=== PATIENT | male | born 1945 | race Caucasian/White ===

== ENCOUNTER 2016-10-14 18:15 | Observation (INO) | payer MEDICARE, OTHER ==
[2016-10-15 00:19] LABS: Urine Bilirubin Negative (Negative); Urine Glucose 3+(>=500 mg/dL) (Negative); Urine Nitrite Negative (Negative)
[2016-10-15 00:20] LABS: Hematocrit 36 % (42-52); Hemoglobin 11.8 g/dl (14.0-18.0); Mean Corpuscular HGB Conc 33 g/dl (31-36); Mean Corpuscular Hemoglobin 29 pg (27-31); Mean Corpuscular Volume 90 fL (80-94); Mean Platelet Volume 9 um3 (7.4-10.4); Red Blood Count 4.05 10^6/ul (4.0-5.4); Red Cell Distribution Width 14 % (10.5-15); White Blood Count 11.4 10^3/ul (3.5-10.8)
[2016-10-15 00:22] LABS: Albumin 3.9 g/dL (3.2-5.2); BUN/Creatinine Ratio 21.8 (8-20); Calcium 9.4 mg/dL (8.6-10.3); EGFR African American 44.5 (>60); EGFR Non-African American 34.6 (>60); Potassium 3.9 mmol/L (3.5-5.0); Total Bilirubin 0.3 mg/dL (0.2-1.0); Total Protein 7.9 g/dL (6.4-8.9)
[2016-10-15 00:24] LABS: Troponin I 0.02 ng/mL (<0.04)
[2016-10-15 00:32] LABS: Add Diff/Slide Review? Slide Review Added; Comments Flag Yes
[2016-10-15] MEDS ORDERED: Docusate CAP* 100 MG PO PRN (01:36)
[2016-10-15] MEDS ORDERED: Al Hydrox/Mg Hydrox/Simet LIQ* 30 ML UDC PO PRN (01:36)
[2016-10-15] MEDS ORDERED: Senna TAB PO PRN (01:36)
[2016-10-15] MEDS ORDERED: Ondansetron INJ* 2 MG/ML VIAL IV PRN (01:36)
[2016-10-15] MEDS ORDERED: Acetaminophen TAB* 325 MG PO PRN (01:36)
[2016-10-15] MEDS ORDERED: Dextrose 50% Syringe 50 ML* 25 GM/50 ML SYRINGE IV PUSH PRN (01:38)
--- NOTE | 2016-10-15 03:10 | HP ---
HISTORY AND PHYSICAL: DATE OF ADMISSION: 10/15/16 TIME OF EVALUATION: 0100 hours. PRIMARY CARE PHYSICIAN: Byron Carrillo MD CHIEF COMPLAINT: Weakness. HISTORY OF PRESENT ILLNESS: This is a 71-year-old male with a past medical history of small cell lung carcinoma diagnosed in 2011, status post chemo and radiation, diabetes and hypertension who presented to the emergency room with weakness and inability to stand or sit up. The patient states 3 days ago, he began with flu- like symptoms. He has been in bed most of the day and then today, he noticed he was unable to sit up or stand. He called EMS and was brought to the emergency room for further evaluation. The patient denies any fever. He still has a residual cough. No nausea, vomiting or diarrhea. No chest pain or shortness of breath. No rash. No night sweats and no changes in his weight. He denies any changes in his stool or urinary incontinence. He states he is weak all over. He denies any fall. He denies any urinary symptoms. In the emergency room, the patient had labs done. There was a concern for a spinal cord injury or compression. Dr. Reeves was notified and recommended doing CT with contrast, but nothing emergent to be done with his metastatic disease. However, due to patient's CKD, doing CAT scan with contrast was contraindicated for the risk of contrast-induced nephropathy. The patient in the emergency room had labs. He had a chest x-ray and he was referred to the hospitalist service for further evaluation. PAST MEDICAL HISTORY: 1. Small cell lung carcinoma, status post chemo and radiation, followed by Dr. Estevez. 2. Diabetes. 3. Hypertension. 4. Hyperlipidemia. 5. CKD. 6. Macular degeneration. MEDICATIONS: The patient is unsure of what medication he takes. ALLERGIES: CODEINE. SOCIAL HISTORY: He lives at home with his , Donya, who is his healthcare proxy. He quit smoking 15 years ago. He is unable to tell how much he smoked at that time. No alcohol use. 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 CODE STATUS: Full code. REVIEW OF SYSTEMS: As mentioned in the HPI. FAMILY HISTORY: Reviewed and noncontributory. PHYSICAL EXAMINATION GENERAL: In no acute distress. VITAL SIGNS: Temp 98.2, pulse 87, respiratory rate 18, oxygen saturation is 98 % on room air, blood pressure 148/62. HEENT: Oropharynx: Mucous membranes are moist. Pupils are equal, round, and reactive to light and anicteric. Head normocephalic. NECK: Supple. No lymphadenopathy. No nuchal rigidity. RESPIRATORY: Diminished breath sounds. No wheeze, rhonchi or rales. CARDIAC: Regular rate and rhythm with a systolic murmur. ABDOMEN: Soft, nontender and nondistended. EXTREMITIES: No clubbing, cyanosis or edema. +1 DP. NEUROLOGIC: Cranial nerves II through XII intact. Alert and oriented x3. Negative pronator drift. Patient with equal and symmetric lower and upper muscle strength. He has difficulty sitting up and inability to stand up. ASSESSMENT AND PLAN: This is a 71-year-old male with a past medical history of small cell lung carcinoma, status post chemoradiation who recently had a flu who presents to the emergency room with weakness and inability to stand up. Weakness. Assessment: It is unclear as to the etiology behind his weakness. I wonder if this is deconditioning in the setting of recent flu-like symptoms as there is no significant focal deficits on his exam other than diffuse weakness. His laboratory data is not remarkable either. He does not show any evidence of myositis, which can happen post-influenza. Plan: We will admit him to [address] [place] [address]. There was discussion about getting an MRI with contrast to look for spinal cord compression concerning of mets. I would defer to Oncology consultation to see see if this is indicated. Again, I do not note any deficit other than diffuse weakness and consider Neurology consult as there is concern for other neurologic process considering Gu[place]ain[place], though this does not appear to be that either. We will also order PT consult. CHRONIC MEDICAL PROBLEMS: 1. The patient with diabetes. We will place him on lispro sliding scale and need to obtain his med rec to order his medications accordingly. 2. FEN: We will place him on a diabetic diet. 3. DVT prophylaxis. He scores high risk, placed him on heparin subcu t.i.d. 4. Code status: Full code. TIME SPENT: Greater than 50 minutes was spent doing the history and physical, more than half the time spent in direct patient contact. CC: Byron Carrillo MD * [id number]/[facility] #: [id number] [facility]
[2016-10-15] MEDS ORDERED: Heparin VIAL(*) 5000 UNITS/ML VIAL (FIVE THOUSAND) SUBCUT SCH (06:00)
--- NOTE | 2016-10-15 07:22 | RAD ---
INDICATION: Weakness COMPARISON: Chest x-ray September 23, 2013 TECHNIQUE: Single AP portable view of the chest was obtained. FINDINGS: Image quality is compromised due to the relative inferiority of a portable chest x-ray. There is a right subclavian vein Mediport with the tip in the superior vena cava. The heart and mediastinum exhibit normal size and contour. Along the medial aspect of the left upper lobe there is linear density in the appearance of peribronchial cuffing that is similar in appearance to the previous chest x-ray. Elsewhere the lungs are grossly clear. There is no evidence of a large pleural effusion. Visualized bones are normal for the patient's age. IMPRESSION: No radiographic evidence for acute cardiopulmonary abnormality on this portable chest x-ray.
[2016-10-15 07:28] VITALS: BP 122/69
[2016-10-15] MEDS ORDERED: Insulin LISPRO* 1 UNITS UNIT SUBCUT SCH (07:30)
[2016-10-15] MEDS: Insulin LISPRO* 1 UNITS UNIT SUBCUT SCH ×2 (09:07→09:08)
--- NOTE | 2016-10-15 21:15 | PN ---
Hospitalist Progress Note . HOSPITALIST DISCHARGE NOTE: See dc instructions and summary by me. Patient stable for dc dc instructions reviewed with the patient at the bedside. DC patient home today.
--- NOTE | 2016-10-16 20:04 | DS ---
DISCHARGE SUMMARY: DATE OF ADMISSION: 10/15/16 DATE OF DISCHARGE: 10/15/16 STATUS IN HOSPITAL: Observation. PRIMARY CARE PROVIDER: Byron Carrillo MD, [facility]. PRINCIPAL DISCHARGE DIAGNOSIS: Weakness secondary to prolonged sitting without usual exercise regimen - resolved with hydration and several PT sessions. SECONDARY DIAGNOSES: 1. History of small cell lung carcinoma status post chemo and radiation - followed by Dr. Estevez. 2. Diabetes. 3. Hypertension. 4. Hyperlipidemia. 5. Chronic kidney disease. 6. Macular degeneration. DISCHARGE MEDICATION REGIMEN: Unchanged from admission. HISTORY OF PRESENT ILLNESS: Please see the H and P by Dr. Yesi Heath only hours before this discharge. In brief, Mr. Shah is a 71-year-old man with a history of small cell lung cancer in 2011, status post chemo and radiation as well as a history of diabetes and hypertension, who presented to the emergency room with weakness and inability to stand or sit up. The patient had a recent flu-like illness. The patient was in bed most of the day and then could not get up or stand. There was no nausea, vomiting, or diarrhea. There was poor oral intake. Labs were generally unremarkable. There was initial concern for a neurologic event with the possibility of cancer recurrence and metastases. The patient showed no focality in his neuro exam and the admitting physician was less concerned than the initial ED evaluation. The patient was brought to [address] [place] [address] and was hydrated. He spontaneously improved and was ambulating on the unit by the time I met him early in the morning on 10/15/15. The patient was ready to go home and he was accompanied by his and daughter. The patient has no medication changes intended and can go back to his usual activity. I recommend that he avoid prolonged periods of immobility as he deteriorates and needs PT to recover. He is particularly dependent on the [facility] and I stated that if that closes for some reason, he should find an alternative place to do his daily exercises which greatly benefit him. CONDITION ON DISCHARGE: Stable. CC: Byron Carrillo MD* [id number]/[facility] #: [id number] MTDD
--- NOTE | 2016-10-17 07:50 | ED ---
Courtney Villaseñor Rebecca, scribed for Hira Ellison MD on 10/14/16 at 2216 . Neurological HPI - HPI Summary HPI Summary: Pt is a 71 y/o M BIBA who presents to ED s/p fall c/o lower extremity weakness. LE weakness began gradually "a few days ago," particularly worse todayand has been constant since onset. Pt cannot stand up or bear weight. Sx aggravated and alleviated by nothing. Denies any trauma from fall. Additionally c/o sore throat, nasal congestion, cough, increased urinary frequency. Denies stool incontinence, fever, [place], UE weakness. Pt denies any pain including neck, back UE and abd pain. Pt fell tonight at 1700 and was unable to get up. No PMHx enlarged prostate. PMHx small cell lung CA (last treatment 4 years ago). IF THERE IS ONE, PLEASE SEE DICTATION BY DR. ELLISON FOR FURTHER INFORMATION. - History of Current Complaint Chief Complaint: EDWeakness Stated Complaint: GENERAL WEAKNESS Time Seen by Provider: 10/14/16 21:59 Hx Obtained From: Patient Onset/Duration: Gradual Onset, Started days ago - "a few days ago", Still Present, Worse Since - today Timing: Constant Pain Intensity: 0 Pain Scale Used: 0-10 Numeric Character: Weak - Bilateral LE weakness Aggravating: Nothing Alleviating: Nothing Associated Signs and Symptoms: Positive: Weakness - LE weakness, Sinus Pressure - congestion. Negative: Headache, Pain, Fever, Neck Pain/Stiffness - Allergy/Home Medications Allergies/Adverse Reactions: Allergies Allergy/AdvReac Type Severity Reaction Status Date / Time Codeine Allergy Rash Verified 06/20/16 08:23 PMH/Surg Hx/FS Hx/Imm Hx Endocrine/Hematology History: Reports: Hx Blood Transfusions, Hx Diabetes, Hx Anemia Denies: Hx Anticoagulant Therapy, Hx Systemic Lupus Erythematosus, Hx Thyroid Disease Cardiovascular History: Reports: Hx Hypercholesterolemia, Hx Hypertension, Hx Rheumatic Fever Denies: Hx Aneurysm, Hx Angina, Hx Congenital Heart Disease, Hx Congestive Heart Failure, Hx Deep Vein Thrombosis, Hx Pacemaker/ICD, Other Cardiovascular Problems/Disorders Respiratory History: Reports: Hx Lung Cancer, Hx Pulmonary Embolism, Hx Sleep Apnea, Other Respiratory Problems/Disorders - blood clot in long on coumadin Denies: Hx Asthma, Hx Chronic Obstructive Pulmonary Disease (COPD) GI History: Denies: Other GI Disorders History: Reports: Hx Renal Disease - diabetic related impaired kidney function, Other Problems/Disorders - currently elevated bun/creat Denies: Hx Dialysis Musculoskeletal History: Denies: Hx Rheumatoid Arthritis Sensory History: Reports: Hx Contacts or Glasses, Hx Macular Degeneration - left eye, Hx Hearing Aid, Hx Hearing Problem Opthamlomology History: Reports: Hx Contacts or Glasses, Hx Macular Degeneration - left eye Neurological History: Reports: Hx Seizures, Other Neuro Impairments/Disorders - Past hx seizure activity, no treatment at this time Denies: Hx Dementia Psychiatric History: Reports: Hx Anxiety, Hx Depression Denies: Hx Panic Disorder, Hx Substance Abuse - Cancer History Cancer Type, Location and Year: LUNG- DX 4 YEARS AGO Hx Chemotherapy: Yes Hx Radiation Therapy: Yes - Surgical History Surgery Procedure, Year, and Place: appendectomy age 11, hernia repair , uvula removed r/t [place] apnea [place] - Immunization History Date of Tetanus Vaccine: UNKNOWN Infectious Disease History: No Infectious Disease History: Reports: Hx Shingles Denies: Hx Hepatitis, Hx Human Immunodeficiency Virus (HIV), Traveled Outside the [place] in Last 30 Days - Family History Known Family History: Positive: Cardiac Disease, Other - CA - Social History Occupation: Retired Alcohol Use: Daily Substance Use Type: Reports: None Smoking Status (MU): Former Smoker Type: Cigarettes Have You Smoked in the Last Year: No Review of Systems - ROS Summary Review of Systems Summary: IF THERE IS ONE, PLEASE SEE DICTATION BY DR. ELLISON FOR FURTHER INFORMATION. Negative: Fever Positive: Sore Throat, Other - Nasal congestion Positive: Cough Negative: Abdominal Pain Negative: incontinence Negative: Arthralgia - Denies neck, back or UE pain Positive: Weakness - LE weakness; Denies UE weakness. Negative: Headache All Other Systems Reviewed And Are Negative: Yes Physical Exam - Summary Physical Exam Summary: GENERAL: Awake, alert, oriented, no acute distress, very pleasant, normal phonation HEENT: Head is normocephalic, atraumatic, pupils equal round reactive to light, no photophobia, extraocular muscles intact, no facial droop, anicteric sclera, pink conjunctiva, mucous membranes moist, no erythema, no discharge, no lesions , neck is soft, neck is supple, no carotid bruit , trachea is midline, no JVD CARDIAC: Regular rate and rhythm, S1, S2, no rub, no murmur, no gallop, 2+ radial and pedal pulses bilaterally RESPIRATORY: Clear to auscultation bilaterally with no rales, rhonchi, or wheezes, non-tender ABDOMEN: Bowel sounds positive, no bruit, soft non-tender, no CVA tenderness EXTREMITIES: No edema, warm, dry, moving all extremities in a grossly normal manner NEUROLOGICAL: Cranial nerves II through XII intact, five out of five flexor and extensor strength in upper extremities symmetrically, 2+ DTRs in upper and lower extremities symmetrically, no pronator drift, normal finger nose finger, normal rapid alternating movements, negative Babinski, normal sensation in all extremities, 4/5 hip extensor strength bilaterally in the lower extremities RECTAL: slightly decreased rectal tone IF THERE IS ONE, PLEASE SEE DICTATION BY DR. ELLISON FOR FURTHER INFORMATION. Triage Information Reviewed: Yes Vital Signs On Initial Exam: Initial Vitals Temp Pulse Resp BP Pulse Ox 98.2 F 87 18 148/62 98 10/14/16 19:11 10/14/16 19:11 10/14/16 19:11 10/14/16 19:11 10/14/16 19:11 Vital Signs Reviewed: Yes Diagnostics - Vital Signs Vital Signs Temp Pulse Resp BP Pulse Ox 10/14/16 19:11 98.2 F 87 18 148/62 98 - Laboratory Lab Results: Lab Results 10/14/16 10/14/16 10/14/16 Range/Units 23:55 23:55 23:55 WBC 11.4 H (3.5-10.8) 10^3/ul RBC 4.05 (4.0-5.4) 10^6/ul Hgb 11.8 L (14.0-18.0) g/dl Hct 36 L (42-52) % MCV 90 (80-94) fL MCH 29 (27-31) pg MCHC 33 (31-36) g/dl RDW 14 (10.5-15) % Plt Count 141 L (150-450) 10^3/ul MPV 9 (7.4-10.4) um3 Neut % (Auto) 73.0 (38-83) % Lymph % (Auto) 8.9 L (25-47) % [place] % (Auto) 16.0 H (1-9) % Eos % (Auto) 1.7 (0-6) % Baso % (Auto) 0.4 (0-2) % Absolute Neuts (auto) 8.3 H (1.5-7.7) 10^3/ul Absolute Lymphs (auto) 1.0 (1.0-4.8) 10^3/ul Absolute Monos (auto) 1.8 H (0-0.8) 10^3/ul Absolute Eos (auto) 0.2 (0-0.6) 10^3/ul Absolute Basos (auto) 0 (0-0.2) 10^3/ul Absolute Nucleated RBC 0.02 10^3/ul Nucleated RBC % 0.2 INR (Anticoag Therapy) 0.94 (0.89-1.11) APTT 40.2 H (26.0-36.3) seconds Sodium 128 L (133-145) mmol/L Potassium 3.9 (3.5-5.0) mmol/L Chloride 105 (101-111) mmol/L Carbon Dioxide 22 (22-32) mmol/L Anion Gap 1 L (2-11) mmol/L BUN 42 H (6-24) mg/dL Creatinine 1.93 H (0.67-1.17) mg/dL Est GFR ( Amer) 44.5 (>60) Est GFR (Non-Af Amer) 34.6 (>60) BUN/Creatinine Ratio 21.8 H (8-20) Glucose 283 H (70-100) mg/dL Lactic Acid (0.5-2.0) mmol/L Calcium 9.4 (8.6-10.3) mg/dL Total Bilirubin 0.30 (0.2-1.0) mg/dL AST 17 (13-39) U/L ALT 24 (7-52) U/L Alkaline Phosphatase 94 (34-104) U/L Total Creatine Kinase 49 (10-223) U/L CK-MB (CK-2) 2.1 (0.6-6.3) ng/mL Myoglobin 105.3 (17.4-105.7) ng/mL Troponin I 0.02 (<0.04) ng/mL B-Natriuretic Peptide ( - 100) pg/mL Total Protein 7.9 (6.4-8.9) g/dL Albumin 3.9 (3.2-5.2) g/dL Globulin 4.0 (2-4) g/dL Albumin/Globulin Ratio 1.0 (1-3) Urine Color Urine Appearance Urine pH (5-9) Ur Specific [place] (1.010-1.030) Urine Protein (Negative) Urine Ketones (Negative) Urine Blood (Negative) Urine Nitrate (Negative) Urine Bilirubin (Negative) Urine Urobilinogen (Negative) Ur Leukocyte Esterase (Negative) Urine Glucose (Negative) Urine Ascorbic Acid (Negative) 10/14/16 10/14/16 10/14/16 Range/Units 23:55 23:55 23:55 WBC (3.5-10.8) 10^3/ul RBC (4.0-5.4) 10^6/ul Hgb (14.0-18.0) g/dl Hct (42-52) % MCV (80-94) fL MCH (27-31) pg MCHC (31-36) g/dl RDW (10.5-15) % Plt Count (150-450) 10^3/ul MPV (7.4-10.4) um3 Neut % (Auto) (38-83) % Lymph % (Auto) (25-47) % [place] % (Auto) (1-9) % Eos % (Auto) (0-6) % Baso % (Auto) (0-2) % Absolute Neuts (auto) (1.5-7.7) 10^3/ul Absolute Lymphs (auto) (1.0-4.8) 10^3/ul Absolute Monos (auto) (0-0.8) 10^3/ul Absolute Eos (auto) (0-0.6) 10^3/ul Absolute Basos (auto) (0-0.2) 10^3/ul Absolute Nucleated RBC 10^3/ul Nucleated RBC % INR (Anticoag Therapy) (0.89-1.11) APTT (26.0-36.3) seconds Sodium (133-145) mmol/L Potassium (3.5-5.0) mmol/L Chloride (101-111) mmol/L Carbon Dioxide (22-32) mmol/L Anion Gap (2-11) mmol/L BUN (6-24) mg/dL Creatinine (0.67-1.17) mg/dL Est GFR ( Amer) (>60) Est GFR (Non-Af Amer) (>60) BUN/Creatinine Ratio (8-20) Glucose (70-100) mg/dL Lactic Acid 1.3 (0.5-2.0) mmol/L Calcium (8.6-10.3) mg/dL Total Bilirubin (0.2-1.0) mg/dL AST (13-39) U/L ALT (7-52) U/L Alkaline Phosphatase (34-104) U/L Total Creatine Kinase (10-223) U/L CK-MB (CK-2) (0.6-6.3) ng/mL Myoglobin (17.4-105.7) ng/mL Troponin I (<0.04) ng/mL B-Natriuretic Peptide 160 H ( - 100) pg/mL Total Protein (6.4-8.9) g/dL Albumin (3.2-5.2) g/dL Globulin (2-4) g/dL Albumin/Globulin Ratio (1-3) Urine Color Straw Urine Appearance Clear Urine pH 5.0 (5-9) Ur Specific [place] 1.016 (1.010-1.030) Urine Protein Negative (Negative) Urine Ketones Negative (Negative) Urine Blood Negative (Negative) Urine Nitrate Negative (Negative) Urine Bilirubin Negative (Negative) Urine Urobilinogen Negative (Negative) Ur Leukocyte Esterase Negative (Negative) Urine Glucose 3+(>=500 mg/dl) H (Negative) Urine Ascorbic Acid * H (Negative) Result Diagrams: 10/14/16 23:55 10/14/16 23:55 Lab Statement: Any lab studies that have been ordered have been reviewed, and results considered in the medical decision making process. - Radiology CXR Xray Interpretation: No Acute Changes Radiology Interpretation Completed By: ED Physician Course/Dx - Diagnoses Provider Diagnoses: bilateral lower extremity weakness - Physician Notifications Discussed Care of Patient With: Dr. Reeves, oncologist, who advised that pt receive a CT brain and CT thoraco/lumbar with contrast and admit pt no matter what the results are. Dr. Heath, hospitalist, at [phone] who agrees to admit pt. Time Discussed With Above Provider: 23:35 Discharge - Discharge Plan Condition: Good Disposition: ADMITTED TO [facility] The documentation as recorded by the Courtney bella Rebecca accurately reflects the service I personally performed and the decisions made by , Hira Ellison MD.
== END 2016-10-15 11:30 | disposition home or self-care (01) ==
LOC: ED 18:15 → INTOOBSV 10-15 01:36 → MED 10-15 01:36
PROVIDERS: ADMIT Pediatrics; ATTEND Internal Medicine
DX: R53.1 Weakness (principal); E11.9 Type 2 diabetes mellitus without complications; I10 Essential (primary) hypertension; E78.5 Hyperlipidemia, unspecified; I12.9 Hypertensive chronic kidney disease with stage 1 through stage 4 chronic kidney disease, or unspecified chronic kidney disease; N18.9 Chronic kidney disease, unspecified; H35.30 Unspecified macular degeneration; Z85.118 Personal history of other malignant neoplasm of bronchus and lung; Z88.5 Allergy status to narcotic agent; Z87.891 Personal history of nicotine dependence
CPT/HCPCS: 36415; 71010; 80053; 81003; 82272; 82550; 82553; 83605; 83874; 83880; 84484; 85025; 85610; 85730; 96372; 99284; G0378; G8978-GP-CI; G8979-GP-CI; G8980-GP-CI; J1644

== ENCOUNTER 2017-04-29 15:22 | Emergency (ER) | payer MEDICARE, OTHER ==
[2017-04-29] MEDS ORDERED: NS 0.9% 1000 ML* 2,000 ML IV ONE (15:41)
[2017-04-29] MEDS ORDERED: Atropine SYRINGE* 0.1 MG/ML 10 ML SYRINGE (1 MG) IV PUSH ONE (15:41)
--- NOTE | 2017-04-29 15:46 | ED ---
Christopher Villaseñor Thomas, scribed for Mehreen Powers MD on 04/29/17 at 1533 . HPI Chest Pain - HPI Summary HPI Summary: The pt is a 71 y/o M accompanied by presenting to [facility] c/o epigastric chest pain and back pain. Pt with a h/o of lung CA s/p chemo and radiation 2 years ago. Today pt had a liver biopsy of a mass performed earlier today at 10: 00 [place] [facility] Pt's states procedure "they had a hard time because it was deep." Pt was discharged at 13:00. He was given fentanyl during the procedure and the procedure seemed to take longer than expected. Upin arrival home, pt complained of chest pain and had 3 episodes of vomiting. contact Dr. Estevez and was instructed to return immediately to the ED. was driving there when pt started to report more pain and so stopped here. Pt denies poole, vision changes. Denies sob. c/o chest pain and back pain No cardiac hx . 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 Onset/Duration: Started Hours Ago - < 1 hour Timing: Constant Initial Severity: Moderate Current Severity: Severe Pain Intensity: 9 Chest Pain Location: Discrete at: - epigastric Chest Pain Radiates: No Character: Other: - back pain, abdominal pain Alleviating Factor(s): Nothing Associated Signs and Symptoms: Positive: Weakness, Dizziness, Nausea, Abdominal Pain, Vomiting - Additional Pertinent History Primary Care Physician: [id number] - Allergy/Home Medications Allergies/Adverse Reactions: Allergies Allergy/AdvReac Type Severity Reaction Status Date / Time Codeine Allergy Rash Verified 04/27/17 16:36 PMH/Surg Hx/FS Hx/Imm Hx Previously Healthy: No Endocrine/Hematology History: Reports: Hx Anticoagulant Therapy - ASA, Hx Blood Transfusions, Hx Diabetes, Hx Anemia Denies: Hx Systemic Lupus Erythematosus, Hx Thyroid Disease Cardiovascular History: Reports: Hx Hypercholesterolemia, Hx Hypertension, Hx Rheumatic Fever Denies: Hx Aneurysm, Hx Angina, Hx Congenital Heart Disease, Hx Congestive Heart Failure, Hx Deep Vein Thrombosis, Hx Pacemaker/ICD, Other Cardiovascular Problems/Disorders Respiratory History: Reports: Hx Lung Cancer, Hx Pulmonary Embolism, Hx Sleep Apnea, Other Respiratory Problems/Disorders - blood clot in long on coumadin Denies: Hx Asthma, Hx Chronic Obstructive Pulmonary Disease (COPD) GI History: Denies: Other GI Disorders History: Reports: Hx Renal Disease - diabetic related impaired kidney function, Other Problems/Disorders - currently elevated bun/creat Denies: Hx Dialysis Musculoskeletal History: Denies: Hx Rheumatoid Arthritis Sensory History: Reports: Hx Contacts or Glasses, Hx Macular Degeneration - left eye, Hx Hearing Aid, Hx Hearing Problem Opthamlomology History: Reports: Hx Contacts or Glasses, Hx Macular Degeneration - left eye Neurological History: Reports: Hx Seizures, Other Neuro Impairments/Disorders - Past hx seizure activity, no treatment at this time Denies: Hx Dementia Psychiatric History: Reports: Hx Anxiety, Hx Depression Denies: Hx Panic Disorder, Hx Substance Abuse - Cancer History Cancer Type, Location and Year: LUNG- DX 4 YEARS AGO Hx Chemotherapy: Yes Hx Radiation Therapy: Yes - Surgical History Surgery Procedure, Year, and Place: appendectomy age 11, hernia repair , uvula [place] r[place] - Immunization History Date of Tetanus Vaccine: UNKNOWN Infectious Disease History: Reports: Hx Shingles Denies: Hx Hepatitis, Hx Human Immunodeficiency Virus (HIV), Traveled Outside the US in Last 30 Days - Family History Known Family History: Positive: Cardiac Disease, Other - CA - Social History Occupation: Retired Lives: With Family Alcohol Use: Daily Alcohol Amount: 1 beer with Substance Use Type: Reports: None Smoking Status (MU): Former Smoker Type: Cigarettes Have You Smoked in the Last Year: No Review of Systems Positive: Other - weak, lightheaded Eyes: Negative ENT: Negative Positive: Chest Pain Respiratory: Negative Positive: Abdominal Pain, Vomiting, Nausea Genitourinary: Negative Musculoskeletal: Negative Skin: Negative Positive: Weakness Psychological: Normal All Other Systems Reviewed And Are Negative: Yes Physical Exam Triage Information Reviewed: Yes Vital Signs Reviewed: Yes Appearance: Positive: Ill-Appearing - Pt very ill appearing, pale, diaphoretic in discomfort Skin: Positive: Other - pale, diaphoretic Eyes: Positive: Conjunctiva Clear ENT: Positive: Hearing grossly normal Neck: Positive: Nontender Respiratory/Lung Sounds: Positive: Clear to Auscultation, Breath Sounds Present , Decreased Breath Sounds Cardiovascular: Positive: Bradycardia, Other - pale - CBT 2 sec Abdomen Description: Positive: Soft. Negative: Nontender - diffusely tender, epigstric, RUQ Bowel Sounds: Positive: Hypoactive Musculoskeletal: Positive: Other - normal tone - difficulty transferring second to weakness Neurological: Positive: Alert, Oriented to Person Place, Time, Other - pround weak Psychiatric: Positive: Normal AVPU Assessment: Alert - [place] Coma Scale Best Eye Response: 4 - Spontaneous Best Motor Response: 6 - Obeys Commands Best Verbal Response: 5 - Oriented Re-Evaluation - Re-Evaluation Second Eval Re-Evaluation Time: 15:20 Change: Improved - Pt chest pain resolved following atropine and improvement of HR BP improved 150 systolic Pt continued to reported "my kidneys are killing me." Chest Pain Course/Dx - Course Assessment/Plan: Pt presents through amb triage. Pt s/p liver biopsy this morning for liver mass. Pt is on ASA 81mg. Pt with rapid progression n/v, chest pain and back pain. Pt noted to be proufoundly weak, bradycardic and pale. Concern for retroperitoneal bleed, hypoglycemia, CAD. Will place 2 iV, atropine , IVF, POC glucose. EKG. rapid transfer [place] [facility] code cart at bedside, patches applied. oxygen - Diagnoses Provider Diagnoses: Bradycardia, Hypotension, Chest pain - Provider Notifications Discussed Care Of Patient With: Dr. Ricardo Time Discussed With Above Provider: 15:30 Discharge - Discharge Plan Condition: Guarded Disposition: TRANS HIGHER LVL OF CARE FAC Referrals: Byron Carrillo MD [Primary Care Provider] - The documentation as recorded by the Christopher bella Thomas accurately reflects the service I personally performed and the decisions made by me, Mehreen Powers MD.
[2017-04-29 16:06] VITALS: BP 115/64
== END 2017-04-29 15:40 | disposition short-term general hospital (02) ==
LOC: UCEAST 15:22
DX: R00.1 Bradycardia, unspecified (principal); I95.9 Hypotension, unspecified; R07.9 Chest pain, unspecified; Z85.118 Personal history of other malignant neoplasm of bronchus and lung; Z98.890 Other specified postprocedural states; Z92.21 Personal history of antineoplastic chemotherapy; Z92.3 Personal history of irradiation; Z79.01 Long term (current) use of anticoagulants; I26.99 Other pulmonary embolism without acute cor pulmonale; I27.82 Chronic pulmonary embolism; Z95.0 Presence of cardiac pacemaker; Z87.891 Personal history of nicotine dependence
CPT/HCPCS: 93005; 96374; 99215; 99291; G0463; J0461

== ENCOUNTER 2017-04-29 16:09 | Inpatient (IN) | payer MEDICARE, OTHER ==
[2017-04-29] MEDS ORDERED: NS 0.9% 1000 ML* 1,000 ML IV ONE (16:11)
[2017-04-29 16:30] LABS: Hematocrit 33 % (42-52); Hemoglobin 10.7 g/dl (14.0-18.0); Mean Corpuscular HGB Conc 33 g/dl (31-36); Mean Corpuscular Hemoglobin 30 pg (27-31); Mean Corpuscular Volume 92 fL (80-94); Mean Platelet Volume 8 um3 (7.4-10.4); Red Blood Count 3.55 10^6/ul (4.0-5.4); Red Cell Distribution Width 14 % (10.5-15); White Blood Count 11.2 10^3/ul (3.5-10.8)
[2017-04-29 16:47] LABS: Albumin 3.5 g/dL (3.2-5.2); BUN/Creatinine Ratio 21.2 (8-20); C Reactive Protein 9.78 mg/L (< 5.00); Calcium 8.7 mg/dL (8.6-10.3); EGFR African American 44.5 (>60); EGFR Non-African American 34.6 (>60); Globulin 3.7 g/dL (2-4); Potassium 4.2 mmol/L (3.5-5.0); Total Bilirubin 0.3 mg/dL (0.2-1.0); Total Protein 7.2 g/dL (6.4-8.9)
[2017-04-29 16:48] LABS: Troponin I 0.01 ng/mL (<0.04)
--- NOTE | 2017-04-29 16:57 | RAD ---
CLINICAL HISTORY: Abdominal pain status post liver biopsy COMPARISON: Liver biopsy dated April 29, 2017, CT dated April 27, 2017 TECHNIQUE: Multiple contiguous axial CT scans were obtained of the abdomen and pelvis, without intravenous contrast enhancement. Coronal and sagittal multiplanar reformations are submitted for review. FINDINGS: The study is limited by the lack of intravenous contrast. This limits evaluation of the solid organs and vasculature. LUNG BASES: The lung bases are clear. LIVER: Again noted is a rounded mass within the right lobe of liver posteriorly. There is mild high attenuation material surrounding this lesion measuring up to 3 centers in size. There is no perihepatic fluid collection. BILE DUCTS: There is no intrahepatic or extrahepatic biliary dilatation. GALLBLADDER: The gallbladder is normal, without pericholecystic inflammatory change. PANCREAS: The pancreas is normal, without mass or ductal dilatation. SPLEEN: Normal in size and appearance. UPPER GI TRACT: Evaluation of the gastrointestinal tract is limited by incomplete gastric distention. The upper GI tract is unremarkable. SMALL BOWEL AND MESENTERY: The small bowel is normal in contour, course, and caliber. There is no obstruction or dilatation. COLON: There are multiple diverticula of the transverse colon. There is no pericolonic inflammatory change. ADRENALS: Normal bilaterally. KIDNEYS: The kidneys are normal in shape, size, contour, and axis. There is no hydronephrosis or nephrolithiasis. BLADDER: The bladder is smooth in contour. PELVIC ORGANS: The prostate gland is normal. The seminal vesicles are symmetric. AORTA: There is calcific atherosclerotic disease of the abdominal aorta and its branches, without aneurysmal dilatation IVC: Unremarkable LYMPH NODES: There is no lymphadenopathy by size criteria. ABDOMINAL WALL: There are fat-containing inguinal hernias bilaterally BONES AND SOFT TISSUES: Degenerative changes are noted of the spine OTHER: There is no retroperitoneal high attenuation material suggestive suggest retroperitoneal hemorrhage. There is no free intraperitoneal fluid or free intraperitoneal gas. The absence of intravenous contrast precludes evaluation for active extravasation. IMPRESSION: AGAIN NOTED IS A MASS OF THE RIGHT LOBE OF LIVER. THERE IS A SMALL AMOUNT OF HIGH ATTENUATION MATERIAL SURROUNDING THE LESION CONSISTENT WITH SOME DEGREE OF INTRAPARENCHYMAL HEMORRHAGE OF THE LIVER. THERE IS NO EXTRACAPSULAR EXTENSION. THERE IS NO PERIHEPATIC FLUID COLLECTION OR RETROPERITONEAL FLUID COLLECTION. PRELIMINARY FINDINGS WERE DISCUSSED WITH DR. PRADHAN IN THE EMERGENCY DEPARTMENT AT 4:53 PM ON APRIL 29, 2017.
[2017-04-29] MEDS ORDERED: fentaNYL* 50 MCG/ML 2 ML VIAL (100 MCG VIAL) IV SLOW PU ONE (17:14)
[2017-04-29] MEDS ORDERED: Ondansetron INJ* 2 MG/ML VIAL IV ONE (17:32)
[2017-04-29] MEDS ORDERED: Ondansetron INJ* 2 MG/ML VIAL IV PRN (18:13)
[2017-04-29] MEDS: HYDROmorphone* 1 MG/ML 1 ML SYR IV SLOW PU PRN (18:31)
--- NOTE | 2017-04-29 18:54 | ED ---
Nicole Villaseñor Alfonso, scribed for Harjinder Ricardo MD on 04/29/17 at 1621 . Abdominal Pain/Male - HPI Summary HPI Summary: This patient is a 71 year old M BIBA to [facility] with a chief complaint of diffuse abdominal pain since a liver biopsy at 1100 today. The pain radiates into his flanks. Pt rates the pain 9/10 in severity. Symptoms aggravated and alleviated by nothing. Pt reports diaphoresis, paleness, nausea, CP (resolved), and SOB. Pt last ate at 1200 today. PMHx of DM, HLD, and lung cancer with metastasis to the liver. Thus, he had a liver biopsy performed by Dr. Suárez (interventional radiology) this morning. The pt was discharge home and developed the above symptoms. He went to the [facility] and the patient was noted to have a slow heart rate. They reported his heartrate was in the 30s and he was hypotensive. Dr. Powers gave the pt IV fluids and atropine and now the heart rate is in the upper 60s. Therefore, the patient was sent to [facility] for further work up and management. - History of Current Complaint Chief Complaint: EDAbdPain Stated Complaint: CHEST PAIN Time Seen by Provider: 04/29/17 16:10 Hx Obtained From: Patient, Medical Records Onset/Duration: Sudden Onset, Lasting Hours - 1100 today, Still Present Timing: Constant Severity Initially: Severe Severity Currently: Severe Pain Intensity: 9 Pain Scale Used: 0-10 Numeric Location: Diffuse Radiates: Yes Radiates to: Flank - Flanks Aggravating Factor(s): Nothing Alleviating Factor(s): Nothing Associated Signs And Symptoms: Positive: Other - Positive diaphoresis, paleness , nausea, CP (resolved), and SOB. - Allergies/Home Medications Allergies/Adverse Reactions: Allergies Allergy/AdvReac Type Severity Reaction Status Date / Time Codeine Allergy Rash Verified 04/27/17 16:36 PMH/Surg Hx/FS Hx/Imm Hx Endocrine/Hematology History: Reports: Hx Anticoagulant Therapy - ASA, Hx Blood Transfusions, Hx Diabetes, Hx Anemia Denies: Hx Systemic Lupus Erythematosus, Hx Thyroid Disease Cardiovascular History: Reports: Hx Hypercholesterolemia, Hx Hypertension, Hx Rheumatic Fever Denies: Hx Aneurysm, Hx Angina, Hx Congenital Heart Disease, Hx Congestive Heart Failure, Hx Deep Vein Thrombosis, Hx Pacemaker/ICD, Other Cardiovascular Problems/Disorders Respiratory History: Reports: Hx Lung Cancer, Hx Pulmonary Embolism, Hx Sleep Apnea, Other Respiratory Problems/Disorders - blood clot in long on coumadin Denies: Hx Asthma, Hx Chronic Obstructive Pulmonary Disease (COPD) GI History: Denies: Other GI Disorders History: Reports: Hx Renal Disease - diabetic related impaired kidney function, Other Problems/Disorders - currently elevated bun/creat Denies: Hx Dialysis Musculoskeletal History: Denies: Hx Rheumatoid Arthritis Sensory History: Reports: Hx Contacts or Glasses, Hx Macular Degeneration - left eye, Hx Hearing Aid, Hx Hearing Problem Opthamlomology History: Reports: Hx Contacts or Glasses, Hx Macular Degeneration - left eye Neurological History: Reports: Hx Seizures, Other Neuro Impairments/Disorders - Past hx seizure activity, no treatment at this time Denies: Hx Dementia Psychiatric History: Reports: Hx Anxiety, Hx Depression Denies: Hx Panic Disorder, Hx Substance Abuse - Cancer History Cancer Type, Location and Year: LUNG- DX 4 YEARS AGO Hx Chemotherapy: Yes Hx Radiation Therapy: Yes - Surgical History Surgery Procedure, Year, and Place: appendectomy age 11, hernia repair , [place] - Immunization History Date of Tetanus Vaccine: UNKNOWN Infectious Disease History: No Infectious Disease History: Reports: Hx Shingles Denies: Hx Hepatitis, Hx Human Immunodeficiency Virus (HIV), Traveled Outside the US in Last 30 Days - Family History Known Family History: Positive: Cardiac Disease, Other - [place] - Social History Alcohol Use: Daily Alcohol Amount: 1 beer with Substance Use Type: Reports: None Smoking Status (MU): Former Smoker Type: Cigarettes Have You Smoked in the Last Year: No Review of Systems Positive: Skin Diaphoresis Positive: Chest Pain - resolved Positive: Shortness Of Breath Positive: Abdominal Pain - diffuse and radiates to flanks, Nausea Positive: Other - Positive paleness All Other Systems Reviewed And Are Negative: Yes Physical Exam - Summary Physical Exam Summary: VITAL SIGNS: Reviewed. GENERAL: Patient is a pale and ill appearing male who is lying comfortable in the stretcher. Patient is not in any acute respiratory distress. HEAD AND FACE: Normocephalic and atraumatic. EYES: PERRLA, EOMI x 2, No injected conjunctiva. EARS: Hearing grossly intact. Ear canals and tympanic membranes are WNL. MOUTH: Oropharynx within normal limits. NECK: Supple, trachea is midline, no adenopathy, no JVD. CHEST: Symmetric, no tenderness at palpation LUNGS: Clear to auscultation bilaterally. No wheezing or crackles. CVS: RRR, S1 and S2 present, no murmurs or gallops appreciated. ABDOMEN: Incisional site in the RUQ without any abnormalities. Right CVA tenderness and RUQ tenderness. No signs of distention. Positive bowel sounds. No rebound no guarding, and no masses palpated. No abdominal bruit or pulsations. EXTREMITIES: FROM in all major joints, no edema, no cyanosis or clubbing. NEURO: Alert and oriented x 3. No acute neurological deficits. Speech is normal. SKIN: Dry and warm Triage Information Reviewed: Yes Vital Signs On Initial Exam: Initial Vitals Temp Pulse Resp BP Pulse Ox 97.0 F 68 16 154/81 96 04/29/17 16:10 04/29/17 16:10 04/29/17 16:10 04/29/17 16:10 04/29/17 16:10 Vital Signs Reviewed: Yes Diagnostics - Vital Signs Vital Signs Temp Pulse Resp BP Pulse Ox 04/29/17 16:10 97.0 F 68 16 154/81 96 - Laboratory Lab Results: Lab Results 04/29/17 04/29/17 04/29/17 Range/Units 16:20 16:20 16:20 WBC 11.2 H (3.5-10.8) 10^3/ul RBC 3.55 L (4.0-5.4) 10^6/ul Hgb 10.7 L (14.0-18.0) g/dl Hct 33 L (42-52) % MCV 92 (80-94) fL MCH 30 (27-31) pg MCHC 33 (31-36) g/dl RDW 14 (10.5-15) % Plt Count 141 L (150-450) 10^3/ul MPV 8 (7.4-10.4) um3 Neut % (Auto) 81.9 (38-83) % Lymph % (Auto) 8.6 L (25-47) % [place] % (Auto) 7.6 (1-9) % Eos % (Auto) 1.4 (0-6) % Baso % (Auto) 0.5 (0-2) % Absolute Neuts (auto) 9.2 H (1.5-7.7) 10^3/ul Absolute Lymphs (auto) 1.0 (1.0-4.8) 10^3/ul Absolute Monos (auto) 0.9 H (0-0.8) 10^3/ul Absolute Eos (auto) 0.2 (0-0.6) 10^3/ul Absolute Basos (auto) 0.1 (0-0.2) 10^3/ul Absolute Nucleated RBC 0 10^3/ul Nucleated RBC % 0 INR (Anticoag Therapy) 0.90 (0.89-1.11) APTT 67.1 H (26.0-36.3) seconds Sodium 135 (133-145) mmol/L Potassium 4.2 (3.5-5.0) mmol/L Chloride 104 (101-111) mmol/L Carbon Dioxide 24 (22-32) mmol/L Anion Gap 7 (2-11) mmol/L BUN 41 H (6-24) mg/dL Creatinine 1.93 H (0.67-1.17) mg/dL Est GFR ( Amer) 44.5 (>60) Est GFR (Non-Af Amer) 34.6 (>60) BUN/Creatinine Ratio 21.2 H (8-20) Glucose 273 H (70-100) mg/dL Lactic Acid (0.5-2.0) mmol/L Calcium 8.7 (8.6-10.3) mg/dL Total Bilirubin 0.30 (0.2-1.0) mg/dL AST 85 H (13-39) U/L ALT 94 H (7-52) U/L Alkaline Phosphatase 72 (34-104) U/L Troponin I 0.01 (<0.04) ng/mL C-Reactive Protein 9.78 H (< 5.00) mg/L Total Protein 7.2 (6.4-8.9) g/dL Albumin 3.5 (3.2-5.2) g/dL Globulin 3.7 (2-4) g/dL Albumin/Globulin Ratio 0.9 L (1-3) Amylase 41 (29-103) U/L Lipase 69 (11.0-82.0) U/L Blood Type Antibody Screen 04/29/17 04/29/17 Range/Units 16:20 16:20 WBC (3.5-10.8) 10^3/ul RBC (4.0-5.4) 10^6/ul Hgb (14.0-18.0) g/dl Hct (42-52) % MCV (80-94) fL MCH (27-31) pg MCHC (31-36) g/dl RDW (10.5-15) % Plt Count (150-450) 10^3/ul MPV (7.4-10.4) um3 Neut % (Auto) (38-83) % Lymph % (Auto) (25-47) % [place] % (Auto) (1-9) % Eos % (Auto) (0-6) % Baso % (Auto) (0-2) % Absolute Neuts (auto) (1.5-7.7) 10^3/ul Absolute Lymphs (auto) (1.0-4.8) 10^3/ul Absolute Monos (auto) (0-0.8) 10^3/ul Absolute Eos (auto) (0-0.6) 10^3/ul Absolute Basos (auto) (0-0.2) 10^3/ul Absolute Nucleated RBC 10^3/ul Nucleated RBC % INR (Anticoag Therapy) (0.89-1.11) APTT (26.0-36.3) seconds Sodium (133-145) mmol/L Potassium (3.5-5.0) mmol/L Chloride (101-111) mmol/L Carbon Dioxide (22-32) mmol/L Anion Gap (2-11) mmol/L BUN (6-24) mg/dL Creatinine (0.67-1.17) mg/dL Est GFR ( Amer) (>60) Est GFR (Non-Af Amer) (>60) BUN/Creatinine Ratio (8-20) Glucose (70-100) mg/dL Lactic Acid 1.2 (0.5-2.0) mmol/L Calcium (8.6-10.3) mg/dL Total Bilirubin (0.2-1.0) mg/dL AST (13-39) U/L ALT (7-52) U/L Alkaline Phosphatase (34-104) U/L Troponin I (<0.04) ng/mL C-Reactive Protein (< 5.00) mg/L Total Protein (6.4-8.9) g/dL Albumin (3.2-5.2) g/dL Globulin (2-4) g/dL Albumin/Globulin Ratio (1-3) Amylase (29-103) U/L Lipase (11.0-82.0) U/L Blood Type A Positive Antibody Screen Negative Result Diagrams: 04/29/17 16:20 04/29/17 16:20 Lab Statement: Any lab studies that have been ordered have been reviewed, and results considered in the medical decision making process. - Radiology CT A/P Radiology Interpretation Completed By: Radiologist - AGAIN NOTED IS A MASS OF THE RIGHT LOBE OF LIVER. THERE IS A SMALL AMOUNT OF HIGH ATTENUATION MATERIAL SURROUNDING THE LESION CONSISTENT WITH SOME DEGREE OF INTRAPARENCHYMAL HEMORRHAGE OF THE LIVER. THERE IS NO EXTRACAPSULAR EXTENSION. THERE IS NO PERIHEPATIC FLUID COLLECTION OR RETROPERITONEAL FLUID COLLECTION. - EKG 93989 Cardiac Rate: NL - BPM 68 ST Segment: Normal, Non-Specific EKG Interpretation: ST depression in V4, V5, and V6. Abdominal Pain Fem Course/Dx - Course Course Of Treatment: This patient is a 71 year old M BIBA to [facility] with a chief complaint of diffuse abdominal pain since a liver biopsy at 1100 today. The pain radiates into his flanks. Pt rates the pain 9/10 in severity. Symptoms aggravated and alleviated by nothing. Pt reports diaphoresis, paleness, nausea, CP (resolved), and SOB. Pt last ate at 1200 today. PMHx of DM, HLD, and lung cancer with metastasis to the liver. Thus, he had a liver biopsy performed by Dr. Suárez (interventional radiology) this morning. The pt was discharge home and developed the above symptoms. He went to the [facility] and the patient was noted to have a slow heart rate. They reported his heartrate was in the 30s and he was hypotensive. Dr. Powers gave the pt IV fluids and atropine and now the heart rate is in the upper 60s. Therefore, the patient was sent to [facility] for further work up and management. Assessment/Plan: Test results shows acute on chronic anemia, H&H of 10.7/33, WBC of 11.2, and acute on chronic renal failure. CT A/P reveals MASS OF THE RIGHT LOBE OF LIVER. THERE IS A SMALL AMOUNT OF HIGH ATTENUATION MATERIAL SURROUNDING THE LESION CONSISTENT WITH SOME DEGREE OF INTRAPARENCHYMAL HEMORRHAGE OF THE LIVER. THERE IS NO EXTRACAPSULAR EXTENSION. THERE IS NO PERIHEPATIC FLUID COLLECTION OR RETROPERITONEAL FLUID COLLECTION. In the ED course patient is stable. I was informed by Dr. Powers patient was bradycardic at [facility] for which he was given atropine x1 . He was hypotensive form which he was given IV fluids. In the ED patient was given more IV fluids, Zofran for nausea, and fentanyl for pain. Patient is feeling better. I discussed the case with Dr. Estevez (Oncologist) who accepted the patient for admission. Patient continues to be hemodynamically stable and A&Ox3. - Diagnoses Provider Diagnoses: Abdominal pain, Chest pain, Bradycardia - Provider Notifications Discussed Care Of Patient With: Aston Estevez Time Discussed With Above Provider: 17:27 Instructed by Provider To: Other - Consulted Dr. Estevez (Oncologist) who accepts patient for admission. Discharge - Discharge Plan Condition: Stable Disposition: ADMITTED TO [facility] The documentation as recorded by the Nicole bella Alfonso accurately reflects the service I personally performed and the decisions made by me, Harjinder Ricardo MD.
[2017-04-29] MEDS: NS 0.9% 1000 ML* 1,000 ML IV SCH (20:21)
[2017-04-29 23:54] LABS: Urine Bilirubin Negative (Negative); Urine Glucose 3+(>=500 mg/dL) (Negative); Urine Nitrite Negative (Negative)
--- NOTE | 2017-04-30 03:51 | HP ---
HISTORY AND PHYSICAL: DATE OF ADMISSION: 04/29/17 REASON FOR ADMISSION: Abdominal pain and nausea along with severe bradycardia in a postbiopsy setting. HISTORY OF PRESENT ILLNESS: Mr. Shah is a 71-year-old male, whose relative history dates back to November of 2011. At that time, he had hoarseness for about 6 week period. 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 CT scan of the chest and neck revealed a 4.5 cm mediastinal mass with adenopathy and multiple other mediastinal and hilar lymph nodes and a solitary 8 mm left lung nodule. A [place] procedure revealed small cell lung carcinoma. He was treated with a course of cisplatinum and etoposide chemotherapy with good response after 2 cycles, radiation therapy was added in the cycle 3 and he completing 6 cycles of chemotherapy. He subsequently had prophylactic cranial radiation therapy, which was completed in June 2012. Unfortunately, he developed local recurrence on chest CT. This was confirmed by PET scan and starting in September 2012, he was treated with topotecan for 6 cycles through December of 2012. He did well without any evidence of recurrent disease for 4 years. In December 2016, a new lesion was seen in the liver, it was solitary. This was biopsied. The sample was very cellular, but no malignant cells were seen. Decision was made to continue to follow this liver lesion. Repeat CT scan was obtained on 04/27/17. This revealed that the solitary liver lesion had increased in size and now measured 5.7 x 4.9 cm. This is a heterogenous mass and then increased in size from 4.2 x 4.3 cm previously. No other lesions were noted to be abnormal in the liver, no other abnormalities were noted at the lung bases or in the abdomen. Decision was made to proceed to a repeat liver biopsy, which was performed this morning. The patient was seen in the office on 04/27/17. At that time, he reported feeling well, had no significant new complaints. He had recently had skin cancer removed from his hands and was scheduled for Mohs surgery. Energy level was good, was staying active, walking 30 minutes per day, 5 days per week, appetite was good, and weight stable. No recent infections. Following the liver biopsy, which took a longer than the one previously done earlier this year and for which he had received fentanyl and Versed. He developed abdominal pain mostly in the epigastric region, reports this was about 5/10. He subsequently ate a small lunch and he was discharged to home. He reports at home, he had 3 episodes of vomiting and developed severe pain, which he rated at 10/10 in the abdomen and also radiating through to both the renal areas and the back. Our office was notified, he was advised to call the ambulance to come to the emergency room. Instead his had drove him from [place] and they stopped at the [facility] where the symptoms became even worse. He walked into the [facility], but was presyncopal. He had no shortness of breath, but did have upper abdominal pain. He was very dizzy and lightheaded. He also noticed pain into bilateral flanks and kidney regions. At [facility], he was noted to have severe bradycardia in an EKG, pulse was 28 to 30. He received a dose of atropine as well as IV fluids. Blood pressure had been low and responded appropriately. He then was transferred by ambulance to the [facility] Emergency Room. CT scan was performed in the emergency room and revealed the known liver lesion. There was a small amount of high attenuation material surrounding the lesion consistent with some degree of intraparenchymal hemorrhage of the liver. No extracapsular extension. No perihepatic fluid collections or retroperitoneal fluid collections. This was felt to be typical for a post liver biopsy in terms of the amount of location of the blood. Laboratory studies were obtained in the emergency room and revealed hemoglobin of 10.7, which was slightly less than 11.6 obtained 1 month ago. He also received significant amounts of fluids before this. PAST MEDICAL HISTORY: Otherwise, significant for diabetes mellitus and also positive for depression and hypertension, macular degeneration, hyperlipidemia. MEDICATIONS: 1. Aspirin 81 mg daily. 2. Celexa 10 mg daily. 3. Colace 100 mg p.r.n. 4. Farxiga 5 mg daily. 5. Glipizide 10 mg b.i.d. 6. Januvia 50 mg daily. 7. Metoprolol 25 mg b.i.d. 8. Pravastatin 40 mg at bedtime. FAMILY HISTORY: A sister with leukemia, otherwise not relevant. SOCIAL HISTORY: Mr. Shah is , lives with his . No significant history of alcohol. Smoked 30 pack years. Quit 20 years ago. REVIEW OF SYSTEMS: Appetite has been good until today. Weight stable. No significant shortness of breath, chest pain or palpitations until today. No significant changes in bowel or bladder habits. Neurologic Exam: Neuropathy resolved. No other neurologic complaints. Emotionally improved on Celexa. Review of systems otherwise negative. PHYSICAL EXAMINATION GENERAL: A 71-year-old male in no acute distress. VITAL SIGNS: Currently 162/76, and has been elevated since in the emergency room although low in the [facility] earlier. Pulse rate in approximately 60, although he is noted to be on beta blockers. He is afebrile. O2 saturation 100%. HEENT: PERRL. EOMI. No erythema or exudates. No palpable cervical, supraclavicular or axillary adenopathy. LUNGS: Clear. HEART: Mild bradycardia without murmurs, rubs or gallops. ABDOMEN: Soft with moderate tenderness, especially in the bilateral upper quadrants and also in the epigastrium and over the right flank. No distention. No guarding or rebound. EXTREMITIES: No clubbing, cyanosis or edema. NEUROLOGIC: The patient is alert and oriented x3. Motor is 5/5 throughout. IMPRESSION: A 71-year-old male with concern regarding recurrence of small cell lung carcinoma with an early liver lesion, which had been biopsied one time negative, was biopsied again this morning. He has developed severe abdominal pain along with nausea and vomiting, and then subsequent episode of what sounds like vasovagal episode while at [facility]. His pulse rate has returned to his normal in the 60s from his beta blockers. He will be watched carefully overnight on the monitor. He will receive pain medications and antiemetics as needed. Anticoagulation will be held as he just had a liver biopsy today and there is a question of some bleed. Repeat laboratory studies will include a CBC in the morning to make sure he is not dropping his hematocrit. He will continue to receive IV fluids. Liver biopsy results should be back in next day or two. If possible we will need to start on chemotherapy for recurrent small cell lung cancer depending on the results. [id number] #: [id number] [facility]
[2017-04-30] MEDS: HYDROmorphone* 1 MG/ML 1 ML SYR IV SLOW PU PRN (04:39)
[2017-04-30 06:33] LABS: BUN/Creatinine Ratio 21.3 (8-20); Calcium 8.1 mg/dL (8.6-10.3); EGFR African American 53.7 (>60); EGFR Non-African American 41.7 (>60)
[2017-04-30] MEDS: Citalopram TAB* 10 MG PO SCH (10:04)
[2017-04-30] MEDS: NS 0.9% 1000 ML* 1,000 ML IV SCH (10:28)
--- NOTE | 2017-04-30 11:14 | CONSULT ---
Subjective Date of Service: 04/30/17 Interval History: DOS 04/30/2017 Admission Date: 04/29/17 Oncologist and service: Aston Estevez MD PMD: Dr. Carrillo CC: Abdomen pain, vomiting, lightheadedness Reason for consult: Severe sinus bradycardia HISTORY OF PRESENT ILLNESS: Mr. Shah is a 71-year-old man with a history of small cell lung cancer s/p chemotherapy and radiation (to chest and prophylactic cranial) in 2011 and 2012. Had a liver biopsy benign 12/2016. Repeat CT scan showed increase in size. Liver biopsy was performed yesterday Patient had severe abdomen pain mostly epigastric, improved some and then went home. Developed 10/10 abdomen pain radiating to "kidneys" and back. He developed multiple episodes of emesis and was dizzy and lightheaded. He was found with severe sinus bradycardia about 30 bpm in convenient care. He was given atropine and IV fluids and improved and is now asymptomatic. Per Dr. Estevez's note "There was a small amount of high attenuation material surrounding the lesion consistent with some degree of intraparenchymal hemorrhage of the liver. No extracapsular extension. No perihepatic fluid collections or retroperitoneal fluid collections. This was felt to be typical for a post liver biopsy in terms of the amount of location of the blood." He has since been sinus rhythm and sinus bradycardia on telemetry monitoring with some worsening sinus bradycardia but not severe while sleeping. He denies any history of prior syncope, will have some positional lightheadedness at times. He denies any exertional chest discomfort or change in breathing. PAST MEDICAL HISTORY: Otherwise, significant for diabetes mellitus and also positive for depression and hypertension, macular degeneration, hyperlipidemia. MEDICATIONS: 1. Aspirin 81 mg daily. 2. Celexa 10 mg daily. 3. Colace 100 mg p.r.n. 4. Farxiga 5 mg daily. 5. Glipizide 10 mg b.i.d. 6. Januvia 50 mg daily. 7. Metoprolol 25 mg b.i.d. 8. Pravastatin 40 mg at bedtime. FAMILY HISTORY: A sister with leukemia, otherwise not relevant. SOCIAL HISTORY: Mr. Shah is , lives with his . No significant history of alcohol. Smoked 30 pack years. Quit 20 years ago. Medications Active Medications: Citalopram Hydrobromide (Celexa Tab*) 10 mg PO [facility] Last Admin: 04/30/17 10:04 Dose: 10 mg Heparin Sodium (Porcine) (Heparin Flush Port (Ivad)) 5 ml FLUSH DAILY [facility] PRN Reason: Protocol Hydromorphone HCl (Dilaudid Iv*) 1 mg IV SLOW PU Q4H PRN PRN Reason: PAIN Last Admin: 04/30/17 04:39 Dose: 1 mg Sodium Chloride (Ns 0.9% 1000 Ml*) 1,000 mls @ 75 mls/hr IV PER RATE [facility] Last Admin: 04/30/17 10:28 Dose: 75 mls/hr Ondansetron HCl (Zofran Inj*) 4 mg IV Q6H PRN PRN Reason: NAUSEA Home Medications: Citalopram TAB* [Celexa TAB*] 10 mg PO QAM 09/28/12 [History Confirmed 04/29/17] glipiZIDE TAB* [Glucotrol TAB*] 10 mg PO BID 09/28/12 [History Confirmed ] Metoprolol Tartrate TAB* [Lopressor TAB*] 25 mg PO BID 11/02/12 [History Confirmed 04/29/17] Multivitamins/Minerals TAB* [Thera M Plus TAB*] 1 tab PO QAM 11/02/12 [History Confirmed 04/29/17] Aspirin [Aspirin Childrens] 81 mg PO QAM 09/23/13 [History Confirmed 04/29/17] Sitagliptin Phosphate [Januvia] 50 mg PO QPM 05/09/14 [History Confirmed ] Pravastatin (NF) [Pravachol (NF)] 40 mg PO QPM 08/07/15 [History Confirmed 04/29] Multiple Vitamins W/ Minerals [Eye Vitamins & Minerals] 1 tab PO BID #0 [History Confirmed 04/29/17] Canagliflozin (NF) [Invokana (NF)] 100 mg PO QAM 04/27/17 [History Confirmed ] Preservision Areds 2 + Mu 1 cap PO BID 04/29/17 [History Confirmed 04/29/17] Review of Systems - Measurements Intake and Output: Intake and Output Last 24 Hours 04/28/17 04/29/17 04/30/17 05/01/17 06:59 06:59 06:59 06:59 Intake Total 0 570 Output Total 700 800 Balance -700 -230 Weight 191 lb 1.6 oz Intake: Oral 0 570 Output: Urine 700 800 Other: # Bowel Movements 0 # Voids 0 - Review of Systems Constitutional Symptoms: Negative: Weight Gain, Weight Loss, Weakness, Fatigue, Fever Dermatology: Negative: Skin Lesions, Cancer, Skin Lumps HEENT: Negative: Change in Hearing, Vertigo, Tinnitus Eyes: Negative: Change in Vision, Double Vision, Eye Pain, Glaucoma Thyroid: Negative: Cold Intolerance, Heat Intolerance, Sweatiness, Tremor, Frequent Defecation, Constipation, Palpitations, Primary Hypothyroidism, Weight Loss, Weight Gain, Change in Skin/Hair Pulmonary: Negative: Hemoptysis, Wheezing, Respiratory Distress, Shortness of Breath, COPD, Asthma, Exercise Intolerance, Home Oxygen Cardiology: Negative: Chest Pain, Shortness of Breath, Swelling of Ankles, Peripheral Vascular Dis, Edema, Syncope, Claudication, Paroxysmal Nocturnal Dyspnea, Orthopnea Gastroenterology: Positive: Abdominal Pain, Nausea, Vomiting Negative: Anorexia, Indigestion, Difficulty Swallowing, Heartburn, Constipation, Diarrhea Genital - Urinary: Negative: Dysuria, Hematuria Musculoskeletal: Negative: Joint Pain, Joint Stiffness, Arthritis, Osteoporosis, Low Back Pain , Sciatica Endocrinology: Positive: Obesity, Diabetes Negative: Thyroid Problems, Calluses, Hirsutism, Polydipsia, Polyuria, Gynecomastia, Pituitary Disease Hematologic/Lymphatic: Positive: Use of Antiplatelet Drugs Negative: Hx Leukemia, Hx Lymphoma, Use of Anticoagulant Neurology: Positive: Diplopia Negative: Headaches, Migraines, Change in Coordination, Change in Memory, Change in Speech, Change in Sphincter Function, Change in Walking, Hx of Stroke\\ TIA, Hx Seizures Psychiatry: Negative: Guilt Feelings, Tearfulness, Unusual Fatigue, Unusual Anxiety Allergic/Immunologic: Negative: Hx HIV, Swollen Glands Lymph Nodes Review of Systems Statement: All other review of systems negative, unless stated above. Objective Vital Signs: Temp Pulse Resp BP Pulse Ox 97.6 F 51 17 131/64 98 04/30/17 07:12 04/30/17 07:12 04/30/17 07:50 04/30/17 07:12 04/30/17 07:12 Appearance: nad, pleasant Ears/Nose/Mouth/Throat: Clear Oropharnyx, Mucous Membranes Moist Neck: NL Appearance and Movements; NL JVP Respiratory: Symmetrical Chest Expansion and Respiratory Effort, - - crackles right base Cardiovascular: NL Sounds; No Murmurs; No JVD, RRR, No Edema Abdominal: NL Sounds; No Tenderness; No Distention Extremities: No Edema Skin: No Rash or Ulcers Neurological: Alert and Oriented x 3 Laboratory Results: 04/30/17 06:05 INR (Anticoag Therapy) 0.90 (0.89-1.11) 04/29/17 16:20 APTT 67.1 seconds (26.0-36.3) H 04/29/17 16:20 Total Bilirubin 0.30 mg/dL (0.2-1.0) 04/29/17 16:20 AST 85 U/L (13-39) H 04/29/17 16:20 ALT 94 U/L (7-52) H 04/29/17 16:20 Alkaline Phosphatase 72 U/L (34-104) 04/29/17 16:20 Total Protein 7.2 g/dL (6.4-8.9) 04/29/17 16:20 Albumin 3.5 g/dL (3.2-5.2) 04/29/17 16:20 Globulin 3.7 g/dL (2-4) 04/29/17 16:20 Albumin/Globulin Ratio 0.9 (1-3) L 04/29/17 16:20 EKG Data: EKG 04/29/2017 #1: Severe sinus bradycardia, IVCD #2: NSR, IVCD, first degree AV block Assessment/Plan Mr. 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 - Episode appears mostly likely vagal related to pain, also contributing is beta -rosie use and probably some degenerative conduction system disease. Given the fact he has had no syncope, the rhythms reviewed appeared all sinus (did not see any escape rhythms or evidence of heart block), and there has been no significant bradycardia on overnight monitoring, I do not think a pacemaker is indicated at this time. I would discontinue all beta-blockers/metoprolol and any AV brandie agents Check TTE (ordered) Can consider checking TSH if not done recently. He does have some baseline conduction disease on EKG and is at risk for a pacemaker in the future We will check a one month event monitor and cardiology follow up to evaluate for recurrent symptomatic bradycardia and I will see him back afterwards. He was advised not to drive until this is completed but this is not an issue because his drives. Discussed above at length with patient and at bedside Thank you for allowing me to participate in the cardiovascular care of this patient. Please do not hesitate to contact me with questions or concerns.
--- NOTE | 2017-04-30 11:23 | PN ---
Progress Note - Progress Note Date of Service: 04/30/17 SOAP: Subjective: []Feeling better this am. Wants to eat . 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 Denies dizziness,sob ,chest pain ; has a fair amount of gas in adb. though passing easily.Denies fever or chills. Objective: [ Laboratory Results - last 24 hr 04/29/17 04/29/17 04/29/17 16:20 16:20 16:20 WBC 11.2 H RBC 3.55 L Hgb 10.7 L Hct 33 L MCV 92 MCH 30 MCHC 33 RDW 14 Plt Count 141 L MPV 8 Neut % (Auto) 81.9 Lymph % (Auto) 8.6 L [facility] % (Auto) 7.6 Eos % (Auto) 1.4 Baso % (Auto) 0.5 Absolute Neuts (auto) 9.2 H Absolute Lymphs (auto) 1.0 Absolute Monos (auto) 0.9 H Absolute Eos (auto) 0.2 Absolute Basos (auto) 0.1 Absolute Nucleated RBC 0 Nucleated RBC % 0 INR (Anticoag Therapy) 0.90 APTT 67.1 H Sodium 135 Potassium 4.2 Chloride 104 Carbon Dioxide 24 Anion Gap 7 BUN 41 H Creatinine 1.93 H Est GFR ( Amer) 44.5 Est GFR (Non-Af Amer) 34.6 BUN/Creatinine Ratio 21.2 H Glucose 273 H POC Glucose (mg/dL) Lactic Acid Calcium 8.7 Total Bilirubin 0.30 AST 85 H ALT 94 H Alkaline Phosphatase 72 Troponin I 0.01 C-Reactive Protein 9.78 H Total Protein 7.2 Albumin 3.5 Globulin 3.7 Albumin/Globulin Ratio 0.9 L Amylase 41 Lipase 69 Urine Color Urine Appearance Urine pH Ur Specific Snyder Urine Protein Urine Ketones Urine Blood Urine Nitrate Urine Bilirubin Urine Urobilinogen Ur Leukocyte Esterase Urine Glucose Urine Ascorbic Acid Blood Type Antibody Screen 04/29/17 04/29/17 04/29/17 16:20 16:20 21:42 WBC RBC Hgb Hct MCV MCH MCHC RDW Plt Count MPV Neut % (Auto) Lymph % (Auto) [facility] % (Auto) Eos % (Auto) Baso % (Auto) Absolute Neuts (auto) Absolute Lymphs (auto) Absolute Monos (auto) Absolute Eos (auto) Absolute Basos (auto) Absolute Nucleated RBC Nucleated RBC % INR (Anticoag Therapy) APTT Sodium Potassium Chloride Carbon Dioxide Anion Gap BUN Creatinine Est GFR ( Amer) Est GFR (Non-Af Amer) BUN/Creatinine Ratio Glucose POC Glucose (mg/dL) 273 H Lactic Acid 1.2 Calcium Total Bilirubin AST ALT Alkaline Phosphatase Troponin I C-Reactive Protein Total Protein Albumin Globulin Albumin/Globulin Ratio Amylase Lipase Urine Color Urine Appearance Urine pH Ur Specific Snyder Urine Protein Urine Ketones Urine Blood Urine Nitrate Urine Bilirubin Urine Urobilinogen Ur Leukocyte Esterase Urine Glucose Urine Ascorbic Acid Blood Type A Positive Antibody Screen Negative 04/29/17 04/30/17 04/30/17 23:40 06:05 07:38 WBC RBC Hgb Hct MCV MCH MCHC RDW Plt Count MPV Neut % (Auto) Lymph % (Auto) [facility] % (Auto) Eos % (Auto) Baso % (Auto) Absolute Neuts (auto) Absolute Lymphs (auto) Absolute Monos (auto) Absolute Eos (auto) Absolute Basos (auto) Absolute Nucleated RBC Nucleated RBC % INR (Anticoag Therapy) APTT Sodium 133 Potassium 4.0 Chloride 104 Carbon Dioxide 23 Anion Gap 6 BUN 35 H Creatinine 1.64 H Est GFR ( Amer) 53.7 Est GFR (Non-Af Amer) 41.7 BUN/Creatinine Ratio 21.3 H Glucose 148 H POC Glucose (mg/dL) 142 H Lactic Acid Calcium 8.1 L Total Bilirubin AST ALT Alkaline Phosphatase Troponin I C-Reactive Protein Total Protein Albumin Globulin Albumin/Globulin Ratio Amylase Lipase Urine Color Yellow Urine Appearance Clear Urine pH 5.0 Ur Specific Snyder 1.015 Urine Protein Negative Urine Ketones Trace H Urine Blood Negative Urine Nitrate Negative Urine Bilirubin Negative Urine Urobilinogen Negative Ur Leukocyte Esterase Negative Urine Glucose 3+(>=500 mg/dl) H Urine Ascorbic Acid * H Blood Type Antibody Screen Vital Signs Temp Pulse Resp BP Pulse Ox 97.6 F 51 17 131/64 98 04/30/17 07:12 04/30/17 07:12 04/30/17 07:50 04/30/17 07:12 04/30/17 07:12 Lungs -crackles RT base ,left clear [id number] Abdomen - +bs through , gaseous to percussion, NT, distended Ext- tr edema Assessment: [ 71 yo s/p liver biopsy a/w abdominal pain ,bradycardia new . Hx of SCLC s/p biopsy liver with RT crackles H/O hypertension h/o DM type 2 ] Plan: [Will obtain Cardiology consult with Dr. Stevens ECHO pending Continue fluids as CR 1.67 improving [place] home meds Home tomorrow Discontinue metoprolol until follow up with Dr. Stevens in 1 months time after 24 monitor test.]
[2017-04-30 12:13] LABS: Hematocrit 33 % (42-52); Hemoglobin 10.8 g/dl (14.0-18.0); Mean Corpuscular HGB Conc 33 g/dl (31-36); Mean Corpuscular Hemoglobin 30 pg (27-31); Mean Corpuscular Volume 92 fL (80-94); Mean Platelet Volume 8 um3 (7.4-10.4); Red Blood Count 3.61 10^6/ul (4.0-5.4); Red Cell Distribution Width 14 % (10.5-15); White Blood Count 11.3 10^3/ul (3.5-10.8)
[2017-04-30 12:14] LABS: Add Diff/Slide Review? Slide Review Added; Comments Flag Yes
--- NOTE | 2017-04-30 13:23 | ECHO ---
Patient: TARAN TROY Rec#: [id number] : 1945 Date: 04/30/2017 Age: 71y Height: 170.18 cm / 67.0 in Weight: 86.64 kg / 191.0 lbs Sex: M BSA: 1.98 Room#: 431 Admit Date#: 04/29/2017 Type: Inpatient Referring: Skyler Stevens DO Reading: Skyler Stevens DO Media Planner: Jessie Smith RDCS CC: Byron Carrillo MD Transthoracic Echocardiogram Indication: Chest pain BP: 131/64 HR: 46 Rhythm: Bradycardia Findings History: Small cell lung carcinoma 2011, HTN, HLD, DM, mascular degeneration, former smoker, recent mass in right lobe of liver. Technical Comments: The study quality is fair. The study is technically limited due to patient body habitus. Completed at 1215. Left Ventricle: The left ventricular chamber size is normal. Mild concentric left ventricular hypertrophy is observed. There is normal left ventricular systolic function. The estimated ejection fraction is 55-60%. There is basal inferior hypokinesis Abnormal left ventricular diastolic filling is observed, consistent with impaired relaxation. Left Atrium: The left atrium is moderately dilated. Right Ventricle: The right ventricular chamber size and systolic function are within normal limits. Right Atrium: The right atrium is moderately dilated. Aortic Valve: The aortic valve is trileaflet. There is a trace of aortic regurgitation. There is no evidence of aortic stenosis. Mitral Valve: The mitral valve leaflets are mildly thickened. There is mild mitral regurgitation. There is no evidence of mitral stenosis. Tricuspid Valve: The tricuspid valve leaflets are normal. There is mild tricuspid regurgitation. No pulmonary hypertension is noted. There is no tricuspid stenosis. Pulmonic Valve: The pulmonic valve appears normal. There is a trace pulmonic regurgitation. There is no pulmonic stenosis. Pericardium: There is no significant pericardial effusion. A pericardial fat pad is visualized. Aorta: There is no dilatation of the ascending aorta. There is no dilatation of the aortic arch. There is no dilation of the aortic root. Pulmonary Artery: The main pulmonary artery is not well visualized. Venous: The venous system is not well visualized. Conclusions The left ventricular chamber size is normal. Mild concentric left ventricular hypertrophy is observed. There is normal left ventricular systolic function. The estimated ejection fraction is 55-60%. There is basal inferior hypokinesis The left atrium is moderately dilated. The right ventricular chamber size and systolic function are within normal limits. There is no more than mild valvular regurgitation noted. No prior studies available for comparison at time of interpretation Measurements Name Value Normal Range RVIDd (AP) 2D 3.2 cm (0.9 - 2.6) RVDdMajor (2D) 4.3 cm (2.2 - 4.4) RAd ISD 4CH 5.7 cm (3.4 - 4.9) RA (A4C)W 4.1 cm (2.9 - 4.6) IVSd (2D) 1.2 cm (0.6 - 1) LVPWd (2D) 1.1 cm (0.6 - 1) LVIDd (2D) 4.7 cm (3.6 - 5.4) LVIDs (2D) 3.5 cm - LV FS (2D) 26 % (25 - 45) Aortic Annulus 2 cm (1.4 - 2.6) Ao root diameter (2D) 3 cm (2.1 - 3.5) Ascending Ao 3.4 cm (2.1 - 3.4) Aortic arch 3.1 cm (1.8 - 3.4) LA dimension (AP) 2D 4.4 cm (2.3 - 3.8) LAd ISD 4CH 6.1 cm (2.9 - 5.3) LA ISD 4CH W 5.2 cm (2.5 - 4.5) Name Value Normal Range LA ESV SP 4CH (A/L) 87 ml - LA ESV SP 2CH (A/L) 103 ml - LA ESV BP (A/L) 97 ml - LA ESV BP (A/L) index 49.13 ml/m2 - LA ESV SP 4CH (MOD) 77 ml - LA ESV SP 2CH (MOD) 94 ml - Name Value Normal Range MV E-wave Vmax 0.76 m/sec - MV deceleration time 186.8 msec - MV A-wave Vmax 0.91 m/sec - MV E:A ratio 0.8 ratio - LV septal e' Vmax 0.04 m/sec - LV lateral e' Vmax 0.07 m/sec - LV E:e' septal ratio 19 ratio - LV E:e' lateral ratio 10.86 ratio - Name Value Normal Range AV Vmax 1.35 m/sec - AV VTI 28 cm - AV peak gradient 7.24 mmHg - AV mean gradient 4.05 mmHg - LVOT Vmax 0.97 m/sec - LVOT VTI 24.01 cm - LVOT peak gradient 3.74 mmHg - LVOT mean gradient 1.92 mmHg - CEDRIC Vmax 0.52 m/sec - Name Value Normal Range MR flow (PISA) 39 ml/sec - MR PISA radius 0.31 cm - MR alias Vmax 61.84 cm/sec - Name Value Normal Range TR Vmax 2.5 m/sec - TR peak gradient 25 mmHg - RAP 8 mmHg - RVSP 33 mmHg - Name Value Normal Range PV Vmax 1.09 m/sec - PV peak gradient 4.82 mmHg - NM end-diastolic Vmax 0.81 m/sec -
--- NOTE | 2017-04-30 14:49 | RAD ---
INDICATION: Evaluate for right basal infiltrate. COMPARISON: October 14, 2016 TECHNIQUE: AP seated and lateral dual-energy views were obtained. FINDINGS: Bones/Soft Tissues: There are no acute bony findings. Cardiomediastinal: The cardiomediastinal silhouette is normal. Lungs: There are emphysematous changes with areas of parenchymal scarring. There is no focal consolidation. There is mild hyperinflation. Pleura: Small left-sided pleural effusion. Other: None IMPRESSION: CHRONIC LUNG FINDINGS WITH MILD HYPERINFLATION. SMALL LEFT-SIDED EFFUSION.
[2017-04-30] MEDS ORDERED: Dextrose 50% Syringe 50 ML* 25 GM/50 ML SYRINGE IV PUSH PRN (18:52)
[2017-04-30] MEDS: Insulin LISPRO* 1 UNITS UNIT SUBCUT SCH (22:41)
[2017-05-01] MEDS: HYDROmorphone* 1 MG/ML 1 ML SYR IV SLOW PU PRN (02:43)
[2017-05-01 06:08] LABS: Hematocrit 31 % (42-52); Hemoglobin 10.5 g/dl (14.0-18.0); Mean Corpuscular HGB Conc 34 g/dl (31-36); Mean Corpuscular Hemoglobin 31 pg (27-31); Mean Corpuscular Volume 92 fL (80-94); Mean Platelet Volume 8 um3 (7.4-10.4); Red Blood Count 3.41 10^6/ul (4.0-5.4); Red Cell Distribution Width 14 % (10.5-15); White Blood Count 10.9 10^3/ul (3.5-10.8)
[2017-05-01 06:18] LABS: Comments Flag Yes
[2017-05-01] MEDS: NS 0.9% 1000 ML* 1,000 ML IV SCH (07:52)
[2017-05-01] MEDS: Insulin LISPRO* 1 UNITS UNIT SUBCUT SCH ×4 (08:16→21:34)
[2017-05-01] MEDS: EYE VITAMINS PO SCH (08:17)
[2017-05-01] MEDS: Citalopram TAB* 10 MG PO SCH (08:17)
[2017-05-01] MEDS ORDERED: Iodixanol* (CONTRAST) 320 MG/ML 100 ML SDV IV ONE (09:29)
--- NOTE | 2017-05-01 12:12 | RAD ---
INDICATION: Head injury, confusion, history of lung carcinoma. COMPARISON: Comparison is made with a prior MRI of the brain from April 25, 2013. TECHNIQUE: Contiguous axial sections of the brain were obtained from the skull base to the vertex without and with contrast following intravenous injection of 75 ml of Visipaque 320 nonionic contrast. FINDINGS: The ventricles, cisterns and sulci are enlarged consistent with diffuse atrophy. There are confluent areas of decreased attenuation in the periventricular white matter which have progressed from the prior MRI study. No other focal abnormalities, mass effect or abnormal area of enhancement is seen. There is no evidence for hemorrhage. No significant focal osseous abnormality is present. The visualized portion of the paranasal sinuses and mastoid air cells appear clear. IMPRESSION: 1. NO EVIDENCE FOR ACUTE INTRACRANIAL ABNORMALITY OR METASTATIC DISEASE. 2. CONFLUENT AREAS OF DECREASED ATTENUATION IN THE PERIVENTRICULAR WHITE MATTER PROGRESSED FROM THE PRIOR MRI STUDY POSSIBLY RELATED TO POSTTHERAPY OR CHRONIC SMALL VESSEL ISCHEMIC CHANGES.
[2017-05-01 12:49] LABS: Albumin 3.3 g/dL (3.2-5.2); BUN/Creatinine Ratio 18.9 (8-20); Calcium 8.3 mg/dL (8.6-10.3); EGFR African American 55.6 (>60); EGFR Non-African American 43.3 (>60); Globulin 3.7 g/dL (2-4); Potassium 3.7 mmol/L (3.5-5.0); Total Bilirubin 0.6 mg/dL (0.2-1.0)
--- NOTE | 2017-05-01 13:42 | PN ---
Subjective Date of Service: 05/01/17 Interval History: f/u 05/01/2017 was confused, fell overnight hit head no bradycardia or arrhythmias noted. Medications Active Medications: Acetaminophen (Tylenol Tab*) 650 mg PO Q6H PRN PRN Reason: PAIN Citalopram Hydrobromide (Celexa Tab*) 10 mg PO QAM [facility] Last Admin: 05/01/17 08:17 Dose: 10 mg Dextrose (D50w Syringe 50 Ml*) 12.5 gm IV PUSH .FOR FS < 60 - SS PRN PRN Reason: FS < 60 Heparin Sodium (Porcine) (Heparin Flush Port (Ivad)) 5 ml FLUSH DAILY [facility] PRN Reason: Protocol Last Admin: 05/01/17 08:17 Dose: Not Given Hydromorphone HCl (Dilaudid Iv*) 1 mg IV SLOW PU Q4H PRN PRN Reason: PAIN Last Admin: 05/01/17 02:43 Dose: 1 mg Sodium Chloride (Ns 0.9% 1000 Ml*) 1,000 mls @ 50 mls/hr IV PER RATE [facility] Last Admin: 05/01/17 07:52 Dose: 50 mls/hr Insulin Human Lispro (Humalog*) 0 units SUBCUT ACHS [facility] PRN Reason: Protocol Last Admin: 05/01/17 12:36 Dose: 3 units Non Formulary Med* ( (Eye Vitamins)) 1 admin PO DAILY [facility] Last Admin: 05/01/17 08:17 Dose: Not Given Ondansetron HCl (Zofran Inj*) 4 mg IV Q6H PRN PRN Reason: NAUSEA Objective Vital Signs: Temp Pulse Resp BP Pulse Ox 97.9 F 75 12 166/81 100 05/01/17 11:46 05/01/17 11:46 05/01/17 12:00 05/01/17 11:46 05/01/17 11:46 Appearance: nad, pleasant Ears/Nose/Mouth/Throat: Clear Oropharnyx, Mucous Membranes Moist Neck: NL Appearance and Movements; NL JVP Respiratory: Symmetrical Chest Expansion and Respiratory Effort, - - crackles right base Cardiovascular: NL Sounds; No Murmurs; No JVD, RRR, No Edema Abdominal: NL Sounds; No Tenderness; No Distention Extremities: No Edema Skin: No Rash or Ulcers Neurological: Alert and Oriented x 3 Laboratory Results: 05/01/17 11:40 INR (Anticoag Therapy) 0.90 (0.89-1.11) 04/29/17 16:20 APTT 67.1 seconds (26.0-36.3) H 04/29/17 16:20 Total Bilirubin 0.60 mg/dL (0.2-1.0) 05/01/17 11:40 AST 135 U/L (13-39) H 05/01/17 11:40 ALT 285 U/L (7-52) H 05/01/17 11:40 Alkaline Phosphatase 112 U/L (34-104) H 05/01/17 11:40 Total Protein 7.0 g/dL (6.4-8.9) 05/01/17 11:40 Albumin 3.3 g/dL (3.2-5.2) 05/01/17 11:40 Globulin 3.7 g/dL (2-4) 05/01/17 11:40 Albumin/Globulin Ratio 0.9 (1-3) L 05/01/17 11:40 EKG Data: EKG 04/29/2017 #1: Severe sinus bradycardia, IVCD #2: NSR, IVCD, first degree AV block Assessment/Plan Mr. 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 Likely vagal episode, now resolved, see consult note for details. Avoid AV brandie agent. Can be discharged from a cardiac standpoint.
[2017-05-01] MEDS: Acetaminophen TAB* 325 MG PO PRN (14:06)
[2017-05-02] MEDS: Acetaminophen TAB* 325 MG PO PRN (03:37)
[2017-05-02 05:32] LABS: Hematocrit 31 % (42-52); Hemoglobin 10.2 g/dl (14.0-18.0); Mean Corpuscular HGB Conc 34 g/dl (31-36); Mean Corpuscular Hemoglobin 31 pg (27-31); Mean Corpuscular Volume 91 fL (80-94); Mean Platelet Volume 8 um3 (7.4-10.4); Red Blood Count 3.35 10^6/ul (4.0-5.4); Red Cell Distribution Width 14 % (10.5-15); White Blood Count 10.8 10^3/ul (3.5-10.8)
[2017-05-02] MEDS: NS 0.9% 1000 ML* 1,000 ML IV SCH (05:45)
[2017-05-02 05:48] LABS: Anion Gap 7 mmol/L (2-11); BUN/Creatinine Ratio 15.8 (8-20); Blood Urea Nitrogen 25 mg/dL (6-24); CO2 Carbon Dioxide 23 mmol/L (22-32); Calcium 8.1 mg/dL (8.6-10.3); Chloride 104 mmol/L (101-111); EGFR Non-African American 43.6 (>60); Glucose 219 mg/dL (70-100); Potassium 3.6 mmol/L (3.5-5.0); Sodium 134 mmol/L (133-145)
--- NOTE | 2017-05-02 08:32 | PN ---
Progress Note - Progress Note Date of Service: 05/02/17 SOAP: Subjective: []Better today. He is AAOx3 and very coherent. Walking well, no difficulty with balance, eating well. Able to recall hospital stay. Oriented to day, time, place and situation. Acetaminophen (Tylenol Tab*) 650 mg PO Q6H PRN PRN Reason: PAIN Last Admin: 05/02/17 03:37 Dose: 650 mg Citalopram Hydrobromide (Celexa Tab*) 10 mg PO QAM [facility] Last Admin: 05/01/17 08:17 Dose: 10 mg Dextrose (D50w Syringe 50 Ml*) 12.5 gm IV PUSH .FOR FS < 60 - SS PRN PRN Reason: FS < 60 Heparin Sodium (Porcine) (Heparin Flush Port (Ivad)) 5 ml FLUSH DAILY [facility] PRN Reason: Protocol Last Admin: 05/01/17 08:17 Dose: Not Given Hydromorphone HCl (Dilaudid Iv*) 1 mg IV SLOW PU Q4H PRN PRN Reason: PAIN Last Admin: 05/01/17 02:43 Dose: 1 mg Sodium Chloride (Ns 0.9% 1000 Ml*) 1,000 mls @ 50 mls/hr IV PER RATE [facility] Last Admin: 05/02/17 05:45 Dose: 50 mls/hr Insulin Human Lispro (Humalog*) 0 units SUBCUT ACHS [facility] PRN Reason: Protocol Last Admin: 05/01/17 21:34 Dose: 5 units Non Formulary Med* ( (Eye Vitamins)) 1 admin PO DAILY [facility] Last Admin: 05/01/17 08:17 Dose: Not Given Ondansetron HCl (Zofran Inj*) 4 mg IV Q6H PRN PRN Reason: NAUSEA Objective: [] Vital Signs Temp Pulse Resp BP Pulse Ox 98.7 F 84 9 146/75 95 05/02/17 03:22 05/02/17 03:22 05/02/17 04:20 05/02/17 03:22 05/02/17 03:22 Lungs -crackles RT base ,left clear COR-RRR s1s2 Abdomen - +bs through , gaseous to percussion, NT, distended Ext- tr edema Neuro- AAOx 3 Assessment: [ 71 yo s/p liver biopsy a/w abdominal pain ,bradycardia on beta rosie. Improved but course then complicated by delerium, now resolved. Ddx: mediation effect after sedation, transient hepatitis after biopsy. Plan: 1. Bradycardia improved and will follow up cardiology as outpatient. 2. Discharge home today 3. Follow up Dr. Estevez next week re biopsy results.
[2017-05-02] MEDS: Insulin LISPRO* 1 UNITS UNIT SUBCUT SCH ×2 (08:34→12:22)
[2017-05-02] MEDS: Citalopram TAB* 10 MG PO SCH (08:35)
[2017-05-02 11:05] LABS: ALT 221 U/L (7-52); AST 74 U/L (13-39); Albumin 3.2 g/dL (3.2-5.2); Alkaline Phosphatase 112 U/L (34-104); Globulin 3.5 g/dL (2-4); Total Protein 6.7 g/dL (6.4-8.9)
[2017-05-02] MEDS: EYE VITAMINS PO SCH (11:14)
[2017-05-02 13:56] VITALS: BP 136/75
--- NOTE | 2017-05-03 03:08 | DS ---
DISCHARGE SUMMARY: DATE OF ADMISSION: 04/29/17 DATE OF DISCHARGE: 05/02/17 DISCHARGE DIAGNOSES: 1. Small cell lung cancer. 2. Bradycardia, post biopsy. 3. Diabetes. 4. Delirium. HOSPITAL COURSE: Please see Dr. Estevez's history and physical for details of admission on 04/29/17. Longstanding history of small cell lung cancer. Came in for liver biopsy, but then after the procedure had severe bradycardia, heart rate down into the 30s. He was admitted for observation for the bradycardia. Seen by Dr. Stevens and it was thought to be secondary to his beta rosie with a reaction from pain and nausea. Did not require pacing. He was monitored on telemetry and symptoms resolved. He is now stable off the beta rosie. He was going to be discharged on , but then became delirious overnight on the . He got up from his bed and fell. No major injuries, but the next day he continued to be confused. He had a CT scan of the head with and without contrast that did not show bleeding or lesions. He did have some chronic microvascular changes. Blood work was unremarkable barring a mild elevation in the liver function tests after the biopsy. He was observed through today and his mental status has returned to baseline. He was quite lucid this morning, recounting events of this hospitalization, oriented towards date, time, place and situation. Suspect delirium was secondary to sedation from his biopsy, possibly exacerbated by the bradycardia. Plan will be to discharge home with followup with Dr. Estevez next week for his biopsy results. He will continue all his home medications, go back on home diabetes medications and he will be off the insulin he was being given in the hospital. MEDICATIONS ON DISCHARGE: 1. Citalopram 10 mg p.o. daily 2. Aspirin 81 mg p.o. daily. 3. Canagliflozin 100 mg daily. 4. Multivitamins. 5. Pravastatin 40 mg daily. 6. Januvia 50 mg at night. 7. Glipizide 5-10 mg twice a day. PENDING STUDIES ON DISCHARGE: Biopsy and this morning. Call our office with any difficulties over the weekend. [id number]/[facility] #: [id number] MTDD
== END 2017-05-02 12:40 | disposition home or self-care (01) | DRG 309 ==
LOC: ED 16:09 → MEDTELE 18:06 → OBSVTOIN 05-01 11:11
PROVIDERS: ADMIT Internal Medicine Hematology & Oncology; ATTEND Internal Medicine Hematology & Oncology
DX: R00.1 Bradycardia, unspecified (principal); C34.90 Malignant neoplasm of unspecified part of unspecified bronchus or lung; E11.9 Type 2 diabetes mellitus without complications; I10 Essential (primary) hypertension; R41.0 Disorientation, unspecified; I44.0 Atrioventricular block, first degree; H35.30 Unspecified macular degeneration; E78.5 Hyperlipidemia, unspecified; Z79.82 Long term (current) use of aspirin; Z92.21 Personal history of antineoplastic chemotherapy; Z92.3 Personal history of irradiation; Z87.891 Personal history of nicotine dependence
CPT/HCPCS: 36415; 47000; 70470; 71020; 74176; 76942; 80048; 80053; 80076; 81003; 82140; 82150; 83605; 83690; 84484; 85025; 85049; 85610; 85730; 86140; 86850; 86900; 86901; 88172; 88173; 88177; 88305; 88313; 88342; 93005; 93306; 96374; 99215; 99232; 99239; 99291; A9270-GY; G0463; G8978-GP-CI; G8979-GP-CI; G8980-GP-CI; J0461; J1170; J1642; J2405; J3010; Q9967

== ENCOUNTER 2018-12-25 11:42 | Emergency (ER) | payer MEDICARE, OTHER ==
[2018-12-25 11:53] VITALS: BP 175/83
--- NOTE | 2018-12-25 12:09 | UC ---
Ear Complaint HPI - HPI Summary HPI Summary: 73 you old with lung cancer now in remission, presents with complaint of pain from foreign body in his left ear. It's the end of his hearing aid. Vital signs stable; elevated blood pressure noted and discussed. Nurse's note: c/o getting his hearing aid stuck in his left ear maybe for a few days his states. - History of Current Complaint Chief Complaint: UCEar Stated Complaint: FB IN EAR Time Seen by Provider: 12/25/18 12:06 Pain Intensity: 0 - Allergies/Home Medications Allergies/Adverse Reactions: Allergies Allergy/AdvReac Type Severity Reaction Status Date / Time codeine Allergy Rash Verified 12/25/18 11:54 PMH/Surg Hx/FS Hx/Imm Hx - Additional Past Medical History Additional PMH: lung cancer, now in remission. Previously Healthy: No Cardiovascular History: Hypertension Other History Of: Anticoagulant Therapy - ASA - Surgical History Surgical History: Yes Surgery Procedure, Year, and Place: appendectomy age 11, hernia repair , [place]ula [place] - Family History Known Family History: Positive: Cardiac Disease, Other - [place] - Social History Occupation: Retired Lives: With Family Alcohol Use: Occasionally Alcohol Amount: 1 beer a night Substance Use Type: None Smoking Status (MU): Former Smoker Type: Cigarettes Have You Smoked in the Last Year: No When Did the Patient Quit Smoking/Using Tobacco: 20 YEARS AGO - Immunization History Most Recent Influenza Vaccination: 2017 Most Recent Tetanus Shot: Unkown Most Recent Pneumonia Vaccination: 2013 Review of Systems All Other Systems Reviewed And Are Negative: Yes Constitutional: Positive: Negative ENT: Positive: Ear Ache - left ear discomfort from foreign body Respiratory: Positive: Negative Cardiovascular: Positive: Negative Gastrointestinal: Positive: Negative Genitourinary: Positive: Negative Is Patient Immunocompromised?: No Physical Exam - Summary Physical Exam Summary: Appearance: The patient is well-appearing, is in no pain or distress, and is well-nourished. Eyes: Conjunctiva are clear. Pupils are equal and reactive to light and accommodation. Extra ocular muscle movement is intact. ENT: The hearing is grossly normal, the pharynx is normal, and the TMs are normal. There is no muffled or hoarse voice. No stridor. There is a 1 cm plastic object deep in the left ear. It was removed with an alligator forceps. No injury to canal noted. No blood. Neck: The neck is supple and there is no lymphadenopathy. Respiratory: The chest is nontender to palpation and without crepitus. The lungs are clear, there are normal breath sounds, and there is no respiratory distress. No wheezes, rales or rhonchi. Cardiovascular: Heart sounds reveal a regular rate and rhythm. There are no clicks, rubs or murmurs. There are no carotid bruits or thrills. Circulation is grossly intact. Abdomen: The abdomen is soft and nontender. There is no organomegaly. Bowel sounds are present and within normal limits. No point tenderness at McBurneys point. Musculoskeletal: Strength is intact. The patient moves all extremities. Neurological: The patient is alert. Motor and sensory are examination grossly intact. Speech is normal. Psychological: The patient displays age appropriate behavior Skin: Negative for rashes. Vital Signs: Initial Vital Signs Temp 98.8 F 12/25/18 11:50 Pulse 73 12/25/18 11:50 Resp 18 12/25/18 11:50 BP 175/83 12/25/18 11:50 Pulse Ox 98 12/25/18 11:50 Ear Complaint Course/Dx - Course Course Of Treatment: 73 you old with lung cancer now in remission, presents with complaint of pain from foreign body in his left ear. It's the end of his hearing aid. Vital signs stable; elevated blood pressure noted and discussed. With alligator forceps, foreign body removed from left ear. Canal intact. Will give two days of antibiotic drops to EAC on the left. - Differential Dx/Diagnosis Differential Diagnosis/HQI/PQRI: Foreign Body, Otitis Externa Provider Diagnosis: Foreign bodies Discharge - Sign-Out/Discharge Documenting (check all that apply): Patient Departure All imaging exams completed and their final reports reviewed: No Studies - Discharge Plan Condition: Stable Disposition: HOME Prescriptions: Ofloxacin 0.3% (Ear Drop)* [Floxin 0.3% OTIC.MING (Ear Drop)] 1 drop .SEE ORDER TID #1 btl MDD 10 DROPS A DAY Referrals: Byron Carrillo MD [Primary Care Provider] - Additional Instructions: PLEASE SEEK CARE AT THE EMERGENCY DEPARTMENT IF SYMPTOMS WORSEN OR IF NEW SYMPTOMS DEVELOP. FOLLOW UP WITH YOUR PRIMARY CARE PHYSICIAN IF CONDITION CONTINUES BEYOND 3 DAYS WITHOUT IMPROVEMENT. We are open from 7 a.m. to 10 p.m. Call us with any questions or concerns. YOUR DIAGNOSIS IS: foreign body in left ear, removed; use antibiotic drops 3 times a day for 2 days YOUR PRESCRIPTION RECOMMENDATION IS: antibiotic ear drops,. 3 drops, 3 times a day for 2 days. OTHER INSTRUCTIONS: Hypertension Discharge Instructions: Your blood pressure reading today was 175/83, indicating HYPERTENSION. Follow- up with your primary care provider within 4 weeks for blood pressure check and appropriate recommendations and treatment, as needed. - Billing Disposition and Condition Condition: STABLE Disposition: Home
== END 2018-12-25 12:46 | disposition home or self-care (01) ==
LOC: UCEAST 11:42
DX: T16.2XXA Foreign body in left ear, initial encounter (principal); I10 Essential (primary) hypertension; Z85.118 Personal history of other malignant neoplasm of bronchus and lung; Z88.5 Allergy status to narcotic agent; Z87.891 Personal history of nicotine dependence
CPT/HCPCS: 69200; 99212; G0463

== ENCOUNTER 2019-01-16 14:43 | Emergency (ER) | payer MEDICARE, OTHER ==
[2019-01-16] MEDS ORDERED: Meclizine TAB* 12.5 MG PO ONE (14:57)
--- NOTE | 2019-01-16 14:58 | ED ---
Dizziness - HPI Summary HPI Summary: This patient is a 73 year old M brought in by EMS with a chief complaint of weak dizziness since 05:30. He fell in the bathroom and hit his head. Patient reports weakness. Patient denies nausea, vomiting, blurry vision, CP, SOB, LOC, or neck pain. The patient is not taking any new medications. He does not take any blood thinners. His states that he also fell last night. No PMHX Vertigo. - History Of Current Complaint Chief Complaint: EDDizziness Stated Complaint: DIZZY WEAKNESS PER EMS Time Seen by Provider: 01/16/19 14:51 Hx Obtained From: Patient Onset/Duration: Still Present Character: Weak - Allergies/Home Medications Allergies/Adverse Reactions: Allergies Allergy/AdvReac Type Severity Reaction Status Date / Time No Known Allergies Allergy Verified 01/16/19 14:50 PMH/Surg Hx/FS Hx/Imm Hx Endocrine/Hematology History: Reports: Hx Anticoagulant Therapy - ASA, Hx Blood Transfusions, Hx Diabetes, Hx Anemia Denies: Hx Systemic Lupus Erythematosus, Hx Thyroid Disease Cardiovascular History: Reports: Hx Hypercholesterolemia, Hx Hypertension, Hx Rheumatic Fever Denies: Hx Aneurysm, Hx Angina, Hx Congenital Heart Disease, Hx Congestive Heart Failure, Hx Deep Vein Thrombosis, Hx Pacemaker/ICD, Hx Peripheral Vascular Disease, Other Cardiovascular Problems/Disorders Respiratory History: Reports: Hx Lung Cancer - small cell, Hx Pulmonary Embolism , Hx Sleep Apnea, Other Respiratory Problems/Disorders - blood clot in lung on coumadin Denies: Hx Asthma, Hx Chronic Obstructive Pulmonary Disease (COPD) GI History: Denies: Other GI Disorders History: Reports: Hx Renal Disease - abnormal gfr, Other Problems/ Disorders - currently elevated bun/creat, diabetic related impaired kidney function Denies: Hx Dialysis Musculoskeletal History: Reports: Other Musculoskeletal History - neuropathy in bilateral hands and feet Denies: Hx Arthritis, Hx Rheumatoid Arthritis, Hx Osteoporosis Sensory History: Reports: Hx Contacts or Glasses, Hx Macular Degeneration - left eye, Hx Hearing Aid, Hx Hearing Problem Denies: Hx Glaucoma Opthamlomology History: Reports: Hx Contacts or Glasses, Hx Macular Degeneration - left eye Denies: Hx Glaucoma Neurological History: Reports: Other Neuro Impairments/Disorders - Past hx seizure activity, no treatment at this time Denies: Hx Dementia, Hx Headaches, Hx Seizures, Hx Transient Ischemic Attacks (TIA) Psychiatric History: Reports: Hx Anxiety, Hx Depression Denies: Hx Panic Disorder, Hx Substance Abuse - Cancer History Cancer Type, Location and Year: LUNG- DX 4 YEARS AGO , squamous cell Hx Chemotherapy: Yes Hx Radiation Therapy: Yes - Surgical History Surgery Procedure, Year, and Place: appendectomy age 11, hernia repair , [place] - Immunization History Date of Tetanus Vaccine: UNKNOWN Infectious Disease History: No Infectious Disease History: Reports: Hx Shingles Denies: Hx Hepatitis, Hx Human Immunodeficiency Virus (HIV), Traveled Outside the [place] in Last 30 Days - Family History Known Family History: Positive: Cardiac Disease, Other - [place] - Social History Lives: With Family Alcohol Use: Rare Alcohol Amount: 1 beer a night Substance Use Type: Reports: None Smoking Status (MU): Former Smoker Type: Cigarettes Have You Smoked in the Last Year: No Review of Systems Negative: Blurred Vision Negative: Chest Pain Negative: Shortness Of Breath Negative: Vomiting, Nausea Neurological: Other - dizziness Positive: Weakness. Negative: Syncope All Other Systems Reviewed And Are Negative: Yes Physical Exam - Summary Physical Exam Summary: VITAL SIGNS: Reviewed. GENERAL: Patient is a well-developed and nourished male who is lying comfortable in the stretcher. Patient is not in any acute respiratory distress. HEAD AND FACE: No signs of trauma. No ecchymosis, hematomas or skull depressions. No sinus tenderness. EYES: PERRLA, EOMI x 2, No injected conjunctiva, no nystagmus. EARS: Hearing grossly intact. Ear canals and tympanic membranes are within normal limits. MOUTH: Oropharynx within normal limits. NECK: Supple, trachea is midline, no adenopathy, no JVD, no carotid bruit, no c- spine tenderness, neck with full ROM. CHEST: Symmetric, no tenderness at palpation LUNGS: Clear to auscultation bilaterally. No wheezing or crackles. CVS: Regular rate and rhythm, S1 and S2 present, no murmurs or gallops appreciated. ABDOMEN: Soft, non-tender. No signs of distention. No rebound no guarding, and no masses palpated. Bowel sounds are normal. EXTREMITIES: FROM in all major joints, no edema, no cyanosis or clubbing. NEURO: Alert and oriented x 3. No acute neurological deficits. Speech is normal and follows commands. SKIN: Dry and warm. Small abrasion on the right eyebrow. GCS: 15 Triage Information Reviewed: Yes Vital Signs On Initial Exam: Initial Vitals Temp Pulse Resp BP Pulse Ox 99.3 F 83 24 169/83 95 01/16/19 14:48 01/16/19 14:48 01/16/19 14:48 01/16/19 14:48 01/16/19 14:48 Vital Signs Reviewed: Yes Diagnostics - Vital Signs Vital Signs Temp Pulse Resp BP Pulse Ox 01/16/19 14:48 99.3 F 83 24 169/83 95 - Laboratory Result Diagrams: 01/16/19 15:36 01/16/19 15:36 Lab Statement: Any lab studies that have been ordered have been reviewed, and results considered in the medical decision making process. - Radiology CXR Radiology Interpretation Completed By: Radiologist Summary of Radiographic Findings: No radiographic evidence of acute cardiopulmonary disease. ED physician has reviewed this report. - CT Brain CT Interpretation Completed By: Radiologist Summary of CT Findings: CT appearance is most consistent with chronic microvascular disease not. changed significantly from the most recent May 01, 2017 CT examination. There are no. acute intracranial abnormalities. ED physician has reviewed this report. - EKG 15:39 Cardiac Rate: NL - 81 bpm EKG Rhythm: Sinus Rhythm EKG Comparison: No Significant Change - 04/29/17 Summary of EKG Findings: No ST elevations. Depression in V4-6 Dizzy Course/Dx - Course Assessment/Plan: Patient is a 73-year-old male who presents to the emergency room with a chief complaint of having dizziness and he has fallen twice, once last night and once this morning. Test results shows a slight Chronic anemia, sodium 133, BUN is 32 creatinine 1.95. Glucose is 240, magnesium 1.8, CRP is 46.6 and BMP 219. The patient is slightly dehydrated therefore the patient was given 1 L of fluids. Head CT impression: At. His is most consistent with chronic microvascular disease no changes significant from a recent study on May 01, 2017. There is no acute intracranial abnormalities. Chest x-ray impression: No radiographic evidence of acute cardiopulmonary disease. Blood work without any significant abnormality except for a slight anemia, sodium was 133, BUN is 32 and creatinine 1.95. The patients creatinine is at baseline. Is 240, magnesium 1.8, CRP is 46.6, urinalysis is negative for UTI. In the ED course the patient was given IV fluids and meclizine and the patients symptoms have significantly improved. The patients reports that most of his falling is because the patient has very weak legs and when he went to the bathroom he was by himself instead awaiting for help. At this point the patient is feeling better. The blood work is not significantly abnormal therefore I discussed all the findings and test results with the patients and they agreed to take the patient home and if there is any other complaint facial return to the medicine for further workup and management. At this point the patient is hemodynamically stable alert oriented 3. - Diagnoses Provider Diagnoses: Dizziness, Accidental fall Discharge - Sign-Out/Discharge Documenting (check all that apply): Patient Departure - discharge Patient Received Moderate/Deep Sedation with Procedure: No - Discharge Plan Condition: Stable Disposition: HOME Patient Education Materials: Dizziness (ED), Fall Prevention (ED) Referrals: Byron Carrillo MD [Primary Care Provider] - 3 Days Additional Instructions: Follow up with Dr. Carrillo in 2-3 days. RETURN TO THE ED FOR ANY WORSENING OR NEW SYMPTOMS. - Billing Disposition and Condition Condition: STABLE Disposition: Home - Attestation Statements Document Initiated by Scribe: Yes Documenting Scribe: Uli Sanders Provider For Whom Chapis is Documenting (Include Credential): Harjinder Ricardo MD Scribe Attestation: IUli scribed for Harjinder Ricardo MD on 01/19/19 at 2110. Scribe Documentation Reviewed: Yes Provider Attestation: The documentation as recorded by the Uli bella accurately reflects the service I personally performed and the decisions made by me, Harjinder Ricardo MD Status of Scribe Document: Viewed
[2019-01-16 15:46] LABS: ABS Basophils 0.1 10^3/ul (0-0.2); ABS Eosinophils 0.2 10^3/ul (0-0.6); ABS Lymphocytes 0.6 10^3/ul (1.0-4.8); ABS Monocytes 1.2 10^3/ul (0-0.8); ABS Neutrophils 5.6 10^3/ul (1.5-7.7); ABS Nucleated RBC 0 10^3/ul; Eosinophil % 2.4 %; Hematocrit 33 % (36-46); Hemoglobin 10.9 g/dL (14.0-18.0); Mean Corpuscular HGB Conc 34 g/dL (31-36); Mean Corpuscular Hemoglobin 29 pg (27-31); Mean Corpuscular Volume 87 fL (80-94); Mean Platelet Volume 8.5 fL (7.4-10.4); Nucleated Red Blood Cells % 0; Platelet Count 165 10^3/uL (150-450); Red Blood Count 3.72 10^6 /uL (4.18-5.48); Red Cell Distribution Width 14 % (10.5-15); White Blood Count 7.7 10^3/uL (3.5-10.8)
[2019-01-16] MEDS ORDERED: NS 0.9% 1000 ML** 1,000 ML IV ONE (15:54)
[2019-01-16 16:02] LABS: Albumin 3.4 g/dL (3.2-5.2); Albumin/Globulin Ratio 0.9 (1-3); BUN/Creatinine Ratio 16.4 (8-20); C Reactive Protein 46.61 mg/L (<8.01); Calcium 8.4 mg/dL (8.6-10.3); EGFR African American 41.1 (>60); Globulin 3.6 g/dL (2-4); Magnesium 1.8 mg/dL (1.9-2.7); Potassium 3.9 mmol/L (3.5-5.0); Total Bilirubin 0.3 mg/dL (0.2-1.0)
[2019-01-16 16:03] LABS: Troponin I 0.03 ng/mL (<0.04)
[2019-01-16 16:46] LABS: TSH (Thyroid Stimulating Horm) 1.84 mcIU/mL (0.34-5.60)
[2019-01-16 16:54] LABS: Urine Appearance Clear; Urine Bacteria Absent (Absent); Urine Bilirubin Negative (Negative); Urine Blood 1+ (Negative); Urine Color Yellow; Urine Glucose 3+(>=500 mg/dL) (Negative); Urine Ketones Negative (Negative); Urine Nitrite Negative (Negative); Urine Protein 2+(100 mg/dL) (Negative); Urine Red Blood Cell 1+(3-5/hpf) (Absent); Urine Specific Gravity 1.012 (1.010-1.030); Urine Squamous Epithelial Cell Present (Absent); Urine Urobilinogen Negative (Negative); Urine White Blood Cell Trace(0-5/hpf) (Absent)
[2019-01-16] MEDS ORDERED: Magnesium Oxide TAB* 400 MG PO ONE (17:02)
[2019-01-16 17:56] VITALS: BP 180/92
== END 2019-01-16 18:43 | disposition home or self-care (01) ==
LOC: ED 14:43
DX: R42 Dizziness and giddiness (principal); R53.1 Weakness; Z79.01 Long term (current) use of anticoagulants; Z87.891 Personal history of nicotine dependence; Z85.118 Personal history of other malignant neoplasm of bronchus and lung; Z91.81 History of falling; I10 Essential (primary) hypertension; E11.9 Type 2 diabetes mellitus without complications
CPT/HCPCS: 36415; 70450; 71046; 80053; 81003; 81015; 82550; 83605; 83735; 83880; 84443; 84484; 85025; 86140; 87086; 93005; 99283; A9270-GY

== ENCOUNTER 2019-08-24 03:51 | Inpatient (IN) | payer MEDICARE, OTHER ==
--- NOTE | 2019-08-24 04:06 | ED ---
Shortness of Breath - HPI Summary HPI Summary: Patient is a 74 y/o M presenting to the ED for a chief complaint of shortness of breath that began during his sleep the night of 08/23/19. Per EMS, patient was given 3 NTG and oxygen with some relief. On EMS arrival, pulse ox was 95%. On arrival to [facility], pulse ox was 85% on room air. Patient admits chest pressure , but denies fever or cough. Patient has a PMHx of rheumatic fever, HTN, DM, and lung cancer with port placement. Patient has a PSHx of appendectomy and tonsillectomy. Patient admits similar symptoms in the past and prior visits to [facility] for similar symptoms. Medications reviewed. - History of Current Complaint Chief Complaint: EDShortnessOfBreath Hx Obtained From: Patient, EMS Onset/Duration: Sudden Onset, Still Present Current Severity: Moderate Dyspnea At: Rest Aggravating Factors: Nothing Alleviating Factors: Oxygen Associated Signs & Symptoms: Negative - Allergy/Home Medications Allergies/Adverse Reactions: Allergies Allergy/AdvReac Type Severity Reaction Status Date / Time codeine AdvReac Mild GI Upset Verified 08/24/19 04:04 Home Medications: Home Medications Aspirin [Aspirin EC] 81 mg PO DAILY 08/24/19 [History Confirmed 08/24/19] Docusate Sodium [Colace] 100 mg PO BEDTIME PRN 08/24/19 [History Confirmed 08/24] Ginkgo Biloba 120 mg PO DAILY 08/24/19 [History Confirmed 08/24/19] Mv-Min/Iron/Folic/Calcium/Vitk [One-A-Day Women's Tablet] 1 tab PO DAILY [History Confirmed 08/24/19] Pioglitazone TAB* [Actos TAB*] 30 mg PO DAILY 08/24/19 [History Confirmed ] Pravastatin Sodium 40 mg PO QPM 08/24/19 [History Confirmed 08/24/19] Vit C/E/Zn/Coppr/Lutein/Zeaxan [Preservision Areds 2 Softgel] 1 cap PO BID 08/24 [History Confirmed 08/24/19] PMH/Surg Hx/FS Hx/Imm Hx Previously Healthy: Yes Endocrine/Hematology History: Reports: Hx Anticoagulant Therapy - ASA, Hx Blood Transfusions, Hx Diabetes, Hx Anemia Denies: Hx Systemic Lupus Erythematosus, Hx Thyroid Disease Cardiovascular History: Reports: Hx Hypercholesterolemia, Hx Hypertension, Hx Rheumatic Fever Denies: Hx Aneurysm, Hx Angina, Hx Congenital Heart Disease, Hx Congestive Heart Failure, Hx Deep Vein Thrombosis, Hx Pacemaker/ICD, Hx Peripheral Vascular Disease, Other Cardiovascular Problems/Disorders Respiratory History: Reports: Hx Lung Cancer - small cell, Hx Pulmonary Embolism , Hx Sleep Apnea, Other Respiratory Problems/Disorders - blood clot in lung on coumadin Denies: Hx Asthma, Hx Chronic Obstructive Pulmonary Disease (COPD) GI History: Denies: Other GI Disorders History: Reports: Hx Renal Disease - abnormal gfr, Other Problems/ Disorders - currently elevated bun/creat, diabetic related impaired kidney function Denies: Hx Dialysis Musculoskeletal History: Reports: Other Musculoskeletal History - neuropathy in bilateral hands and feet Denies: Hx Arthritis, Hx Rheumatoid Arthritis, Hx Osteoporosis Sensory History: Reports: Hx Contacts or Glasses, Hx Macular Degeneration - left eye, Hx Hearing Aid, Hx Hearing Problem Denies: Hx Glaucoma, Hx Legally Blind, Hx Deafness Opthamlomology History: Reports: Hx Contacts or Glasses, Hx Macular Degeneration - left eye Denies: Hx Glaucoma, Hx Legally Blind EENT History: Denies: Hx Deafness Neurological History: Reports: Other Neuro Impairments/Disorders - Past hx seizure activity, no treatment at this time Denies: Hx Dementia, Hx Headaches, Hx Seizures, Hx Transient Ischemic Attacks (TIA) Psychiatric History: Reports: Hx Anxiety, Hx Depression Denies: Hx Panic Disorder, Hx Substance Abuse - Cancer History Cancer Type, Location and Year: LUNG- DX 4 YEARS AGO , squamous cell Hx Chemotherapy: Yes Hx Radiation Therapy: Yes - Surgical History Surgical History: Yes Surgery Procedure, Year, and Place: appendectomy age 11, hernia repair , uvula removed r/t sleep apnea in ,port - Immunization History Date of Tetanus Vaccine: UNKNOWN Infectious Disease History: No Infectious Disease History: Reports: Hx Shingles Denies: Hx Hepatitis, Hx Human Immunodeficiency Virus (HIV), Traveled Outside the [place] in Last 30 Days - Family History Known Family History: Positive: Cardiac Disease, Other - CA - Social History Occupation: Retired Lives: With Family Alcohol Use: Rare Alcohol Amount: 1 beer a night Hx Substance Use: No Substance Use Type: Reports: None Hx Tobacco Use: Yes Smoking Status (MU): Former Smoker Type: Cigarettes Have You Smoked in the Last Year: No Review of Systems - ROS Summary Review of Systems Summary: Citalopram TAB* [Celexa TAB*] 10 mg PO QAM 09/28/12 [History Confirmed 08/24/19] glipiZIDE TAB* [Glucotrol TAB*] 10 mg PO BID 09/28/12 [History Confirmed ] Sitagliptin Phosphate [Januvia] 50 mg PO QPM 05/09/14 [History Confirmed ] Flaxseed Oil [Flax Seed Oil 1000 mg] 1 cap PO DAILY 09/17/17 [History Confirmed 08/24/19] Aspirin [Aspirin EC] 81 mg PO DAILY 08/24/19 [History Confirmed 08/24/19] Docusate Sodium [Colace] 100 mg PO BEDTIME PRN 08/24/19 [History Confirmed 08/24] Ginkgo Biloba 120 mg PO DAILY 08/24/19 [History Confirmed 08/24/19] Mv-Min/Iron/Folic/Calcium/Vitk [One-A-Day Women's Tablet] 1 tab PO DAILY [History Confirmed 08/24/19] Pioglitazone TAB* [Actos TAB*] 30 mg PO DAILY 08/24/19 [History Confirmed ] Pravastatin Sodium 40 mg PO QPM 08/24/19 [History Confirmed 08/24/19] Vit C/E/Zn/Coppr/Lutein/Zeaxan [Preservision Areds 2 Softgel] 1 cap PO BID 08/24 [History Confirmed 08/24/19] Negative: Fever Positive: Other - Positive chest pressure Positive: Shortness Of Breath. Negative: Cough All Other Systems Reviewed And Are Negative: Yes Physical Exam - Summary Physical Exam Summary: General: Well-developed, Obese elderly MALE. No acute distress. Fairly poor historian. HEENT: Normocephalic, Atraumatic. Eyes: Conjuctiva normal, PERRL. Ears: TMs within normal limits. Nares: (-) discharge, (-) erythema. Oropharynx: Clear, mucous membranes moist, (-) exudates. Neck: Soft, FROM, (-) lymphadenopathy, (-) thyromegaly, (-) JVD. Cardiovascular: Normal sinus rhythm, (-) murmur. Lungs: (-) wheezes, (-) rales, (-) rhonchi. Mild respiratory discomfort. Mild crackles in the right lower lung. Abdomen: Soft, non-tender, non-distended, (-) organomegaly, normal bowel sounds. Back: (-) CVA tenderness Extremities: No edema. Skin: Warm, dry, (-) rash. Neuro: Alert and oriented x3, no focal deficits. Psychiatric: Mood normal, affect normal. Triage Information Reviewed: Yes Vital Signs On Initial Exam: Initial Vitals Temp Pulse Resp BP Pulse Ox 98.3 F 99 30 179/107 96 08/24/19 03:55 08/24/19 03:55 08/24/19 03:55 08/24/19 03:55 08/24/19 03:55 Vital Signs Reviewed: Yes Procedures - Sedation Patient Received Moderate/Deep Sedation with Procedure: No Diagnostics - Vital Signs Vital Signs Temp Pulse Resp BP Pulse Ox 08/24/19 04:01 100 30 97 08/24/19 03:59 96 28 178/106 96 08/24/19 03:58 100 33 95 08/24/19 03:55 98.3 F 99 30 179/107 96 - Laboratory Result Diagrams: 08/24/19 04:41 08/24/19 04:41 Lab Statement: Any lab studies that have been ordered have been reviewed, and results considered in the medical decision making process. - Radiology Chest X-ray Radiology Interpretation Completed By: ED Physician Summary of Radiographic Findings: Chest X-ray IMPRESSION: increased interstitial markings consistent with CHF. Reviewed and interpreted by Dr. Martel; pending official radiology report. - EKG 03:58 Cardiac Rate: NL - 99 BPM EKG Rhythm: Sinus Rhythm ST Segment: Normal Ectopy: None Summary of EKG Findings: EKG at 03:58 reveals normal sinus rhythm with rate of 99 BPM, no acute changes, no ischemic changes, no STEMI. This EKG was reviewed and interpreted by Dr. Martel. Course/Dx - Course Course Of Treatment: 74-year-old male with shortness of breath and chest pressure. Found to have elevated BNP. Mildly elevated troponin. Patient had 3 nitroglycerin initially with only moderate improvement of his symptoms. At this time he is symptom free. Patient referred to hospitalist for admission. - Diagnoses Provider Diagnoses: Elevated troponin, CHF (congestive heart failure), Hypoxia - Physician Notifications Discussed Care of Patient With: Cathy Chaudhari - At 05:32, Dr. Cathy Chaudhari agrees to admit the patient [place] [facility] [place] a diagnosis of CHF, hypoxia, and elevated troponin. Time Discussed With Above Provider: 05:32 Instructed by Provider To: Admit As Inpatient Discharge ED - Sign-Out/Discharge Documenting (check all that apply): Patient Departure - Admit - Discharge Plan Condition: Stable Disposition: ADMITTED TO [facility] Referrals: Byron Carrillo MD [Primary Care Provider] - - Billing Disposition and Condition Condition: STABLE Disposition: Admitted to [facility] - Attestation Statements Document Initiated by Scribe: Yes Documenting Scribe: Lexi Leary Provider For Whom Chapis is Documenting (Include Credential): Daly Martel MD Scribe Attestation: Lexi Villaseñor, scribed for Daly Martel MD on 08/24/19 at 0615. Scribe Documentation Reviewed: Yes Provider Attestation: The documentation as recorded by the Lexi bella accurately reflects the service I personally performed and the decisions made by , Daly Martel MD Status of Scribe Document: Viewed
[2019-08-24] MEDS ORDERED: Aspirin 81 mg CHEW TAB* 81 MG TAB.CHEW PO ONE (04:15)
--- OUTSIDE RECORDS SUMMARY | 2019-08-24 04:28 | XMS REPORT | Summary of Care ---
:1945 Author Organization [facility] Address [address] [place] [address] Care Team Providers Name Role Phone Byron Carrillo Primary Care Provider Reason for Visit Reason Comments Follow Up pt presents for follow up Encounter Details Date Type Department Care Team Description 07/07/[address] [facility] Byron Carrillo MD Diabetic polyneuropathy associated with type 2 diabetes mellitus (HCC) ( Primary Dx); Practice [address] [facility] Mixed hyperlipidemia; [address] [place] [address] Stage 3 chronic kidney disease (HCC); [place] [address] Memory deficit [phone] Allergies Active Allergy Reactions Severity Noted Date Comments Codeine GI Reaction 11/09/2009 documented as of this encounter (statuses as of 07/07/2019) Medications Medication Sig Dispensed Refills Start End Date Status Date Blood Glucose by Does not apply route. 1. Brand:same as last time 1 Kit 0 Active Monitoring Suppl (BLOOD 1 GLUCOSE METER) Does not 3. Insulin requiring apply Kit 4. Test Blood Glucose 3 time(s) A DAY aspirin (ASPIRIN) 81 MG Take 81 mg by 0 Active Oral Chew Tab mouth DAILY. Pen [place] 5/16" 30G X 1 Device by 100 Each 3 Active 8 MM Does not apply Does not apply 4 Misc route DAILY. citalopram (CELEXA) 10 Take 1 Tab by 30 Tab 0 Active MG Oral Tab mouth DAILY. 4 BD ULTRA-FINE PEN USE DAILY 100 Each 3 Active NEEDLES 29G X 12.7MM DIRECTED 4 Does not apply Misc Multiple Take by mouth 0 Active Vitamins-Minerals TWICE DAILY. (PRESERVISION AREDS) Oral Cap nitroglycerin Place 1 Tab 25 Tab 0 Active (NITROSTAT) 0.4 MG under tongue 7 Sublingual SL Tab EVERY FIVE MINUTES NEEDED for chest pain. Can take one every 5 minutes for three times if no relief go to ER Flaxseed, Linseed, Take by 0 Active (FLAX SEED OIL PO) mouth. glipiZIDE (GLUCOTROL) TAKE 1 TABLET 60 Tab 5 Active 10 MG Oral Tab BY MOUTH TWICE 9 DAILY pravastatin (PRAVACHOL) TAKE 1 TABLET 90 Tab 1 Active 40 MG Oral BY MOUTH ONCE 9 TabIndications: DAILY AT Hypercholesteremia BEDTIME sitagliptin (JANUVIA) Take 1 Tab by 30 Tab 1 Active 100 MG Oral Tab mouth DAILY. 9 pioglitazone (ACTOS) 30 TAKE 1 TABLET 30 Tab 5 Active MG Oral Tab BY MOUTH DAILY 9 Glucose Blood 1 Strip by In 300 Strip 1 Active (ACCU-CHEK RACHAEL) In Vitro route 9 Vitro Strip THREE TIMES DAILY. DX E11.65 last OV 03/31/19 pioglitazone (ACTOS) 30 TAKE 1 TABLET 30 Tab 0 07/07/20 Discontinued MG Oral Tab BY MOUTH DAILY 9 19 documented as of this encounter (statuses as of 07/07/2019) Active Problems Problem Noted Date Solar purpura 07/05/2018 Diabetic polyneuropathy associated with type 2 diabetes mellitus 07/05/2018 Stage 3 chronic kidney disease 07/05/2018 Diabetes mellitus with microalbuminuria, without long-term current use of insulin Lung cancer 08/03/2012 SCC (squamous cell carcinoma), face 02/27/2012 Overview: SCC left religion Macular degeneration 01/11/2010 Essential hypertension 11/23/2009 Mixed hyperlipidemia 11/23/2009 BMI 31.0-31.9,adult Overview: This patient's BMI This patient's BMI has been calculated and is above average, and BMI management plan is completed. General patient education discussion including: weight loss link to reduction of r isk factors for cardiac and other diseases, importance of long-term maintenance treatment in weight loss, and accomplish with exercise as tolerated and diet control. Currently hard to exercise with his cancer documented as of this encounter (statuses as of 07/07/2019) Resolved Problems Problem Noted Date Resolved Date Lymphoma 02/17/2012 08/03/2012 Sleep-disordered breathing 01/11/2010 01/21/2010 Overview: Replaced inactive diagnosis Type 2 diabetes mellitus without complication 11/23/2009 07/30/2017 documented as of this encounter (statuses as of 07/07/2019) Immunizations Name Administration Dates Next Due Influenza (IM) Preservative Free 08/03/2012, 09/09/2011, 07/18/2010 Influenza Vaccine 65 Yrs + 07/07/2019 Influenza Vaccine High Dose 07/05/2018, 07/30/2017, 07/27/2015, 07/24/2014 PNEUMOCOCCAL POLYSACCHARIDE VACCINE 09/09/2011 Pneumococcal Conjugate(13 Valent) 09/30/2016 documented as of this encounter Social History Tobacco Use Types Packs/Day Years Used Date Former Smoker Quit: 10/12/1994 Smokeless Tobacco: Never Used Alcohol Use Drinks/Week oz/Week Comments No EX Sex Assigned at Date Recorded Not on file Job Start Date Occupation Industry Not on file Not on file Not on file Travel History Travel Start Travel End No recent travel history available. documented as of this encounter Last Filed Vital Signs Vital Sign Reading Time Taken Comments Blood Pressure 138/84 07/07/2019 8:05 AM EDT Pulse 75 07/07/2019 8:05 AM EDT Temperature 36.8 07/07/2019 8:05 AM EDT C (98.3 F) Respiratory Rate - - Oxygen Saturation 99% 07/07/2019 8:05 AM EDT Inhaled Oxygen Concentration - - Weight 93.4 kg (206 lb) 07/07/2019 8:05 AM EDT Height 170.2 cm (5' 7") 07/07/2019 8:05 AM EDT Body Mass Index 32.26 07/07/2019 8:05 AM EDT documented in this encounter Progress Notes Byron Carrillo MD - 07/07/2019 8:00 AM EDT PATIENT: Horace Shah : 1945 DATE OF SERVICE: 07/07/2019 CHIEF COMPLAINT: Chief Complaint Patient presents with Follow Up pt presents for follow up Subjective HISTORY OF PRESENT ILLNESS: Horace Shah is a 74-y.o. male. in for follow up of diabetes mellitus. He Is checking their sugars 1 times a day. They average <150* fasting He/ denies hypoglycemic symptoms. /Reports foot complaints of swelling Denies headache, vision problems, chest pain, shortness of breath, focal neurological synptoms He reports everything stable from his cancer feels his poor memory from radiation of the brain and chemo She asks about Ginkgo still goes to balance and exercise class Past Medical History: Diagnosis Date Actinic keratosis of multiple sites of head and neck BMI 31.0-31.9,adult CKD (chronic kidney disease) blamed on chemo Diabetes retinopathy 2013 and 2017 Diverticulosis 2011 5-10 years hemorrhoids GERD (gastroesophageal reflux disease) 2010 EGD negative Hypertension Macular degeneration ARY (obstructive sleep apnea) s/p surgery but not recall .fu sleep study Other and unspecified hyperlipidemia Pneumonia LLLobe Pulmonary embolism (HCC) 2012 Seizure disorder (HCC) 15 years ago likely due to etoh Sleep disordered breathing 2010 mild 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 BD ULTRA-FINE PEN NEEDLES 29G X 12.7MM Does not apply Misc USE DAILY DIRECTED Blood Glucose Monitoring Suppl (BLOOD GLUCOSE METER) Does not apply Kit by Does not apply route. 1. Brand:same as last time 3. Insulin requiring 4. Test Blood Glucose 3 time(s) A DAY citalopram (CELEXA) 10 MG Oral Tab Take 1 Tab by mouth DAILY. Flaxseed, Linseed, (FLAX SEED OIL PO) Take by mouth. glipiZIDE (GLUCOTROL) 10 MG Oral Tab TAKE 1 TABLET BY MOUTH TWICE DAILY Glucose Blood (ACCU-CHEK RACHAEL) In Vitro Strip 1 Strip by In Vitro route THREE TIMES DAILY. DX E11.65 last OV 03/31/19 Multiple Vitamins-Minerals (PRESERVISION AREDS) Oral Cap Take by mouth TWICE DAILY. nitroglycerin (NITROSTAT) 0.4 MG Sublingual SL Tab Place 1 Tab under tongue EVERY FIVE MINUTES NEEDED for chest pain. Can take one every 5 minutes for three times if no relief go to ER Pen [place] 5/16" 30G X 8 MM Does not apply Misc 1 Device by Does not apply route DAILY. pioglitazone (ACTOS) 30 MG Oral Tab TAKE 1 TABLET BY MOUTH DAILY pravastatin (PRAVACHOL) 40 MG Oral Tab TAKE 1 TABLET BY MOUTH ONCE DAILY AT BEDTIME sitagliptin (JANUVIA) 100 MG Oral Tab Take 1 Tab by mouth DAILY. No current facility-administered medications for this visit. Allergies Allergen Reactions Codeine GI Reaction Social History Socioeconomic History Marital status: Spouse name: Not on file Number of children: Not on file Years of education: Not on file Highest education level: Not on file Occupational History Not on file Social Needs Financial resource strain: Not on file Food insecurity: Worry: Not on file Inability: Not on file Transportation needs: Medical: Not on file Non-medical: Not on file Tobacco Use Smoking status: Former Smoker Last attempt to quit: 10/12/1994 Years since quittin.7 Smokeless tobacco: Never Used Substance and Sexual Activity Alcohol use: No Comment: EX Drug use: Not on file Sexual activity: Not on file Lifestyle Physical activity: Days per week: Not on file Minutes per session: Not on file Stress: Not on file Relationships Social connections: Talks on phone: Not on file Gets together: Not on file Attends episcopalian service: Not on file Active member of club or organization: Not on file Attends meetings of clubs or organizations: Not on file Relationship status: Not on file Intimate partner violence: Fear of current or ex partner: Not on file Emotionally abused: Not on file Physically abused: Not on file Forced sexual activity: Not on file Other Topics Concern Not on file Social History Narrative Not on file REVIEW OF SYSTEMS: ROS Objective PHYSICAL EXAM: VITALS: BP 138/84 (BP Location: Left arm, Patient Position: Sitting) | Pulse 75 | Temp 98.3 F(36.8 C) | Ht 5' 7" (1.702 m) | Wt 206 lb (93.4 kg) | SpO2 99% | BMI 32.26 kg/m Body mass index is 32.26 kg/m. Physical Exam Constitutional: General: He is not in acute distress. Comments: Weight up 5 lb Cardiovascular: Rate and Rhythm: Normal rate and regular rhythm. Pulmonary: Effort: Pulmonary effort is normal. Breath sounds: Rales (right base) present. Musculoskeletal: Right lower leg: Right lower leg edema: right ankle. ASSESSMENT / IMPRESSION: ICD-9-CM ICD-10-CM 1. Diabetic polyneuropathy associated with type 2 diabetes mellitus (HCC) improved a1c but + weight gain Will keep the regimen Recheck a1c in October 250.60 E11.42 LIPID PROFILE 357.2 GLYCOHEMOGLOBIN A1C MICROALBUMIN, RANDOM URINE W/ CREATININE 2. Mixed hyperlipidemia Checking lipids today as not done at [facility] [place] 272.2 E78.2 3. Stage 3 chronic kidney disease (HCC) 585.3 N18.3 4. Memory deficit this the first the has admitted a potentioal issue. Likely due to chemo radiation also diabetes etc , she does say that if she forces him he will remember He is lazy with doing things, lot of sitting 780.93 R41.3 Plan Author: Byron Carrillo MD 07/07/2019 08:12 documented in this encounter Plan of Treatment Name Type Priority Associated Diagnoses Date/Time LIPID PROFILE Lab Routine Diabetic polyneuropathy 07/07/2019 8:37 AM associated with type 2 EDT diabetes mellitus (HCC) MICROALBUMIN, RANDOM Lab Routine Diabetic polyneuropathy 07/07/2019 8:40 AM URINE W/ CREATININE associated with type 2 EDT diabetes mellitus (HCC) Name Type Priority Associated Diagnoses Order Schedule GLYCOHEMOGLOBIN A1C Lab Routine Diabetic polyneuropathy Ordered: 07/07/2019 associated with type 2 diabetes mellitus (HCC) MICROALBUMIN, RANDOM URINE Lab Routine Diabetic polyneuropathy Expected: W/ CREATININE associated with type 2 07/07/2019 diabetes mellitus (HCC) (Approximate), Expires: 01/03/2020 Health Maintenance Due Date Last Done Comments MEDICARE ANNUAL WELLNESS 1945 VISIT ZOSTER IMMUNIZATION SERIES 1996 (1 of 2) FALL RISK ASSESSMENT 2011 HEMOGLOBIN A1C 04/19/2019 01/18/2019, 03/25/2018, 06/16/2017, Additional history exists INFLUENZA VACCINE (#1) 2019 07/05/2018, 07/30/2017, 07/27/2015, Additional history exists FOOT EXAM 07/05/2019 07/05/2018, 07/05/2018, 07/30/2017, Additional history exists DEPRESSION SCREENING 11/12/2019 11/12/2018 URINE MICROALBUMIN 01/19/2020 01/18/2019, 01/14/2018, 03/12/2017, Additional history exists LIPID DISORDER SCREENING 03/14/2020 03/14/2019, 10/25/2018, 06/16/2017, Additional history exists Diabetic Eye Exam 03/30/2021 03/30/2019, 09/13/2018, 04/05/2018, Additional history exists COLONOSCOPY SCREENING 09/02/2021 09/02/2011 PNEUMOCOCCAL 65+YRS Completed 09/30/2016, 09/09/2011 AAA SCREENING/SURVEILLANCE Completed 04/29/2017 HPV IMMUNIZATION SERIES Aged Out No longer eligible based on patient's age to complete this topic MENINGOCOCCAL VACCINE IMM Aged Out No longer eligible based on patient's age to complete this topic documented as of this encounter Goals Goal Patient Goal Associated Recent Patient-Stated? Author Type Problems Progress Blood Pressure Blood Pressure 138/84 No Gerardo, < 140/90 (07/07/2019 MD Byron 8:05 AM EDT) Note: This is an individualized treatment (blood pressure) goal for Horace Shah: Displayed above (on the left) is your goal for blood pressure control. Your most recent blood pressure is also shown above, on the right. You should try to achieve blood pressures that are lower than your goal listed above (on the left). Diabetes < 7.0 Diabetes Type 2 diabetes 9.1 (01/18/2019 3:11 No Byron Carrillo, mellitus without PM EDT) complication Note: Diabetes Care Plan According to current 2014 ADA guidelines the patient A1C goal is less than 7. The patient's last A1C was Lab Results Lab Results Value Date/Time GLYCO 7.8 08/03/2013 0943 The patient is:above goal . As your provider, it is important that I advise you regarding: your current medications and help you with any challenges you may face taking your medications as directed (ex. instructions, cost, side effects, and interactions). lifestyle changes:exercise, diet and glucose monitoring your clinical goals and how you can achieve success:weight reduction, exercise plan, diet management and glucose monitoring medication management: adjusted medications as appropriate patient education/self-management tools provided: Current self-management tools adequate To successfully manage my Diabetes I will: have lab work every six months if my previous A1c was 7 or less. If my results were greater than 7, I will have lab work every three months. My goal is to control my diabetes by keeping A1c below 7.0 take medications every day as prescribed by my healthcare provider and if unable to take them I will discuss with my provider. exercise/walk 30 minutes 5 day(s) per week. If I experience chest pain, chest tightness, or shortness of breath, I will seek medical attention immediately. check feet daily. If sores or irritation are noticed, will seek medical attention. follow a low carbohydrate and low fat diet. My goal is an LDL (bad cholesterol) number less than 100 when I have my routine lab work. check blood sugar as instructed and will call my healthcare provider if the results are consistently below 70 or above 300. I will monitor for symptoms of low blood sugar (feeling faint, dizzy, lig htheaded, jittery, sweaty, or hungry), if symptoms are noticed, I will eat or drink something (glucose tabs, orange juice, candy) to help raise sugar. record my blood sugar results. MakeLeaps is safe and secure way for you to do this in your medical record online. try to obtain an ideal body weight. My recent weight was Weight: 198 lb 8 oz (90.039 kg). My weight loss goal for my next office visit is 190. to prevent kidney problems common to people with diabetes I will complete a yearly Microalbumin to check for protein in urine. I will talk with my healthcare provider about medications to prevent diabetic renal disease. to prevent diabetic retinopathy I will see an eye doctor yearly. A yearly dilated eye exam helps prevent blindness. if currently smoking, will discuss how to quit smoking with my healthcare provider and work towards quitting. Education Resources: [place] Diabetic Association Site http://diabetes.org Academy of Nutrition & Dietetics Site http://eatright.org National Smoking Cessation Site http://smokefree.gov Glycohemoglobin A1c < 7.0 Diabetes 9.1 (01/18/2019 3:11 PM Byron Mcneal MD EDT) Note: This is an individualized treatment (diabetes control, HgbA1C) goal for Horace Isaac Shah: Displayed above is your progress towards your HgbA1C goal. Your goal is shown above (on the left); your most recent HgbA1C is shown on the right. Note that lower numbers are better. Reduce portion size Diet No Byron Carrillo MD Weight loss vs. 18 mo max Lifestyle 0 (07/07/2019 8:05 AM No Byron Carrillo MD (lbs) >= 10 EDT) Note: This is an individualized lifestyle goal for Horace Shah: Your body mass index (BMI) is more than 30. You should lose weight. A reasonable starting goal is to lose 10 pounds. Displayed above is how many pounds you have lost thus far towards your 10 pound weight loss goal. Keep immunizations current Lifestyle No Byron Carrillo MD Note: This is an individualized lifestyle goal for Horace Shah: Please be sure to keep up-to-date on recommended immunizations. For example, this would include a yearly influenza vaccine. Immunization status can be seen by looking at the Health Maintenance sections of your [facility], Plan of Care, and any After Visit Summaries. Take all prescribed medications as directed Self-management No Byron Carrillo MD Note: This is an individualized self-management goal for Horace Shah: Please take all prescribed medications as directed. 1. Do not skip doses. If you cannot afford your medications, talk with your doctor. 2. Use a pill reminder system such as a pill box if needed. Your pharmacist can help you with this. 3. Contact your Pharmacy 5 days before your medication runs out. If you cannot take your medications for any reasons, talk with your doctor. 4. Please bring all of your medication bottles and inhalers (or a list of all your medications/inhalers) with you to every visit. Potential barriers to meeting all of your care plan goals will continue to be addressed on an ongoing basis. documented as of this encounter Procedures Procedure Name Priority Date/Time Associated Diagnosis Comments DIABETES FOOT EXAM Routine 07/07/2019 GLYCO A1C (EXTERNAL) Routine 05/30/2019 documented in this encounter Results DIABETES FOOT EXAM (07/07/2019) FOOT EXAM 3 seconds [facility] POCT Performing Organization Address City/State/Zipcode Phone Number [facility] [address] [place] [address] GLYCO A1C (EXTERNAL) (05/30/2019) Glyco A1c (External) 7.4 [facility] PO[facility] Performing Organization Address City/State/[place] Phone Number [facility] [address] [place] [address] documented in this encounter Visit Diagnoses Diagnosis Diabetic polyneuropathy associated with type 2 diabetes mellitus (HCC) - Primary Mixed hyperlipidemia Stage 3 chronic kidney disease (HCC) Memory deficit Memory loss documented in this encounter Insurance Payer Benefit Plan / Subscriber ID Effective Phone Address Type Group Dates MEDICARE MEDICARE PART A xxxxxxxxxxx 2011-Prese Medicare & B nt COMMERCIAL COMMERCIAL xxxxxxxxx Effective for Commercial GENERIC GENERIC PLAN all dates Guarantor Name Account Type Relation to Date of Phone Billing Patient Address Horace Shah Personal/Family 1945 [address] (Home) [place] [phone] [place], [place] (Work) [address] documented as of this encounter
[2019-08-24 04:50] LABS: ABS Basophils 0.1 10^3/ul (0-0.2); ABS Eosinophils 0.3 10^3/ul (0-0.6); ABS Lymphocytes 0.7 10^3/ul (1.0-4.8); ABS Neutrophils 9.1 10^3/ul (1.5-7.7); Eosinophil % 2.7 %; Hematocrit 33 % (42-52); Hemoglobin 10.7 g/dL (14.0-18.0); Lymphocyte % 6.2 %; Mean Corpuscular HGB Conc 32 g/dL (31-36); Mean Corpuscular Hemoglobin 29 pg (27-31); Mean Corpuscular Volume 89 fL (80-94); Mean Platelet Volume 8.4 fL (7.4-10.4); Nucleated Red Blood Cells % 0.1; Platelet Count 209 10^3/uL (150-450); Red Cell Distribution Width 14 % (10-15); White Blood Count 11.2 10^3/uL (3.5-10.8)
[2019-08-24 04:54] LABS: INR 1.02 (0.82-1.09)
[2019-08-24 05:07] LABS: ALT 19 U/L (7-52); AST 19 U/L (13-39); Albumin 3.5 g/dL (3.2-5.2); Albumin/Globulin Ratio 0.9 (1-3); Alkaline Phosphatase 76 U/L (34-104); Anion Gap 6 mmol/L (2-11); BUN/Creatinine Ratio 17.2 (8-20); Blood Urea Nitrogen 43 mg/dL (6-24); CO2 Carbon Dioxide 24 mmol/L (22-32); Calcium 8.6 mg/dL (8.6-10.3); Chloride 106 mmol/L (101-111); EGFR African American 30.8 (>60); EGFR Non-African American 25.4 (>60); Globulin 3.7 g/dL (2-4); Glucose 198 mg/dL (70-100); Magnesium 1.8 mg/dL (1.9-2.7); Potassium 4.4 mmol/L (3.5-5.0); Sodium 136 mmol/L (135-145); Total Protein 7.2 g/dL (6.4-8.9)
[2019-08-24 05:14] LABS: Troponin I 0.13 ng/mL (<0.04)
[2019-08-24] MEDS ORDERED: Furosemide IV* 10 MG/ML 10 ML VIAL (100 MG) IV ONE (05:40)
[2019-08-24] MEDS ORDERED: Docusate CAP* 100 MG PO PRN (07:17)
[2019-08-24 07:21] LABS: Troponin I 0.16 ng/mL (<0.04)
[2019-08-24 07:41] LABS: HDL Cholesterol 31.4 mg/dL
--- NOTE | 2019-08-24 07:48 | HP ---
History of Present Illness - History of Present Illness Reason for Visit: shortness of breath History of Present Illness: 74 year old male with past medical history of lung cancer in remission, DM2 who was brought in for shortness of breath. He has never had anything like it before. He said he sometimes get short of breath on exertion, but that is it. Last night, he woke up suddenly feeling short of breath, sat on the edge of the bed for about 1 hour before he decided to call the ambulance. he was hypoxemic on arrival and placed on 4L NC. He said laying flat at the time worsened his dyspnea. Sitting up helped a little, but his relief came from wearing the oxygen. He got a CXR in the ED which showed possible congestion but no obvious consolidation. BNP slightly elevated from previous. He received 1 dose of lasix in the ED. When i evaluated the pt, he already felt back to his baseline and off oxygen. - Past Medical History Cardiac: CAD, HTN, Hyperlipidemia - Past Family History Family History: Hyperlipidemia, Hypertension - Past Social History Smoke: Quit Alcohol: None Drugs: None Lives: With Family Domestic Violence: Negative - Health Maintenance Health Maintenance: Cholesterol Review of Systems - Measurements Intake and Output: Intake and Output Last 24 Hours 08/22/19 08/23/19 08/24/19 08/25/19 06:59 06:59 06:59 06:59 Weight 205 lb - Review of Systems Dermatology: Positive: Normal HEENT: Positive: Normal Eyes: Positive: Normal Thyroid: Positive: Normal Pulmonary: Positive: Shortness of Breath Cardiology: Positive: Edema Gastroenterology: Positive: Normal Endocrinology: Positive: Normal Neurology: Positive: Normal Psychiatry: Positive: Normal Objective Active Medications: Aspirin (Aspirin Ec Tab*) 81 mg PO DAILY MARCIAL Atorvastatin Calcium (Lipitor*) 10 mg PO QPM MARCIAL Citalopram Hydrobromide (Celexa Tab*) 10 mg PO QAM MARCIAL Docusate Sodium (Colace Cap*) 100 mg PO BEDTIME PRN PRN Reason: CONSTIPATION Vital Signs - 8 hr 08/24/19 08/24/19 08/24/19 03:55 03:58 03:59 Temperature 98.3 F Pulse Rate 99 100 96 Respiratory 30 33 28 Rate Blood Pressure 179/107 178/106 (mmHg) O2 Sat by Pulse 96 95 96 Oximetry 08/24/19 08/24/19 08/24/19 04:01 04:05 04:45 Temperature Pulse Rate 100 83 Respiratory 30 18 Rate Blood Pressure 184/95 (mmHg) O2 Sat by Pulse 97 98 96 Oximetry 08/24/19 08/24/19 08/24/19 04:50 04:58 05:00 Temperature Pulse Rate 79 79 Respiratory 23 27 Rate Blood Pressure 168/99 (mmHg) O2 Sat by Pulse 98 98 98 Oximetry 08/24/19 08/24/19 08/24/19 05:28 05:58 06:00 Temperature Pulse Rate 76 89 84 Respiratory 23 25 27 Rate Blood Pressure 161/85 183/91 (mmHg) O2 Sat by Pulse 99 94 95 Oximetry 08/24/19 06:29 Temperature Pulse Rate Respiratory 26 Rate Blood Pressure 198/104 (mmHg) O2 Sat by Pulse Oximetry Oxygen Devices in Use Now: Nasal Cannula Eyes: No Scleral Icterus, PERRLA Ears/Nose/Mouth/Throat: Mucous Membranes Moist Neck: NL Appearance and Movements; NL JVP Respiratory: Symmetrical Chest Expansion and Respiratory Effort, Clear to Auscultation Cardiovascular: NL Sounds; No Murmurs; No JVD, - - 2+ edema Abdominal: NL Sounds; No Tenderness; No Distention Skin: No Rash or Ulcers Neurological: Alert and Oriented x 3 Result Diagrams: 08/24/19 04:41 08/24/19 04:41 Assess/Plan/Problems-Billing Assessment: - Patient Problems (1) Dyspnea Current Visit: Yes Status: Acute Code(s): R06.00 - DYSPNEA, UNSPECIFIED SNOMED Code(s): 507251128 Comment: with transient hypoxemia uncertain what is causing this. Probably pleural edema, BNP elevated from baseline, tiny bump in troponin, CXR with ?congestion. he may have received a dose of lasix in the ED but he was already better before he received the lasix ( per patient). off oxygen. Will do a cardiac workup for him. Trend troponins, echo, lipid panel. (2) Diabetes 1.5, managed as type 2 Current Visit: No Status: Acute Code(s): E10.9 - TYPE 1 DIABETES MELLITUS WITHOUT COMPLICATIONS SNOMED Code(s): 548208837 Comment: diabetic diet FS ACHS (3) Hypertension Current Visit: No Status: Acute Code(s): I10 - ESSENTIAL (PRIMARY) HYPERTENSION SNOMED Code(s): 45854445 Comment: not on home medications (4) DVT prophylaxis Current Visit: Yes Status: Acute Code(s): Z29.9 - ENCOUNTER FOR PROPHYLACTIC MEASURES, UNSPECIFIED SNOMED Code(s): 199393996 Comment: heparin sc (5) Full code status Current Visit: Yes Status: Acute Code(s): Z78.9 - OTHER SPECIFIED HEALTH STATUS SNOMED Code(s): 868900852
[2019-08-24] MEDS ORDERED: amLODIPine TAB* 5 MG PO ONE (08:22)
--- NOTE | 2019-08-24 08:26 | PN ---
Subjective Date of Service: 08/24/19 Interval History: HD2 on 08/24 74M PMH SCLC (dx 2011, radiation and chemo in remission), mass in liver ( thought to be benign) on surv, NIDDM, HTN, HLD, CKD3, ARY who presented with progressive new onset volume overload, HTN, VIVIEN on CKD, STD V4-V6. Overnight, no acute events, VS notable for sig HTN Labs:Cr 2.5, Trop 0.18 Imaging: CXR: Vol overload as well as infiltrate? and old pleural changes and L pleural effusion, last echo 2017 EF 50-55% CT Lung: L pleural effusion and small R pleural effusion, small nodes EKG STD in V4-V6 This morning reports all GIBBONS and SOB now gone, denies chest pain or pressure, does endorse blt LE edema which is chronic and unchanging, no weight gain, really no changes in health at all except acute onset dyspena. Reports no cardiac hx except rheumatic fever as a child. Tolerating diet and voiding, no longer needing O2 Family History: Unchanged from Admission Objective Active Medications: Aspirin (Aspirin Ec Tab*) 81 mg PO DAILY [facility] Atorvastatin Calcium (Lipitor*) 10 mg PO QPM [facility] Citalopram Hydrobromide (Celexa Tab*) 10 mg PO QAM [facility] Docusate Sodium (Colace Cap*) 100 mg PO BEDTIME PRN PRN Reason: CONSTIPATION Heparin Sodium (Porcine) (Heparin Vial(*)) 5,000 units SUBCUT Q12HR [facility] Vital Signs - 8 hr 08/24/19 08/24/19 08/24/19 03:55 03:58 03:59 Temperature 98.3 F Pulse Rate 99 100 96 Respiratory 30 33 28 Rate Blood Pressure 179/107 178/106 (mmHg) O2 Sat by Pulse 96 95 96 Oximetry 08/24/19 08/24/19 08/24/19 04:01 04:05 04:45 Temperature Pulse Rate 100 83 Respiratory 30 18 Rate Blood Pressure 184/95 (mmHg) O2 Sat by Pulse 97 98 96 Oximetry 08/24/19 08/24/19 08/24/19 04:50 04:58 05:00 Temperature Pulse Rate 79 79 Respiratory 23 27 Rate Blood Pressure 168/99 (mmHg) O2 Sat by Pulse 98 98 98 Oximetry 08/24/19 08/24/19 08/24/19 05:28 05:58 06:00 Temperature Pulse Rate 76 89 84 Respiratory 23 25 27 Rate Blood Pressure 161/85 183/91 (mmHg) O2 Sat by Pulse 99 94 95 Oximetry 08/24/19 06:29 Temperature Pulse Rate Respiratory 26 Rate Blood Pressure 198/104 (mmHg) O2 Sat by Pulse Oximetry Oxygen Devices in Use Now: Nasal Cannula Appearance: Pleasant man in NAD Eyes: No Scleral Icterus Ears/Nose/Mouth/Throat: NL Teeth, Lips, Gums Neck: NL Appearance and Movements; NL JVP Respiratory: - - Dimished in blt bases, L>R Cardiovascular: RRR, - - systolic murmur 3/6 LUSB, no JVD Abdominal: NL Sounds; No Tenderness; No Distention, - - Distended, protuberant Lymphatic: No Cervical Adenopathy Extremities: No Edema Skin: No Rash or Ulcers Neurological: Alert and Oriented x 3 Lines/Tubes/Other Access: Clean, Dry and Intact Central Line - PORT Result Diagrams: 08/24/19 04:41 08/24/19 04:41 Assess/Plan/Problems-Billing Assessment: 74M PMH small cell lung cancer (dx 2011, 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 Differential includes new onset heart failure with acute ischemic event and ST changes with elevated troponin, recurrence of lung cancer given new pleural effusion, less likely PNA or infection. - Patient Problems (1) Dyspnea Current Visit: Yes Status: Acute Code(s): R06.00 - DYSPNEA, UNSPECIFIED SNOMED Code(s): 005068816 Comment: -Given onc hx will need Chest CT, r/o new decreased systolic function with echocardiogram, also possibility of primary cardiac insult with STD in V4-6 with elevated troponin -Lasix 80mg IV x1, will continue to monitor -Will attempt to perform thoracentesis on L (2) Lung cancer Current Visit: No Status: Acute Code(s): C34.90 - MALIGNANT NEOPLASM OF UNSP PART OF UNSP BRONCHUS OR LUNG SNOMED Code(s): 620890019 Comment: -Presumed remission, though will need outpt onc notes to get complex hx clarified (3) Anemia Current Visit: Yes Status: Acute Code(s): D64.9 - ANEMIA, UNSPECIFIED SNOMED Code(s): 877861952 Comment: -Normocytic, normochromic, appears at baseline (4) Leukocytosis Current Visit: Yes Status: Acute Code(s): D72.829 - ELEVATED WHITE BLOOD CELL COUNT, UNSPECIFIED SNOMED Code(s): 566993946 Comment: -Mildly elevated, afebriule and no other signs of infection, will hold on abx at this time (5) Elevated troponin Current Visit: Yes Status: Acute Code(s): R79.89 - OTHER SPECIFIED ABNORMAL FINDINGS OF BLOOD CHEMISTRY SNOMED Code(s): 322899169 Comment: -as per dyspnea, possible primary cardiac insult, will trend, obtain echo, and follow on tele -S/p ASA 325 x 1 (6) CKD (chronic kidney disease) stage 3, GFR 30-59 ml/min Current Visit: Yes Status: Acute Code(s): N18.3 - CHRONIC KIDNEY DISEASE, STAGE 3 (MODERATE) SNOMED Code(s): 076614298 Comment: - Close to baseline, renally dose medications, will need to hold on contrast (7) Non-insulin dependent type 2 diabetes mellitus Current Visit: Yes Status: Acute Code(s): E11.9 - TYPE 2 DIABETES MELLITUS WITHOUT COMPLICATIONS SNOMED Code(s): 15712412 Comment: -SSI, add on A1C (8) Hypertension Current Visit: No Status: Acute Code(s): I10 - ESSENTIAL (PRIMARY) HYPERTENSION SNOMED Code(s): 38132215 Comment: - Poor control, Amlodipine 10mg x 1 (9) Liver mass Current Visit: Yes Status: Acute Code(s): R16.0 - HEPATOMEGALY, NOT ELSEWHERE CLASSIFIED SNOMED Code(s): 015109299 Comment: -Will need clarification of path, mult bx in the past (10) Hyperlipemia Current Visit: Yes Status: Acute Code(s): E78.5 - HYPERLIPIDEMIA, UNSPECIFIED SNOMED Code(s): 24752833 Comment: -Continue home statin (11) DVT prophylaxis Current Visit: Yes Status: Acute Code(s): Z29.9 - ENCOUNTER FOR PROPHYLACTIC MEASURES, UNSPECIFIED SNOMED Code(s): 947433939 Comment: - LMWH renally dosed (12) DNR (do not resuscitate) Current Visit: Yes Status: Acute Status and Disposition: -Inpatient -Consultants: Onc, Pulm, Cards -PT/OT: on Hold -Lines/tubes: Port in place -Diet: Carb consistent
[2019-08-24] MEDS ORDERED: Dextrose 50% VIAL 50 ml IV PUSH PRN (08:53)
[2019-08-24] MEDS ORDERED: Heparin VIAL(*) 5000 UNITS/ML VIAL (FIVE THOUSAND) SUBCUT SCH (09:00)
[2019-08-24] MEDS: Aspirin EC TAB* 81 MG TAB.EC PO SCH (10:14)
[2019-08-24] MEDS: Citalopram TAB* 10 MG PO SCH (10:14)
[2019-08-24 11:32] LABS: Troponin I 0.17 ng/mL (<0.04)
[2019-08-24] MEDS ORDERED: Perflutren Lipid Microsphere* 3 ML VIAL ONE (11:44)
[2019-08-24] MEDS: Insulin LISPRO* 1 UNITS UNIT SUBCUT SCH ×3 (11:49→21:09)
--- NOTE | 2019-08-24 12:23 | PN ---
Progress Note - Progress Note Date of Service: 08/24/19 SOAP: Subjective: []Followed by oncology since Spring 2011 when he was diagnosed with limited stage SCLC, treated with Cis/Etoposide/XRT completed 06/2012. Subsequent local recurrence 09/2012 treated with Topotecan and EDWIGE since completed in 12/2011. He developed a liver mass with multiple biopsies (x3) negative for malignancy. Last seen in our clinic 06/2019 with scans remaining EDWIGE. Mr. Shah presented to the ER last night with sudden onset SOB. He and his note that he has not been experiencing fatigue since being seen last and no progressive breathing issues. He has long standing HTN but has not experienced any chest pain, pressure, or palpitations. To note this has not been well controlled (approx. 140-50/70s in clinic over the last several months). He has been working out at the gym without changes in this ability. He has chronic back pain, but no new pains. Mr. Shah denies HAs and has long standing vision changes with nothing acute, "I'm due for my eye exam today actually." Home Medications Medication Instructions Recorded Confirmed Type Citalopram TAB* [Celexa TAB*] 10 mg PO QAM 09/28/12 08/24/19 History glipiZIDE TAB* [Glucotrol TAB*] 10 mg PO BID 09/28/12 08/24/19 History Sitagliptin Phosphate [Januvia] 50 mg PO QPM 05/09/14 08/24/19 History Flaxseed Oil [Flax Seed Oil 1000 1 cap PO DAILY 09/17/17 08/24/19 History mg] Aspirin [Aspirin EC] 81 mg PO DAILY 08/24/19 08/24/19 History Docusate Sodium [Colace] 100 mg PO BEDTIME PRN 08/24/19 08/24/19 History Ginkgo Biloba 120 mg PO DAILY 08/24/19 08/24/19 History Mv-Min/Iron/Folic/Calcium/Vitk 1 tab PO DAILY 08/24/19 08/24/19 History [One-A-Day Women's Tablet] Pioglitazone TAB* [Actos TAB*] 30 mg PO DAILY 08/24/19 08/24/19 History Pravastatin Sodium 40 mg PO QPM 08/24/19 08/24/19 History Vit C/E/Zn/Coppr/Lutein/Zeaxan 1 cap PO BID 08/24/19 08/24/19 History [Preservision Areds 2 Softgel] Current Medications: Aspirin (Aspirin Ec Tab*) 81 mg PO DAILY [facility] Last Admin: 08/24/19 10:14 Dose: 81 mg Atorvastatin Calcium (Lipitor*) 10 mg PO QPM [facility] Citalopram Hydrobromide (Celexa Tab*) 10 mg PO QAM [facility] Last Admin: 08/24/19 10:14 Dose: 10 mg Dextrose (Dextrose 50% Vial 50 Ml*) 25 ml IV PUSH .FOR FS < 60 - SS PRN PRN Reason: FS < 60 Docusate Sodium (Colace Cap*) 100 mg PO BEDTIME PRN PRN Reason: CONSTIPATION Heparin Sodium (Porcine) (Heparin Vial(*)) 5,000 units SUBCUT Q12HR [facility] Last Admin: 08/24/19 10:14 Dose: 5,000 units Insulin Human Lispro (Humalog*) 0 units SUBCUT ACHS [facility]; Protocol Last Admin: 08/24/19 11:49 Dose: 3 units Objective: [] Vital Signs Temp Pulse Resp BP Pulse Ox 97.1 F 76 18 162/83 98 08/24/19 10:04 08/24/19 10:04 08/24/19 10:04 08/24/19 10:04 08/24/19 10:04 A&Ox3, neuro grossly non-focal [place] MMM HRR, S1S2, SR on tele LS with dim. left base, no crackles or wheeze noted +BS, abd. soft, round, and non-tender +PP=bilat., no edema Laboratory Results - last 24 hr 08/24/19 08/24/19 08/24/19 04:41 04:41 04:41 WBC 11.2 H RBC 3.70 L Hgb 10.7 L Hct 33 L MCV 89 MCH 29 MCHC 32 RDW 14 Plt Count 209 MPV 8.4 Neut % (Auto) 82.0 Lymph % (Auto) 6.2 [place] % (Auto) 8.6 Eos % (Auto) 2.7 Baso % (Auto) 0.5 Absolute Neuts (auto) 9.1 H Absolute Lymphs (auto) 0.7 L Absolute Monos (auto) 1.0 H Absolute Eos (auto) 0.3 Absolute Basos (auto) 0.1 Absolute Nucleated RBC 0.0 Nucleated RBC % 0.1 INR (Anticoag Therapy) Sodium 136 Potassium 4.4 Chloride 106 Carbon Dioxide 24 Anion Gap 6 BUN 43 H Creatinine 2.50 H Est GFR ( Amer) 30.8 Est GFR (Non-Af Amer) 25.4 BUN/Creatinine Ratio 17.2 Glucose 198 H POC Glucose (mg/dL) Hemoglobin A1c Lactic Acid 0.7 Calcium 8.6 Magnesium 1.8 L Total Bilirubin 0.30 AST 19 ALT 19 Alkaline Phosphatase 76 Troponin I 0.13 H* B-Natriuretic Peptide Total Protein 7.2 Albumin 3.5 Globulin 3.7 Albumin/Globulin Ratio 0.9 L Triglycerides Cholesterol LDL Cholesterol HDL Cholesterol 08/24/19 08/24/19 08/24/19 04:41 04:41 04:41 WBC RBC Hgb Hct MCV MCH MCHC RDW Plt Count MPV Neut % (Auto) Lymph % (Auto) [place] % (Auto) Eos % (Auto) Baso % (Auto) Absolute Neuts (auto) Absolute Lymphs (auto) Absolute Monos (auto) Absolute Eos (auto) Absolute Basos (auto) Absolute Nucleated RBC Nucleated RBC % INR (Anticoag Therapy) 1.02 Sodium Potassium Chloride Carbon Dioxide Anion Gap BUN Creatinine Est GFR ( Amer) Est GFR (Non-Af Amer) BUN/Creatinine Ratio Glucose POC Glucose (mg/dL) Hemoglobin A1c 7.6 H Lactic Acid Calcium Magnesium Total Bilirubin AST ALT Alkaline Phosphatase Troponin I B-Natriuretic Peptide 489 H Total Protein Albumin Globulin Albumin/Globulin Ratio Triglycerides Cholesterol LDL Cholesterol HDL Cholesterol 08/24/19 08/24/19 08/24/19 06:47 07:06 10:35 WBC RBC Hgb Hct MCV MCH MCHC RDW Plt Count MPV Neut % (Auto) Lymph % (Auto) [place] % (Auto) Eos % (Auto) Baso % (Auto) Absolute Neuts (auto) Absolute Lymphs (auto) Absolute Monos (auto) Absolute Eos (auto) Absolute Basos (auto) Absolute Nucleated RBC Nucleated RBC % INR (Anticoag Therapy) Sodium Potassium Chloride Carbon Dioxide Anion Gap BUN Creatinine Est GFR ( Amer) Est GFR (Non-Af Amer) BUN/Creatinine Ratio Glucose POC Glucose (mg/dL) Hemoglobin A1c Lactic Acid Calcium Magnesium Total Bilirubin AST ALT Alkaline Phosphatase Troponin I 0.16 H* Cancelled 0.17 H* B-Natriuretic Peptide Total Protein Albumin Globulin Albumin/Globulin Ratio Triglycerides 249 Cholesterol 178 LDL Cholesterol [address] CHEST W/O Accession Number: [id number] IMPRESSION by Dr. Yoon, radiology 08/24/19 1017: 1. THERE HAS BEEN INTERVAL DEVELOPMENT OF BILATERAL PLEURAL EFFUSIONS. 2. THERE HAS BEEN INTERVAL ENLARGEMENT OF SUBCARINAL AND RIGHT PARAESOPHAGEAL LYMPH NODES. 3. AGAIN NOTED IS A COMPLEX CYSTIC AND SOLID MASS OF THE LIVER. Assessment/Plan: []74 yo male with distant history of limited stage SCLC s/p therapy completed in 2012 remaining EDWIGE since presenting to the hospital with acute onset SOB. On admission he had an elevated BNP (489, previously 219 01/2019) and troponin ( 0.15) without EKG changes and was subsequently admitted for CHF exacerbation, however CT chest this AM with new pleural effusions. Differential includes new CHF with exacerbation (echo pending), pneumonia with secondary effusion (though he has not had infectious symptoms beyond leukocytosis), and recurrence. Though the later seems less likely with the acuity of symptoms, it is still prudent to consider investigating further via thoracetnesis. Case discussed with attending, Dr. Devine, and covering hospitalist, Dr. Galeana Oncology to cont. follow
[2019-08-24] MEDS ORDERED: Enoxaparin(*) 30 MG/0.3 ML SYR SUBCUT SCH (13:00)
--- NOTE | 2019-08-24 13:16 | ECHO ---
*[facility]* [place] [address] Fax #: [phone] Transthoracic Echocardiogram Patient: Horace Shah : 1945 Study Date: 08/24/2019 Age: 74 Gender: M HR: 80 bpm Height: 68 in /172.7 cm BSA: 1.28 m^2 Weight: 79 lb /35.9 kg BMI: 12 kg/m^2 *Movie Operator: * Jordana Wu RDCS RN *Referring Physician: * Cathy Chaudhari *Reading Physician: * Janel Duncan MD Indications: SOB. History: Lung cnacer. Chemotherapy. Rheumatic fever. Risk factors: Hypertension. Diabetes mellitus. Obese. Dyslipidemia. Conclusions Summary: - Left ventricle: The cavity size is normal. Wall thickness is mildly increased. Systolic function is at the lower limits of normal. The estimated ejection fraction is 45-50%. Hypokinesis of the mid and basal posterior myocardium extending into the inferior wall. Doppler parameters are consistent with abnormal left ventricular relaxation (grade 1 diastolic dysfunction). - Right ventricle: Systolic function is normal. - Mitral valve: There is mild regurgitation, directed posteriorly and toward the free wall. - Pericardium, extracardiac: A prominent pericardial fat pad is present. There is no significant pericardial effusion. - Compared with prior echocardiogram of 04/30/17, wall motion abnormality on the inferior wall noted previously, ejection fraction previously estimated at 55-60%, mitral regurgitation stable. Study data: Transthoracic echocardiogram. Procedure: Transthoracic echocardiography was performed. Image quality was fair. The study was technically limited due to body habitus. Intravenous Definity 3 ml was administered by Jonathan Wu RN, RDCS to enhance imaging. Complete 2D, spectral Doppler, and color flow Doppler. Location: Bedside. Patient status: Observation. Patient room number: 433. Rhythm: Normal sinus rhythm. Findings Left ventricle: The cavity size is normal. Wall thickness is mildly increased. Systolic function is at the lower limits of normal. The estimated ejection fraction is 45-50%. Regional wall motion abnormalities: Hypokinesis of the mid and basal posterior myocardium extending into the inferior wall. Doppler parameters are consistent with abnormal left ventricular relaxation (grade 1 diastolic dysfunction). Right ventricle: The cavity size is normal. Systolic function is normal. Left atrium: The atrium is mildly dilated. Right atrium: The atrium is normal in size. Mitral valve: The leaflets are mildly thickened. There is no evidence of stenosis. There is mild regurgitation, directed posteriorly and toward the free wall. Aortic valve: Not well visualized. The annulus is calcified. The leaflets are mildly thickened. There is no evidence of stenosis. There is no significant regurgitation. Tricuspid valve: The valve is structurally normal. There is no evidence of stenosis. There is trace regurgitation. Pulmonic valve: The valve is structurally normal. There is no evidence of stenosis. There is trace regurgitation. Aorta: Aortic root: The aortic root is not dilated. Ascending aorta: The ascending aorta is not dilated. Aortic arch: The aortic arch is not visualized. Pericardium: A prominent pericardial fat pad is present. There is no significant pericardial effusion. Pulmonary arteries: The main pulmonary artery is normal-sized. Systolic pressure can not be accurately estimated. Systemic veins: Inferior vena cava: Not well visualized. Measurements Left ventricle Value Ref Right atrium Value Ref EDDY, LAX 4.6 cm 4.2 - 5.8 ML dim, ES, A4C 2.8 cm 2.6 - 4.4 ESD, LAX 3.6 cm 2.5 - 4.0 SI dim, ES, A4C 4.2 cm 3.4 - 5.3 FS, LAX (L) 21 % 25 - 43 PW, ED (H) 1.1 cm 0.6 - 1.0 Aortic valve Value Ref IVS/PW, ED 1.03 Archana diam, ED 2.1 cm --------- E', lat archana, TDI 10.8 cm/sec >=10.0 Peak v, S 1.35 m/sec --- ------ E/e', lat archana, 6 VTI, S 23.8 cm ------ --- TDI Mean grad, S 4.0 mm Hg --------- E', med archana, TDI 8.4 cm/sec >=7.0 Peak grad, S 7.0 mm Hg --- ------ E/e', med acrhana, 7 LVOT/AV, VTI ratio 0.75 ------ --- TDI E', avg, TDI 9.6 cm/sec Mitral valve Value Ref E/e', avg, TDI 6 <=14 Peak E 0.6 m/sec --- ------ Peak A 0.99 m/sec --------- LVOT Value Ref Decel time 204 ms --------- Peak cali, S 1 m/sec Peak E/A ratio 0.6 --------- VTI, S 17.9 cm Mean grad, S 2 mm Hg Pulmonic valve Value Ref Peak v, S 1.24 m/sec --------- Ventricular septum Value Ref IVS, ED (H) 1.2 cm 0.6 - 1.0 Aortic root Value Ref Root diam 3.0 cm <3.6 Right ventricle Value Ref EDDY, LAX 2.5 cm Ascending aorta Value Ref EDDY minor ax, 2.2 cm 1.9 - 3.5 AAo AP diam, S 3.3 cm --------- A4C mid Left atrium Value Ref AP dim, ES (H) 4.30 cm 3.00 - 4.00 ML dim, A4C 3.4 cm SI dim, A4C 5.0 cm Vol/bsa, ES, 1-p 28 ml/m^2 12 - 37 A4C Vol/bsa, ES, A/L (H) 40 ml/m^2 16 - 34 Legend: (L) and (H) butch values outside specified reference range. Prepared and electronically signed by Janel Duncan MD 08/24/2019 13:16
[2019-08-24 14:02] LABS: Troponin I 0.16 ng/mL (<0.04)
--- NOTE | 2019-08-24 14:42 | CONS ---
PULMONARY CONSULTATION REPORT: DATE OF CONSULT: 08/24/19 CONSULTATION REQUESTED BY: Deidre Galeana MD REASON FOR CONSULT: Evaluation of pleural effusion and lymphadenopathy. HISTORY OF PRESENT ILLNESS: The patient is a 74-year-old male with history of small cell lung cancer diagnosed in 2011, status post chemo, diabetes, history of shortness of breath. The patient brought in for evaluation of worsening dyspnea on exertion. The patient reports significant change in his breathing recently. He woke up from sleep with shortness of breath, sat on the edge of the bed for about an hour and then symptoms did not improve and he decided to call the ambulance. He was hypoxemic on arrival and was placed on 4 L O2 supplementation. The patient also had difficulty lying down flat. The patient had chest x-ray in the emergency room for further evaluation. Chest x-ray suggestive of vascular congestion and pleural effusion. BNP was also elevated. The patient received 1 dose of Lasix in the ED. The patient was admitted for evaluation of shortness of breath and hypoxic respiratory failure. The patient had CT scan of the chest. I personally reviewed CT scan of the chest with the patient today - patient noted to have bilateral pleural effusions worse on the left side. The patient also with atelectasis of the bases. The patient with enlarged subcarinal lymph node measuring 1.4 cm. The patient also with paraesophageal lymph node measuring 0.8 cm. The patient also with perihilar changes. In comparison with prior CT from June, the pleural effusion has been significant currently. No obvious endobronchial lesions are noted even though there is little bit more atelectasis on the left side compared to before. The patient was initiated on diuresis with Lasix. The patient reports improvement in shortness of breath this morning. He has ambulated to the restroom without much dyspnea. He has not been requiring O2 supplementation anymore. The patient denies significant cough or sputum production. The patient denies significant weight changes. PAST MEDICAL HISTORY: 1. Coronary artery disease. 2. Hypertension. 3. Dyslipidemia. 4. Small cell lung cancer diagnosed in 2011, in remission. PAST SURGICAL HISTORY: None as per the patient. DICTATION ENDS ABRUPTLY [id number]/[facility] #: [id number] MTDD
--- NOTE | 2019-08-24 14:51 | CONS ---
CONSULTATION REPORT: PULMONARY CONSULTATION REPORT: DATE OF CONSULT: 08/24/19 CONSULTATION REQUESTED BY: Deidre Galeana MD REASON FOR CONSULT: Evaluation of pleural effusion and lymphadenopathy. HISTORY OF PRESENT ILLNESS: The patient is a 74-year-old male with history of small cell lung cancer diagnosed in 2011, status post chemo, diabetes, history of shortness of breath. The patient brought in for evaluation of worsening dyspnea on exertion. The patient reports significant change in his breathing recently. He woke up from sleep with shortness of breath, sat on the edge of the bed for about an hour and then symptoms did not improve and he decided to call the ambulance. He was hypoxemic on arrival and was placed on 4 L O2 supplementation. The patient also had difficulty lying down flat. The patient had chest x-ray in the emergency room for further evaluation. Chest x-ray suggestive of vascular congestion and pleural effusion. BNP was also elevated. The patient received 1 dose of Lasix in the ED. The patient was admitted for evaluation of shortness of breath and hypoxic respiratory failure. The patient had CT scan of the chest. I personally reviewed CT scan of the chest with the patient today - patient noted to have bilateral pleural effusions worse on the left side. The patient also with atelectasis of the bases. The patient with enlarged subcarinal lymph node measuring 1.4 cm. The patient also with paraesophageal lymph node measuring 0.8 cm. The patient also with perihilar changes. In comparison with prior CT from June, the pleural effusion has been significant currently. No obvious endobronchial lesions are noted even though there is little bit more atelectasis on the left side compared to before. The patient was initiated on diuresis with Lasix. The patient reports improvement in shortness of breath this morning. He has ambulated to the restroom without much dyspnea. He has not been requiring O2 supplementation anymore. The patient denies significant cough or sputum production. The patient denies significant weight changes. PAST MEDICAL HISTORY: 1. Coronary artery disease. 2. Hypertension. 3. Dyslipidemia. 4. Small cell lung cancer diagnosed in 2011, in remission. PAST SURGICAL HISTORY: None as per the patient. ALLERGIES: CODEINE. FAMILY HISTORY: Dyslipidemia, hypertension. SOCIAL HISTORY: The patient is a former smoker, quit few years back. No alcohol or drug abuse. REVIEW OF SYSTEMS: All 14 systems reviewed and negative other than stated above in HPI. PHYSICAL EXAM: The patient is in bed, in no apparent distress. Vital Signs: Temperature 97.1, pulse 76 beats per minute, respiratory rate 18 per minute, O2 sat 98% on room air, blood pressure 162/83. HEENT: Pupils equal, reactive to light. Mucous membranes moist. Lungs: Diminished air entry bilaterally, greater on the left. The patient with crackles on the right side. Cardiovascular: S1, S2 present. Abdomen: Soft, nontender, nondistended. Bowel sounds present. Extremities: Normal range of motion. Edema present. Skin: No rash or bruises. Neurologic: Alert, awake, oriented x3. No focal deficits. DIAGNOSTIC STUDIES/LAB DATA: WBC count 11.2, hemoglobin 10.7, hematocrit 33, platelet count 209. Sodium 136, potassium 4.4, chloride 106, bicarb 24, BUN 43 , creatinine 2.50. Troponins elevated, BNP elevated at 489. Chest x-ray and CT scan of the chest as described above in HPI. IMPRESSION AND RECOMMENDATIONS: 74-year-old male with small cell lung cancer diagnosed in 2011, treated with chemotherapy, considered to be in remission, presents with worsening shortness of breath and hypoxemic respiratory failure attributed to bilateral pleural effusions and possible fluid overload. The patient reports improvement in symptoms this morning after diuresis. The patient with bilateral effusions, moderate on the left side. The patient also with enlarged subcarinal lymph node. We would consider thoracentesis tomorrow as he already received anticoagulation today for evaluation of etiology. The patient with prior history of small cell , concern for possible recurrence. We will perform thoracentesis tomorrow with ultrasound guidance. Procedure was discussed in detail with the patient. Associated risks including risk of pneumothorax were discussed. The patient is agreeable to undergoing the procedure. The patient also with enlarged subcarinal lymph node, which needs to be evaluated further as well. Will schedule the patient for bronchoscopy/EBUS as an outpatient. Above was discussed in detail with the patient and he is agreeable. [id number]/[facility] #: [id number] [facility]ICAL CENTERMaria C
--- NOTE | 2019-08-24 16:32 | PN ---
Hospitalist Progress Note Date of Service: 08/24/19 Update: Plan of care: after discussion with consultants (pulm, cardiology, oncology) pt is w/ following problem lists #Pleural effusion: New-possibly related to primary cardiac event, but plan is for thoracentesis tomorrow with Dr. Anders to determine if exudative, also will benefit from bronch/ebus as outpt #Tropinemia/ST Depressions: Possible angina equivalent, s/p asa, hold on heparin gtt, plan for 2 day walk stress test given BUN/Cr not amenable to cath Holding DVT PPX for throa tomorrow
[2019-08-24] MEDS: Atorvastatin* 10 MG TAB PO SCH (17:04)
[2019-08-24 17:07] LABS: Troponin I 0.17 ng/mL (<0.04)
[2019-08-24] MEDS: Insulin GLARGINE(*) 1 UNITS UNIT SUBCUT SCH (19:36)
--- NOTE | 2019-08-25 00:13 | CONS ---
CC: Dr. Skyler Stevens; Dr. Estevez; Dr. Byron Carrillo * CARDIOLOGY CONSULTATION: DATE OF CONSULT: 08/24/19 REASON FOR CONSULT: Congestive heart failure, shortness of breath. CHIEF COMPLAINT: Shortness of breath. HISTORY OF PRESENT ILLNESS: Mr. Shah is a 74-year-old gentleman with a history of small cell lung cancer, in remission, who was in his usual state of health until yesterday. He was at the gym on the treadmill and got winded more easily than usual. He did not think much of it then, but did well until he woke up to go to the bathroom from sleep which is not uncommon. He was very short of breath, and when he tried to go back to bed, he was very winded and could not fall asleep, so they presented to the emergency room. Workup in the emergency room revealed pleural effusion. The patient and his deny any recent changes in diet. No increase in foods that have high salt. No recent nonsteroidal use and no recent travel. No over- the- counter medications. Currently, the patient is breathing better. He received some intravenous Lasix. The patient further denies fevers, chills, sweats, change in bowel or bladder habits. He was unaware of any increased lower extremity edema, abdominal girth. He has chronic constipation. PAST MEDICAL HISTORY: The patient has a past medical history of sinus bradycardia following liver biopsy (evaluated by Dr. Skyler Stevens); hypertension ; dyslipidemia; diabetes; small cell lung cancer, followed by Dr. Estevez, in remission; centripetal obesity, chronic kidney disease, liver mass status post multiple biopsies. MEDICATIONS: Current inpatient medications include: 1. Aspirin 81 mg a day. 2. Lipitor 10 mg a day. 3. Celexa 10 mg a day. 4. Colace p.r.n. 5. Lantus glargine insulin. 6. Lispro insulin. 7. He received 80 of Lasix in the ED x1. ALLERGIES: Include CODEINE. FAMILY HISTORY: Positive for coronary disease in his mother. Father having had a heart attack in his 70s and mother having a history of stroke. He has one half sibling that he is estranged from. SOCIAL HISTORY: The patient is , retired. Distant smoking, denies alcohol use. Works out regularly in the gym with his . REVIEW OF SYSTEMS: See history of present illness, but negative for recent fevers, chills, sweats. No change in appetite. He has some chronic constipation but no recent change in bowel or bladder habits. No recent travel. No missed meds. No yior-ayu-kwxeenn meds. No new meds. He denies any chest pain, neck, arm, jaw, or hand pain. All other 14-point review of systems is negative. PHYSICAL EXAM: The patient is 5 feet 10 inches, weighs 206 pounds with a BMI of 29. Vitals on arrival to the emergency room on 08/24/19 at 4 in the morning : Blood pressure 179/107, pulse was 79, respiratory rate was 30, oxygen saturation 96%. Currently at the time I saw him, blood pressure was 133/72, pulse was 82, respiratory rate 17, oxygen saturation 93%, he was afebrile. General Appearance: A man of short stature, has marked centripetal obesity, seated and in no acute distress . HEENT: Pupils are equal and round. Mucous membranes moist. Neck without appreciable increased JVD, although fixed. Good carotid pulses. No audible bruits. Breath sounds diminished in the bases about a third of the way up the lung owens bilaterally and distant breath sounds in the upper lung owens. Coronary: S1, S2, regular without murmurs appreciated. Abdomen: Rotund, suboptimal exam, was done in the chair. Lower extremities were free of edema at the time of my exam. DIAGNOSTIC STUDIES/LAB DATA: White count 11.2, hematocrit 33, platelets 209, INR 1.02. Sodium 136, potassium 4.4, chloride 106, bicarbonate 24. BUN 43, creatinine 2.5. Glucose 198, hemoglobin A1c 7.6. Magnesium 1.8, AST 19, ALT 19. Troponin #1 is 0.13, troponin #2 is 0.16, troponin #3 is 0.17, troponin #4 is 0.16, troponin #5 is 0.13. BNP of 489. Lipids show total cholesterol 178, triglycerides 249, LDL cholesterol 97, HDL cholesterol 31. ECG on admission shows normal sinus rhythm with a mild 0.[address] depression in the precordial leads. Chest x-ray showed left superior perihilar infiltrate, pleural thickening, left pleural effusion, right basilar infiltrate, new compared with chest x-ray from 01/16/19, the present 06/20/19. Chest CT done 08/24/19 reported bilateral pleural effusions, enlargement of subcarinal and right paraesophageal lymph nodes, complex cystic solid mass of the liver. Echocardiogram: *[facility] [place] [address] Fax #: [phone] Transthoracic Echocardiogram Patient: Horace Shah : 1945 Study Date: 08/24/2019 Age: 74 Gender: M HR: 80 bpm Height: 68 in /172.7 cm BSA: 1.28 m^2 Weight: 79 lb /35.9 kg BMI: 12 kg/m^2 *Ammonium Sulfate Operator: * Jordana Wu RDCS RN *Referring Physician: * Cathy Chaudhari *Reading Physician: * Janel Duncan MD Indications: SOB. History: Lung cnacer. Chemotherapy. Rheumatic fever. Risk factors: Hypertension. Diabetes mellitus. Obese. Dyslipidemia. Conclusions Summary: - Left ventricle: The cavity size is normal. Wall thickness is mildly increased. Systolic function is at the lower limits of normal. The estimated ejection fraction is 45-50%. Hypokinesis of the mid and basal posterior myocardium extending into the inferior wall. Doppler parameters are consistent with abnormal left ventricular relaxation (grade 1 diastolic dysfunction). - Right ventricle: Systolic function is normal. - Mitral valve: There is mild regurgitation, directed posteriorly and toward the free wall. - Pericardium, extracardiac: A prominent pericardial fat pad is present. There is no significant pericardial effusion. - Compared with prior echocardiogram of 04/30/17, wall motion abnormality on the inferior wall noted previously, ejection fraction previously estimated at 55-60%, mitral regurgitation stable. Dr. Anders's notes were reviewed as well. IMPRESSION: In summary, Mr. Shah is a gentleman who presented with rather acute onset of shortness of breath. It appears to in fact be a subacute process based on his 06/20/19 chest x-ray. Oncology feels this is more likely cardiac, and although his echocardiogram and EKG are concerning for ischemia, they do not explain large pleural fluid collection. The patient's renal insufficiency could be the etiology of this combined with a stiff heart/diastolic CHF. With this mild elevation in troponin, wall motion abnormalities, although not new, and EKG changes, he does need an ischemic workup but his renal insufficiency complicates this wrt cardiac catheterization. His abdominal girth makes it harder to get a good valid stress test with imaging. I think what makes the most sense is to go ahead and get his thoracentesis with Dr. Anders and hold on invasive cardiac testing to expedite this and avoid a risky procedure that could worsen his CKD and CHF. If there is no john evidence of an exudative cause, then we can continue with a cardiac workup, although he is at risk for false positive and false negative stress test. He has significant risk with dye for cath for progression in his renal insufficiency, and after discussion, the current plan is going to be to do a 2-day stress test resting in the morning, exercise on Thursday, and then decide if and when the more invasive and risky cardiac catheterization would be indicated. In the interim, I agree with his initiation of diuretics, and once we feel he is euvolemic, he should get daily weights at home, adjust diuretics/diet as needed. Real Estate Broker to ensure that he is avoiding high-salt diet. Additionally, he can be aggressive with LDL lowering, can work on optimizing heart healthy lifestyle as well. Additional recommendations will be made pending his clinical course and findings from pulmonary workup, oncology, and he may benefit from evaluation from Renal as well. [id number]/[facility] #: [id number] MTDD
[2019-08-25 04:56] LABS: ABS Eosinophils 0.5 10^3/ul (0-0.6); ABS Lymphocytes 1.3 10^3/ul (1.0-4.8); ABS Monocytes 1.1 10^3/ul (0-0.8); ABS Neutrophils 6.2 10^3/ul (1.5-7.7); Eosinophil % 5.1 %; Hematocrit 31 % (42-52); Hemoglobin 10.7 g/dL (14.0-18.0); Lymphocyte % 14.1 %; Mean Corpuscular HGB Conc 34 g/dL (31-36); Mean Corpuscular Hemoglobin 30 pg (27-31); Mean Corpuscular Volume 88 fL (80-94); Mean Platelet Volume 8.9 fL (7.4-10.4); Platelet Count 209 10^3/uL (150-450); Red Blood Count 3.57 10^6 /uL (4.18-5.48); Red Cell Distribution Width 14 % (10-15); White Blood Count 9.1 10^3/uL (3.5-10.8)
[2019-08-25 05:21] LABS: Troponin I 0.19 ng/mL (<0.04)
--- NOTE | 2019-08-25 07:14 | PN ---
Subjective Date of Service: 08/25/19 Interval History: HD3 on 08/25 74M PMH SCLC (dx 2011, radiation and chemo in remission), mass in liver ( thought to be benign) on surv, NIDDM, HTN, HLD, CKD3, ARY who presented with progressive new onset volume overload, HTN, VIVIEN on CKD, STD V4-V6. Overnight, no acute events, VS notable for sig HTN Labs:CBC stable Imaging: Echo EF 40-45%, Mild MR, some hypokinesis CT Lung:New development of blt pleural effusions and paraesophageal nodes This morning, pt reports slept poorly, had upset stomach after eating lasagna, generally ambivalent about staying in the hospital, though his family wants him to get testing. He originally declined stress testing, though on our discussion he would do it. No other complaints other than being generally tired of being in the hospital. Family History: Unchanged from Admission Objective Active Medications: Aspirin (Aspirin Ec Tab*) 81 mg PO DAILY [facility] Last Admin: 08/24/19 10:14 Dose: 81 mg Atorvastatin Calcium (Lipitor*) 10 mg PO QPM [facility] Last Admin: 08/24/19 17:04 Dose: 10 mg Citalopram Hydrobromide (Celexa Tab*) 10 mg PO QAM [facility] Last Admin: 08/24/19 10:14 Dose: 10 mg Dextrose (Dextrose 50% Vial 50 Ml*) 25 ml IV PUSH .FOR FS < 60 - SS PRN PRN Reason: FS < 60 Docusate Sodium (Colace Cap*) 100 mg PO BEDTIME PRN PRN Reason: CONSTIPATION Insulin Glargine (Lantus(*)) 10 units SUBCUT Q24H [facility] Last Admin: 08/24/19 19:36 Dose: 10 units Insulin Human Lispro (Humalog*) 0 units SUBCUT ACHS [facility]; Protocol Last Admin: 08/24/19 21:09 Dose: 6 units Vital Signs - 8 hr 08/25/19 08/25/19 00:08 03:54 Temperature 97.4 F 97.5 F Pulse Rate 75 78 Respiratory 16 18 Rate Blood Pressure 175/83 150/76 (mmHg) O2 Sat by Pulse 97 96 Oximetry Oxygen Devices in Use Now: None Appearance: No acute distress, tired appearing Respiratory: - - Mild diminished to both Cardiovascular: RRR, - - Systolic 3/6 Murmur Abdominal: NL Sounds; No Tenderness; No Distention, No Hepatosplenomegaly Lymphatic: No Cervical Adenopathy Extremities: No Edema Skin: No Rash or Ulcers Neurological: Alert and Oriented x 3, - - Needs frequent reminding of health care situation Lines/Tubes/Other Access: Clean, Dry and Intact Central Line - PORT Result Diagrams: 08/25/19 04:15 08/25/19 04:15 Microbiology and Other Data: Microbiology 08/24/19 04:41 Aerobic Blood Culture - Preliminary Blood Venous No Growth Day 1 Anaerobic Blood Culture - Preliminary No Growth Day 1 08/24/19 04:31 Aerobic Blood Culture - Preliminary Blood Venous No Growth Day 1 Anaerobic Blood Culture - Preliminary No Growth Day 1 Assess/Plan/Problems-Billing Assessment: 74M PMH small cell lung cancer (dx 2012, 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 Differential includes new onset heart failure with acute ischemic event and ST changes with elevated troponin, recurrence of lung cancer given new pleural effusion, less likely PNA or infection. - Patient Problems (1) Dyspnea Current Visit: Yes Status: Acute Code(s): R06.00 - DYSPNEA, UNSPECIFIED SNOMED Code(s): 524238566 Comment: -Chest CT showing new pleural effusions, new nodes, given hx will pursue thora to ensure no recurrence - Strong possibility of primary cardiac insult with STD in V4-6 with elevated troponin and RWMA on echo, pt undergoing stress today given Cr elevated and reticent for cath -No further O2 needs after Lasix x 1 in ER (2) Lung cancer Current Visit: No Status: Acute Code(s): C34.90 - MALIGNANT NEOPLASM OF UNSP PART OF UNSP BRONCHUS OR LUNG SNOMED Code(s): 813006899 Comment: -Presumed remission, oncology following and feels primary cardiac (3) Anemia Current Visit: Yes Status: Acute Code(s): D64.9 - ANEMIA, UNSPECIFIED SNOMED Code(s): 464783784 Comment: -Normocytic, normochromic, appears at baseline (4) Leukocytosis Current Visit: Yes Status: Resolved Code(s): D72.829 - ELEVATED WHITE BLOOD CELL COUNT, UNSPECIFIED SNOMED Code(s): 457897345 Comment: -Resolved (5) Elevated troponin Current Visit: Yes Status: Acute Code(s): R79.89 - OTHER SPECIFIED ABNORMAL FINDINGS OF BLOOD CHEMISTRY SNOMED Code(s): 523818095 Comment: -as per dyspnea, possible primary cardiac insult, follow up 2 day stress test, no events on tele (6) CKD (chronic kidney disease) stage 3, GFR 30-59 ml/min Current Visit: Yes Status: Acute Code(s): N18.3 - CHRONIC KIDNEY DISEASE, STAGE 3 (MODERATE) SNOMED Code(s): 454611145 Comment: - Close to baseline, renally dose medications, will need to hold on contrast (7) Non-insulin dependent type 2 diabetes mellitus Current Visit: Yes Status: Acute Code(s): E11.9 - TYPE 2 DIABETES MELLITUS WITHOUT COMPLICATIONS SNOMED Code(s): 41042733 Comment: -SSI, A1C 7.6 c/w good home control (8) Hypertension Current Visit: No Status: Acute Code(s): I10 - ESSENTIAL (PRIMARY) HYPERTENSION SNOMED Code(s): 33182179 Comment: - Poor control, Amlodipine 10mg daily, started here (9) Liver mass Current Visit: Yes Status: Acute Code(s): R16.0 - HEPATOMEGALY, NOT ELSEWHERE CLASSIFIED SNOMED Code(s): 286451418 Comment: -x 3 Bx in the past with no malignant findings (10) Hyperlipemia Current Visit: Yes Status: Acute Code(s): E78.5 - HYPERLIPIDEMIA, UNSPECIFIED SNOMED Code(s): 78601256 Comment: -Continue home statin (11) DVT prophylaxis Current Visit: Yes Status: Acute Code(s): Z29.9 - ENCOUNTER FOR PROPHYLACTIC MEASURES, UNSPECIFIED SNOMED Code(s): 539308627 Comment: - LMWH renally dosed, can resume (12) DNR (do not resuscitate) Current Visit: Yes Status: Acute Status and Disposition: -Inpatient, possible d/c tomorrow after stress -Consultants: Onc, Pulm, Cards -PT/OT: on Hold -Lines/tubes: Port in place -Diet: Carb consistent
[2019-08-25] MEDS: Insulin LISPRO* 1 UNITS UNIT SUBCUT SCH ×4 (07:47→21:41)
[2019-08-25] MEDS ORDERED: Ondansetron INJ* 2 MG/ML VIAL IV PRN (08:05)
[2019-08-25] MEDS ORDERED: hydrALAZINE IV* 20 MG/ML VIAL IV SLOW PU PRN (08:05)
[2019-08-25 08:17] LABS: Albumin 3.4 g/dL (3.2-5.2); Albumin/Globulin Ratio 1.1 (1-3); BUN/Creatinine Ratio 18.8 (8-20); Calcium 8.4 mg/dL (8.6-10.3); EGFR African American 30.1 (>60); EGFR Non-African American 24.9 (>60); Globulin 3.2 g/dL (2-4); Potassium 3.8 mmol/L (3.5-5.0); Total Bilirubin 0.3 mg/dL (0.2-1.0); Total Protein 6.6 g/dL (6.4-8.9)
[2019-08-25] MEDS: Aspirin EC TAB* 81 MG TAB.EC PO SCH (09:18)
[2019-08-25] MEDS: Citalopram TAB* 10 MG PO SCH (09:18)
[2019-08-25 13:01] LABS: Body Fluid Source Pleural Fluid
[2019-08-25 13:06] LABS: Troponin I 0.11 ng/mL (<0.04)
[2019-08-25] MEDS: amLODIPine TAB* 5 MG PO SCH (14:01)
[2019-08-25 14:11] LABS: Body Fluid Mono 39 %
--- NOTE | 2019-08-25 15:52 | BRIEFOPN ---
Brief Operative/Procedure Note - Operation Details Pre-Op Diagnosis: Pleural effusion Post-Op Diagnosis: Pleural effusion, loculated on left side Procedures: U/S guided thoracentesis on left side Surgeon(s)/Proceduralists: jolly Anders Dill, Anna Anesthesia: Local anesthesia-Lidocaine 1% 5cc Estimated Blood Loss: None Findings: Loculated pocket of fluid, 350cc Specimen(s)/Culture(s) Description: Pleural fluid for cytology, cell count, cultures Complications: None
[2019-08-25] MEDS: Atorvastatin* 10 MG TAB PO SCH (17:14)
--- NOTE | 2019-08-25 18:00 | PRO ---
PROCEDURE REPORT: DATE OF PROCEDURE: 08/25/19 PROCEDURE: Left-sided ultrasound-guided thoracentesis. PROCEDURE OPERATORS: Dr. Margarita Anders and Dr. Deidre Galeana. ATTENDING PHYSICIAN: Dr. Deidre Galeana. In attendance is myself, Dr. Margarita Anders, the patient, his and nurse along with cytometry technologist. INDICATION: Left pleural effusion. Consent was obtained from the patient prior to the procedure. Indications, risks, and benefits were explained at length. PROCEDURE SUMMARY: A time-out was performed and ultrasound of the left chest was reviewed with hvac sheet metal installer. The appropriate site was confirmed and marked. My hands were washed prior to the procedure and sterile gloves were used, and the patient was prepped and draped in a sterile manner using chlorhexidine scrub. 1% lidocaine was used to anesthetize the skin, subcutaneous tissue, and the superior aspect of the rib. A finder needle was then introduced over the superior aspect of the left 10th rib to locate the pleural fluid.. A [id number]-G-[id number] needle was introduced through the skin incision into the pleural space using negative aspiration and the thoracentesis catheter was then threaded without difficulty. 350cc of straw-colored fluid was aspirated at a depth of approximately 4 cm The catheter was removed. No immediate complications were noted during the procedure. A postprocedure chest x-ray shows no postprocedure pneumothorax. The fluid will be sent for studies. Estimated blood loss was less than 1 mL. The patient tolerated the procedure very well. [id number]/[facility] #: [id number] [facility]
--- NOTE | 2019-08-25 18:11 | PN ---
Progress Note - Progress Note Date of Service: 08/25/19 - Pulm f/u note Note: Pt seen and examined at bedside. Pt reported improvement in SOB, denies cough, chest pain Active Medications Generic Name Dose Route Start Last Admin Trade Name Freq PRN Reason Stop Dose Admin Amlodipine Besylate 10 mg 08/25/19 14:00 08/25/19 14:01 Norvasc Tab* PO 10 mg DAILY MARCIAL Administration Aspirin 81 mg 08/24/19 09:00 08/25/19 09:18 Aspirin Ec Tab* PO 81 mg DAILY MARCIAL Administration Atorvastatin Calcium 10 mg 08/24/19 18:00 08/25/19 17:14 Lipitor* PO 10 mg QPM MARCIAL Administration Citalopram Hydrobromide 10 mg 08/24/19 09:00 08/25/19 09:18 Celexa Tab* PO 10 mg QAM MARCIAL Administration Dextrose 25 ml 08/24/19 08:53 Dextrose 50% Vial 50 Ml* IV PUSH .FOR FS < 60 - SS PRN FS < 60 Docusate Sodium 100 mg 08/24/19 07:17 Colace Cap* PO BEDTIME PRN CONSTIPATION Hydralazine HCl 5 mg 08/25/19 08:05 Apresoline Iv* IV SLOW PU Q6H PRN Systolic Bp Greater Than:170 Insulin Glargine 10 units 08/24/19 19:30 08/24/19 19:36 Lantus(*) SUBCUT 10 units Q24H MARCIAL Administration Insulin Human Lispro 0 units 08/24/19 11:30 08/25/19 17:14 Humalog* SUBCUT 6 units ACHS MARCIAL Administration Protocol Ondansetron HCl 4 mg 08/25/19 08:05 08/25/19 09:17 Zofran Inj* IV 4 mg Q6H PRN Administration NAUSEA Vital Signs Temp Pulse Resp BP Pulse Ox 97.9 F 86 17 163/82 98 08/25/19 15:20 08/25/19 15:20 08/25/19 15:20 08/25/19 15:20 08/25/19 15:20 O/E: Pt in NAD HEENT:PERRLA Lungs: Dimnished air entry b/l, L>R CVS: S1, S2+, regular Abd: Soft, BS+ Ext: Normal ROM Skin: No rash Neuro: No focal deficits Laboratory Results - last 24 hr 08/24/19 08/25/19 08/25/19 19:35 04:15 04:15 WBC 9.1 RBC 3.57 L Hgb 10.7 L Hct 31 L MCV 88 MCH 30 MCHC 34 RDW 14 Plt Count 209 MPV 8.9 Neut % (Auto) 68.4 Lymph % (Auto) 14.1 [place] % (Auto) 11.9 Eos % (Auto) 5.1 Baso % (Auto) 0.5 Absolute Neuts (auto) 6.2 Absolute Lymphs (auto) 1.3 Absolute Monos (auto) 1.1 H Absolute Eos (auto) 0.5 Absolute Basos (auto) 0.0 Absolute Nucleated RBC 0.0 Nucleated RBC % 0.0 Sodium Potassium Chloride Carbon Dioxide Anion Gap BUN Creatinine Est GFR ( Amer) Est GFR (Non-Af Amer) BUN/Creatinine Ratio Glucose POC Glucose (mg/dL) 232 H Calcium Total Bilirubin AST ALT Alkaline Phosphatase Lactate Dehydrogenase Troponin I 0.19 H* Total Protein Albumin Globulin Albumin/Globulin Ratio Fluid Source Fluid Volume Fluid Color Fluid Appearance Fluid WBC Fluid RBC Fluid Tot Cell Count Fluid Neutrophils Fluid Lymphocytes Fluid Monocytes Fluid Cell Count Rvw By Fluid Comment 08/25/19 08/25/19 08/25/19 04:15 07:34 11:40 WBC RBC Hgb Hct MCV MCH MCHC RDW Plt Count MPV Neut % (Auto) Lymph % (Auto) [place] % (Auto) Eos % (Auto) Baso % (Auto) Absolute Neuts (auto) Absolute Lymphs (auto) Absolute Monos (auto) Absolute Eos (auto) Absolute Basos (auto) Absolute Nucleated RBC Nucleated RBC % Sodium 137 Potassium 3.8 Chloride 104 Carbon Dioxide 24 Anion Gap 9 BUN 48 H Creatinine 2.55 H Est GFR ( Amer) 30.1 Est GFR (Non-Af Amer) 24.9 BUN/Creatinine Ratio 18.8 Glucose 167 H POC Glucose (mg/dL) 192 H 285 H Calcium 8.4 L Total Bilirubin 0.30 AST 19 ALT 18 Alkaline Phosphatase 76 Lactate Dehydrogenase Troponin I Total Protein 6.6 Albumin 3.4 Globulin 3.2 Albumin/Globulin Ratio 1.1 Fluid Source Fluid Volume Fluid Color Fluid Appearance Fluid WBC Fluid RBC Fluid Tot Cell Count Fluid Neutrophils Fluid Lymphocytes Fluid Monocytes Fluid Cell Count Rvw By Fluid Comment 08/25/19 08/25/19 08/25/19 12:10 12:26 15:38 WBC RBC Hgb Hct MCV MCH MCHC RDW Plt Count MPV Neut % (Auto) Lymph % (Auto) [place] % (Auto) Eos % (Auto) Baso % (Auto) Absolute Neuts (auto) Absolute Lymphs (auto) Absolute Monos (auto) Absolute Eos (auto) Absolute Basos (auto) Absolute Nucleated RBC Nucleated RBC % Sodium Potassium Chloride Carbon Dioxide Anion Gap BUN Creatinine Est GFR ( Amer) Est GFR (Non-Af Amer) BUN/Creatinine Ratio Glucose POC Glucose (mg/dL) Calcium Total Bilirubin AST ALT Alkaline Phosphatase Lactate Dehydrogenase 183 Troponin I 0.11 H* Total Protein Albumin Globulin Albumin/Globulin Ratio Fluid Source Pleural fluid Fluid Volume 30.0 Fluid Color Yellow Fluid Appearance Cloudy Fluid WBC 2161 Fluid RBC 1674 Fluid Tot Cell Count 100 Fluid Neutrophils 3 Fluid Lymphocytes 58 Fluid Monocytes 39 Fluid Cell Count Rvw By Fluid Comment 08/25/19 16:42 WBC RBC Hgb Hct MCV MCH MCHC RDW Plt Count MPV Neut % (Auto) Lymph % (Auto) [place] % (Auto) Eos % (Auto) Baso % (Auto) Absolute Neuts (auto) Absolute Lymphs (auto) Absolute Monos (auto) Absolute Eos (auto) Absolute Basos (auto) Absolute Nucleated RBC Nucleated RBC % Sodium Potassium Chloride Carbon Dioxide Anion Gap BUN Creatinine Est GFR ( Amer) Est GFR (Non-Af Amer) BUN/Creatinine Ratio Glucose POC Glucose (mg/dL) 238 H Calcium Total Bilirubin AST ALT Alkaline Phosphatase Lactate Dehydrogenase Troponin I Total Protein Albumin Globulin Albumin/Globulin Ratio Fluid Source Fluid Volume Fluid Color Fluid Appearance Fluid WBC Fluid RBC Fluid Tot Cell Count Fluid Neutrophils Fluid Lymphocytes Fluid Monocytes Fluid Cell Count Rvw By Fluid Comment I/R: 74M PMH small cell lung cancer (dx 2011, radiation and chemo-presumed to be in remission), mass in liver on surv (bx non revealing thus far), NIDDM, HTN , HLD, CKD3, ARY who presented with progressive new onset volume overload, pleural effusion, HTN, VIVIEN on CKD. Pt noted to have moderate to large effusion on left side Given prior h/o malignancy even though he was symptomatically improved, thoracentesis was performed Pt noted to have loculated effusion found medially and posteriorly. 350cc of pleural fluid was removed under manual suction, pls refer to separately dictated procedure Pt tolerated procedure well Fluid was sent to lab, results pending Will need bronch/EBUS as out pt for evaluation of signficanlty enlarged subcarinal node
[2019-08-25] MEDS: Insulin GLARGINE(*) 1 UNITS UNIT SUBCUT SCH (20:53)
--- NOTE | 2019-08-26 07:21 | PN ---
Subjective Date of Service: 08/26/19 Interval History: HD4 on 08/26 74M PMH SCLC (dx 2011, radiation and chemo in remission), mass in liver ( thought to be benign) on surv, NIDDM, HTN, HLD, CKD3, ARY who presented with progressive new onset volume overload with loculated pleural effusion, HTN, VIVIEN on CKD, STD V4-V6. Overnight, no acute events, VS with improving HTN Labs:CBC stable 08/23 Echo EF 40-45%, Mild MR, some hypokinesis 08/23 CT Lung:New development of blt pleural effusions and paraesophageal nodes Thora done yesterday 350cc removed-awaiting lights criteria studies This morning, confused says he woke up "not knowing where he was" also complaint of "drooling" AOx3 for me but needs frequent reminding. On neuro exam very slight facial droop on L otherwise completely non focal, stat head CT ordered, nurse unsure if this is new or not as he is intermittently confused. He has no other complaints no chest pain no SOB no GI or MSK complaints. Did update on phone who reports he can be confused Family History: Unchanged from Admission Objective Active Medications: Amlodipine Besylate (Norvasc Tab*) 10 mg PO DAILY [facility] Last Admin: 08/25/19 14:01 Dose: 10 mg Aspirin (Aspirin Ec Tab*) 81 mg PO DAILY [facility] Last Admin: 08/25/19 09:18 Dose: 81 mg Atorvastatin Calcium (Lipitor*) 10 mg PO QPM [facility] Last Admin: 08/25/19 17:14 Dose: 10 mg Citalopram Hydrobromide (Celexa Tab*) 10 mg PO QAM [facility] Last Admin: 08/25/19 09:18 Dose: 10 mg Dextrose (Dextrose 50% Vial 50 Ml*) 25 ml IV PUSH .FOR FS < 60 - SS PRN PRN Reason: FS < 60 Docusate Sodium (Colace Cap*) 100 mg PO BEDTIME PRN PRN Reason: CONSTIPATION Hydralazine HCl (Apresoline Iv*) 5 mg IV SLOW PU Q6H PRN PRN Reason: Systolic Bp Greater Than:170 Insulin Glargine (Lantus(*)) 10 units SUBCUT Q24H [facility] Last Admin: 08/25/19 20:53 Dose: 10 units Insulin Human Lispro (Humalog*) 0 units SUBCUT [facility]; Protocol Last Admin: 08/25/19 21:41 Dose: 3 units Ondansetron HCl (Zofran Inj*) 4 mg IV Q6H PRN PRN Reason: NAUSEA Last Admin: 08/25/19 09:17 Dose: 4 mg Vital Signs - 8 hr 08/26/19 03:33 Temperature 98.3 F Pulse Rate 84 Respiratory 18 Rate Blood Pressure 154/78 (mmHg) O2 Sat by Pulse 95 Oximetry Oxygen Devices in Use Now: None Appearance: Well appearing man sitting in chair, confused but AOx3, needs frequent reorientation Eyes: No Scleral Icterus, PERRLA Ears/Nose/Mouth/Throat: NL Teeth, Lips, Gums Respiratory: Clear to Auscultation Cardiovascular: - - SM 3/6 RRR Abdominal: No Hepatosplenomegaly, - - Protuberat but soft NT ND Lymphatic: No Cervical Adenopathy Extremities: No Edema Skin: No Rash or Ulcers Neurological: Alert and Oriented x 3, - - Very mild L facial droop, other cranial nerves intact. Strnegth 5/5 in blt LE and UE, sensation intact, did not assess gait Result Diagrams: 08/25/19 04:15 08/26/19 07:24 Microbiology and Other Data: Microbiology 08/24/19 04:41 Aerobic Blood Culture - Preliminary Blood Venous No Growth Day 1 Anaerobic Blood Culture - Preliminary No Growth Day 1 08/24/19 04:31 Aerobic Blood Culture - Preliminary Blood Venous No Growth Day 1 Anaerobic Blood Culture - Preliminary No Growth Day 1 Assess/Plan/Problems-Billing Assessment: 74M PMH small cell lung cancer (dx 2011, 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 Differential includes new onset heart failure with acute ischemic event and ST changes with elevated troponin, recurrence of lung cancer given new pleural effusion, less likely PNA or infection. - Patient Problems (1) Confusion Current Visit: Yes Status: Acute Code(s): R41.0 - DISORIENTATION, UNSPECIFIED SNOMED Code(s): 705419416 Comment: -At baseline MCI from whole brain radiation -This morning seems confused with very mild assymetric smile, unsure if this is chronic, -CTH, MRI no acute stroke (2) Dyspnea Current Visit: Yes Status: Acute Code(s): R06.00 - DYSPNEA, UNSPECIFIED SNOMED Code(s): 403134003 Comment: -Chest CT showing new pleural effusions, new nodes, s/p throacentesis . with studies pending - Strong possibility of primary cardiac insult with STD in V4-6 with elevated troponin and RWMA on echo, pt undergoing stress today given Cr elevated and reticent for cath -No further O2 needs after Lasix x 1 in ER (3) Heart failure with preserved ejection fraction Current Visit: Yes Status: Acute Code(s): I50.30 - UNSPECIFIED DIASTOLIC ( CONGESTIVE) HEART FAILURE SNOMED Code(s): 623756784 Comment: -Likely cause of GIBBONS given echo findings -If stress is positive needs outpt cardio follow up (4) Lung cancer Current Visit: No Status: Acute Code(s): C34.90 - MALIGNANT NEOPLASM OF UNSP PART OF UNSP BRONCHUS OR LUNG SNOMED Code(s): 332725536 Comment: -Presumed remission, oncology following and feels primary cardiac (5) Anemia Current Visit: Yes Status: Acute Code(s): D64.9 - ANEMIA, UNSPECIFIED SNOMED Code(s): 674790243 Comment: -Normocytic, normochromic, appears at baseline (6) Leukocytosis Current Visit: Yes Status: Resolved Code(s): D72.829 - ELEVATED WHITE BLOOD CELL COUNT, UNSPECIFIED SNOMED Code(s): 992436917 Comment: -Resolved (7) Elevated troponin Current Visit: Yes Status: Acute Code(s): R79.89 - OTHER SPECIFIED ABNORMAL FINDINGS OF BLOOD CHEMISTRY SNOMED Code(s): 329487096 Comment: -as per dyspnea, possible primary cardiac insult, follow up 2 day stress test, no events on tele (8) CKD (chronic kidney disease) stage 3, GFR 30-59 ml/min Current Visit: Yes Status: Acute Code(s): N18.3 - CHRONIC KIDNEY DISEASE, STAGE 3 (MODERATE) SNOMED Code(s): 628048421 Comment: - Close to baseline, renally dose medications, will need to hold on contrast (9) Non-insulin dependent type 2 diabetes mellitus Current Visit: Yes Status: Acute Code(s): E11.9 - TYPE 2 DIABETES MELLITUS WITHOUT COMPLICATIONS SNOMED Code(s): 93619405 Comment: -SSI, A1C 7.6 c/w good home control (10) Hypertension Current Visit: No Status: Acute Code(s): I10 - ESSENTIAL (PRIMARY) HYPERTENSION SNOMED Code(s): 11889603 Comment: - Poor control, Amlodipine 10mg daily, started here (11) Liver mass Current Visit: Yes Status: Acute Code(s): R16.0 - HEPATOMEGALY, NOT ELSEWHERE CLASSIFIED SNOMED Code(s): 389141458 Comment: -x 3 Bx in the past with no malignant findings (12) Hyperlipemia Current Visit: Yes Status: Acute Code(s): E78.5 - HYPERLIPIDEMIA, UNSPECIFIED SNOMED Code(s): 10168429 Comment: -Continue home statin (13) DVT prophylaxis Current Visit: Yes Status: Acute Code(s): Z29.9 - ENCOUNTER FOR PROPHYLACTIC MEASURES, UNSPECIFIED SNOMED Code(s): 699145239 Comment: - LMWH renally dosed, can resume (14) DNR (do not resuscitate) Current Visit: Yes Status: Acute Status and Disposition: -Inpatient, possible d/c tomorrow after stress -Consultants: Onc, Pulm, Cards -PT/OT: on Hold -Lines/tubes: Port in place -Diet: Carb consistent
[2019-08-26 08:02] LABS: Anion Gap 7 mmol/L (2-11); BUN/Creatinine Ratio 18.6 (8-20); Blood Urea Nitrogen 46 mg/dL (6-24); CO2 Carbon Dioxide 25 mmol/L (22-32); Calcium 8.5 mg/dL (8.6-10.3); Chloride 102 mmol/L (101-111); EGFR African American 31.2 (>60); EGFR Non-African American 25.8 (>60); Glucose 195 mg/dL (70-100); Sodium 134 mmol/L (135-145)
[2019-08-26 08:13] LABS: Troponin I 0.12 ng/mL (<0.04)
[2019-08-26] MEDS: amLODIPine TAB* 5 MG PO SCH (09:09)
[2019-08-26] MEDS: Citalopram TAB* 10 MG PO SCH (09:09)
[2019-08-26] MEDS: Insulin LISPRO* 1 UNITS UNIT SUBCUT SCH ×2 (09:09→12:23)
[2019-08-26] MEDS: Aspirin EC TAB* 81 MG TAB.EC PO SCH (09:10)
[2019-08-26 12:13] VITALS: BP 160/78
--- NOTE | 2019-08-26 12:35 | DS ---
CC: Dr. Byron Carrillo; Dr. Aston Estevez; Margarita Anders MD; Dr. Janel Duncan DISCHARGE SUMMARY: DATE OF ADMISSION: 08/24/19 DATE OF DISCHARGE: 08/26/19 PRIMARY CARE PROVIDER: Dr. Byron Carrillo. ONCOLOGIST: Dr. Aston Estevez. CLERICAL GRADER: Margarita Anders MD. TOOL AND DIE MANAGER: Dr. Skyler Stevens DISPOSITION AT TIME OF DISCHARGE: Stable to be discharged to home. PRIMARY DIAGNOSES: 1. Acute onset of dyspnea with evidence of new pleural effusion. 2. Possible cardiac event with elevated troponins and regional wall motion abnormalities with pending stress test, completed in hospital to be read prior to discharge. 3. Leukocytosis with no signs of infection. 4. Hypertension, poor control. 5. Increased lymph nodes in mediastinum, pending biopsy. 6. Heart failure with preserved ejection fraction, with EF of 45% to 50% with grade 1 diastolic dysfunction. SECONDARY DIAGNOSES: 1. Small cell lung cancer, presumed in remission, diagnosed in 2011, status post radiation and chemo. 2. Mass in liver, on surveillance with 3 biopsies showing no malignant pathology thus far. 3. Apy-zkdzhli-gyafqynwp diabetes with fair control. 4. Hyperlipidemia. 5. Chronic kidney disease, stage 3. 6. Obstructive sleep apnea, on CPAP. 7. Mild cognitive impairment, status post radiation with baseline A and O x4. MEDICATIONS AT TIME OF DISCHARGE: 1. Flaxseed oil 1 cap p.o. daily. 2. Ginkgo biloba 120 mg p.o. daily. 3. Glipizide 10 mg p.o. b.i.d. 4. Multivitamin 1 tab p.o. daily. 5. Pioglitazone 30 mg p.o. daily. 6. Sitagliptin 50 mg p.o. q.p.m. 7. PreserVision AREDS 1 cap p.o. b.i.d. 8. Pravastatin 40 mg p.o. q.p.m. 9. Aspirin 81 mg p.o. daily. 10. Docusate 100 mg p.o. q.h.s. 11. Citalopram 10 mg p.o. q.a.m. 12. Amlodipine 10 mg p.o. daily. 13. Lasix 40mg PO daily Medication changes on this hospitalization include the addition of amlodipine and lasix for poorly controlled hypertension during this hospitalization. HISTORY OF PRESENT ILLNESS AND HOSPITAL COURSE: A 74-year-old male with a past medical history as per above that notable for small cell lung cancer, diagnosed in 2011, presumed to be in remission on surveillance; hypertension; hyperlipidemia; and yoc-gxgcyym-uyynpmrjm diabetes, who presented to the emergency room with acute onset of dyspnea that occurred while sleeping. The patient reports he was in his normal state of health except for just prior to admission where he woke up gasping for breath and then tried to go to the bathroom and found that his shortness of breath persisted while trying to entering into the bathroom, because of this he decided to present to the emergency room. He reports no subacute symptoms on review of systems whatsoever and he was following regularly with his oncologist with last scan in June 2019 showing no change in a small cell lung cancer status. In the emergency room, he had a chest x-ray. His vital signs were notable for hypertension and his labs were notable for leukocytosis to 11, but otherwise stable pancytopenia, creatinine at baseline at 2.5, BNP slightly elevated at 489 , but otherwise unremarkable except for troponin elevated at 0.17. An EKG was done, which showed very small ST depressions in V4 and V5 and a chest x-ray was done, which showed bilateral pulmonary edema and questionable pleural effusion on the left side. Because of volume overload, mild ST depressions in V4 and V5 , and troponin elevation, the hospitalist team was asked to evaluate and admit the patient. His hospital course by problem is as follows: 1. Volume overload with evidence of pleural effusions. This was presumed to be a primary cardiac insult, though given his small cell lung cancer, the recurrence of which cannot be ignored. A CT chest was ordered, which showed a loculated pleural effusion on the left. Oncology was consulted, who recommended that a thoracentesis be performed and CT chest be ordered. A CT chest as noted showed loculated left pleural effusion as well as enlargement of mediastinal lymph nodes as reported per below. Cardiology was also consulted given the cardiac findings on presentation, who reported that they do feel that the patient should have a stress test given his kidney function could not handle catheterization. The following tests were performed. A thoracentesis, which was performed on 08/25/19, removed 350-400 cc of cloudy fluid from left lung and sent for cytology, results are not back on day of discharge, although the patient will follow up with Dr. Margarita Anders to discuss possible biopsy of increased lymph nodes if needed Stress test was arranged for the patient to do a 2-day Myoview resting and walking stress test, which he completed and results are pending at the time of discharge as the patient was very eager to be discharged. He can follow up with Cardiology as an outpatient. In terms of his dyspnea itself, the patient had 1 dose of Lasix 80 mg IV in the ER and all symptoms completely resolved. He did not have any return of shortness of breath and he did not need oxygen during this hospitalization and felt well and back to his baseline by hospital day 1. Because of his history, the above diagnostics were performed in the hospital, but the patient was stable with stable vital signs to be discharged to home on 08/26/19 without oxygen and no further symptoms of chest pain, feeling well. 2. Elevated troponin in the setting of ST depressions, mild 1 mm in V4, V5, and V6, again a primary cardiac insult was concerned if this was a silent cardiac event or some evidence of demand ischemia. A stress test was completed while here in the hospitalization. Cath could not be performed secondary to his kidney status. He had no chest pain whatsoever and his troponins remained low, but persistently mildly elevated at 0.17 to 0.19 where they peaked. They went down to 0.12 on day of discharge. The patient is already optimized on aspirin, statin. His blood pressure was high and amlodipine was started during this hospitalization as well as lasix. 3. Leukocytosis. He had mild leukocytosis on admission, which improved spontaneously by hospital day 2. He had no signs of infection, antibiotics were held. 4. History of small cell lung cancer. Again, this is presumed to be in remission. Dr. Estevez's team was consulted during this hospitalization, who felt that thoracentesis should be done, which was performed as per above and primary cardiac followup should continued to be arranged, his cytology was negative. 5. CKD, stage 3 to 4. He is close to baseline. His medications are renally dosed, although he was unable to have studies with contrast including catheterization. 6. Pej-vkkyvgb-pvyqevplt diabetes. He is resumed on his home medications at discharge. 7. Hypertension. The patient had significant hypertension during this hospitalization with systolic blood pressures from 140 to 160. He is not on any blood pressure medications at home and amlodipine was started at time of discharge. This can be followed up with primary care and changed according to his needs. 8. Liver mass. The patient has a liver mass, it has been in surveillance with 3 biopsies negative. This can be followed up with his primary oncology team. 9. ARY. No acute events during this hospitalization. 10. DVT prophylaxis. He was on low molecular weight heparin that was renally dosed during this hospitalization. On day of discharge, he is tolerating diet, ambulating. He is back at his baseline, he has no symptoms, and thus it is reasonable to discharge him while some of these studies are pending as the family and the patient felt strongly to leave the hospital and is reasonable to discharge him with addition of blood pressure control and close followup with outpatient providers, to follow up on stress test results LABS AND STUDIES DONE DURING THIS HOSPITALIZATION: Labs on day of discharge: BMP was done on day of discharge, this showed sodium 134, potassium 4, chloride 102, carbon dioxide 25, anion gap 7, BUN 46, creatinine 2.47, glucose is 190. Troponin is 0.12, trended down from 0.19. Other studies included thoracentesis with pleural fluid removed on 08/25/19. LDH, total protein, is pending and we are unable to calculate Light's criteria. His serum lactate dehydrogenase at time of thoracentesis was 183 and total protein in serum is 6.6. Culture is also pending as well. Cytology was negative. Imaging included -Chest x-ray on 08/24/19, which showed volume overload with no opacifications. -On 08/24/19, a transthoracic echocardiogram was done, which showed ejection fraction of 45% to 50% with hypokinesis in the mid and basal posterior myocardium extended to the inferior wall with grade 1 diastolic dysfunction. -Chest CT was done on 08/24/19, interval development of bilateral pleural effusions, interval enlargement of subcarinal and right paraesophageal lymph nodes compared to June 2019 scans. -Chest ultrasound was done 08/25/19, which showed loculated pleural effusion on left, which was tapped. -Repeat chest x-ray on 08/25/19 post thoracentesis showed no evidence of pneumothorax. PROCEDURES DONE DURING THIS HOSPITALIZATION: Included a stress test, a 2-day, performed on 08/25/19 and 08/26/19 with results pending at the time of this dictation and thoracentesis performed on 08/25/19, which removed 350-400 cc of cloudy pleural fluid with no complications. CONSULTANTS DURING THIS HOSPITALIZATION: Included Oncology, Cardiology, and Pulmonology. ITEMS TO FOLLOW UP ON STATUS POST DISCHARGE: 1. HFpEF. This is a new diagnosis for this patient and it is presumed that there was a primary cardiac insult, which led to his diastolic dysfunction and regional wall motion abnormalities. Stress test has been performed. The patient is optimized on aspirin and statin for his coronary artery disease and can follow up with primary care to talk about cath in future if symptoms persist given his new pleural effusions, which Cardiology did not feel was related to his diastolic dysfunction. They wanted to remove the possibility of the small cell lung cancer had reoccurred in which case catheterization would take on different level of risk, thoracentesis was performed on the pleural effusion and cytology should be back within 4 to 5 days. He will need followup with outpatient Oncology to ensure that the risk of small cell lung cancer recurrence is minimized, also Pulmonology offered to biopsy the subcarinal nodes , which have enlarged intermittently. The patient will be d/c on low dose oral lasix 2. Hypertension. The patient had poorly controlled hypertension during this hospitalization and amlodipine was started. This can be changed or modified by primary oncology team in the future. 3. Pleural effusion. Again, these were new on this hospitalization. It is unclear whether they were result of a primary cardiac event with diastolic dysfunction that was subacute in nature versus possible recurrence of small cell lung cancer and thoracentesis was performed with cytology to help us determine the etiology of these. Cytology is negative at time of discharge. Furthermore if cytology is unclear or thoracentesis is not helpful in determining the etiology of these loculated pleural effusions, Dr. Anders has offered to perform EBUS with bronch and biopsy of the subcarinal nodes, which had intervally enlarged. 4. Subcarinal and paraesophageal lymph nodes which have enlarged in interval exam from June to now. The patient is requested to follow up with Dr. Anders to discuss possible need for EBUS and bronch in the future if ultimately pleural effusion is not diagnostiv TIME SPENT: 65 minutes was spent in the planning of this discharge with over half of that spent directly at the bedside of the patient providing direct patient care. Plan of care discussed with the patient and his , who is heavily involved in the care of this patient and plans and they have no further questions. They know to follow up with primary care, Dr. Estevez's team as well as Dr. Anders, and Dr. Stevens in the near future and appointment will be made for them prior to discharge. This is a distillation of a number of complex events that happened over a 3-day hospitalization. If there are any questions about the care of this patient, please do not hesitate to reach out and contact me directly, my cell phone is [phone]. A physical exam was performed on the day of discharge, this is found in the daily progress note. [id number]/CPS #: [id number] PADDY
[2019-08-26 12:53] LABS: Fluid Type: PLEURAL FLUID; Triglycerides (BF) 23 mg/dL
[2019-08-26] MEDS ORDERED: Regadenoson* 0.4 MG/5 ML SYRINGE ONE (14:00)
--- NOTE | 2019-08-26 15:10 | PN ---
Progress Note - Progress Note Date of Service: 08/26/19 - Pulm f/u note Note: Pt sen and examined at bedside. Pt reports feeling better. He was noted to having facial droop earlier and had CT of brain. he was noted to have elevated BP. Active Medications Generic Name Dose Route Start Last Admin Trade Name Freq PRN Reason Stop Dose Admin Amlodipine Besylate 10 mg 08/25/19 14:00 08/26/19 09:09 Norvasc Tab* PO 10 mg DAILY MARCIAL Administration Aspirin 81 mg 08/24/19 09:00 08/26/19 09:10 Aspirin Ec Tab* PO 81 mg DAILY MARCIAL Administration Atorvastatin Calcium 10 mg 08/24/19 18:00 08/25/19 17:14 Lipitor* PO 10 mg QPM MARCIAL Administration Citalopram Hydrobromide 10 mg 08/24/19 09:00 08/26/19 09:09 Celexa Tab* PO 10 mg QAM MARCIAL Administration Dextrose 25 ml 08/24/19 08:53 Dextrose 50% Vial 50 Ml* IV PUSH .FOR FS < 60 - SS PRN FS < 60 Docusate Sodium 100 mg 08/24/19 07:17 Colace Cap* PO BEDTIME PRN CONSTIPATION Hydralazine HCl 5 mg 08/25/19 08:05 Apresoline Iv* IV SLOW PU Q6H PRN Systolic Bp Greater Than:170 Insulin Glargine 10 units 08/24/19 19:30 08/25/19 20:53 Lantus(*) SUBCUT 10 units Q24H MARCIAL Administration Insulin Human Lispro 0 units 08/24/19 11:30 08/26/19 12:23 Humalog* SUBCUT 3 units ACHS MARCIAL Administration Protocol Ondansetron HCl 4 mg 08/25/19 08:05 08/25/19 09:17 Zofran Inj* IV 4 mg Q6H PRN Administration NAUSEA Vital Signs Temp Pulse Resp BP Pulse Ox 97.6 F 80 20 160/78 100 08/26/19 11:46 08/26/19 11:46 08/26/19 11:46 08/26/19 11:46 08/26/19 11:46 O/E: Pt in NAD HEENT:PERRLA Lungs: Improved air entry b/l CVS: S1, S2+, regular Abd: Soft, BS+ Ext: Normal ROM Skin: No rash Neuro: No focal deficits Laboratory Results - last 24 hr 08/25/19 08/25/19 08/25/19 12:10 12:10 15:38 Sodium Potassium Chloride Carbon Dioxide Anion Gap BUN Creatinine Est GFR ( Amer) Est GFR (Non-Af Amer) BUN/Creatinine Ratio Glucose POC Glucose (mg/dL) Calcium Lactate Dehydrogenase 183 Troponin I Fluid Type Pleural fluid Fluid Cell Count Rvw By Fluid Triglycerides 23 08/25/19 08/25/19 08/26/19 16:42 20:53 07:24 Sodium 134 L Potassium 4.0 Chloride 102 Carbon Dioxide 25 Anion Gap 7 BUN 46 H Creatinine 2.47 H Est GFR ( Amer) 31.2 Est GFR (Non-Af Amer) 25.8 BUN/Creatinine Ratio 18.6 Glucose 195 H POC Glucose (mg/dL) 238 H 182 H Calcium 8.5 L Lactate Dehydrogenase Troponin I 0.12 H* Fluid Type Fluid Cell Count Rvw By Fluid Triglycerides 08/26/19 08/26/19 07:34 11:30 Sodium Potassium Chloride Carbon Dioxide Anion Gap BUN Creatinine Est GFR ( Amer) Est GFR (Non-Af Amer) BUN/Creatinine Ratio Glucose POC Glucose (mg/dL) 199 H 182 H Calcium Lactate Dehydrogenase Troponin I Fluid Type Fluid Cell Count Rvw By Fluid Triglycerides I/R: 74M PMH small cell lung cancer (dx 2011, radiation and chemo-presumed to be in remission), mass in liver on surv (bx non revealing thus far), NIDDM, HTN , HLD, CKD3, ARY who presented with progressive new onset volume overload, pleural effusion, HTN, VIVIEN on CKD. Pt noted to have moderate to large effusion on left side Given prior h/o malignancy even though he was symptomatically improved, thoracentesis was performed 08/25 Pt noted to have loculatd pocket of fluid, 350cc was drained, yellow colored, cytology was negative for malignancy, results reviewed with pt Will have rpt CT in [address] Estevez Will need bronch/EBUS as out pt for evaluation if continues to have enlarged subcarinal node D/w with pt, his and Dr Deidre Galeana
[2019-08-26 18:36] LABS: Fluid Type, Glucose PLEURAL FLUID
[2019-08-26 18:42] LABS: Fluid Type, Protein, Total PLEURAL FLUID
[2019-08-26 18:47] LABS: Lactate Dehydrogenase, BF 186 U/L
== END 2019-08-26 16:00 | disposition home or self-care (01) | DRG 291 ==
LOC: ED 03:51 → MEDTELE 07:20 → OBSVTOIN 08-25 12:00
PROVIDERS: ADMIT Student in an Organized Health Care Education/Training Program; ATTEND Internal Medicine
PROC: 0W9B3ZZ Drainage of Left Pleural Cavity, Percutaneous Approach (ICD-10-PCS; principal; 2019-08-25)
DX: I13.0 Hypertensive heart and chronic kidney disease with heart failure and stage 1 through stage 4 chronic kidney disease, or unspecified chronic kidney disease (principal); I50.31 Acute diastolic (congestive) heart failure; N17.9 Acute kidney failure, unspecified; D61.818 Other pancytopenia; J90 Pleural effusion, not elsewhere classified; I25.10 Atherosclerotic heart disease of native coronary artery without angina pectoris; E78.5 Hyperlipidemia, unspecified; R09.02 Hypoxemia; E78.00 Pure hypercholesterolemia, unspecified; E11.42 Type 2 diabetes mellitus with diabetic polyneuropathy; H35.30 Unspecified macular degeneration; H91.90 Unspecified hearing loss, unspecified ear; F41.9 Anxiety disorder, unspecified; F32.9 Major depressive disorder, single episode, unspecified; R16.0 Hepatomegaly, not elsewhere classified; E11.22 Type 2 diabetes mellitus with diabetic chronic kidney disease; N18.3 Chronic kidney disease, stage 3 (moderate); G47.33 Obstructive sleep apnea (adult) (pediatric); D72.829 Elevated white blood cell count, unspecified; R79.89 Other specified abnormal findings of blood chemistry; Z66 Do not resuscitate; R29.810 Facial weakness; E66.8 Other obesity; R59.0 Localized enlarged lymph nodes; D63.1 Anemia in chronic kidney disease; G31.84 Mild cognitive impairment of uncertain or unknown etiology; Z79.84 Long term (current) use of oral hypoglycemic drugs; Z79.82 Long term (current) use of aspirin; Z79.899 Other long term (current) drug therapy; Z86.711 Personal history of pulmonary embolism; Z28.21 Immunization not carried out because of patient refusal; Z97.4 Presence of external hearing-aid; Z85.118 Personal history of other malignant neoplasm of bronchus and lung; Z87.891 Personal history of nicotine dependence; Z88.5 Allergy status to narcotic agent; Z92.21 Personal history of antineoplastic chemotherapy; Z92.3 Personal history of irradiation; Z68.29 Body mass index [BMI] 29.0-29.9, adult
CPT/HCPCS: 36415; 70450; 70551; 71045; 71250; 76604; 78452; 80048; 80053; 80061; 82438; 82945; 83036; 83605; 83615; 83735; 83880; 83986; 84157; 84478; 84484; 85025; 85610; 87040; 87205; 88112; 88305; 89051; 93005; 93017; 93306; 96374; 99226; 99285; A9270-GY; A9502; C8929; G0378; J1642; J1644; J1650; J1940; J2405; J2785

== ENCOUNTER 2020-01-17 23:41 | Inpatient (IN) | payer MEDICARE, OTHER ==
--- NOTE | 2020-01-18 00:25 | ED ---
Complex/Multi-Sys Presentation - HPI Summary HPI Summary: Per , patient with history of falls, imbalance and difficulty rising from falls complains of increase in frequency of falls. Fall once 4 days ago, and fell twice today. states today patient fell from a seated position on toilet once, and from seated position on chair once. is unaware of any injuries to patient from falls. states patient demanded that he be go to the hospital for "weakness". states she advised against it because of coronavirus situation. EMS was called. Here in the ED patient has no complaints other than weakness. states patient has history of episodes of weakness and shakiness which then self resolve. Patient denies any pain, injury or symptoms of illness including fever, cough, sore throat, CP, SOB, N/V/ D, abdominal pain, change in urine, change in BM. also denies any knowledge or indication that patient has new neurological symptoms, fever, cough , sore throat, CP, SOB, N/V/D, abdominal pain, change in urine, change in BM. Patient's states she has difficulty helping patient get up when he falls because he is so much heavier than she is. Patient has history of diabetes, recently stopped Januvia 5 days ago on advice of PCP. Sugars have been checked every morning and have remained within normal limits except for this evening when patient sugar was 238 just prior to arrival of EMS. Patient also has history of lung cancer 7 years ago which has been in remission for the past 7 years. Medical history is as EKG, DM 2, HDL, HTN, lung cancer, heart failure, imbalance, weakness, falls. Patient's PT has been stopped due to coronavirus. Per , patient is not very compliant with PT therapy. Patient is DNR. Spoke to at home at [phone] who provided additional history of present illness and medical history. - History Of Current Complaint Chief Complaint: EDAbdPain Time Seen by Provider: 01/18/20 00:22 Hx Obtained From: Patient, Family/Care Coordination Manager Onset/Duration: Gradual Onset, Lasting Days Timing: Intermittent, Lasting: Severity Currently: None Associated Signs And Symptoms: Positive: Weakness - Allergies/Home Medications Allergies/Adverse Reactions: Allergies Allergy/AdvReac Type Severity Reaction Status Date / Time codeine AdvReac Mild GI Upset Verified 08/24/19 04:04 Home Medications: Home Medications Citalopram TAB* [Celexa TAB*] 10 mg PO QAM 09/28/12 [History Confirmed 01/18/20] glipiZIDE TAB* [Glucotrol TAB*] 10 mg PO BID 09/28/12 [History Confirmed ] Sitagliptin Phosphate [Januvia] 50 mg PO QPM 05/09/14 [History Confirmed ] Flaxseed Oil 1 cap PO DAILY 09/17/17 [History Confirmed 01/18/20] Aspirin [Aspirin EC] 81 mg PO DAILY 08/24/19 [History Confirmed 01/18/20] Docusate Sodium [Colace] 100 mg PO BEDTIME PRN 08/24/19 [History Confirmed 01/17] Mv-Min/Iron/Folic/Calcium/Vitk [One-A-Day Women's Tablet] 1 tab PO DAILY [History Confirmed 01/18/20] Pioglitazone TAB* [Actos TAB*] 30 mg PO DAILY 08/24/19 [History Confirmed ] Vit C/E/Zn/Coppr/Lutein/Zeaxan [Preservision Areds 2 Softgel] 1 cap PO BID 08/24 [History Confirmed 01/18/20] amLODIPine TAB* [Norvasc 5 mg TAB*] 10 mg PO DAILY 30 Days #30 tab 08/26/19 [Rx Confirmed 01/18/20] Furosemide 20 mg PO DAILY 01/18/20 [History Confirmed 01/18/20] Rosuvastatin Calcium 20 mg PO DAILY 01/18/20 [History Confirmed 01/18/20] carvediloL [Carvedilol] 3.125 mg PO DAILY 01/18/20 [History Confirmed 01/18/20] PMH/Surg Hx/FS Hx/Imm Hx Endocrine/Hematology History: Reports: Hx Anticoagulant Therapy - ASA, Hx Blood Transfusions, Hx Diabetes, Hx Anemia Denies: Hx Systemic Lupus Erythematosus, Hx Thyroid Disease Cardiovascular History: Reports: Hx Hypercholesterolemia, Hx Hypertension, Hx Rheumatic Fever Denies: Hx Aneurysm, Hx Angina, Hx Congenital Heart Disease, Hx Congestive Heart Failure, Hx Deep Vein Thrombosis, Hx Pacemaker/ICD, Hx Peripheral Vascular Disease, Other Cardiovascular Problems/Disorders Respiratory History: Reports: Hx Lung Cancer - small cell, Hx Pulmonary Embolism , Hx Sleep Apnea, Other Respiratory Problems/Disorders Denies: Hx Asthma, Hx Chronic Obstructive Pulmonary Disease (COPD) GI History: Denies: Other GI Disorders History: Reports: Hx Renal Disease - abnormal gfr, Other Problems/ Disorders - currently elevated bun/creat, diabetic related impaired kidney function Denies: Hx Dialysis Musculoskeletal History: Reports: Other Musculoskeletal History - neuropathy in bilateral hands and feet Denies: Hx Arthritis, Hx Rheumatoid Arthritis, Hx Osteoporosis Sensory History: Reports: Hx Contacts or Glasses, Hx Macular Degeneration, Hx Hearing Aid, Hx Hearing Problem Denies: Hx Glaucoma, Hx Legally Blind, Hx Deafness Opthamlomology History: Reports: Hx Contacts or Glasses, Hx Macular Degeneration Denies: Hx Glaucoma, Hx Legally Blind Neurological History: Reports: Hx Seizures - 1993, Hx Transient Ischemic Attacks (TIA), Other Neuro Impairments/Disorders - Past hx seizure activity, no treatment at this time Denies: Hx Dementia, Hx Headaches Psychiatric History: Reports: Hx Anxiety, Hx Depression Denies: Hx Panic Disorder, Hx Substance Abuse - Cancer History Cancer Type, Location and Year: LUNG- DX 4 YEARS AGO , squamous cell , basal cell Hx Chemotherapy: Yes Hx Radiation Therapy: Yes - Surgical History Surgery Procedure, Year, and Place: appendectomy age 11, hernia repair , uvula removed r/t sleep apnea in , [place], TONSILS, skin cancer - Immunization History Date of Tetanus Vaccine: UNKNOWN Infectious Disease History: No Infectious Disease History: Reports: Hx Shingles Denies: Hx Hepatitis, Hx Human Immunodeficiency Virus (HIV), Traveled Outside the [place] in Last 30 Days - Family History Known Family History: Positive: Cardiac Disease, Other - [place] - Social History Alcohol Use: None Alcohol Amount: 1 beer a night Hx Substance Use: No Substance Use Type: Reports: None Hx Tobacco Use: Yes Smoking Status (MU): Former Smoker Type: Cigarettes Have You Smoked in the Last Year: No Review of Systems Constitutional: Negative Eyes: Negative ENT: Negative Cardiovascular: Negative Respiratory: Negative Positive: Abdominal Pain - triage note per EMS states abdominal pain. However patient denies. Genitourinary: Negative Musculoskeletal: Negative Skin: Negative Positive: Weakness Psychological: Normal All Other Systems Reviewed And Are Negative: Yes Physical Exam Triage Information Reviewed: Yes Vital Signs On Initial Exam: Initial Vitals Temp Pulse Resp BP Pulse Ox 99.1 F 89 20 172/90 95 01/17/20 23:47 01/17/20 23:47 01/17/20 23:47 01/17/20 23:47 01/17/20 23:47 Vital Signs Reviewed: Yes Appearance: Positive: Well-Appearing Skin: Positive: Warm Head/Face: Positive: Normal Head/Face Inspection Eyes: Positive: Normal ENT: Positive: Normal ENT inspection Neck: Positive: Supple Respiratory/Lung Sounds: Positive: Clear to Auscultation Cardiovascular: Positive: Normal Abdomen Description: Positive: Nontender Musculoskeletal: Positive: Normal Neurological: Positive: Normal Psychiatric: Positive: Normal AVPU Assessment: Alert - Caty Coma Scale Best Eye Response: 4 - Spontaneous Best Motor Response: 6 - Obeys Commands Best Verbal Response: 5 - Oriented Coma Scale Total: 15 Procedures - Sedation Patient Received Moderate/Deep Sedation with Procedure: No Diagnostics - Vital Signs Vital Signs Temp Pulse Resp BP Pulse Ox 01/17/20 23:47 99.1 F 89 20 172/90 95 - Laboratory Result Diagrams: 01/20/20 06:40 01/20/20 06:40 Lab Statement: Any lab studies that have been ordered have been reviewed, and results considered in the medical decision making process. Complex Multi-Symp Course/Dx Course Of Treatment: Per , patient with history of falls, imbalance and difficulty rising from falls complains of increase in frequency of falls. Fall once 4 days ago, and fell twice today. states today patient fell from a seated position on toilet once, and from seated position on chair once. is unaware of any injuries to patient from falls. states patient demanded that he be go to the hospital for "weakness". states she advised against it because of coronavirus situation. EMS was called. Here in the ED patient has no complaints other than weakness. states patient has history of episodes of weakness and shakiness which then self resolve. Patient denies any pain, injury or symptoms of illness including fever, cough, sore throat, CP, SOB , N/V/D, abdominal pain, change in urine, change in BM. also denies any knowledge or indication that patient has new neurological symptoms, fever, cough , sore throat, CP, SOB, N/V/D, abdominal pain, change in urine, change in BM. Patient's states she has difficulty helping patient get up when he falls because he is so much heavier than she is. Patient has history of diabetes, recently stopped Januvia 5 days ago on advice of PCP. Sugars have been checked every morning and have remained within normal limits except for this evening when patient sugar was 238 just prior to arrival of EMS. Patient also has history of lung cancer 7 years ago which has been in remission for the past 7 years. Medical history is as EKG, DM 2, HDL, HTN, lung cancer, heart failure, imbalance, weakness, falls. Patient's PT has been stopped due to coronavirus. Per , patient is not very compliant with PT therapy. Patient is DNR. Spoke to at home at [phone] who provided additional history of present illness and medical history. BP 172/90. Vital signs otherwise within normal limits. Hemoglobin 11.1 which is patient baseline. Creatinine 2.53 which patient baseline. Troponin 0.03 which is patient baseline. CRP 44. BNP 369 which is patient baseline. Sodium 133. CT brain positive for new hypodensity located in the genu of the internal capsule on the left side most likely representing lacunar infarct. Not present from prior CT or MRI brain on 08/26/19. TPA not considered due to lack of symptoms noted on neurological exam , non reporting of specific neuro symptoms, as well as unknown onset for any possible symptoms. Patient and patient's complained only of inc freq of falls and generalized weakness, starting Thursday and patient has history of chronic falls and weakness. CT abdomen and pelvis positive for complex cystic mass centered on the caudate lobe of the liver currently measures 9.5 x 8.2 cm and previously measured 8.4 x 7[address] of chest and abdomen 01/02/20. Chest x-ray consistent with prior. EKG sinus rhythm, heart rate of 86, normal P axis. Discussed patient with neurology Dr. Jerome who, due to nonspecificity of reported symptoms, lack of specific findings on neurological exam, recommended admission with MRI in the morning. Recommended starting patient on Plavix 75 mg daily. Admitted to hospitalist. - Diagnoses Provider Diagnoses: Falls, General weakness, Abrasion of elbow, right, Shakiness, Left sided lacunar infarction, Liver mass Discharge ED - Sign-Out/Discharge Documenting (check all that apply): Patient Departure - Discharge Plan Condition: Stable Disposition: ADMITTED TO [facility] - Billing Disposition and Condition Condition: STABLE Disposition: Admitted to [facility]
--- OUTSIDE RECORDS SUMMARY | 2020-01-18 00:42 | XMS REPORT | Summary of Care ---
:1945 Author Organization [facility] Address [address] [address] Care Team Providers Name Role Phone Byron Carrillo Primary Care Provider Reason for Visit Reason Comments Follow Up pt presents for follow up with recent labs Encounter Details Date Type Department Care Team Description 11/22/2019 Office Visit [facility] Byron Carrillo MD Essential hypertension (Primary Dx); Practice [address] [place] [address] Diastolic heart failure, unspecified HF chronicity ([facility]); [address] [place] [address] Type 2 diabetes mellitus with microalbuminuria, without long-term current use of insulin ([facility]); [place] [address] Stage 4 chronic kidney disease ([facility]) [phone] Allergies Active Allergy Reactions Severity Noted Date Comments Codeine GI Reaction 11/09/2009 documented as of this encounter (statuses as of 11/22/2019) Medications Medication Sig Dispensed Refills Start Date End Date Status Blood Glucose by Does not apply route. 1. Brand:same as last time 1 Kit 0 04/04/2011 Active Monitoring Suppl (BLOOD GLUCOSE 3. Insulin requiring METER) Does not 4. Test Blood Glucose 3 time(s) A DAY apply Kit aspirin (ASPIRIN) Take 81 mg by 0 Active 81 MG Oral Chew mouth DAILY. Tab Pen [place]land /16" 1 Device by 100 Each 3 11/15/2013 Active 30G X 8 MM Does Does not apply not apply Misc route DAILY. citalopram Take 1 Tab by 30 Tab 0 02/02/2014 Active (CELEXA) 10 MG mouth DAILY. Oral Tab BD ULTRA-FINE PEN USE DAILY 100 Each 3 02/05/2014 Active NEEDLES 29G X DIRECTED 12.7MM Does not apply Misc Multiple Take by mouth 0 Active Vitamins-Minerals TWICE DAILY. (PRESERVISION AREDS) Oral Cap Flaxseed, Linseed, Take by 0 Active (FLAX SEED OIL PO) mouth. pioglitazone TAKE 1 TABLET 30 Tab 5 06/20/2019 Active (ACTOS) 30 MG Oral BY MOUTH DAILY Tab Glucose Blood 1 Strip by In 300 Strip 1 06/30/2019 Active (ACCU-CHEK RACHAEL) Vitro route In Vitro Strip THREE TIMES DAILY. DX E11.65 last OV 03/31/19 Rosuvastatin Take 1 Tab by 30 Tab 2 09/05/2019 Active Calcium (CRESTOR) mouth DAILY. 20 MG Oral Tab JANUVIA 100 MG TAKE 1 TABLET 90 Tab 0 10/07/2019 Active Oral BY MOUTH EVERY TabIndications: DAY Diabetes mellitus without complication (HCC) glipiZIDE TAKE 1 TABLET 180 Tab 0 10/11/2019 Active (GLUCOTROL) 10 MG BY MOUTH TWICE Oral Tab DAILY nitroglycerin Place 1 Tab 25 Tab 0 10/20/2019 Active (NITROSTAT) 0.4 MG under tongue Sublingual SL Tab EVERY FIVE MINUTES NEEDED for chest pain. Can take one every 5 minutes for three times if no relief go to ER amLodipine TAKE 1 TABLET 90 Tab 0 10/21/2019 Active (NORVASC) 10 MG BY MOUTH DAILY Oral Tab furosemide (LASIX) TAKE 1 TO 2 180 Tab 0 10/21/2019 Active 20 MG Oral Tab TABLETS BY MOUTH DAILY carvedilol (COREG) TAKE 1 TABLET 180 Tab 0 10/21/2019 Active 3.125 MG Oral Tab BY MOUTH TWICE DAILY furosemide (LASIX) Take 40 mg by 0 Discontinued (No 40 MG Oral Tab mouth DAILY. 0 longer clinically indicated) documented as of this encounter (statuses as of 11/22/2019) Active Problems Problem Noted Date Diastolic heart failure 09/06/2019 Anemia, chronic disease 09/06/2019 Memory loss due to medical condition 09/06/2019 Solar purpura 07/05/2018 Diabetic polyneuropathy associated with type 2 diabetes mellitus 07/05/2018 Stage 4 chronic kidney disease 07/05/2018 Diabetes mellitus with microalbuminuria, without long-term current use of insulin Lung cancer 08/03/2012 SCC (squamous cell carcinoma), face 02/27/2012 Overview: SCC left cheondoism Macular degeneration 01/11/2010 Essential hypertension 11/23/2009 Mixed [...] as of this encounter (statuses as of 11/22/2019) Resolved Problems Problem Noted Date Resolved Date Lymphoma 02/17/2012 08/03/2012 Sleep-disordered breathing 01/11/2010 01/21/2010 Overview: Replaced inactive diagnosis Type 2 diabetes mellitus without complication 11/23/2009 07/30/2017 documented as of this encounter (statuses as of 11/22/2019) Immunizations Name Administration Dates Next Due Influenza [...] Sign Reading Time Taken Comments Blood Pressure 138/70 11/22/2019 2:13 PM EST Pulse 80 11/22/2019 2:13 PM EST Temperature 37.1 11/22/2019 2:13 PM EST C (98.7 F) Respiratory Rate - - Oxygen Saturation 96% 11/22/2019 2:13 PM EST Inhaled Oxygen Concentration - - Weight 94.3 kg (208 lb) 11/22/2019 2:13 PM EST Height 170.2 cm (5' 7") 11/22/2019 2:13 PM EST Body Mass Index 32.58 11/22/2019 2:13 PM EST documented in this encounter Progress Notes Byron Carrillo MD - 11/22/2019 2:00 PM EST PATIENT: Horace Shah : 1945 DATE OF SERVICE: 11/22/2019 CHIEF COMPLAINT: Chief Complaint Patient presents with Follow Up pt presents for follow up with recent labs Subjective HISTORY OF PRESENT ILLNESS: Horace Shah is a 74-y.o. male. In for follow up of hypertension. Last visit BP hi. Is checking home BP at the exercise center after exercise and has been good . no side effects to medicines as I added coreg. This was a little risky as there was some concern should not be on a beta rosie due to IVCD and may need pacer eventually. He has not see Dr Stevens since last visit with me and denies [place], dizzyness, CP, SOB, edema or neuro symptoms At last visit I also cut his lasix to 20mg daily. Lasix was started when he went in to hospital with CHF. However his Cr xuan to 2.7. Most recent Cr was 2.35 . I have them doing daily weights and only 2 x in the last month has he needed an extra lasix His labs done at [facility] Hct 29 which is stable K 4.2 and they did an a1c 8.7 which was done a little early Past Medical History: Diagnosis Date Actinic keratosis of multiple sites of head and neck BMI 31.0-31.9,adult CKD (chronic kidney disease) blamed on chemo Diabetes retinopathy 2013 and 2017 Diverticulosis 2011 5-10 years hemorrhoids GERD (gastroesophageal reflux disease) 2011 EGD negative Hypertension Macular degeneration ARY (obstructive sleep apnea) s/p surgery but not recall .fu sleep study Other and unspecified hyperlipidemia Pneumonia LLLobe Pulmonary embolism (HCC) 2013 Seizure disorder (HCC) 15 years ago likely due to etoh Sleep disordered breathing 2010 mild Small cell carcinoma (HCC) of the Lung s/p radiation Squamous cell carcinoma 2012 face and 2017 Family History Problem Relation Age of Onset Heart Father mid 70s Stroke Mother late 80s Current Outpatient Medications Medication Sig amLodipine (NORVASC) 10 MG Oral Tab TAKE 1 TABLET BY MOUTH DAILY aspirin (ASPIRIN) 81 MG Oral Chew Tab Take 81 mg by mouth DAILY. BD ULTRA-FINE PEN NEEDLES 29G X 12.7MM Does not apply Misc USE DAILY DIRECTED Blood Glucose Monitoring Suppl (BLOOD GLUCOSE METER) Does not apply Kit by Does not apply route. 1. Brand:same as last time 3. Insulin requiring 4. Test Blood Glucose 3 time(s) A DAY carvedilol (COREG) 3.125 MG Oral Tab TAKE 1 TABLET BY MOUTH TWICE DAILY citalopram (CELEXA) 10 MG Oral Tab Take 1 Tab by mouth DAILY. Flaxseed, Linseed, (FLAX SEED OIL PO) Take by mouth. furosemide (LASIX) 20 MG Oral Tab TAKE 1 TO 2 TABLETS BY MOUTH DAILY glipiZIDE (GLUCOTROL) 10 MG Oral Tab TAKE 1 TABLET BY MOUTH TWICE DAILY Glucose Blood (ACCU-CHEK RACHAEL) In Vitro Strip 1 Strip by In Vitro route THREE TIMES DAILY. DX E11.65 last OV 03/31/19 JANUVIA 100 MG Oral Tab TAKE 1 TABLET BY MOUTH EVERY DAY Multiple Vitamins-Minerals (PRESERVISION AREDS) Oral Cap Take by mouth TWICE DAILY. nitroglycerin (NITROSTAT) 0.4 MG Sublingual SL Tab Place 1 Tab under tongue EVERY FIVE MINUTES NEEDED for chest pain. Can take one every 5 minutes for three times if no relief go to ER Pen [place]land 02/24" 30G X 8 MM Does not apply Misc 1 Device by Does not apply route DAILY. pioglitazone (ACTOS) 30 MG Oral Tab TAKE 1 TABLET BY MOUTH DAILY Rosuvastatin Calcium (CRESTOR) 20 MG Oral Tab Take 1 Tab by [...] Financial resource strain: Not on file Food insecurity Worry: Not on file Inability: Not on file Transportation needs Medical: Not on file Non-medical: Not on file Tobacco Use Smoking status: Former Smoker Last attempt to quit: 10/12/1994 Years since quittin.1 Smokeless tobacco: Never Used Substance and Sexual Activity Alcohol use: No Comment: EX Drug use: Not on file Sexual activity: Not on file Lifestyle Physical activity Days per week: Not on file Minutes per session: Not on file Stress: Not on file Relationships Social connections Talks on phone: Not on file Gets together: Not on file Attends voodoo service: Not on file Active member of club or organization: Not on file Attends meetings of clubs or organizations: Not on file Relationship status: Not on file Intimate partner violence Fear of current or ex partner: Not on file Emotionally abused: Not on file Physically abused: Not on file Forced sexual activity: Not on file Other Topics Concern Not on file Social History Narrative Not on file REVIEW OF SYSTEMS: ROS Objective PHYSICAL EXAM: VITALS: BP 138/70 (BP Location: Left arm, Patient Position: Sitting) | Pulse 80 | Temp 98.7 F(37.1 C) | Ht 5' 7" (1.702 m) | Wt 208 lb (94.3 kg) | SpO2 96% | BMI 32.58 kg/m Body mass index is 32.58 kg/m. Physical Exam Vitals signs reviewed. Constitutional: Appearance: He is not ill-appearing. Cardiovascular: Rate and Rhythm: Normal rate and regular rhythm. Pulmonary: Effort: Pulmonary effort is normal. No respiratory distress. Breath sounds: Normal breath sounds. Musculoskeletal: Right lower leg: No edema. Left lower leg: No edema. ASSESSMENT / IMPRESSION: ICD-9-CM ICD-10-CM 1. Essential hypertension BP is better and good at home . Continue coreg . im not sure he is at hi risk for needing pacer at this time but will notify Dr Stevens 401.9 I10 2. Diastolic heart failure, unspecified HF chronicity (HCC) lasix 20 mg seems to be working with a extra dose if weight rises 428.30 I50.30 3. Type 2 diabetes mellitus with microalbuminuria, without long-term current use of insulin (HCC) a1c xuan despite being on actos . I dont feel the CHF was actos related 250.40 E11.29 791.0 R80.9 4. Stage 4 chronic kidney disease (HCC) lower lasix dose has helped bring Cr back to baseline [id number] Plan Author: Byron Carrillo MD 11/22/2019 20:45 documented in this encounter Plan of Treatment Health Maintenance Due Date Last Done Comments MEDICARE ANNUAL WELLNESS 1945 VISIT DTaP/Tdap/Td Vaccines ( - 1957 Tdap) ZOSTER IMMUNIZATION SERIES 1996 (1 of 2) FALL RISK ASSESSMENT 2011 HEMOGLOBIN A1C 11/25/2019 08/25/2019, 05/30/2019, 01/18/2019, Additional history exists FOOT EXAM 07/07/2020 07/07/2019, 07/07/2019, 07/05/2018, Additional history exists LIPID DISORDER SCREENING 09/05/2020 09/05/2019, 07/07/2019, 10/25/2018, Additional history exists DEPRESSION SCREENING 10/20/2020 10/20/2019 Diabetic Eye Exam 03/30/2021 03/30/2019, 03/30/2019, 09/13/2018, Additional history exists Colonoscopy 09/02/2021 09/02/2011 PNEUMOCOCCAL 65+YRS Completed 09/30/2016, 09/09/2011 AAA SCREENING/SURVEILLANCE Completed 04/29/2017 INFLUENZA VACCINE Completed 07/07/2019, 07/05/2018, 07/30/2017, Additional history exists HEPATITIS A IMMUNIZATION Aged Out No longer eligible SERIES based on patient's age to complete this topic HPV IMMUNIZATION SERIES Aged Out No longer eligible based on patient's age to complete this topic MENINGOCOCCAL VACCINE IMM Aged Out No longer eligible based on patient's age to complete this topic documented as of this encounter Goals Goal Patient Goal Associated Recent Patient-Stated? Author Type Problems Progress Blood Pressure Blood Pressure 138/70 No Gerardo, < 140/90 (11/22/2019 MD Byron 2:13 PM EST) Note: This is an individualized treatment (blood pressure) goal for Horace Shah: Displayed above (on the left) is your goal for blood pressure control. Your most recent blood pressure is also shown above, on the right. You should try to achieve blood pressures that are lower than your goal listed above (on the left). Weight increase vs. 18 mo min CHF 11 (11/22/2019 2:13 PM EST) No Byron Carrillo MD (lbs) < 5 Note: This is an individualized treatment (congestive heart failure, CHF) goal for Horace Shah: Displayed above (on the right) is how many pounds you are in excess of your lowest weight over the past 18 months. Note that lower numbers are better. Excessive weight gain often indicates fluid reten tion and worsening heart failure. You should contact your doctor immediately if the above number is too high (above your goal, the number on the left). Diabetes < 7.0 Diabetes Type [...] raise sugar. record my blood sugar results. [facility] is safe and secure way for you [...] provider and work towards quitting. Education Resources: [place] Diabetic Association Site http://diabetes.org Academy of Nutrition & Dietetics Site http://eatright.org National Smoking Cessation Site http://smokefree.gov Glycohemoglobin A1c < 7.0 Diabetes 9.1 (01/18/2019 3:11 PM Byorn Mcneal MD EDT) Note: This is an individualized treatment (diabetes control, HgbA1C) goal for Horace Shah: Displayed above is your progress towards your HgbA1C goal. Your goal is shown above (on the left); your most recent HgbA1C is shown on the right. Note that lower numbers are better. Reduce portion size Diet No Byron Carrillo MD Weight loss vs. 18 mo max Lifestyle 0 (11/22/2019 2:13 PM No Byron Carrillo MD (lbs) >= 10 EST) Note: This is an individualized lifestyle goal [...] is an individualized lifestyle goal for Horace Isaac Shah: Please be sure to keep up-to-date on recommended immunizations. For example, this would include a yearly influenza vaccine. Immunization status can be seen by looking at the Health Maintenance sections of your [facility], Plan of Care, and any After Visit Summaries. Consume a [id number] diet Lifestyle No Byron Carrillo MD Note: This is an individualized lifestyle goal for Horace Shah: Please do not add additional salt to your food. Additional salt may lead to fluid retention and worsen your congestive heart failure. Take all prescribed medications as directed Self-management No Byron Carrillo MD Note: This is an individualized self-management goal for Hoarce Shah: Please take all prescribed medications as [...] to be addressed on an ongoing basis. Check your weight daily Self-management No Byron Carrillo MD Note: This is an individualized self-management goal for Horace Shah: Please check your weight daily. Refer to the accompanying CHF treatment goal and call your doctor immediately for further instructions on how to respond to unexpected weight gain. documented as of this encounter Procedures Procedure Name Priority Date/Time Associated Diagnosis Comments GLYCO A1C (EXTERNAL) Routine 11/07/2019 documented in this encounter Results GLYCO A1C (EXTERNAL) (11/07/2019) Glyco A1c (External) 8.7 [facility] Performing Organization Address City/State[facility] Phone Number [facility] [address] [place] [address] documented in this encounter Visit Diagnoses Diagnosis Essential hypertension Unspecified essential hypertension Diastolic heart failure, unspecified HF chronicity (HCC) Type 2 diabetes mellitus with microalbuminuria, without long-term current use of insulin (HCC) Stage 4 chronic kidney disease (HCC) documented in this encounter Insurance Payer Benefit Plan / Subscriber ID Effective Phone Address Type Group Dates COMMERCIAL COMMERCIAL xxxxxxxxx Effective for Commercial GENERIC GENERIC PLAN all dates [facility] MEDICARE HILGER xxxxxxxxx 2019-Prese [facility] ADVANTAGE HEALTHCARE MEDICARE ADVANTAGE Guarantor Name Account Type Relation to Date of Phone Billing Patient Address Horace Shah Personal/Family 1945 [address] (Home) [place] [phone] [place], [place] (Work) [address] documented as of this encounter Advance Directives Type Date Recorded Patient Monitor Technician Explanation Advance Directives 09/21/2019 11:00 AM HEALTH CARE PROXY/[place]
--- OUTSIDE RECORDS SUMMARY | 2020-01-18 00:42 | XMS REPORT | Continuity of Care Document ---
:1945 External Reference #:[id number] Author Name Skyler Stevens DO [facility] (transmitted by agent of provider Fadia Anders) Address [address] [place] [address] Problems Description No Information Available Social History Type Date Description Comments Sex Unknown Tobacco Use Start: Unknown End: Former Cigarette Smoker Unknown Smoking Status Reviewed: 12/12/19 Former Cigarette Smoker ETOH Use Occasionally consumes beer Tobacco Use Start: Unknown End: Patient is a former quit 20+ years ago Unknown smoker Recreational Drug Use Denies Drug Use Exercise Type/Frequency Exercises regularly [facility] 5 days a week Allergies, Adverse Reactions, Alerts Active Allergies Reaction Severity Comments Date Brompheniramine / Codeine Nausea and Vomiting Moderate 07/10/2017 Medications Active Medications SIG Qnty Indications Ordering Date Provider Rosuvastatin Calcium 1 by mouth every Byron Carrillo MD 09/04/2019 day 20mg Tablets Glipizide ER 1 by mouth twice a Unknown 10mg day Tablets ER 24HR Celexa 1 by mouth every Unknown 10mg Tablets day Preservision Areds 2 2 daily Unknown + Multi Vitamin Areds 2 Capsules One Daily For Women 1 by mouth every Unknown day Tablets Aspirin Childrens 1 tab by mouth Unknown 81mg every day. Chewtabs Flaxseed Oil 1 by mouth every Unknown 1000mg day Capsules Januvia 1/2 tablet by 30tabs Unknown 100mg Tablets mouth every day Stool Softener 1 tablet po as Unknown Laxative night 8.6-50mg Tablets Pioglitazone HCL 1 by mouth every Byron Carrillo MD 30mg day Tablets Amlodipine Besylate 1 by mouth every Unknown day morning 10mg Tablets Furosemide 1 by mouth every Unknown 20mg Tablets day morning and as directed via physician Carvedilol 1 by mouth twice a Unknown 3.125mg day Tablets Immunizations Description No Information Available Vital Signs Date Vital Result Comment 12/12/2019 1:29pm Height 67 inches 5'7" Weight 207.00 lb no shoes Heart Rate 60 /min BP Systolic Sitting 128 mmHg lue reg cuff BP Diastolic Sitting 68 mmHg lue reg cuff BP Systolic Standing 114 mmHg lue reg cuff BP Diastolic Standing 70 mmHg lue reg cuff Respiratory Rate 16 /min BMI (Body Mass Index) 32.4 kg/m2 09/07/2019 1:49pm Height 67 inches 5'7" Weight 206.00 lb with shoes Heart Rate 96 /min BP Systolic Sitting 110 mmHg Lue reg cuff BP Diastolic Sitting 70 mmHg Lue reg cuff BP Systolic Standing 108 mmHg Lue reg cuff BP Diastolic Standing 62 mmHg Lue reg cuff Respiratory Rate 16 /min BMI (Body Mass Index) 32.3 kg/m2 Ejection Fraction 45-50% date 08/24/19 ECHO Results Description No Information Available Procedures Date Code Description Status 09/07/2019 40828 EKG Tracing & Interpretation Completed 08/26/2019 04806 Treadmill Interp/Report Only Completed 08/26/2019 25436 Stress Test Supervsn W/Out I/R Completed 08/25/2019 47324 Thoracentesis W/ Img Guidance Completed 08/24/2019 62879 ECHO Transthorasic Realtime 2D W Doppler & Color Flow Hosp Completed Medical Devices Description No Information Available Encounters Type Date Location Provider Dx Diagnosis Office Visit 09/07/2019 [facility] Skyler Stevens, I25.2 Old myocardial 2:20p Of Personal Consultant DO FACC infarction I25.10 Athscl heart disease of [place] coronary artery w/o ang pctrs N18.9 Chronic kidney disease, unspecified E11.69 Type 2 diabetes mellitus with other specified complication I50.9 Heart failure, unspecified Z85.118 Personal history of malignant neoplasm of bronchus and lung I10 Essential (primary) hypertension Office Visit 08/26/2019 3:24p [facility] Reyes Villegas R79.89 Other specified Haseeb Phillips abnormal findings of blood chemistry R06.02 Shortness of breath I42.9 Cardiomyopathy, unspecified C34.90 Malignant neoplasm of unsp part of unsp bronchus or lung J90 Pleural effusion, not elsewhere classified N18.9 Chronic kidney disease, unspecified Office Visit 08/26/2019 3:44p [facility] Margarita J90 Pleural effusion, [facility] Martita not elsewhere Personal Consultant classified E87.70 Fluid overload, unspecified Z85.118 Personal history of malignant neoplasm of bronchus and lung Office Visit 08/26/2019 9:43a [facility] Deidre Dill, R06.00 Dyspnea, Assoc,pc unspecified Hospitalists J90 Pleural effusion, not elsewhere classified R79.89 Other specified abnormal findings of blood chemistry D72.829 Elevated white blood cell count, unspecified I12.9 Hypertensive chronic kidney disease w stg 1-4/unsp chr kdny N18.3 Chronic kidney disease, stage 3 (moderate) I50.30 Unspecified diastolic (congestive) heart failure Office Visit 08/25/2019 3:24p [facility] Reyes Villegas R79.89 Other specified Haseeb Phillips abnormal findings of blood chemistry I42.9 Cardiomyopathy, unspecified R06.02 Shortness of breath C34.90 Malignant neoplasm of unsp part of unsp bronchus or lung J90 Pleural effusion, not elsewhere classified N18.9 Chronic kidney disease, unspecified Office Visit 08/25/2019 9:43a [facility] Deidre Dill, R06.00 Dyspnea, Assoc,siria JAFFE unspecified Hospitalists D64.9 Anemia, unspecified R79.89 Other specified abnormal findings of blood chemistry E11.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 I12.9 Hypertensive chronic kidney disease w stg 1-4/unsp chr kdny N18.3 Chronic kidney disease, stage 3 (moderate) E78.5 Hyperlipidemia, unspecified Office Visit 08/24/2019 3:12p [facility] Janel Duncan, J90 Pleural effusion, Of Loreto Membreno not elsewhere classified I50.30 Unspecified diastolic (congestive) heart failure N18.9 Chronic kidney disease, unspecified R06.02 Shortness of breath Office Visit 08/24/2019 [facility] Ambreen Giles, R06.00 Dyspnea, 9:42a Assoc,siria Membreno unspecified Hospitalists I10 Essential (primary) hypertension E11.9 Type 2 diabetes mellitus without complications Office Visit 08/24/2019 1:21p [facility] J90 Pleural effusion, [facility] Martita not elsewhere Personal Consultant classified J96.91 Respiratory failure, unspecified with hypoxia Z85.118 Personal history of malignant neoplasm of bronchus and lung Assessments Date Code Description Provider 12/12/2019 I25.2 Old myocardial infarction Skyler Stevens, DO FACC 12/12/2019 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 Stevens, DO FACC 09/07/2019 E11.69 Type 2 diabetes mellitus with other Skyler S. Stevens, DO FACC specified complication 09/07/2019 I50.9 Heart failure, unspecified Skyler S. Stevens, DO FACC 09/07/2019 Z85.118 Personal history of other malignant Skyler S. Stevens, DO FACC neoplasm of bronchus and lung 09/07/2019 I10 Essential (primary) hypertension Skyler SNhi Watersno, DO FACC 08/26/2019 R79.89 Other specified abnormal findings of Reyes Phillips M.D. blood chemistry 08/26/2019 R06.02 Shortness of breath Michele Abreu MD, [facility], FSCAI 08/26/2019 R06.02 Shortness of breath Reyes Phillips M.D. 08/26/2019 R06.00 Dyspnea, unspecified Deidre Galeana MD 08/26/2019 I42.9 Cardiomyopathy, unspecified Reyes Phillips M.D. 08/26/2019 J90 Pleural effusion, not elsewhere Margarita Anders MD classified 08/26/2019 C34.90 Malignant neoplasm of unspecified Reyes Phillips M.D. part of unspecified bronchus or lung 08/26/2019 J90 Pleural effusion, not elsewhere Deidre Galeana MD classified 08/26/2019 J90 Pleural effusion, not elsewhere Reyes Phillips M.D. classified 08/26/2019 E87.70 Fluid overload, unspecified Margarita Anders MD 08/26/2019 N18.9 Chronic kidney disease, unspecified Reyes Phillips M.D. 08/26/2019 R79.89 Other specified abnormal findings of Deidre Galeana MD blood chemistry 08/26/2019 Z85.118 Personal history of other malignant Margarita Anders MD neoplasm of bronchus and lung 08/26/2019 D72.829 Elevated white blood cell count, Deidre Galeana MD unspecified 08/26/2019 I12.9 Hypertensive chronic kidney disease Deidre Galeana MD with stage 1 through stage 4 chronic kidney disease, or unspecified chronic kidney disease 08/26/2019 N18.3 Chronic kidney disease, stage 3 Deidre Galeana MD (moderate) 08/26/2019 I50.30 Unspecified diastolic (congestive) Deidre Galeana MD heart failure 08/25/2019 R79.89 Other specified abnormal findings of Reyes Phillips M.D. blood chemistry 08/25/2019 I42.9 Cardiomyopathy, unspecified Reyes Phillips M.D. 08/25/2019 R06.00 Dyspnea, unspecified Deidre Galeana MD 08/25/2019 R06.02 Shortness of breath Reyes Phillips M.D. 08/25/2019 C34.90 Malignant neoplasm of unspecified Reyes Phillips M.D. part of unspecified bronchus or lung 08/25/2019 J90 Pleural effusion, not elsewhere Margarita Anders MD classified 08/25/2019 J90 Pleural effusion, not elsewhere Reyes Phillips M.D. classified 08/25/2019 N18.9 Chronic kidney disease, unspecified Reyes Phillips M.D. 08/25/2019 D64.9 Anemia, unspecified Deidre Galeana MD 08/25/2019 R79.89 Other specified abnormal findings of Deidre Galeana MD blood chemistry 08/25/2019 E11.22 Type 2 diabetes mellitus with Deidre Galeana MD diabetic chronic kidney disease 08/25/2019 I12.9 Hypertensive chronic kidney disease Deidre Galeana MD with stage 1 through stage 4 chronic kidney disease, or unspecified chronic kidney disease 08/25/2019 N18.3 Chronic kidney disease, stage 3 Deidre Galeana MD (moderate) 08/25/2019 E78.5 Hyperlipidemia, unspecified Deidre Galeana MD 08/24/2019 J90 Pleural effusion, not elsewhere Janel Duncan M.D. classified 08/24/2019 I50.30 Unspecified diastolic (congestive) Janel Duncan M.D. heart failure 08/24/2019 N18.9 Chronic kidney disease, unspecified Janel Duncan M.D. 08/24/2019 R06.00 Dyspnea, unspecified Ambreen Giles M.D. 08/24/2019 R06.02 Shortness of breath Janel Duncan M.D. 08/24/2019 J90 Pleural effusion, not elsewhere Margarita Anders MD classified 08/24/2019 I10 Essential (primary) hypertension Ambreen Giles M.D. 08/24/2019 J96.91 Respiratory failure, unspecified Margarita Anders MD with hypoxia 08/24/2019 E11.9 Type 2 diabetes mellitus without Ambreen Giles M.D. complications 08/24/2019 Z85.118 Personal history of other malignant Margarita Anders MD neoplasm of bronchus and lung Plan of Treatment 12/12/2019 - Skyler Stevens DO FACCI25.2 Old myocardial infarctionFollow up:1 yearI25.10 Atherosclerotic heart disease of [place] coronary artery without angina ggtvboszR79.9 Chronic kidney disease, vtnroqxjtaoX85.69 Type 2 diabetes mellitus with other specified ippsvqffdrwgE72.9 Heart failure, tuifkkgliuyN51.118 Personal history of other malignant neoplasm of bronchus and lungI10 Essential (primary) hypertension Functional Status Description No Information Available Mental Status Description No Information Available Referrals Description No Information Available
[2020-01-18 01:20] LABS: ABS Basophils 0.1 10^3/ul (0-0.2); ABS Eosinophils 0.4 10^3/ul (0-0.6); ABS Lymphocytes 0.9 10^3/ul (1.0-4.8); ABS Monocytes 1.4 10^3/ul (0-0.8); ABS Neutrophils 7.9 10^3/ul (1.5-7.7); Eosinophil % 3.9 %; Hematocrit 32 % (42-52); Hemoglobin 11.1 g/dL (14.0-18.0); Lymphocyte % 8.2 %; Mean Corpuscular HGB Conc 35 g/dL (31-36); Mean Corpuscular Hemoglobin 30 pg (27-31); Mean Corpuscular Volume 85 fL (80-94); Mean Platelet Volume 7.8 fL (7.4-10.4); Platelet Count 258 10^3/uL (150-450); Red Blood Count 3.74 10^6 /uL (4.18-5.48); Red Cell Distribution Width 15 % (10-15); White Blood Count 10.7 10^3/uL (3.5-10.8)
[2020-01-18 01:48] LABS: Albumin 3.6 g/dL (3.2-5.2); Anion Gap 9 mmol/L (2-11); CO2 Carbon Dioxide 22 mmol/L (22-32); Calcium 9.1 mg/dL (8.6-10.3); Chloride 102 mmol/L (101-111); Potassium 3.9 mmol/L (3.5-5.0); Sodium 133 mmol/L (135-145)
[2020-01-18] MEDS ORDERED: Bacitracin OINTMENT* 0.5% 0.5 oz TUBE TOPICAL ONE (01:48)
[2020-01-18 01:54] LABS: ALT 29 U/L (7-52); AST 27 U/L (13-39); Albumin/Globulin Ratio 0.8 (1-3); Alkaline Phosphatase 163 U/L (34-104); BUN/Creatinine Ratio 17.8 (8-20); Blood Urea Nitrogen 45 mg/dL (6-24); C Reactive Protein 44.17 mg/L (<8.01); EGFR African American 30.4 (>60); EGFR Non-African American 25.1 (>60); Globulin 4.6 g/dL (2-4); Glucose 164 mg/dL (70-100); Total Protein 8.2 g/dL (6.4-8.9); Troponin I 0.03 ng/mL (<0.03)
[2020-01-18 02:05] LABS: Alcohol < 10 mg/dL (<10)
[2020-01-18 02:19] LABS: TSH (Thyroid Stimulating Horm) 3.07 mcIU/mL (0.34-5.60)
[2020-01-18 03:01] LABS: Urine Appearance Clear; Urine Bilirubin Negative (Negative); Urine Blood Negative (Negative); Urine Color Straw; Urine Glucose 2+(150 mg/dL) (Negative); Urine Ketones Negative (Negative); Urine Nitrite Negative (Negative); Urine Protein 2+(100 mg/dL) (Negative); Urine Specific Gravity 1.012 (1.010-1.030); Urine Urobilinogen Negative (Negative)
[2020-01-18 03:06] LABS: Urine Bacteria Absent (Absent); Urine Red Blood Cell Absent (Absent); Urine White Blood Cell Absent (Absent)
[2020-01-18] MEDS ORDERED: Ondansetron INJ* 2 MG/ML VIAL IV PRN (03:07)
[2020-01-18] MEDS ORDERED: Al Hydrox/Mg Hydrox/Simet LIQ* 30 ML UDC PO PRN (03:07)
[2020-01-18] MEDS ORDERED: Dextrose 50% Syringe 50 ML* 25 GM/50 ML SYRINGE IV PUSH PRN ×2 (03:13→03:14)
[2020-01-18] MEDS ORDERED: Docusate CAP* 100 MG PO PRN (03:14)
[2020-01-18] MEDS ORDERED: Clopidogrel TAB* 75 MG PO SCH (04:00)
[2020-01-18 04:48] LABS: Troponin I 0.04 ng/mL (<0.03)
--- NOTE | 2020-01-18 04:58 | HP ---
CC: Byron Carrillo MD* HISTORY AND PHYSICAL: DATE OF ADMISSION: 01/18/20 TIME OF EVALUATION: 0300 PRIMARY CARE PHYSICIAN: Byron Carrillo MD. CHIEF COMPLAINT: Falls. HISTORY OF PRESENT ILLNESS: This is a 74-year-old male with a past medical history of multiple comorbidities including cognitive impairment, who was unable to tell me why he is in the emergency room. According to the reports from the emergency room, the patient fell twice today, was brought in by his . He told his that he was having abdominal pain and was having dizziness and weakness. Apparently, he was sleeping when the called the ambulance for him to be brought in for further evaluation. On my encounter, when asked why he is here, he is not able to tell me why. He denies any pain. No shortness of breath. No abdominal pain. No nausea, vomiting, or diarrhea. Denies any lightheadedness or dizziness. No weakness. No numbness or tingling. He did state his left eye is "off whack." He does state he falls. He is not sure how he fell. He just remembers that he could not get up. Denies using a cane or a walker. Denies a headache. Otherwise review of systems is negative. In the emergency room, the patient had labs, imaging. There is concern on his head CT that shows a new hypodensity concerning for possible lacunar infarct. Dr. Jerome was contacted, recommended admission for MRI in the morning. PAST MEDICAL HISTORY: 1. Hypertension. 2. History of congestive heart failure with diastolic dysfunction. EF 45% to 50%. 3. History of small cell lung carcinoma, status post chemo and radiation in 2011. 4. History of diabetes. 5. Hyperlipidemia. 6. CKD, stage 3. 7. History of obstructive sleep apnea, not on CPAP. 8. History of mild cognitive impairment, status post secondary to radiation. MEDICATIONS: 1. Glipizide 10 mg p.o. b.i.d. 2. Citalopram 10 mg daily in the a.m. 3. Pioglitazone 30 mg daily. 4. Amlodipine 10 mg daily. 5. Lasix 20 mg daily. 6. PreserVision AREDS 1 p.o. b.i.d. 7. Carvedilol 3.125 p.o. b.i.d. 8. Aspirin 81 mg p.o. daily. 9. Flaxseed oil 1000 mg daily. 10. Multivitamin daily. 11. Januvia 50 mg at night. 12. Rosuvastatin 20 mg at bedtime. 13. Stool softeners as needed. 14. Also increase p.r.n. Lasix, increase to 40 mg with fluid buildup. ALLERGIES: CODEINE, GI upset. FAMILY HISTORY: Reviewed, noncontributory. SOCIAL HISTORY: The patient lives at home with his Donya Shah, phone number [phone]. No history of alcohol or tobacco use. The patient confirms that he remains a DNR/DNI. He states he is independent of his ADLs. REVIEW OF SYSTEMS: As mentioned in the HPI. PHYSICAL EXAMINATION GENERAL: In no acute distress, resting comfortably. VITAL SIGNS: Temperature 99.1, pulse rate 81, respiratory rate is 15, oxygen saturation 2 liters on room air, blood pressure is 157/77. HEENT: Head normocephalic. Pupils equal and reactive. Anicteric. Oropharynx : Mucous membranes moist. NECK: Supple. No lymphadenopathy. RESPIRATORY: Diminished breath sounds. No wheezing, rhonchi, or rales. CARDIAC: Regular rate and rhythm, soft systolic murmur heard throughout. ABDOMEN: Soft, nontender, nondistended. EXTREMITIES: Trace pretibial edema. NEUROLOGIC: The patient is alert and oriented x2, oriented to place and self. Cranial nerves II through XII. Negative pronator drift, upper and lower muscle strength equal and symmetric. DIAGNOSTIC STUDIES/LAB DATA: White count 10.7, hemoglobin 11.1, hematocrit 32 , platelets 258. Sodium 133, potassium 3.9, chloride 102, bicarb 22, BUN 45, creatinine 2.53, glucose 164. Troponin 0.03. CRP is 44.17. Urine shows 2+ protein, 2+ glucose. Radiographic data: Abdominal and pelvis CT, there is stable colonic diverticulosis without evidence for acute diverticulitis, complex cystic mass centered on the caudate lobe of the liver, currently measuring 9.5 x 8.2 cm, previously measured 8.4 x 7.5, malignancy cannot be excluded. 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 No acute intracranial hemorrhage or mass effect. EKG is normal sinus rhythm with a prolonged ME interval. No significant changes. ASSESSMENT: This is a 74-year-old male with past medical history of hypertension; small cell lung carcinoma, status post chemoradiation,;congestive heart failure; and diabetes, who presents to the emergency room with increase in falls. 1. Falls. No acute focal neuro deficits on exam. Concern on head CT for a new lacunar infarct, could be contributing to his falls. With his cognitive impairment, I suspect he needs more support at home and a further workup for cerebrovascular accident/transient ischemic attack. Plan: We will admit him to [address] [place] [address] Jerome. We will start him on Plavix in addition to his baby aspirin. Continue him on neuro checks q.4 hours. Continue him on his rosuvastatin. Check his lipid panel and hemoglobin A1c and order an MRI in the morning and a PT consult. We will order a bedside swallow and advance the diet as tolerated. 2. Chronic medical problems, diabetes. We will hold his oral agents and place him on Lispro sliding scale. 3. Hypertension. We will allow for some permissive hypertension. We will hold his amlodipine and continue his carvedilol and Lasix. Continue his citalopram. 4. FEN: As mentioned, a bedside swallow was done. We will advance to a diabetic heart healthy diet. 5. DVT prophylaxis: The patient scores high risk. We will place him on heparin subcu t.i.d. 6. Code status: The patient confirms he is a DNR/DNI. MOLST form is in his records. Follow up imaging: Abdominal CT done showed enlarging cystic mass from prior images. Was biopsied in the past as negative. Recommend continue close follow up. PATIENT TIME: Greater than 45 minutes was spent doing the history and physical , more than half that time spent in direct patient contact and critical care time. [id number]/[facility] #: [id number] PADDY
[2020-01-18] MEDS: Heparin VIAL(*) 5000 UNITS/ML VIAL (FIVE THOUSAND) SUBCUT SCH ×3 (05:03→21:23)
[2020-01-18 07:17] LABS: Troponin I 0.03 ng/mL (<0.03)
[2020-01-18] MEDS: Furosemide TAB* 20 MG PO SCH (08:15)
[2020-01-18] MEDS: Aspirin 81 mg CHEW TAB* 81 MG TAB.CHEW PO SCH (08:15)
[2020-01-18] MEDS: Citalopram TAB* 10 MG PO SCH (08:16)
[2020-01-18] MEDS: Carvedilol TAB* 3.125 MG PO SCH ×2 (08:16→21:26)
[2020-01-18] MEDS: Multivitamins/Mins (NF) AREDS2 1 CAP CAP PO SCH ×2 (08:16→21:26)
[2020-01-18] MEDS: Insulin LISPRO* 1 UNITS UNIT SUBCUT SCH ×6 (10:29→18:15)
--- NOTE | 2020-01-18 15:48 | CONS ---
NEUROLOGY CONSULTATION REPORT: DATE OF CONSULT: 01/18/20 LOCATION: He is an inpatient in room 438. REFERRING PROVIDER: Dr. Heath. PRIMARY CARE PROVIDER: Dr. Carrillo. CHIEF COMPLAINT: Falls, change in mental status. HISTORY OF PRESENT ILLNESS: Horace Shah is a 74-year-old man who was admitted yesterday via the emergency room when he was sent in by his family because of repeated falls. The history is from the medical record as the patient is unaccompanied during the COVID pandemic and he is awake but clearly cognitively impaired. He apparently is complaining of abdominal pain and dizziness and weakness. Apparently, he fell at least twice the day of admission or at least within the last couple of days. Ambulance attendants reported that he apparently was sleeping when they arrived. He was not able to provide a history to Dr. Heath when she first evaluated him. The emergency room physician 's history indicates that his reported multiple falls over 3 days. Apparently, one fall was while seated on the toilet. The patient apparently asked to go to the hospital and his was resistant because of the coronavirus situation. Hence, it is 3 or perhaps 4 days before she called for an ambulance. As part of his evaluation, he had a CT scan of the brain, which is interpreted showing a new lacunar infarction in the left basal ganglia. I reviewed the images and I agreed. Also as part of his admission evaluation, he had a CT of his abdomen and pelvis, which revealed a cystic mass in his liver, which was enlarged compared to a prior scan from 01/02/20. He has a history of a small cell lung cancer, treated with chemotherapy and radiation in 2011 and I believe it was felt to be in remission. His laboratory studies on admission were notable for a normal white blood cell count, a chronic anemia which was unchanged from prior values in the electronic medical record, renal insufficiency also similar to prior values in the medical record, and hyperglycemia with a glucose of 164, when he first presented and it has been as high as 313 since he was admitted. PAST MEDICAL HISTORY: Notable for hypertension; small cell lung cancer, felt to be in remission I believe as reported in the history of present illness; history of congestive heart failure; diabetes; hyperlipidemia; chronic kidney disease; obstructive sleep apnea, not on CPAP; history of mild cognitive impairment, felt to possibly be secondary to prophylactic radiation that he received to his cranium when diagnosed with metastatic lung cancer in 2011. In looking at a prior record by Dr. Estevez in 2017, the liver lesion was found in December of 2016 and the biopsy was nondiagnostic. He then had a second biopsy, which I cannot find the results of, but according to 08/24/19 note, it was thought to be a benign lesion. MEDICATIONS: Medications at home consisted of: 1. Glipizide 10 mg p.o. b.i.d. 2. Carvedilol 3.125 mg p.o. daily. 3. Amlodipine 10 mg p.o. daily. 4. Januvia 50 mg p.o. daily. 5. Rosuvastatin 20 mg p.o. daily. 6. Actos 30 mg p.o. daily. 7. Furosemide 20 mg p.o. daily. 8. Citalopram 10 mg p.o. daily. 9. Aspirin 81 mg p.o. daily. Current medications include: 1. Atorvastatin 40 mg p.o. daily. 2. Plavix 75 mg p.o. daily, which was added yesterday. 3. Heparin 5000 units subcutaneous q.8 hours. 4. Sliding scale insulin. 5. Morphine 2 mg IV as needed for pain, which he has not received . REVIEW OF SYSTEMS: The patient is completely unproductive. He does not answer questions. PHYSICAL EXAMINATION: He is an elderly man who looks chronically ill with central obesity. His temperature most recently is 99.6 bitemporal scan, blood pressure 144/71, heart rate in the 80s, respiratory rate is 22, and oxygen saturation is 96% on supplemental oxygen by nasal cannula. The skin is warm, but dry. Head is atraumatic. Oral mucosa is moist. Heart tones are distant and I do not hear any murmurs. Neck is supple. Neurological Exam: Pupils react equally from 2.5 down to 2 mm. He visually ___ ___ responds to visual threat, but I cannot get him to track an object. Facial musculature is notable for mild flattening of the right nasolabial fold. I cannot get him to phonate. On motor exam, there is some paratonia and mild bilateral grasp reflexes. He does raise his legs to command briefly but does not offer any resistance. I do not detect any myoclonus or asterixis. There is no rest tremor. Reflexes are trace at the knees and otherwise absent. Plantar responses are extensor on the right and equivocal on the left. He follows very few commands. DIAGNOSTIC STUDIES/LAB DATA: Laboratory data include the CT scan of the brain reported in history of present illness. An MRI scan of the brain was performed earlier today and reveals extensive white matter disease as well as a recent left subcortical lacunar infarction near the posterior limb of the internal capsule. It is not very dark on ADC mapping and it looks to me to be subacute. CT of the abdomen and pelvis is reported in the history of present illness. Other laboratory data is notable for chemistries with a sodium of 133, liver enzymes are normal other than alkaline phosphatase being 163. Troponin was elevated at 0.03. C-reactive protein is elevated at 44.17 and BNP is elevated at 369. Vitamin B12 is pending, TSH is normal at 3.07. Urinalysis was notable for 2+ protein and 2+ glucose but was otherwise unremarkable. IMPRESSION: Impression is that of encephalopathy in a patient with a subacute left subcortical small vessel infarction. The etiology of his encephalopathy is not entirely clear, but he has multiple medical problems. He also appears to have an enlarging mass in his liver compared to December 2019 consistent with a malignant process. There is no evidence of brain metastasis. I spoke with Dr. Taylor and she has put in orders for vitamin B12 level and an ammonia level. Plavix has been appropriately added to his aspirin for dual- antiplatelet therapy. Dr. Taylor has also put an order for an EEG, which will be done this afternoon. If the etiology for his encephalopathy is not evident after further workup and specifically if he develops a fever and elevated white blood cell count, he may need a lumbar puncture. I will follow him along with you at this time. [id number]/[facility] #: [id number] [facility]ID HOSPITALMaria C
--- NOTE | 2020-01-18 16:05 | PN ---
Subjective Date of Service: 01/18/20 Interval History: Pt is not able to answer any of my questions. He just stares blankly at me. He is getting an EEG currently. Objective Active Medications: Acetaminophen (Tylenol Tab*) 650 mg PO Q4H PRN PRN Reason: PAIN - MILD Al Hydrox/Mg Hydrox/Simethicone (Maalox Plus*) 30 ml PO Q6H PRN PRN Reason: INDIGESTION Aspirin (Aspirin 81 Mg Chew Tab*) 81 mg PO DAILY [facility] Last Admin: 01/18/20 08:15 Dose: 81 mg Atorvastatin Calcium (Lipitor*) 40 mg PO 1700 [facility] Carvedilol (Coreg Tab*) 3.125 mg PO BID [facility] Last Admin: 01/18/20 08:16 Dose: 3.125 mg Citalopram Hydrobromide (Celexa Tab*) 10 mg PO DAILY [facility] Last Admin: 01/18/20 08:16 Dose: 10 mg Dextrose (D50w Syringe 50 Ml*) 12.5 gm IV PUSH .FOR FS < 60 - SS PRN PRN Reason: FS < 60 Docusate Sodium (Colace Cap*) 100 mg PO BID PRN PRN Reason: CONSTIPATION Furosemide (Lasix Tab*) 20 mg PO DAILY [facility] Last Admin: 01/18/20 08:15 Dose: 20 mg Heparin Sodium (Porcine) (Heparin Vial(*)) 5,000 units SUBCUT Q8HR [facility] Last Admin: 01/18/20 14:59 Dose: 5,000 units Heparin Sodium (Porcine) (Heparin Flush Port (Ivad)) 5 ml FLUSH DAILY [facility]; Protocol Insulin Human Lispro (Humalog*) 0 units SUBCUT AC [facility]; Protocol Last Admin: 01/18/20 12:52 Dose: 6 units Insulin Human Lispro (Humalog*) 0 units SUBCUT AC [facility]; Protocol Last Admin: 01/18/20 11:57 Dose: 8 units Morphine Sulfate (Morphine Inj (Syringe))*) 2 mg IV Q4H PRN PRN Reason: PAIN - SEVERE Multivitamins/Minerals (Preservision Areds 2) 1 cap PO BID [facility] Last Admin: 01/18/20 08:16 Dose: Not Given Ondansetron HCl (Zofran Inj*) 4 mg IV Q4H PRN PRN Reason: NAUSEA/VOMITING Vital Signs - 8 hr 01/18/20 01/18/20 01/18/20 08:19 08:38 11:37 Temperature 98.8 F 99.6 F Pulse Rate 86 87 Respiratory 20 20 22 Rate Blood Pressure 154/94 144/71 (mmHg) O2 Sat by Pulse 97 96 Oximetry 01/18/20 15:46 Temperature Pulse Rate 84 Respiratory 24 Rate Blood Pressure 147/74 (mmHg) O2 Sat by Pulse 97 Oximetry Oxygen Devices in Use Now: Nasal Cannula Appearance: Elderly male sitting up in bed with eyes open, looking at me but very poorly interacting, he is NAD. Eyes: No Scleral Icterus Ears/Nose/Mouth/Throat: Mucous Membranes Moist Respiratory: Symmetrical Chest Expansion and Respiratory Effort, - - Pt is appearing mildly tachypnic, lungs are clear anteriorly and at the lateral bases Cardiovascular: NL Sounds; No Murmurs; No JVD, RRR, No Edema Abdominal: NL Sounds; No Tenderness; No Distention Extremities: No Clubbing, Cyanosis Skin: No Nodules or Sclerosis Neurological: - - eyes open, poorly interactive, rarely answers questions, will follow an occasional command such as primary products inspectors my fingers Result Diagrams: 01/18/20 01:09 01/18/20 01:09 Assess/Plan/Problems-Billing Mr Shah is a 74 yo M who has a h/o small cell lung cancer without evidence of active disease who presented to the ER due to increased frequency of falls. - Patient Problems (1) Altered mental status Current Visit: Yes Status: Acute Code(s): R41.82 - ALTERED MENTAL STATUS, UNSPECIFIED SNOMED Code(s): 354148074 Comment: Pt is very encephalopathic currently. Per his , last night the patient was at his baseline mental status. Today he will not carry on a conversation and does not seem to be processing questions. When I was in the room the patient felt hot to touch. His temperature was elevated at 100.1F. 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 If his mental status does not improve over the next 24-48hr will consider LP given his low grade fever. Will also rule patient out for COVID. (2) Lacunar infarction Current Visit: Yes Status: Acute Code(s): I63.81 - OTHER CEREB INFRC DUE TO OCCLS OR STENOSIS OF SMALL ARTERY SNOMED Code(s): 153583246 Comment: Pt was found to have a probable subacute lacunar infarct of the left internal capsule. He was started on plavix in addition to aspirin. Will hold plavix for now as he may need LP. (3) Falls Current Visit: Yes Status: Acute Comment: Unclear why the patient has been falling at an increased frequency. He does have a small lacunar infarct but per neuro unlikely to cause his falls. I wonder if the falls are in response to a different process such as infection. (4) Liver mass Current Visit: Yes Status: Acute Code(s): R16.0 - HEPATOMEGALY, NOT ELSEWHERE CLASSIFIED SNOMED Code(s): 401775715 Comment: The mass has been biopsied 3 times already. No evidence of malignancy with those biopsies. CT this admission shows growth since last month. If pt rules out for COVID, will consider repeat biopsy. (5) Heart failure with preserved ejection fraction Current Visit: Yes Status: Acute Code(s): I50.30 - UNSPECIFIED DIASTOLIC ( CONGESTIVE) HEART FAILURE SNOMED Code(s): 158355820 Comment: No evidence of fluid overload at this time. Will continue home dose of lasix. (6) Hypertension Current Visit: Yes Status: Acute Code(s): I10 - ESSENTIAL (PRIMARY) HYPERTENSION SNOMED Code(s): 62506997 Comment: BP is moderately elevated. Will continue coreg 3.125mg BID and add back amlodipine 5mg daily (held on admission). (7) Non-insulin dependent type 2 diabetes mellitus Current Visit: Yes Status: Acute Code(s): E11.9 - TYPE 2 DIABETES MELLITUS WITHOUT COMPLICATIONS SNOMED Code(s): 60664187 Comment: HbA1c is 8.7% in 10/31. Pts home glipizide, pioglitozone and januvia are currently being held. Will start lantus 5 units SQ qHS and continue lispro sliding scale. (8) Hyperlipemia Current Visit: Yes Status: Acute Code(s): E78.5 - HYPERLIPIDEMIA, UNSPECIFIED SNOMED Code(s): 04223845 Comment: Continue lipitor. (9) Small cell lung cancer Current Visit: Yes Status: Acute Code(s): C34.90 - MALIGNANT NEOPLASM OF UNSP PART OF UNSP BRONCHUS OR LUNG SNOMED Code(s): 461246652 Comment: Reportedly no evidence of active disease at this time. (10) DVT prophylaxis Current Visit: Yes Status: Acute Code(s): Z29.9 - ENCOUNTER FOR PROPHYLACTIC MEASURES, UNSPECIFIED SNOMED Code(s): 664526742 Comment: heparin (11) DNR (do not resuscitate) Current Visit: Yes Status: Acute
[2020-01-18] MEDS ORDERED: Cyanocobalamin INJ * 1,000 MCG/ML VIAL 1 ML VIAL IM ONE (16:24)
[2020-01-18] MEDS: Atorvastatin* 40 MG TAB PO SCH (16:38)
--- NOTE | 2020-01-18 16:48 | EEG ---
ELECTROENCEPHALOGRAM REPORT: DATE OF STUDY: 01/18/20 LOCATION: He is an inpatient in room 438. REFERRING PROVIDER: Dr. Taylor. CLINICAL PROBLEM: Confusion and falling. Rule out seizures. MEDICATIONS: Include: 1. Insulin. 2. Heparin. 3. Coreg. 4. Morphine. 5. Lasix 6. Plavix. 7. Celexa. 8. Lipitor. REPORT: This 19-channel EEG is remarkable for background rhythms consisting of diffuse slowing in the theta and delta range. There is abundant beta rhythms intermingled. There is no clear discernible alpha rhythm. The patient is confused and not following commands. There is no evidence of sleep stages. There are no clinical events. There are no focal or epileptiform abnormalities. CLINICAL IMPRESSION: Abnormal EEG due to diffuse slowing and disorganization of background rhythms consistent with diffuse cerebral dysfunction. There are no focal or epileptiform features to this recording. [id number]/CPS #: [id number] MTDD
[2020-01-18] MEDS: Insulin GLARGINE(*) 1 UNITS UNIT SUBCUT SCH (21:25)
[2020-01-19] MEDS: Heparin VIAL(*) 5000 UNITS/ML VIAL (FIVE THOUSAND) SUBCUT SCH ×3 (05:13→22:42)
[2020-01-19] MEDS: Aspirin 81 mg CHEW TAB* 81 MG TAB.CHEW PO SCH (08:30)
[2020-01-19] MEDS: Citalopram TAB* 10 MG PO SCH (08:30)
[2020-01-19] MEDS: Furosemide TAB* 20 MG PO SCH (08:30)
[2020-01-19] MEDS: amLODIPine TAB* 5 MG PO SCH (08:30)
[2020-01-19] MEDS: Carvedilol TAB* 3.125 MG PO SCH ×2 (08:30→22:42)
[2020-01-19] MEDS: Multivitamins/Mins (NF) AREDS2 1 CAP CAP PO SCH ×2 (08:35→22:43)
[2020-01-19] MEDS: Insulin LISPRO* 1 UNITS UNIT SUBCUT SCH ×3 (09:56→23:15)
[2020-01-19] MEDS: Acetaminophen TAB* 325 MG PO PRN (11:02)
--- NOTE | 2020-01-19 14:46 | PN ---
Subjective Date of Service: 01/19/20 Interval History: Pt is much more alert today. He tells me that overall he is feeling ok but his upper back is sore. He denies any SOB. Objective Active Medications: Acetaminophen (Tylenol Tab*) 650 mg PO Q4H PRN PRN Reason: PAIN - MILD Last Admin: 01/19/20 11:02 Dose: 650 mg Al Hydrox/Mg Hydrox/Simethicone (Maalox Plus*) 30 ml PO Q6H PRN PRN Reason: INDIGESTION Amlodipine Besylate (Norvasc Tab*) 5 mg PO DAILY [facility] Last Admin: 01/19/20 08:30 Dose: 5 mg Aspirin (Aspirin 81 Mg Chew Tab*) 81 mg PO DAILY [facility] Last Admin: 01/19/20 08:30 Dose: 81 mg Atorvastatin Calcium (Lipitor*) 40 mg PO 1700 [facility] Last Admin: 01/18/20 16:38 Dose: 40 mg Carvedilol (Coreg Tab*) 3.125 mg PO BID [facility] Last Admin: 01/19/20 08:30 Dose: 3.125 mg Citalopram Hydrobromide (Celexa Tab*) 10 mg PO DAILY [facility] Last Admin: 01/19/20 08:30 Dose: 10 mg Dextrose (D50w Syringe 50 Ml*) 12.5 gm IV PUSH .FOR FS < 60 - SS PRN PRN Reason: FS < 60 Docusate Sodium (Colace Cap*) 100 mg PO BID PRN PRN Reason: CONSTIPATION Furosemide (Lasix Tab*) 20 mg PO DAILY [facility] Last Admin: 01/19/20 08:30 Dose: 20 mg Heparin Sodium (Porcine) (Heparin Vial(*)) 5,000 units SUBCUT Q8HR [facility] Last Admin: 01/19/20 05:13 Dose: 5,000 units Heparin Sodium (Porcine) (Heparin Flush Port (Ivad)) 5 ml FLUSH DAILY [facility]; Protocol Last Admin: 01/19/20 10:58 Dose: 5 ml Insulin Glargine (Lantus(*)) 5 units SUBCUT [facility] Last Admin: 01/18/20 21:25 Dose: 5 units Insulin Human Lispro (Humalog*) 0 units SUBCUT BID [facility]; Protocol Morphine Sulfate (Morphine Inj (Syringe))*) 2 mg IV Q4H PRN PRN Reason: PAIN - SEVERE Multivitamins/Minerals (Preservision Areds 2) 1 cap PO BID [facility] Last Admin: 01/19/20 08:35 Dose: Not Given Ondansetron HCl (Zofran Inj*) 4 mg IV Q4H PRN PRN Reason: NAUSEA/VOMITING Vital Signs - 8 hr 01/19/20 01/19/20 01/19/20 07:15 08:00 11:09 Temperature 97.2 F 97.7 F Pulse Rate 85 66 Respiratory 24 24 18 Rate Blood Pressure 167/66 139/66 (mmHg) O2 Sat by Pulse 100 99 Oximetry Oxygen Devices in Use Now: Nasal Cannula Appearance: Elderly male sitting up in bed, alert, NAD Eyes: No Scleral Icterus Ears/Nose/Mouth/Throat: Mucous Membranes Moist Respiratory: Symmetrical Chest Expansion and Respiratory Effort, Clear to Auscultation, - - few RUL crackles Cardiovascular: NL Sounds; No Murmurs; No JVD, RRR, No Edema Abdominal: NL Sounds; No Tenderness; No Distention Extremities: No Clubbing, Cyanosis Skin: No Nodules or Sclerosis Neurological: - - alert, oriented to being in the hospital but not the reason why Result Diagrams: 01/18/20 01:09 01/18/20 01:09 Assess/Plan/Problems-Billing Mr Shah is a 74 yo M who has a h/o small cell lung cancer without evidence of active disease who presented to the ER due to increased frequency of falls. - Patient Problems (1) Altered mental status Current Visit: Yes Status: Acute Code(s): R41.82 - ALTERED MENTAL STATUS, UNSPECIFIED SNOMED Code(s): 414021363 Comment: Mental status is much better today but he is not back to normal per case management who knows the patient well. No further fever after when I saw him yesterday. He is being ruled out for COVID. Likely delirium that is improving. Continue to monitor mental status. Will hold of on LP for now. (2) Lacunar infarction Current Visit: Yes Status: Acute Code(s): I63.81 - OTHER CEREB INFRC DUE TO OCCLS OR STENOSIS OF SMALL ARTERY SNOMED Code(s): 797457882 Comment: Pt was found to have a probable subacute lacunar infarct of the left internal capsule. He was started on plavix in addition to aspirin. Will hold plavix for now as he may need LP (seeming less likley). PT eval when ruled out for COVID. (3) Falls Current Visit: Yes Status: Acute Comment: Unclear why the patient has been falling at an increased frequency. He does have a small lacunar infarct but per neuro unlikely to cause his falls. I wonder if the falls are in response to a different process such as infection- so far nothing has declared itself. (4) Liver mass Current Visit: Yes Status: Acute Code(s): R16.0 - HEPATOMEGALY, NOT ELSEWHERE CLASSIFIED SNOMED Code(s): 721532893 Comment: The mass has been biopsied 3 times already. No evidence of malignancy with those biopsies. CT this admission shows growth since last month. If pt rules out for COVID, will consider repeat biopsy. (5) Heart failure with preserved ejection fraction Current Visit: Yes Status: Acute Code(s): I50.30 - UNSPECIFIED DIASTOLIC ( CONGESTIVE) HEART FAILURE SNOMED Code(s): 415253417 Comment: No evidence of fluid overload at this time. Will continue home dose of lasix. (6) Hypertension Current Visit: Yes Status: Acute Code(s): I10 - ESSENTIAL (PRIMARY) HYPERTENSION SNOMED Code(s): 15459461 Comment: BP is now mildly elevated. Will continue coreg 3.125mg BID and amlodipine 5mg daily. (7) Non-insulin dependent type 2 diabetes mellitus Current Visit: Yes Status: Acute Code(s): E11.9 - TYPE 2 DIABETES MELLITUS WITHOUT COMPLICATIONS SNOMED Code(s): 54772184 Comment: HbA1c is 8.7% in 10/31. Pts home glipizide, pioglitozone and januvia are currently being held. Continue lantus 5 units SQ qHS and lispro sliding scale. (8) Hyperlipemia Current Visit: Yes Status: Acute Code(s): E78.5 - HYPERLIPIDEMIA, UNSPECIFIED SNOMED Code(s): 34660220 Comment: Continue lipitor. (9) Small cell lung cancer Current Visit: Yes Status: Acute Code(s): C34.90 - MALIGNANT NEOPLASM OF UNSP PART OF UNSP BRONCHUS OR LUNG SNOMED Code(s): 459857969 Comment: Reportedly no evidence of active disease at this time. (10) DVT prophylaxis Current Visit: Yes Status: Acute Code(s): Z29.9 - ENCOUNTER FOR PROPHYLACTIC MEASURES, UNSPECIFIED SNOMED Code(s): 641216347 Comment: heparin (11) DNR (do not resuscitate) Current Visit: Yes Status: Acute
[2020-01-19] MEDS: Atorvastatin* 40 MG TAB PO SCH (15:48)
[2020-01-19] MEDS: Insulin GLARGINE(*) 1 UNITS UNIT SUBCUT SCH (23:12)
[2020-01-20] MEDS: Morphine INJ* 2 MG/ML 1 ML SYRINGE (TWO MG - NEW SYRINGE VERSION) IV PRN (03:05)
[2020-01-20] MEDS: Heparin VIAL(*) 5000 UNITS/ML VIAL (FIVE THOUSAND) SUBCUT SCH ×3 (05:59→22:27)
[2020-01-20 07:04] LABS: Hematocrit 25 % (42-52); Hemoglobin 8.6 g/dL (14.0-18.0); Mean Corpuscular HGB Conc 34 g/dL (31-36); Mean Corpuscular Hemoglobin 29 pg (27-31); Mean Corpuscular Volume 85 fL (80-94); Mean Platelet Volume 7.9 fL (7.4-10.4); Platelet Count 222 10^3/uL (150-450); Red Blood Count 2.96 10^6 /uL (4.18-5.48); Red Cell Distribution Width 14 % (10-15); White Blood Count 9.9 10^3/uL (3.5-10.8)
[2020-01-20 07:22] LABS: Anion Gap 10 mmol/L (2-11); BUN/Creatinine Ratio 18.7 (8-20); Blood Urea Nitrogen 53 mg/dL (6-24); CO2 Carbon Dioxide 22 mmol/L (22-32); Calcium 8.5 mg/dL (8.6-10.3); Chloride 101 mmol/L (101-111); EGFR African American 26.7 (>60); EGFR Non-African American 22.1 (>60); Glucose 127 mg/dL (70-100); Potassium 3.4 mmol/L (3.5-5.0); Sodium 133 mmol/L (135-145)
[2020-01-20] MEDS: amLODIPine TAB* 5 MG PO SCH (08:43)
[2020-01-20] MEDS: Citalopram TAB* 10 MG PO SCH (08:43)
[2020-01-20] MEDS: Furosemide TAB* 20 MG PO SCH (08:44)
[2020-01-20] MEDS: Aspirin 81 mg CHEW TAB* 81 MG TAB.CHEW PO SCH (08:44)
[2020-01-20] MEDS: Insulin LISPRO* 1 UNITS UNIT SUBCUT SCH ×2 (08:44→22:28)
[2020-01-20] MEDS: Carvedilol TAB* 3.125 MG PO SCH ×2 (08:44→21:55)
[2020-01-20] MEDS: Multivitamins/Mins (NF) AREDS2 1 CAP CAP PO SCH ×2 (08:45→21:55)
--- NOTE | 2020-01-20 14:55 | PN ---
Subjective Date of Service: 01/20/20 Interval History: Pt is feeling ok. He denies any pain. He denies SOB. He tells me he knows why he is in the hospital but can not tell me why. Per nursing he is walking ok to the bathroom with 1 assist. Objective Active Medications: Acetaminophen (Tylenol Tab*) 650 mg PO Q4H PRN PRN Reason: PAIN - MILD Last Admin: 01/19/20 11:02 Dose: 650 mg Al Hydrox/Mg Hydrox/Simethicone (Maalox Plus*) 30 ml PO Q6H PRN PRN Reason: INDIGESTION Amlodipine Besylate (Norvasc Tab*) 5 mg PO DAILY [facility] Last Admin: 01/20/20 08:43 Dose: 5 mg Aspirin (Aspirin 81 Mg Chew Tab*) 81 mg PO DAILY [facility] Last Admin: 01/20/20 08:44 Dose: 81 mg Atorvastatin Calcium (Lipitor*) 40 mg PO 1700 [facility] Last Admin: 01/19/20 15:48 Dose: 40 mg Carvedilol (Coreg Tab*) 3.125 mg PO BID [facility] Last Admin: 01/20/20 08:44 Dose: 3.125 mg Citalopram Hydrobromide (Celexa Tab*) 10 mg PO DAILY [facility] Last Admin: 01/20/20 08:43 Dose: 10 mg Dextrose (D50w Syringe 50 Ml*) 12.5 gm IV PUSH .FOR FS < 60 - SS PRN PRN Reason: FS < 60 Docusate Sodium (Colace Cap*) 100 mg PO BID PRN PRN Reason: CONSTIPATION Last Admin: 01/20/20 08:43 Dose: 100 mg Furosemide (Lasix Tab*) 20 mg PO DAILY [facility] Last Admin: 01/20/20 08:44 Dose: 20 mg Heparin Sodium (Porcine) (Heparin Vial(*)) 5,000 units SUBCUT Q8HR [facility] Last Admin: 01/20/20 05:59 Dose: 5,000 units Heparin Sodium (Porcine) (Heparin Flush Port (Ivad)) 5 ml FLUSH DAILY [facility]; Protocol Last Admin: 01/20/20 08:44 Dose: 5 ml Insulin Glargine (Lantus(*)) 5 units SUBCUT BEDTIME [facility] Last Admin: 01/19/20 23:12 Dose: 5 units Insulin Human Lispro (Humalog*) 0 units SUBCUT BID [facility]; Protocol Last Admin: 01/20/20 08:44 Dose: 1 unit Morphine Sulfate (Morphine Inj (Syringe))*) 2 mg IV Q4H PRN PRN Reason: PAIN - SEVERE Last Admin: 01/20/20 03:05 Dose: 2 mg Multivitamins/Minerals (Preservision Areds 2) 1 cap PO BID [facility] Last Admin: 01/20/20 08:45 Dose: Not Given Ondansetron HCl (Zofran Inj*) 4 mg IV Q4H PRN PRN Reason: NAUSEA/VOMITING Vital Signs - 8 hr 01/20/20 01/20/20 01/20/20 08:00 08:24 11:15 Temperature 98.3 F 97.2 F Pulse Rate 78 69 Respiratory 22 22 16 Rate Blood Pressure 144/67 118/59 (mmHg) O2 Sat by Pulse 93 94 Oximetry Oxygen Devices in Use Now: None Appearance: Elderly male sitting up in a chair, NAD Eyes: No Scleral Icterus Ears/Nose/Mouth/Throat: Mucous Membranes Moist Respiratory: Symmetrical Chest Expansion and Respiratory Effort, Clear to Auscultation Cardiovascular: NL Sounds; No Murmurs; No JVD, RRR, No Edema Abdominal: NL Sounds; No Tenderness; No Distention Extremities: No Clubbing, Cyanosis Skin: No Nodules or Sclerosis Neurological: - - alert, oriented to place not situation Result Diagrams: 01/20/20 06:40 01/20/20 06:40 Assess/Plan/Problems-Billing Mr Shah is a 74 yo M who has a h/o small cell lung cancer without evidence of active disease who presented to the ER due to increased frequency of falls. - Patient Problems (1) Altered mental status Current Visit: Yes Status: Acute Code(s): R41.82 - ALTERED MENTAL STATUS, UNSPECIFIED SNOMED Code(s): 035876494 Comment: Pt seems at least stable if not slightly improved today. Will have patient talk to his and then I will call her to see how she thinks he is doing. No need for LP at this time. It is not clear why he suddenly became encephalopathic. I think he is close to his baseline. I have COVID testing pending. (2) Lacunar infarction Current Visit: Yes Status: Acute Code(s): I63.81 - OTHER CEREB INFRC DUE TO OCCLS OR STENOSIS OF SMALL ARTERY SNOMED Code(s): 294931616 Comment: Pt was found to have a probable subacute lacunar infarct of the left internal capsule. Resume plavix in addition to ASA. (3) Anemia Current Visit: No Status: Acute Code(s): D64.9 - ANEMIA, UNSPECIFIED SNOMED Code(s): 714050841 Comment: H/H dropped significantly today from admission. No reported bleeding. Will get repeat CBC tomorrow. Add on iron studies. (4) Falls Current Visit: Yes Status: Acute Comment: Unclear why the patient has been falling at an increased frequency. He does have a small lacunar infarct but per neuro unlikely to cause his falls. I wonder if the falls are in response to a different process such as infection- so far nothing has declared itself. Will get PT eval when he is no longer a PUI. (5) Liver mass Current Visit: Yes Status: Acute Code(s): R16.0 - HEPATOMEGALY, NOT ELSEWHERE CLASSIFIED SNOMED Code(s): 375554702 Comment: The mass has been biopsied 3 times already. No evidence of malignancy with those biopsies. CT this admission shows growth since last month. If pt rules out for COVID, will consider repeat biopsy (or should be considered as outpatient). (6) Heart failure with preserved ejection fraction Current Visit: Yes Status: Acute Code(s): I50.30 - UNSPECIFIED DIASTOLIC ( CONGESTIVE) HEART FAILURE SNOMED Code(s): 087231140 Comment: No evidence of fluid overload at this time. Will continue home dose of lasix. (7) Hypertension Current Visit: Yes Status: Acute Code(s): I10 - ESSENTIAL (PRIMARY) HYPERTENSION SNOMED Code(s): 04156717 Comment: BP generally remains elevated. Increase amlodipine back to 10mg daily. (8) Non-insulin dependent type 2 diabetes mellitus Current Visit: Yes Status: Acute Code(s): E11.9 - TYPE 2 DIABETES MELLITUS WITHOUT COMPLICATIONS SNOMED Code(s): 47322117 Comment: Blood sugars remain elevated. Will add back glipizide, stop lantus and monitor sugars. (9) Hyperlipemia Current Visit: Yes Status: Acute Code(s): E78.5 - HYPERLIPIDEMIA, UNSPECIFIED SNOMED Code(s): 21354384 Comment: Continue lipitor. (10) Small cell lung cancer Current Visit: Yes Status: Acute Code(s): C34.90 - MALIGNANT NEOPLASM OF UNSP PART OF UNSP BRONCHUS OR LUNG SNOMED Code(s): 964833351 Comment: Reportedly no evidence of active disease at this time. (11) DVT prophylaxis Current Visit: Yes Status: Acute Code(s): Z29.9 - ENCOUNTER FOR PROPHYLACTIC MEASURES, UNSPECIFIED SNOMED Code(s): 507144472 Comment: heparin (12) DNR (do not resuscitate) Current Visit: Yes Status: Acute
[2020-01-20] MEDS ORDERED: Potassium Chloride* LIQUID 20 MEQ/15 ML UDC PO ONE (14:59)
[2020-01-20 15:29] LABS: % Iron Saturation 11 % (15-55); Iron 24 ug/dL (50-212); Total Iron Binding Capacity 224 mcg/dL (250-450); Transferrin 160 mg/dL (203-362)
[2020-01-20] MEDS: Atorvastatin* 40 MG TAB PO SCH (15:31)
[2020-01-20 15:54] LABS: Ferritin 536.3 ng/mL (24-336)
[2020-01-20 19:32] LABS: INR 1.11 (0.82-1.09)
[2020-01-20] MEDS ORDERED: Alteplase (CATHFLO)* 2 MG VIAL IV ONE (20:56)
[2020-01-20] MEDS: Polyethylene Glycol 3350* 17 GM PACKET PO SCH (21:54)
[2020-01-20] MEDS: glipiZIDE TAB* 5 MG PO SCH (21:54)
[2020-01-21] MEDS: Morphine INJ* 2 MG/ML 1 ML SYRINGE (TWO MG - NEW SYRINGE VERSION) IV PRN ×2 (01:48→01:53)
[2020-01-21] MEDS: Heparin VIAL(*) 5000 UNITS/ML VIAL (FIVE THOUSAND) SUBCUT SCH ×3 (05:21→20:29)
[2020-01-21 06:09] LABS: ABS Eosinophils 0.6 10^3/ul (0-0.6); ABS Monocytes 1.3 10^3/ul (0-0.8); ABS Neutrophils 6.2 10^3/ul (1.5-7.7); Eosinophil % 6.2 %; Hematocrit 24 % (42-52); Hemoglobin 8.4 g/dL (14.0-18.0); Lymphocyte % 10.8 %; Mean Corpuscular HGB Conc 35 g/dL (31-36); Mean Corpuscular Hemoglobin 29 pg (27-31); Mean Corpuscular Volume 85 fL (80-94); Mean Platelet Volume 8.3 fL (7.4-10.4); Platelet Count 261 10^3/uL (150-450); Red Blood Count 2.85 10^6 /uL (4.18-5.48); Red Cell Distribution Width 14 % (10-15); White Blood Count 9.1 10^3/uL (3.5-10.8)
[2020-01-21 06:28] LABS: BUN/Creatinine Ratio 19.9 (8-20); Calcium 8.5 mg/dL (8.6-10.3); EGFR African American 26.3 (>60); EGFR Non-African American 21.7 (>60); Potassium 3.7 mmol/L (3.5-5.0)
[2020-01-21] MEDS: amLODIPine TAB* 5 MG PO SCH (07:51)
[2020-01-21] MEDS: glipiZIDE TAB* 5 MG PO SCH ×2 (07:51→20:30)
[2020-01-21] MEDS: Citalopram TAB* 10 MG PO SCH (07:52)
[2020-01-21] MEDS: Furosemide TAB* 20 MG PO SCH (07:52)
[2020-01-21] MEDS: Carvedilol TAB* 3.125 MG PO SCH ×2 (07:52→20:30)
[2020-01-21] MEDS: Aspirin 81 mg CHEW TAB* 81 MG TAB.CHEW PO SCH (07:52)
[2020-01-21] MEDS: Polyethylene Glycol 3350* 17 GM PACKET PO SCH (07:53)
[2020-01-21] MEDS: Insulin LISPRO* 1 UNITS UNIT SUBCUT SCH ×2 (07:54→20:36)
[2020-01-21] MEDS: Multivitamins/Mins (NF) AREDS2 1 CAP CAP PO SCH ×2 (07:54→20:32)
[2020-01-21] MEDS: Atorvastatin* 40 MG TAB PO SCH (16:20)
--- NOTE | 2020-01-21 20:11 | PN ---
Subjective Date of Service: 01/21/20 Interval History: Pt groggy this morning however he became more alert throughout interview and exam, was able to get up with 1-2 assist and walker to go from bed to bathroom and back. Pt's was on the phone with him this morning and thought that he was slurring his speech and "didn't sound like himself". This was not noted during assessment, no focal deficits noted. was reached via phone call and she was very understanding of this. Also spoke about hospital delirium potentially compounded by being isolated for COVID r/o. was very receptive to this. Checked on pt again this evening and he remains in similar state, slightly less groggy. Denies any fevers, chills, CP, SOB, abdominal discomfort, unusual numbness/tingling/weakness. Objective Active Medications: Acetaminophen (Tylenol Tab*) 650 mg PO Q4H PRN PRN Reason: PAIN - MILD Last Admin: 01/19/20 11:02 Dose: 650 mg Al Hydrox/Mg Hydrox/Simethicone (Maalox Plus*) 30 ml PO Q6H PRN PRN Reason: INDIGESTION Amlodipine Besylate (Norvasc Tab*) 10 mg PO DAILY [facility] Last Admin: 01/21/20 07:51 Dose: 10 mg Aspirin (Aspirin 81 Mg Chew Tab*) 81 mg PO DAILY [facility] Last Admin: 01/21/20 07:52 Dose: 81 mg Atorvastatin Calcium (Lipitor*) 40 mg PO 1700 [facility] Last Admin: 01/21/20 16:20 Dose: 40 mg Carvedilol (Coreg Tab*) 3.125 mg PO BID [facility] Last Admin: 01/21/20 07:52 Dose: 3.125 mg Citalopram Hydrobromide (Celexa Tab*) 10 mg PO DAILY [facility] Last Admin: 01/21/20 07:52 Dose: 10 mg Dextrose (D50w Syringe 50 Ml*) 12.5 gm IV PUSH .FOR FS < 60 - SS PRN PRN Reason: FS < 60 Docusate Sodium (Colace Cap*) 100 mg PO BID PRN PRN Reason: CONSTIPATION Last Admin: 01/20/20 08:43 Dose: 100 mg Furosemide (Lasix Tab*) 20 mg PO DAILY [facility] Last Admin: 01/21/20 07:52 Dose: 20 mg Glipizide (Glucotrol Tab*) 10 mg PO BID [facility] Last Admin: 01/21/20 07:51 Dose: 10 mg Heparin Sodium (Porcine) (Heparin Vial(*)) 5,000 units SUBCUT Q8HR [facility] Last Admin: 01/21/20 12:57 Dose: 5,000 units Heparin Sodium (Porcine) (Heparin Flush Port (Ivad)) 5 ml FLUSH DAILY [facility]; Protocol Last Admin: 01/21/20 07:54 Dose: Not Given Insulin Human Lispro (Humalog*) 0 units SUBCUT BID [facility]; Protocol Last Admin: 01/21/20 07:54 Dose: Not Given Morphine Sulfate (Morphine Inj (Syringe))*) 2 mg IV Q4H PRN PRN Reason: PAIN - SEVERE Last Admin: 01/21/20 01:53 Dose: 2 mg Multivitamins/Minerals (Preservision Areds 2) 1 cap PO BID [facility] Last Admin: 01/21/20 07:54 Dose: Not Given Ondansetron HCl (Zofran Inj*) 4 mg IV Q4H PRN PRN Reason: NAUSEA/VOMITING Polyethylene Glycol/Electrolytes (Miralax (17 Gm Dose Alex)) 17 gm PO DAILY [facility] Last Admin: 01/21/20 07:53 Dose: 17 gm Vital Signs - 8 hr 01/21/20 15:15 Temperature 97.1 F Pulse Rate 69 Respiratory 16 Rate Blood Pressure 143/72 (mmHg) O2 Sat by Pulse 99 Oximetry Oxygen Devices in Use Now: None Appearance: sitting up in bed, NAD Eyes: No Scleral Icterus, - - PERRL, EOMI Ears/Nose/Mouth/Throat: Clear Oropharnyx, Mucous Membranes Moist Respiratory: Symmetrical Chest Expansion and Respiratory Effort, Clear to Auscultation Cardiovascular: RRR Abdominal: NL Sounds; No Tenderness; No Distention Extremities: No Edema Skin: - - area to R anterior/lateral FA covered with mepilex, old bloody drainage noted Neurological: Alert and Oriented x 3, - - can follow commands, strength and ROM 4/5 all extremities, no drift to BUE or BLE, no gaze palsy, visual owens intact , no facial palsy, no ataxia, normal sensation to light touch throughout, no dysarthria, extinction normal Nutrition: Taking PO's Result Diagrams: 01/21/20 05:30 01/21/20 05:30 Assess/Plan/Problems-Billing Mr Shah is a 74 yo M who has a h/o small cell lung cancer without evidence of active disease who presented to the ER due to increased frequency of falls. - Patient Problems (1) Altered mental status Current Visit: Yes Status: Acute Code(s): R41.82 - ALTERED MENTAL STATUS, UNSPECIFIED SNOMED Code(s): 956994166 Comment: Continues to show improvement. No need for LP at this time. It is not clear why he suddenly became encephalopathic. It sounds as if he is at or near his baseline per his . COVID testing pending. Continue supportive measures (2) Lacunar infarction Current Visit: Yes Status: Acute Code(s): I63.81 - OTHER CEREB INFRC DUE TO OCCLS OR STENOSIS OF SMALL ARTERY SNOMED Code(s): 184782689 Comment: Pt was found to have a probable subacute lacunar infarct of the left internal capsule. Resume plavix in addition to ASA. (3) Anemia Current Visit: No Status: Acute Code(s): D64.9 - ANEMIA, UNSPECIFIED SNOMED Code(s): 948659666 Comment: H/H dropped significantly from admission but has since stabilized. No reported bleeding. May in the presence of an acute infectious process that again is not obvious to us at this time. CBC in am GUIAC ordered (4) Falls Current Visit: Yes Status: Acute Comment: Unclear why the patient has been falling at an increased frequency. He does have a small lacunar infarct but per neuro unlikely to cause his falls. ? in response to a different process such as infection- so far nothing has declared itself. Will get PT eval when he is no longer a PUI. (5) Liver mass Current Visit: Yes Status: Acute Code(s): R16.0 - HEPATOMEGALY, NOT ELSEWHERE CLASSIFIED SNOMED Code(s): 567485332 Comment: The mass has been biopsied 3 times already. No evidence of malignancy with those biopsies. CT this admission shows growth since last month. If pt rules out for COVID, will consider repeat biopsy (or should be considered as outpatient). (6) Heart failure with preserved ejection fraction Current Visit: Yes Status: Acute Code(s): I50.30 - UNSPECIFIED DIASTOLIC ( CONGESTIVE) HEART FAILURE SNOMED Code(s): 232684545 Comment: No evidence of fluid overload at this time. Will continue home dose of lasix. (7) Hyperlipemia Current Visit: Yes Status: Acute Code(s): E78.5 - HYPERLIPIDEMIA, UNSPECIFIED SNOMED Code(s): 79094100 Comment: Continue lipitor. (8) Hypertension Current Visit: Yes Status: Acute Code(s): I10 - ESSENTIAL (PRIMARY) HYPERTENSION SNOMED Code(s): 16217496 Comment: Improvement in BP, amlodipine increased to 10mg on 01/19 Continue current regimen (9) Non-insulin dependent type 2 diabetes mellitus Current Visit: Yes Status: Acute Code(s): E11.9 - TYPE 2 DIABETES MELLITUS WITHOUT COMPLICATIONS SNOMED Code(s): 20793830 Comment: Blood sugars remain elevated. Glipizide restarted 01/19 Continue to monitor glucose levels (10) CKD (chronic kidney disease) stage 3, GFR 30-59 ml/min Current Visit: No Status: Acute Code(s): N18.3 - CHRONIC KIDNEY DISEASE, STAGE 3 (MODERATE) SNOMED Code(s): 902860545 Comment: Continues with soft trend upward but near baseline, has been eating and drinking - Renally dose medications, will need to hold on contrast - bmp in am - if continues to trend upward may consider gentle fluid bolus (11) DNR (do not resuscitate) Current Visit: Yes Status: Acute (12) DVT prophylaxis Current Visit: Yes Status: Acute Code(s): Z29.9 - ENCOUNTER FOR PROPHYLACTIC MEASURES, UNSPECIFIED SNOMED Code(s): 056494011 Comment: heparin Attending: Hoang Wheeler
[2020-01-22] MEDS: Heparin VIAL(*) 5000 UNITS/ML VIAL (FIVE THOUSAND) SUBCUT SCH ×3 (06:18→21:02)
[2020-01-22 06:29] LABS: ABS Eosinophils 0.8 10^3/ul (0-0.6); ABS Monocytes 1.3 10^3/ul (0-0.8); ABS Neutrophils 6.6 10^3/ul (1.5-7.7); Eosinophil % 7.9 %; Hematocrit 27 % (42-52); Hemoglobin 9.1 g/dL (14.0-18.0); Mean Corpuscular HGB Conc 34 g/dL (31-36); Mean Corpuscular Hemoglobin 29 pg (27-31); Mean Corpuscular Volume 85 fL (80-94); Mean Platelet Volume 8.5 fL (7.4-10.4); Platelet Count 317 10^3/uL (150-450); Red Blood Count 3.12 10^6 /uL (4.18-5.48); Red Cell Distribution Width 14 % (10-15); White Blood Count 9.7 10^3/uL (3.5-10.8)
[2020-01-22 06:39] LABS: Calcium 8.9 mg/dL (8.6-10.3); EGFR African American 26.9 (>60); EGFR Non-African American 22.2 (>60); Potassium 4.1 mmol/L (3.5-5.0)
[2020-01-22] MEDS: Carvedilol TAB* 3.125 MG PO SCH ×2 (07:50→21:01)
[2020-01-22] MEDS: Furosemide TAB* 20 MG PO SCH (07:51)
[2020-01-22] MEDS: amLODIPine TAB* 5 MG PO SCH (07:51)
[2020-01-22] MEDS: Citalopram TAB* 10 MG PO SCH (07:52)
[2020-01-22] MEDS: glipiZIDE TAB* 5 MG PO SCH ×2 (07:52→21:01)
[2020-01-22] MEDS: Aspirin 81 mg CHEW TAB* 81 MG TAB.CHEW PO SCH (07:52)
[2020-01-22] MEDS: Insulin LISPRO* 1 UNITS UNIT SUBCUT SCH ×2 (07:53→21:01)
[2020-01-22] MEDS: Polyethylene Glycol 3350* 17 GM PACKET PO SCH (07:54)
[2020-01-22] MEDS: Multivitamins/Mins (NF) AREDS2 1 CAP CAP PO SCH ×2 (07:54→21:05)
[2020-01-22] MEDS: Morphine INJ* 2 MG/ML 1 ML SYRINGE (TWO MG - NEW SYRINGE VERSION) IV PRN (07:56)
[2020-01-22] MEDS: Atorvastatin* 40 MG TAB PO SCH (16:03)
[2020-01-22] MEDS ORDERED: NS 0.9% 500 ML* 500 ML IV ONE (19:41)
--- NOTE | 2020-01-22 19:50 | PN ---
Subjective Date of Service: 01/22/20 Interval History: Pt denies any complaints at this time. Denies headache, chest pain, SOB, abdominal discomfort, weakness, numbness/tingling. Objective Active Medications: Acetaminophen (Tylenol Tab*) 650 mg PO Q4H PRN PRN Reason: PAIN - MILD Last Admin: 01/19/20 11:02 Dose: 650 mg Al Hydrox/Mg Hydrox/Simethicone (Maalox Plus*) 30 ml PO Q6H PRN PRN Reason: INDIGESTION Amlodipine Besylate (Norvasc Tab*) 10 mg PO DAILY [facility] Last Admin: 01/22/20 07:51 Dose: 10 mg Aspirin (Aspirin 81 Mg Chew Tab*) 81 mg PO DAILY [facility] Last Admin: 01/22/20 07:52 Dose: 81 mg Atorvastatin Calcium (Lipitor*) 40 mg PO 1700 [facility] Last Admin: 01/22/20 16:03 Dose: 40 mg Carvedilol (Coreg Tab*) 3.125 mg PO BID [facility] Last Admin: 01/22/20 07:50 Dose: 3.125 mg Citalopram Hydrobromide (Celexa Tab*) 10 mg PO DAILY [facility] Last Admin: 01/22/20 07:52 Dose: 10 mg Dextrose (D50w Syringe 50 Ml*) 12.5 gm IV PUSH .FOR FS < 60 - SS PRN PRN Reason: FS < 60 Docusate Sodium (Colace Cap*) 100 mg PO BID PRN PRN Reason: CONSTIPATION Last Admin: 01/20/20 08:43 Dose: 100 mg Furosemide (Lasix Tab*) 20 mg PO DAILY [facility] Last Admin: 01/22/20 07:51 Dose: 20 mg Glipizide (Glucotrol Tab*) 10 mg PO BID [facility] Last Admin: 01/22/20 07:52 Dose: 10 mg Heparin Sodium (Porcine) (Heparin Vial(*)) 5,000 units SUBCUT Q8HR [facility] Last Admin: 01/22/20 16:03 Dose: 5,000 units Heparin Sodium (Porcine) (Heparin Flush Port (Ivad)) 5 ml FLUSH DAILY [facility]; Protocol Last Admin: 01/22/20 12:31 Dose: 5 ml Sodium Chloride (Ns 0.9% 500 Ml*) 500 mls @ 60 mls/hr IV ONCE ONE Stop: 01/23/20 04:00 Insulin Human Lispro (Humalog*) 0 units SUBCUT BID [facility]; Protocol Last Admin: 01/22/20 07:53 Dose: 4 unit Morphine Sulfate (Morphine Inj (Syringe))*) 2 mg IV Q4H PRN PRN Reason: PAIN - SEVERE Last Admin: 01/22/20 07:56 Dose: 2 mg Multivitamins/Minerals (Preservision Areds 2) 1 cap PO BID [facility] Last Admin: 01/22/20 07:54 Dose: Not Given Ondansetron HCl (Zofran Inj*) 4 mg IV Q4H PRN PRN Reason: NAUSEA/VOMITING Polyethylene Glycol/Electrolytes (Miralax (17 Gm Dose Alex)) 17 gm PO DAILY [facility] Last Admin: 01/22/20 07:54 Dose: 17 gm Vital Signs - 8 hr 01/22/20 01/22/20 12:24 15:15 Temperature 97.3 F 98.4 F Pulse Rate 91 96 Respiratory 19 18 Rate Blood Pressure 141/75 145/66 (mmHg) O2 Sat by Pulse 98 98 Oximetry Oxygen Devices in Use Now: None Appearance: sitting up in chair, NAD Eyes: No Scleral Icterus, - - PERRL Ears/Nose/Mouth/Throat: Clear Oropharnyx Respiratory: Symmetrical Chest Expansion and Respiratory Effort, Clear to Auscultation, - Cardiovascular: RRR Abdominal: - - normoactive BS throughout, abdomen large round, SNT Extremities: No Edema, - - PPP 2+ Skin: No Rash or Ulcers Neurological: Alert and Oriented x 3 Nutrition: Taking PO's Result Diagrams: 01/22/20 06:00 01/22/20 06:00 Additional Lab and Data: Laboratory Results - last 24 hr 01/18/20 01/21/20 01/22/20 16:00 20:26 06:00 WBC RBC Hgb Hct MCV MCH MCHC RDW Plt Count MPV Neut % (Auto) Lymph % (Auto) [place] % (Auto) Eos % (Auto) Baso % (Auto) Absolute Neuts (auto) Absolute Lymphs (auto) Absolute Monos (auto) Absolute Eos (auto) Absolute Basos (auto) Absolute Nucleated RBC Nucleated RBC % Sodium 132 L Potassium 4.1 Chloride 101 Carbon Dioxide 22 Anion Gap 9 BUN 59 H Creatinine 2.81 H Est GFR ( Amer) 26.9 Est GFR (Non-Af Amer) 22.2 BUN/Creatinine Ratio 21.0 H Glucose 168 H POC Glucose (mg/dL) 342 H Calcium 8.9 COVID-19 PCR Undetected 01/22/20 01/22/20 06:00 07:39 WBC 9.7 RBC 3.12 L Hgb 9.1 L Hct 27 L MCV 85 MCH 29 MCHC 34 RDW 14 Plt Count 317 MPV 8.5 Neut % (Auto) 67.9 Lymph % (Auto) 10.0 [place] % (Auto) 13.8 Eos % (Auto) 7.9 Baso % (Auto) 0.4 Absolute Neuts (auto) 6.6 Absolute Lymphs (auto) 1.0 Absolute Monos (auto) 1.3 H Absolute Eos (auto) 0.8 H Absolute Basos (auto) 0.0 Absolute Nucleated RBC 0.0 Nucleated RBC % 0.0 Sodium Potassium Chloride Carbon Dioxide Anion Gap BUN Creatinine Est GFR ( Amer) Est GFR (Non-Af Amer) BUN/Creatinine Ratio Glucose POC Glucose (mg/dL) 212 H Calcium COVID-19 PCR Assess/Plan/Problems-Billing Mr Shah is a 74 yo M who has a h/o small cell lung cancer without evidence of active disease who presented to the ER due to increased frequency of falls. - Patient Problems (1) Altered mental status Current Visit: Yes Status: Acute Code(s): R41.82 - ALTERED MENTAL STATUS, UNSPECIFIED SNOMED Code(s): 994590922 Comment: Appears to be at his baseline from what was reported per his , no signs of confusion during assessment Continue supportive measures Continue to monitor (2) Lacunar infarction Current Visit: Yes Status: Acute Code(s): I63.81 - OTHER CEREB INFRC DUE TO OCCLS OR STENOSIS OF SMALL ARTERY SNOMED Code(s): 230101047 Comment: Pt was found to have a probable subacute lacunar infarct of the left internal capsule. Continue plavix in addition to ASA X21 days (3) Anemia Current Visit: No Status: Acute Code(s): D64.9 - ANEMIA, UNSPECIFIED SNOMED Code(s): 508654621 Comment: H/H dropped significantly from admission but has since stabilized with slight improvement since 01/21. No reported bleeding. May be from chronic disease, hx CKD III, could have been from a GI source. No need to do another CBC in the a.m. as long as he remains stable and asymptomatic. GUIAC ordered (4) Falls Current Visit: Yes Status: Acute Comment: Unclear why the patient has been falling at an increased frequency. He does have a small lacunar infarct but per neuro unlikely to cause his falls. ? in response to a different process such as infection- so far nothing has declared itself. awaiting PT eval, COVID ruled out 01/21 (5) Liver mass Current Visit: Yes Status: Acute Code(s): R16.0 - HEPATOMEGALY, NOT ELSEWHERE CLASSIFIED SNOMED Code(s): 490285519 Comment: The mass has been biopsied 3 times already. No evidence of malignancy with those biopsies. CT this admission shows growth since last month. If pt rules out for COVID, will consider repeat biopsy (or should be considered as outpatient). (6) Heart failure with preserved ejection fraction Current Visit: Yes Status: Acute Code(s): I50.30 - UNSPECIFIED DIASTOLIC ( CONGESTIVE) HEART FAILURE SNOMED Code(s): 137158074 Comment: No evidence of fluid overload at this time. Will continue home dose of lasix. If dry in appearance may stop. (7) Hyperlipemia Current Visit: Yes Status: Acute Code(s): E78.5 - HYPERLIPIDEMIA, UNSPECIFIED SNOMED Code(s): 97425970 Comment: Continue lipitor. (8) Hypertension Current Visit: Yes Status: Acute Code(s): I10 - ESSENTIAL (PRIMARY) HYPERTENSION SNOMED Code(s): 85928700 Comment: Improvement in BP, amlodipine increased to 10mg on 01/19 Continue current regimen (9) Non-insulin dependent type 2 diabetes mellitus Current Visit: Yes Status: Acute Code(s): E11.9 - TYPE 2 DIABETES MELLITUS WITHOUT COMPLICATIONS SNOMED Code(s): 12338416 Comment: Blood sugars remain elevated. Glipizide restarted 01/19. Pre-prandial ? levels high, decent control for morning values. Increase SS lispro Continue to monitor glucose levels (10) CKD (chronic kidney disease) stage 3, GFR 30-59 ml/min Current Visit: No Status: Acute Code(s): N18.3 - CHRONIC KIDNEY DISEASE, STAGE 3 (MODERATE) SNOMED Code(s): 626229602 Comment: Continues with soft trend upward but near baseline with a very slight drop from yesterday, has been eating and drinking Cr 01/20 2.87, 01/21 2.81 - Renally dose medications, will need to hold on contrast - gentle fluid bolus overnight to start this evening - bmp in am (11) DNR (do not resuscitate) Current Visit: Yes Status: Acute (12) DVT prophylaxis Current Visit: Yes Status: Acute Code(s): Z29.9 - ENCOUNTER FOR PROPHYLACTIC MEASURES, UNSPECIFIED SNOMED Code(s): 544757320 Comment: heparin Attending: Hoang Wheeler
[2020-01-23] MEDS: Heparin VIAL(*) 5000 UNITS/ML VIAL (FIVE THOUSAND) SUBCUT SCH ×3 (05:57→21:56)
[2020-01-23 06:45] LABS: BUN/Creatinine Ratio 20.8 (8-20); Calcium 8.7 mg/dL (8.6-10.3); EGFR African American 26.7 (>60); EGFR Non-African American 22.1 (>60)
[2020-01-23] MEDS: Insulin LISPRO* 1 UNITS UNIT SUBCUT SCH ×2 (09:39→21:56)
[2020-01-23] MEDS: Citalopram TAB* 10 MG PO SCH (09:42)
[2020-01-23] MEDS: Aspirin 81 mg CHEW TAB* 81 MG TAB.CHEW PO SCH (09:42)
[2020-01-23] MEDS: glipiZIDE TAB* 5 MG PO SCH ×2 (09:42→21:53)
[2020-01-23] MEDS: Furosemide TAB* 20 MG PO SCH (09:44)
[2020-01-23] MEDS: amLODIPine TAB* 5 MG PO SCH (09:45)
[2020-01-23] MEDS: Carvedilol TAB* 3.125 MG PO SCH ×2 (09:45→21:53)
[2020-01-23] MEDS: Polyethylene Glycol 3350* 17 GM PACKET PO SCH (09:45)
[2020-01-23] MEDS: Multivitamins/Mins (NF) AREDS2 1 CAP CAP PO SCH ×2 (09:55→21:45)
[2020-01-23] MEDS ORDERED: Furosemide IV* 10 MG/ML 2 ML VIAL (20 MG) IV SLOW PU ONE (10:25)
--- NOTE | 2020-01-23 10:34 | PN ---
Subjective Date of Service: 01/23/20 Interval History: Pt appears drowsy, states he does not feel well, a little weak, no specific complaints but generally not well. Feeling a little SOB, no cough, states that he has a dryness of his throat for many weeks. Denies headache, CP, abdominal discomfort, numbness/tingling. Objective Active Medications: Acetaminophen (Tylenol Tab*) 650 mg PO Q4H PRN PRN Reason: PAIN - MILD Last Admin: 01/19/20 11:02 Dose: 650 mg Al Hydrox/Mg Hydrox/Simethicone (Maalox Plus*) 30 ml PO Q6H PRN PRN Reason: INDIGESTION Amlodipine Besylate (Norvasc Tab*) 10 mg PO DAILY [facility] Last Admin: 01/23/20 09:45 Dose: 10 mg Aspirin (Aspirin 81 Mg Chew Tab*) 81 mg PO DAILY [facility] Last Admin: 01/23/20 09:42 Dose: 81 mg Atorvastatin Calcium (Lipitor*) 40 mg PO 1700 [facility] Last Admin: 01/22/20 16:03 Dose: 40 mg Carvedilol (Coreg Tab*) 3.125 mg PO BID [facility] Last Admin: 01/23/20 09:45 Dose: 3.125 mg Citalopram Hydrobromide (Celexa Tab*) 10 mg PO DAILY [facility] Last Admin: 01/23/20 09:42 Dose: 10 mg Dextrose (D50w Syringe 50 Ml*) 12.5 gm IV PUSH .FOR FS < 60 - SS PRN PRN Reason: FS < 60 Docusate Sodium (Colace Cap*) 100 mg PO BID PRN PRN Reason: CONSTIPATION Last Admin: 01/20/20 08:43 Dose: 100 mg Furosemide (Lasix Tab*) 20 mg PO DAILY [facility] Last Admin: 01/23/20 09:44 Dose: 20 mg Furosemide (Lasix Iv*) 20 mg IV SLOW PU ONCE ONE Stop: 01/23/20 10:26 Glipizide (Glucotrol Tab*) 10 mg PO BID [facility] Last Admin: 01/23/20 09:42 Dose: 10 mg Heparin Sodium (Porcine) (Heparin Vial(*)) 5,000 units SUBCUT Q8HR [facility] Last Admin: 01/23/20 05:57 Dose: 5,000 units Heparin Sodium (Porcine) (Heparin Flush Port (Ivad)) 5 ml FLUSH DAILY [facility]; Protocol Last Admin: 01/23/20 10:02 Dose: 5 ml Insulin Human Lispro (Humalog*) 0 units SUBCUT BID [facility]; Protocol Last Admin: 01/23/20 09:39 Dose: 3 units Morphine Sulfate (Morphine Inj (Syringe))*) 2 mg IV Q4H PRN PRN Reason: PAIN - SEVERE Last Admin: 01/22/20 07:56 Dose: 2 mg Multivitamins/Minerals (Preservision Areds 2) 1 cap PO BID [facility] Last Admin: 01/23/20 09:55 Dose: Not Given Ondansetron HCl (Zofran Inj*) 4 mg IV Q4H PRN PRN Reason: NAUSEA/VOMITING Polyethylene Glycol/Electrolytes (Miralax (17 Gm Dose Alex)) 17 gm PO DAILY [facility] Last Admin: 01/23/20 09:45 Dose: 17 gm Vital Signs - 8 hr 01/23/20 01/23/20 03:27 07:15 Temperature 99.2 F 98.1 F Pulse Rate 80 80 Respiratory 17 20 Rate Blood Pressure 168/72 144/75 (mmHg) O2 Sat by Pulse 96 95 Oximetry Oxygen Devices in Use Now: None Appearance: sitting up in chair, drowsy Eyes: No Scleral Icterus, - - PERRL Ears/Nose/Mouth/Throat: Clear Oropharnyx, Mucous Membranes Moist Respiratory: Symmetrical Chest Expansion and Respiratory Effort - R lung base with fine inspiratory crackles, L lung base diminished but clear, all other lobes clear with god airflow Cardiovascular: RRR - with 2/6 systolic murmur noted best at R upper sternal border Abdominal: - - normoactive BSX4, abdomen large, round, but SNT Extremities: No Edema - PPP 2+ Skin: - - scabbed over area to R knee Neurological: - - drowsy, oriented to self and situation Nutrition: Taking PO's Result Diagrams: 01/22/20 06:00 01/23/20 06:10 Additional Lab and Data: Laboratory Results - last 24 hr 01/18/20 01/21/20 01/22/20 16:00 20:26 06:00 WBC RBC Hgb Hct MCV MCH MCHC RDW Plt Count MPV Neut % (Auto) Lymph % (Auto) [place] % (Auto) Eos % (Auto) Baso % (Auto) Absolute Neuts (auto) Absolute Lymphs (auto) Absolute Monos (auto) Absolute Eos (auto) Absolute Basos (auto) Absolute Nucleated RBC Nucleated RBC % Sodium 132 L Potassium 4.1 Chloride 101 Carbon Dioxide 22 Anion Gap 9 BUN 59 H Creatinine 2.81 H Est GFR ( Amer) 26.9 Est GFR (Non-Af Amer) 22.2 BUN/Creatinine Ratio 21.0 H Glucose 168 H POC Glucose (mg/dL) 342 H Calcium 8.9 COVID-19 PCR Undetected 01/22/20 01/22/20 06:00 07:39 WBC 9.7 RBC 3.12 L Hgb 9.1 L Hct 27 L MCV 85 MCH 29 MCHC 34 RDW 14 Plt Count 317 MPV 8.5 Neut % (Auto) 67.9 Lymph % (Auto) 10.0 [place] % (Auto) 13.8 Eos % (Auto) 7.9 Baso % (Auto) 0.4 Absolute Neuts (auto) 6.6 Absolute Lymphs (auto) 1.0 Absolute Monos (auto) 1.3 H Absolute Eos (auto) 0.8 H Absolute Basos (auto) 0.0 Absolute Nucleated RBC 0.0 Nucleated RBC % 0.0 Sodium Potassium Chloride Carbon Dioxide Anion Gap BUN Creatinine Est GFR ( Amer) Est GFR (Non-Af Amer) BUN/Creatinine Ratio Glucose POC Glucose (mg/dL) 212 H Calcium COVID-19 PCR Abnormal Lab Results 01/22/20 01/23/20 01/23/20 20:15 06:10 08:28 Sodium 133 L Potassium 4.0 Chloride 103 Carbon Dioxide 19 L Anion Gap 11 BUN 59 H Creatinine 2.83 H Est GFR ( Amer) 26.7 Est GFR (Non-Af Amer) 22.1 BUN/Creatinine Ratio 20.8 H Glucose 134 H POC Glucose (mg/dL) 297 H 159 H Calcium 8.7 Assess/Plan/Problems-Billing Mr Shah is a 74 yo M who has a h/o small cell lung cancer without evidence of active disease who presented to the ER due to increased frequency of falls. - Patient Problems (1) Altered mental status Current Visit: Yes Status: Acute Code(s): R41.82 - ALTERED MENTAL STATUS, UNSPECIFIED SNOMED Code(s): 109014961 Comment: Drowsy and not very interactive during assessment, per nursing noted there was an episode of significant confusion/dilirium last night. Generalizes not feeling well, weak, tired and is SOB. May be a component of anemia vs fluid overload vs metabolic encephalopathy CBC ordered Lasix to hopefully rid him of some fluid Continue supportive measures Continue to monitor (2) Lacunar infarction Current Visit: Yes Status: Acute Code(s): I63.81 - OTHER CEREB INFRC DUE TO OCCLS OR STENOSIS OF SMALL ARTERY SNOMED Code(s): 318885907 Comment: Pt was found to have a probable subacute lacunar infarct of the left internal capsule. No focal deficits noted at this time. Continue plavix in addition to ASA X21 days (3) Anemia Current Visit: No Status: Acute Code(s): D64.9 - ANEMIA, UNSPECIFIED SNOMED Code(s): 647024094 Comment: H/H dropped significantly from admission but has since stabilized with slight improvement since 01/21. No reported bleeding. May be from chronic disease, hx CKD III, could have been from a GI source. No need to do another CBC in the a.m. as long as he remains stable and asymptomatic. GUIAC ordered (4) Falls Current Visit: Yes Status: Acute Comment: Unclear why the patient has been falling at an increased frequency. He does have a small lacunar infarct but per neuro unlikely to cause his falls. ? in response to a different process such as infection- so far nothing has declared itself. awaiting PT eval, COVID ruled out 01/21 (5) Liver mass Current Visit: Yes Status: Acute Code(s): R16.0 - HEPATOMEGALY, NOT ELSEWHERE CLASSIFIED SNOMED Code(s): 358632203 Comment: The mass has been biopsied 3 times already. No evidence of malignancy with those biopsies. CT this admission shows growth since last month. If pt rules out for COVID, will consider repeat biopsy (or should be considered as outpatient). (6) Heart failure with preserved ejection fraction Current Visit: Yes Status: Acute Code(s): I50.30 - UNSPECIFIED DIASTOLIC ( CONGESTIVE) HEART FAILURE SNOMED Code(s): 490812616 Comment: Crackles to RLL, dimished to LLL. Received home dose of lasix. Lasix 20mg IV ordered (7) Hyperlipemia Current Visit: Yes Status: Acute Code(s): E78.5 - HYPERLIPIDEMIA, UNSPECIFIED SNOMED Code(s): 75607122 Comment: Continue lipitor. (8) Hypertension Current Visit: Yes Status: Acute Code(s): I10 - ESSENTIAL (PRIMARY) HYPERTENSION SNOMED Code(s): 13228194 Comment: Improvement in BP, amlodipine increased to 10mg on 01/19 Continue current regimen (9) Non-insulin dependent type 2 diabetes mellitus Current Visit: Yes Status: Acute Code(s): E11.9 - TYPE 2 DIABETES MELLITUS WITHOUT COMPLICATIONS SNOMED Code(s): 15953799 Comment: Blood sugars remain elevated. Glipizide restarted 01/19. Pre-prandial ? levels high, decent control for morning values. Increase SS lispro Continue to monitor glucose levels (10) CKD (chronic kidney disease) stage 3, GFR 30-59 ml/min Current Visit: No Status: Acute Code(s): N18.3 - CHRONIC KIDNEY DISEASE, STAGE 3 (MODERATE) SNOMED Code(s): 694130355 Comment: Cr holding steady after an upward trend. Cr 01/20 2.87, 01/21 2.81 01/22 2.83. Did not respond to gentle bolus, only sign of fluid overload at this time is some crackles to RLL - Renally dose medications, will need to hold on contrast - lasix 20 IV X1 - bmp in am (11) DNR (do not resuscitate) Current Visit: Yes Status: Acute (12) DVT prophylaxis Current Visit: Yes Status: Acute Code(s): Z29.9 - ENCOUNTER FOR PROPHYLACTIC MEASURES, UNSPECIFIED SNOMED Code(s): 857226079 Comment: heparin
[2020-01-23 10:59] LABS: ABS Eosinophils 0.7 10^3/ul (0-0.6); ABS Lymphocytes 0.8 10^3/ul (1.0-4.8); ABS Monocytes 1.4 10^3/ul (0-0.8); ABS Neutrophils 6.9 10^3/ul (1.5-7.7); Eosinophil % 7.3 %; Hematocrit 26 % (42-52); Lymphocyte % 7.8 %; Mean Corpuscular HGB Conc 34 g/dL (31-36); Mean Corpuscular Hemoglobin 29 pg (27-31); Mean Corpuscular Volume 85 fL (80-94); Mean Platelet Volume 8.3 fL (7.4-10.4); Platelet Count 336 10^3/uL (150-450); Red Blood Count 3.07 10^6 /uL (4.18-5.48); Red Cell Distribution Width 15 % (10-15); White Blood Count 9.8 10^3/uL (3.5-10.8)
--- NOTE | 2020-01-23 12:12 | PN ---
Hospitalist Progress Note Date of Service: 01/23/20 Pt noted with new left sided facial droop, code wilbert called, was one of the responding providers, per his recommendation code wilbert was cancelled. CT brain w/o contrast and ammonia level ordered. CTA not ordered previously likely in r/t kidney function. will continue to follow this case today.
--- NOTE | 2020-01-23 15:28 | PN ---
Subjective Date of Service: 01/23/20 Length of Stay: 5 Days Neurology is following for stroke. Interval History: A code cheek was activated today as there were concerns that the patient is not acting like himself and had a left facial droop. I responded to the call within minutes. The patient was awake, appeared drowsy, but did not have any evidence of facial droop, especially not on the left side. The patient was able to follow commands. He has no acute complaints. He appears cognitively impaired. He denied any focal weakness or paresthesia. - Repeat CT head without contrast was completed 01/22 and it was unchanged. There is evidence of the subacute lacunar infarct in the left internal capsule. - EEG report from 01/18 showed diffuse slowing and disorganization of the background rhythm consistent with diffuse cerebral dysfunction. There are no focal or epileptiform features in this recording. - MRI brain without contrast: acute lacunar infarct centered in the posterior limb of the left internal capsule described on comparison CT. There is moderate chronic small vessel ischemic disease. Moderate cerebral volume loss. Review of Systems: Denied CP, SOB, or palpitations. Objective Active Medications: Acetaminophen (Tylenol Tab*) 650 mg PO Q4H PRN PRN Reason: PAIN - MILD Last Admin: 01/19/20 11:02 Dose: 650 mg Al Hydrox/Mg Hydrox/Simethicone (Maalox Plus*) 30 ml PO Q6H PRN PRN Reason: INDIGESTION Amlodipine Besylate (Norvasc Tab*) 10 mg PO DAILY [facility] Last Admin: 01/23/20 09:45 Dose: 10 mg Aspirin (Aspirin 81 Mg Chew Tab*) 81 mg PO DAILY [facility] Last Admin: 01/23/20 09:42 Dose: 81 mg Atorvastatin Calcium (Lipitor*) 40 mg PO 1700 [facility] Last Admin: 01/22/20 16:03 Dose: 40 mg Carvedilol (Coreg Tab*) 3.125 mg PO BID [facility] Last Admin: 01/23/20 09:45 Dose: 3.125 mg Citalopram Hydrobromide (Celexa Tab*) 10 mg PO DAILY [facility] Last Admin: 01/23/20 09:42 Dose: 10 mg Dextrose (D50w Syringe 50 Ml*) 12.5 gm IV PUSH .FOR FS < 60 - SS PRN PRN Reason: FS < 60 Docusate Sodium (Colace Cap*) 100 mg PO BID PRN PRN Reason: CONSTIPATION Last Admin: 01/20/20 08:43 Dose: 100 mg Furosemide (Lasix Tab*) 20 mg PO DAILY [facility] Last Admin: 01/23/20 09:44 Dose: 20 mg Glipizide (Glucotrol Tab*) 10 mg PO BID [facility] Last Admin: 01/23/20 09:42 Dose: 10 mg Heparin Sodium (Porcine) (Heparin Vial(*)) 5,000 units SUBCUT Q8HR [facility] Last Admin: 01/23/20 13:07 Dose: 5,000 units Heparin Sodium (Porcine) (Heparin Flush Port (Ivad)) 5 ml FLUSH DAILY [facility]; Protocol Last Admin: 01/23/20 10:02 Dose: 5 ml Insulin Human Lispro (Humalog*) 0 units SUBCUT BID [facility]; Protocol Last Admin: 01/23/20 09:39 Dose: 3 units Morphine Sulfate (Morphine Inj (Syringe))*) 2 mg IV Q4H PRN PRN Reason: PAIN - SEVERE Last Admin: 01/22/20 07:56 Dose: 2 mg Multivitamins/Minerals (Preservision Areds 2) 1 cap PO BID [facility] Last Admin: 01/23/20 09:55 Dose: Not Given Ondansetron HCl (Zofran Inj*) 4 mg IV Q4H PRN PRN Reason: NAUSEA/VOMITING Polyethylene Glycol/Electrolytes (Miralax (17 Gm Dose Alex)) 17 gm PO DAILY [facility] Last Admin: 01/23/20 09:45 Dose: 17 gm Vital Signs 01/22/20 01/22/20 01/22/20 19:48 20:00 23:28 Temperature 98.5 F 98.5 F Pulse Rate 78 75 Respiratory 17 17 18 Rate Blood Pressure 123/68 148/67 (mmHg) O2 Sat by Pulse 97 Oximetry 01/23/20 01/23/20 01/23/20 03:27 07:15 08:00 Temperature 99.2 F 98.1 F Pulse Rate 80 80 Respiratory 17 20 18 Rate Blood Pressure 168/72 144/75 (mmHg) O2 Sat by Pulse 96 95 Oximetry 01/23/20 01/23/20 01/23/20 11:45 11:46 11:56 Temperature 97.6 F Pulse Rate Respiratory 20 Rate Blood Pressure 136/60 116/76 117/80 (mmHg) O2 Sat by Pulse 97 Oximetry 01/23/20 01/23/20 12:30 12:31 Temperature Pulse Rate Respiratory Rate Blood Pressure 152/110 120/60 (mmHg) O2 Sat by Pulse Oximetry Intake and Output Last 24 Hours 01/21/20 01/22/20 01/23/20 01/24/20 06:59 06:59 06:59 06:59 Intake Total 1240 2160 1420 50 Output Total 300 200 Balance 940 2160 1220 50 Intake: IV Fluids 500 NS (0.9%) 500 Oral 1240 2160 920 50 Output: Urine 300 200 Other: Estimated Void Large Large Medium Date of Last Bowel 01/21/20 Movement # Bowel Movements 1 0 1 Estimated Stool Amount Large Medium # Voids 1 1 2 Oxygen Devices in Use Now: None Neurology Exam: General: Chronically ill appearing man in no distress. HEENT: Normocephelic/atraumatic, sclera anicteric, mucous membranes moist Neck: Supple Chest: Clear to auscultation bilaterally Cardiovascular: Regular rate and rhythm without murmurs, rubs, gallops Extremities: No clubbing, cyanosis, or edema Neurological Findings: Drowsy appearing man, alert, and oriented to person, place, and time. Speech: mild dysarthria. Cranial Nerve: PERRL, EOM intact, VFF, no nystagmus, face symmetric bilaterally , facial sensation intact. Widening of the palpebral fissure on the right. Motor: s/s throughout, proximal and distal extremities x4 tone/bulk normal with minimal 4/5 weakness on the right elbow extension and hip flexion. Sensation: intact to LT/PP bilaterally upper and lower extremities Deep Tendon Reflex: 1 symmetric in the upper/lower extremities, Babinski - down going Finger to nose, rapid alternating movements intact without tremor, no dysdiadochokinesia Gait: wide based gait, no ataxia. Result Diagrams: 01/23/20 10:31 01/23/20 06:10 Additional Lab and Data: Laboratory Results - last 24 hr 01/18/20 01/21/20 01/22/20 16:00 20:26 06:00 WBC RBC Hgb Hct MCV MCH MCHC RDW Plt Count MPV Neut % (Auto) Lymph % (Auto) [place] % (Auto) Eos % (Auto) Baso % (Auto) Absolute Neuts (auto) Absolute Lymphs (auto) Absolute Monos (auto) Absolute Eos (auto) Absolute Basos (auto) Absolute Nucleated RBC Nucleated RBC % Sodium 132 L Potassium 4.1 Chloride 101 Carbon Dioxide 22 Anion Gap 9 BUN 59 H Creatinine 2.81 H Est GFR ( Amer) 26.9 Est GFR (Non-Af Amer) 22.2 BUN/Creatinine Ratio 21.0 H Glucose 168 H POC Glucose (mg/dL) 342 H Calcium 8.9 COVID-19 PCR Undetected 01/22/20 01/22/20 06:00 07:39 WBC 9.7 RBC 3.12 L Hgb 9.1 L Hct 27 L MCV 85 MCH 29 MCHC 34 RDW 14 Plt Count 317 MPV 8.5 Neut % (Auto) 67.9 Lymph % (Auto) 10.0 [place] % (Auto) 13.8 Eos % (Auto) 7.9 Baso % (Auto) 0.4 Absolute Neuts (auto) 6.6 Absolute Lymphs (auto) 1.0 Absolute Monos (auto) 1.3 H Absolute Eos (auto) 0.8 H Absolute Basos (auto) 0.0 Absolute Nucleated RBC 0.0 Nucleated RBC % 0.0 Sodium Potassium Chloride Carbon Dioxide Anion Gap BUN Creatinine Est GFR ( Amer) Est GFR (Non-Af Amer) BUN/Creatinine Ratio Glucose POC Glucose (mg/dL) 212 H Calcium COVID-19 PCR Abnormal Lab Results 01/22/20 01/23/20 01/23/20 20:15 06:10 08:28 Sodium 133 L Potassium 4.0 Chloride 103 Carbon Dioxide 19 L Anion Gap 11 BUN 59 H Creatinine 2.83 H Est GFR ( Amer) 26.7 Est GFR (Non-Af Amer) 22.1 BUN/Creatinine Ratio 20.8 H Glucose 134 H POC Glucose (mg/dL) 297 H 159 H Calcium 8.7 Assessment/Plan Mr. Horace Shah is a 74-year-old man with DMII, hypertension, dyslipidemia, CKD , HF, small cell lung cancer who presented to [facility] on 01/18/2020 due to falls. The patient was evaluated by Dr. Jerome and was diagnosed with acute lacunar stroke involving the lenticulostriate branches on the left. The patient has mild right hemiparesis, barely detected on examination, and dysarthria. 1. Acute lacunar stroke on the left. NIHSS 2. 2. Code Cheek for possible left facial droop and confusion. This immediately improved upon my evaluation. D/d orthostatic hypotension causing cerebral hypoperfusion, ipsilateral weakness related to stroke, or part of his encephalopathy. Seizures are low on the differential, but if he continues to have recurrent unexplained confusion and transient facial droop, it's certainly important to rule out focal seizures. 3. Moderate to severe white matter disease due to chronic hypertension, DMII, and dyslipidemia. This can manifest as mild cognitive impairment and largely contribute to his delirium. 4. Acute metabolic encephalopathy. Slowly improving. 5. CKD with anemia of chronic disease Recommendations: - Continue DAPT for 21 days, then switch him to Plavix 75 mg daily. THe patient is currently on aspirin only. If his anemia is precluding the initiation of DAPT, then I would at least switch him to Plavix monotherapy as he had a stroke on aspirin. - PT/OT/ATOMIC WELDER evaluation and treatment. - Stroke education provided - Continue atorvastatin 40 mg nightly - Please place holding parameteres to his anti-hypertensive agents, Hold if SBP is less than 140 mmHg. - SBP goal of 120-<160 mmHg - DVT prophylaxis SCDs. Please call me for any questions or concerns. He will need outpatient neurology follow-up which I will arrange. He will be contacted by our neurology office for an appointment.
[2020-01-23] MEDS: Atorvastatin* 40 MG TAB PO SCH (17:31)
[2020-01-23] MEDS: Acetaminophen TAB* 325 MG PO PRN (21:53)
[2020-01-24] MEDS: Acetaminophen TAB* 325 MG PO PRN ×2 (05:16→21:44)
[2020-01-24] MEDS: Heparin VIAL(*) 5000 UNITS/ML VIAL (FIVE THOUSAND) SUBCUT SCH ×3 (05:17→21:45)
[2020-01-24 05:27] LABS: ABS Basophils 0.1 10^3/ul (0-0.2); ABS Eosinophils 0.7 10^3/ul (0-0.6); ABS Monocytes 1.4 10^3/ul (0-0.8); Hematocrit 25 % (42-52); Hemoglobin 8.5 g/dL (14.0-18.0); Lymphocyte % 10.8 %; Mean Corpuscular HGB Conc 34 g/dL (31-36); Mean Corpuscular Hemoglobin 29 pg (27-31); Mean Corpuscular Volume 85 fL (80-94); Mean Platelet Volume 7.6 fL (7.4-10.4); Platelet Count 355 10^3/uL (150-450); Red Blood Count 2.96 10^6 /uL (4.18-5.48); Red Cell Distribution Width 15 % (10-15); White Blood Count 9.1 10^3/uL (3.5-10.8)
[2020-01-24 05:50] LABS: BUN/Creatinine Ratio 22.2 (8-20); Calcium 8.6 mg/dL (8.6-10.3); EGFR African American 23.9 (>60); EGFR Non-African American 19.8 (>60); Potassium 3.7 mmol/L (3.5-5.0)
[2020-01-24] MEDS ORDERED: NS 0.9% 1000 ML** 1,000 ML IV SCH (08:45)
[2020-01-24] MEDS: Aspirin 81 mg CHEW TAB* 81 MG TAB.CHEW PO SCH (10:36)
[2020-01-24] MEDS: amLODIPine TAB* 5 MG PO SCH (10:50)
[2020-01-24] MEDS: Carvedilol TAB* 3.125 MG PO SCH ×2 (10:54→21:45)
[2020-01-24] MEDS: Citalopram TAB* 10 MG PO SCH (10:55)
[2020-01-24] MEDS: Multivitamins/Mins (NF) AREDS2 1 CAP CAP PO SCH ×2 (10:55→21:50)
[2020-01-24] MEDS: Polyethylene Glycol 3350* 17 GM PACKET PO SCH (10:55)
[2020-01-24] MEDS: glipiZIDE TAB* 5 MG PO SCH ×2 (10:55→21:45)
[2020-01-24] MEDS: Insulin LISPRO* 1 UNITS UNIT SUBCUT SCH ×2 (10:56→21:45)
[2020-01-24] MEDS: Atorvastatin* 40 MG TAB PO SCH (15:34)
--- NOTE | 2020-01-24 23:20 | PN ---
Subjective Date of Service: 01/24/20 Interval History: Pt states not feeling well, tired, mild headache. Denies CP, SOB, abdominal upset, unusual numbness/tingling. Occasional cough but not new. Objective Active Medications: Acetaminophen (Tylenol Tab*) 650 mg PO Q4H PRN PRN Reason: PAIN - MILD Last Admin: 01/24/20 21:44 Dose: 650 mg Al Hydrox/Mg Hydrox/Simethicone (Maalox Plus*) 30 ml PO Q6H PRN PRN Reason: INDIGESTION Amlodipine Besylate (Norvasc Tab*) 10 mg PO DAILY [facility] Last Admin: 01/24/20 10:50 Dose: Not Given Aspirin (Aspirin 81 Mg Chew Tab*) 81 mg PO DAILY [facility] Last Admin: 01/24/20 10:36 Dose: 81 mg Atorvastatin Calcium (Lipitor*) 40 mg PO 1700 [facility] Last Admin: 01/24/20 15:34 Dose: 40 mg Carvedilol (Coreg Tab*) 3.125 mg PO BID [facility] Last Admin: 01/24/20 21:45 Dose: 3.125 mg Citalopram Hydrobromide (Celexa Tab*) 10 mg PO DAILY [facility] Last Admin: 01/24/20 10:55 Dose: 10 mg Dextrose (D50w Syringe 50 Ml*) 12.5 gm IV PUSH .FOR FS < 60 - SS PRN PRN Reason: FS < 60 Docusate Sodium (Colace Cap*) 100 mg PO BID PRN PRN Reason: CONSTIPATION Last Admin: 01/20/20 08:43 Dose: 100 mg Glipizide (Glucotrol Tab*) 10 mg PO BID [facility] Last Admin: 01/24/20 21:45 Dose: 10 mg Heparin Sodium (Porcine) (Heparin Vial(*)) 5,000 units SUBCUT Q8HR [facility] Last Admin: 01/24/20 21:45 Dose: 5,000 units Heparin Sodium (Porcine) (Heparin Flush Port (Ivad)) 5 ml FLUSH DAILY [facility]; Protocol Last Admin: 01/24/20 11:04 Dose: 5 ml Insulin Human Lispro (Humalog*) 0 units SUBCUT BID [facility]; Protocol Last Admin: 01/24/20 21:45 Dose: 6 units Multivitamins/Minerals (Preservision Areds 2) 1 cap PO BID [facility] Last Admin: 01/24/20 21:50 Dose: Not Given Ondansetron HCl (Zofran Inj*) 4 mg IV Q4H PRN PRN Reason: NAUSEA/VOMITING Polyethylene Glycol/Electrolytes (Miralax (17 Gm Dose Alex)) 17 gm PO DAILY [facility] Last Admin: 01/24/20 10:55 Dose: 17 gm Vital Signs - 8 hr 01/24/20 01/24/20 01/24/20 15:15 15:59 19:15 Temperature 97.6 F 97.3 F 98.2 F Pulse Rate 67 65 59 Respiratory 20 24 17 Rate Blood Pressure 112/56 129/63 123/57 (mmHg) O2 Sat by Pulse 100 99 Oximetry 01/24/20 21:49 Temperature Pulse Rate Respiratory Rate Blood Pressure (mmHg) O2 Sat by Pulse 98 Oximetry Oxygen Devices in Use Now: None Appearance: sitting up in chair, appears slightly unwell Eyes: No Scleral Icterus, - - PERRL Ears/Nose/Mouth/Throat: Clear Oropharnyx, - - mucous membranes slightly dry Respiratory: Symmetrical Chest Expansion and Respiratory Effort, - - coarse crackles to RLL base, all other lobes clear throughout Cardiovascular: RRR Abdominal: - - Hypoactive BS throughout, abdomen large, round, but SNT Extremities: No Edema - PPP 2+ Skin: - Neurological: Alert and Oriented x 3 Nutrition: Taking PO's Result Diagrams: 01/24/20 05:20 01/24/20 05:20 Additional Lab and Data: Laboratory Results - last 24 hr 01/18/20 01/21/20 01/22/20 16:00 20:26 06:00 WBC RBC Hgb Hct MCV MCH MCHC RDW Plt Count MPV Neut % (Auto) Lymph % (Auto) [place] % (Auto) Eos % (Auto) Baso % (Auto) Absolute Neuts (auto) Absolute Lymphs (auto) Absolute Monos (auto) Absolute Eos (auto) Absolute Basos (auto) Absolute Nucleated RBC Nucleated RBC % Sodium 132 L Potassium 4.1 Chloride 101 Carbon Dioxide 22 Anion Gap 9 BUN 59 H Creatinine 2.81 H Est GFR ( Amer) 26.9 Est GFR (Non-Af Amer) 22.2 BUN/Creatinine Ratio 21.0 H Glucose 168 H POC Glucose (mg/dL) 342 H Calcium 8.9 COVID-19 PCR Undetected 01/22/20 01/22/20 06:00 07:39 WBC 9.7 RBC 3.12 L Hgb 9.1 L Hct 27 L MCV 85 MCH 29 MCHC 34 RDW 14 Plt Count 317 MPV 8.5 Neut % (Auto) 67.9 Lymph % (Auto) 10.0 [place] % (Auto) 13.8 Eos % (Auto) 7.9 Baso % (Auto) 0.4 Absolute Neuts (auto) 6.6 Absolute Lymphs (auto) 1.0 Absolute Monos (auto) 1.3 H Absolute Eos (auto) 0.8 H Absolute Basos (auto) 0.0 Absolute Nucleated RBC 0.0 Nucleated RBC % 0.0 Sodium Potassium Chloride Carbon Dioxide Anion Gap BUN Creatinine Est GFR ( Amer) Est GFR (Non-Af Amer) BUN/Creatinine Ratio Glucose POC Glucose (mg/dL) 212 H Calcium COVID-19 PCR Abnormal Lab Results 01/22/20 01/23/20 01/23/20 20:15 06:10 08:28 Sodium 133 L Potassium 4.0 Chloride 103 Carbon Dioxide 19 L Anion Gap 11 BUN 59 H Creatinine 2.83 H Est GFR ( Amer) 26.7 Est GFR (Non-Af Amer) 22.1 BUN/Creatinine Ratio 20.8 H Glucose 134 H POC Glucose (mg/dL) 297 H 159 H Calcium 8.7 Abnormal Lab Results 01/24/20 01/24/20 01/24/20 05:20 05:20 07:57 WBC 9.1 RBC 2.96 L Hgb 8.5 L Hct 25 L MCV 85 MCH 29 MCHC 34 RDW 15 Plt Count 355 MPV 7.6 Neut % (Auto) 65.0 Lymph % (Auto) 10.8 [place] % (Auto) 15.6 Eos % (Auto) 8.0 Baso % (Auto) 0.6 Absolute Neuts (auto) 6.0 Absolute Lymphs (auto) 1.0 Absolute Monos (auto) 1.4 H Absolute Eos (auto) 0.7 H Absolute Basos (auto) 0.1 Absolute Nucleated RBC 0.0 Nucleated RBC % 0.0 Sodium 135 Potassium 3.7 Chloride 104 Carbon Dioxide 21 L Anion Gap 10 BUN 69 H Creatinine 3.11 H Est GFR ( Amer) 23.9 Est GFR (Non-Af Amer) 19.8 BUN/Creatinine Ratio 22.2 H Glucose 76 POC Glucose (mg/dL) 114 H Calcium 8.6 01/24/20 21:13 WBC RBC Hgb Hct MCV MCH MCHC RDW Plt Count MPV Neut % (Auto) Lymph % (Auto) [place] % (Auto) Eos % (Auto) Baso % (Auto) Absolute Neuts (auto) Absolute Lymphs (auto) Absolute Monos (auto) Absolute Eos (auto) Absolute Basos (auto) Absolute Nucleated RBC Nucleated RBC % Sodium Potassium Chloride Carbon Dioxide Anion Gap BUN Creatinine Est GFR ( Amer) Est GFR (Non-Af Amer) BUN/Creatinine Ratio Glucose POC Glucose (mg/dL) 226 H Calcium Assess/Plan/Problems-Billing Mr Shah is a 74 yo M who has a h/o small cell lung cancer without evidence of active disease who presented to the ER due to increased frequency of falls. - Patient Problems (1) Altered mental status Current Visit: Yes Status: Acute Code(s): R41.82 - ALTERED MENTAL STATUS, UNSPECIFIED SNOMED Code(s): 221909864 Comment: A+OX3. Generalizes not feeling well, weak, tired, denies SOB. Continue supportive measures Continue to monitor (2) Lacunar infarction Current Visit: Yes Status: Acute Code(s): I63.81 - OTHER CEREB INFRC DUE TO OCCLS OR STENOSIS OF SMALL ARTERY SNOMED Code(s): 236828044 Comment: Pt was found to have a probable subacute lacunar infarct of the left internal capsule. No focal deficits noted at this time. Continue plavix in addition to ASA X21 days (3) Anemia Current Visit: No Status: Acute Code(s): D64.9 - ANEMIA, UNSPECIFIED SNOMED Code(s): 441656304 Comment: H/H dropped significantly from admission but has since stabilized. No reported bleeding. May be from chronic disease, hx CKD III, could have been from a GI source. IA ordered labs in a.m. (4) Falls Current Visit: Yes Status: Acute Comment: Unclear why the patient has been falling at an increased frequency. He does have a small lacunar infarct but per neuro unlikely to cause his falls. At this point it is noted that his mental status waxes and wanes. Has been seen by PT, ESVIN at d/c recommended at this point (5) Liver mass Current Visit: Yes Status: Acute Code(s): R16.0 - HEPATOMEGALY, NOT ELSEWHERE CLASSIFIED SNOMED Code(s): 142934231 Comment: The mass has been biopsied 3 times already. No evidence of malignancy with those biopsies. CT this admission shows growth since last month. Pt has been seen by . (6) Heart failure with preserved ejection fraction Current Visit: Yes Status: Acute Code(s): I50.30 - UNSPECIFIED DIASTOLIC ( CONGESTIVE) HEART FAILURE SNOMED Code(s): 246755776 Comment: Crackles to RLL, all others clear. chest XRay shows small L pleural effusion vs pleural thickening Does not otherwise have any s/s of fluid overload (7) Hyperlipemia Current Visit: Yes Status: Acute Code(s): E78.5 - HYPERLIPIDEMIA, UNSPECIFIED SNOMED Code(s): 50658027 Comment: Continue lipitor. (8) Hypertension Current Visit: Yes Status: Acute Code(s): I10 - ESSENTIAL (PRIMARY) HYPERTENSION SNOMED Code(s): 97219781 Comment: Improvement in BP, amlodipine increased to 10mg on 01/19 Continue current regimen (9) Non-insulin dependent type 2 diabetes mellitus Current Visit: Yes Status: Acute Code(s): E11.9 - TYPE 2 DIABETES MELLITUS WITHOUT COMPLICATIONS SNOMED Code(s): 48293253 Comment: Blood sugars remain elevated. Glipizide restarted 01/19. Decent but sporadic control of glucose levels. Doing slightly better with increase in pre- prandial SS Continue SS lispro Continue glipiside Continue to monitor glucose levels (10) CKD (chronic kidney disease) stage 3, GFR 30-59 ml/min Current Visit: No Status: Acute Code(s): N18.3 - CHRONIC KIDNEY DISEASE, STAGE 3 (MODERATE) SNOMED Code(s): 993964185 Comment: Cr holding steady after an upward trend. Cr 01/20 2.87, 01/21 2.81 01/22 2.83, 01/23 Cr 3.11 BUN 69. Had received lasix 01/22. I was concerned about u/o, small amount documented for day shift, per night nurse pt had large amount of urinary incontinance at the beginning of shift - strict I+O - Renally dose medications, will need to hold on contrast - 500ml IVF bolus - bmp in am (11) DNR (do not resuscitate) Current Visit: Yes Status: Acute (12) DVT prophylaxis Current Visit: Yes Status: Acute Code(s): Z29.9 - ENCOUNTER FOR PROPHYLACTIC MEASURES, UNSPECIFIED SNOMED Code(s): 999035968 Comment: heparin Attending: Tammy Sotomayor
[2020-01-25] MEDS: Heparin VIAL(*) 5000 UNITS/ML VIAL (FIVE THOUSAND) SUBCUT SCH ×3 (06:24→21:33)
[2020-01-25 08:01] LABS: ABS Basophils 0.1 10^3/ul (0-0.2); ABS Eosinophils 0.8 10^3/ul (0-0.6); ABS Lymphocytes 0.8 10^3/ul (1.0-4.8); ABS Monocytes 1.2 10^3/ul (0-0.8); ABS Neutrophils 6.3 10^3/ul (1.5-7.7); Eosinophil % 8.5 %; Hematocrit 26 % (42-52); Hemoglobin 8.6 g/dL (14.0-18.0); Lymphocyte % 8.5 %; Mean Corpuscular HGB Conc 33 g/dL (31-36); Mean Corpuscular Hemoglobin 28 pg (27-31); Mean Corpuscular Volume 85 fL (80-94); Mean Platelet Volume 8.1 fL (7.4-10.4); Nucleated Red Blood Cells % 0.1; Platelet Count 366 10^3/uL (150-450); Red Blood Count 3.02 10^6 /uL (4.18-5.48); Red Cell Distribution Width 15 % (10-15); White Blood Count 9.2 10^3/uL (3.5-10.8)
[2020-01-25 08:15] LABS: Calcium 8.6 mg/dL (8.6-10.3); EGFR African American 23.6 (>60); EGFR Non-African American 19.5 (>60)
[2020-01-25] MEDS: Insulin LISPRO* 1 UNITS UNIT SUBCUT SCH ×2 (09:13→21:33)
[2020-01-25] MEDS: Aspirin 81 mg CHEW TAB* 81 MG TAB.CHEW PO SCH (09:37)
[2020-01-25] MEDS: Citalopram TAB* 10 MG PO SCH (09:37)
[2020-01-25] MEDS: glipiZIDE TAB* 5 MG PO SCH ×2 (09:37→21:32)
[2020-01-25] MEDS: Polyethylene Glycol 3350* 17 GM PACKET PO SCH (09:38)
[2020-01-25] MEDS: Multivitamins/Mins (NF) AREDS2 1 CAP CAP PO SCH ×2 (09:38→21:33)
[2020-01-25] MEDS: Carvedilol TAB* 3.125 MG PO SCH ×2 (09:53→21:32)
[2020-01-25] MEDS ORDERED: amLODIPine TAB* 5 MG PO SCH (09:53)
[2020-01-25] MEDS: amLODIPine TAB* 5 MG PO SCH (09:53)
--- NOTE | 2020-01-25 09:55 | PN ---
Subjective Date of Service: 01/25/20 Interval History: Patient A+Ox3 sitting up in bed in NAD. offers no complaints today.Denies [place]. reports he is up going to the bathroom with help and feels steady on his feet. Good appetite. Objective Active Medications: Acetaminophen (Tylenol Tab*) 650 mg PO Q4H PRN PRN Reason: PAIN - MILD Last Admin: 01/24/20 21:44 Dose: 650 mg Al Hydrox/Mg Hydrox/Simethicone (Maalox Plus*) 30 ml PO Q6H PRN PRN Reason: INDIGESTION Amlodipine Besylate (Norvasc Tab*) 10 mg PO DAILY [facility] Aspirin (Aspirin 81 Mg Chew Tab*) 81 mg PO DAILY [facility] Last Admin: 01/25/20 09:37 Dose: 81 mg Atorvastatin Calcium (Lipitor*) 40 mg PO 1700 [facility] Last Admin: 01/24/20 15:34 Dose: 40 mg Carvedilol (Coreg Tab*) 3.125 mg PO BID [facility] Last Admin: 01/25/20 09:53 Dose: Not Given Citalopram Hydrobromide (Celexa Tab*) 10 mg PO DAILY [facility] Last Admin: 01/25/20 09:37 Dose: 10 mg Dextrose (D50w Syringe 50 Ml*) 12.5 gm IV PUSH .FOR FS < 60 - SS PRN PRN Reason: FS < 60 Docusate Sodium (Colace Cap*) 100 mg PO BID PRN PRN Reason: CONSTIPATION Last Admin: 01/20/20 08:43 Dose: 100 mg Glipizide (Glucotrol Tab*) 10 mg PO BID [facility] Last Admin: 01/25/20 09:37 Dose: 10 mg Heparin Sodium (Porcine) (Heparin Vial(*)) 5,000 units SUBCUT Q8HR [facility] Last Admin: 01/25/20 06:24 Dose: 5,000 units Heparin Sodium (Porcine) (Heparin Flush Port (Ivad)) 5 ml FLUSH DAILY [facility]; Protocol Last Admin: 01/25/20 09:38 Dose: 5 ml Insulin Human Lispro (Humalog*) 0 units SUBCUT BID [facility]; Protocol Last Admin: 01/25/20 09:13 Dose: Not Given Multivitamins/Minerals (Preservision Areds 2) 1 cap PO BID [facility] Last Admin: 01/25/20 09:38 Dose: Not Given Ondansetron HCl (Zofran Inj*) 4 mg IV Q4H PRN PRN Reason: NAUSEA/VOMITING Polyethylene Glycol/Electrolytes (Miralax (17 Gm Dose Alex)) 17 gm PO DAILY [facility] Last Admin: 01/25/20 09:38 Dose: 17 gm Vital Signs - 8 hr 01/25/20 01/25/20 01/25/20 03:21 07:23 07:40 Temperature 97.5 F 97.4 F Pulse Rate 64 65 Respiratory 22 16 18 Rate Blood Pressure 140/67 139/66 (mmHg) O2 Sat by Pulse 99 99 Oximetry Oxygen Devices in Use Now: None Appearance: A+Ox3 in NAD - appropriate Eyes: No Scleral Icterus, PERRLA Ears/Nose/Mouth/Throat: Mucous Membranes Moist Neck: NL Appearance and Movements; NL JVP Respiratory: Symmetrical Chest Expansion and Respiratory Effort, Clear to Auscultation Cardiovascular: NL Sounds; No Murmurs; No JVD, RRR, No Edema Abdominal: NL Sounds; No Tenderness; No Distention, - - large, round Extremities: No Edema, No Clubbing, Cyanosis Neurological: Alert and Oriented x 3, NL Sensation, - - bilateral tremors noted with arm extention. 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 No facial droop, no pronator drift Lines/Tubes/Other Access: Clean, Dry and Intact Peripheral IV Result Diagrams: 01/25/20 07:35 01/25/20 07:35 Assess/Plan/Problems-Billing Mr Shah is a 74 yo M who has a h/o small cell lung cancer without evidence of active disease who presented to the ER due to increased frequency of falls found to have CVA - Patient Problems (1) Lacunar infarction Comment: Pt was found to have a probable subacute lacunar infarct of the left internal capsule. No focal deficits noted at this time. Code Castillo called 01/22 due to AMS and left facial droop - repeat CT brain unchanged. Seen By Neurology - seizures low on differential but if he continues to have recurrent unexplained epsoides of confusion important to rule out focal seizures. EEG 01/18 showing epileptic or focal seizures. Start DAPT for 21 days- Plavix 75 mg in addition to ASA 81 mg daily, then Plavix 75 mg daily. Goal SBP 120-140 (2) Altered mental status Comment: Improving A+OX3. Generalizes not feeling well, weak, tired, denies SOB. Continue supportive measures Continue to monitor (3) Falls Comment: Unclear why the patient has been falling at an increased frequency. He does have a small lacunar infarct but per neuro unlikely to cause his falls. At this point it is noted that his mental status waxes and wanes. Has been seen by PT, [facility] at d/c recommended at this point (4) Anemia Comment: H/H dropped significantly from admission but has since stabilized and appears to have senior living hx of anemia - uspect of chronic illness. No reported bleeding. Also hx CKD III. GUIAC ordered 01/20 - uncollected - reordered today (5) Non-insulin dependent type 2 diabetes mellitus Comment: Blood sugars better control this am. Glipizide restarted 01/19. Doing slightly better with increase in pre-prandial SS Continue SS lispro Continue glipiside Continue to monitor glucose levels (6) Hyperlipemia Comment: Continue lipitor. (7) Hypertension Comment: Improvement in BP, amlodipine increased to 10mg on 01/19 Coreg 3.125 mg BID Continue current regimen with hold parameters Goal SBP 120-140 (8) CKD (chronic kidney disease) stage 3, GFR 30-59 ml/min Comment: Cr slightly elevated above baseline but appears to be close Had received lasix 01/22. 500 ml bolus given yesterday - strict I+O - Renally dose medications, will need to hold on contrast (9) Liver mass Comment: The mass has been biopsied 3 times already. No evidence of malignancy with those biopsies. CT this admission shows growth since last month. Pt has been seen by . (10) DVT prophylaxis Comment: heparin SQ (11) Small cell lung cancer Comment: Reportedly no evidence of active disease at this time. (12) DNR (do not resuscitate) Status and Disposition: inpatient. Recommended for [facility] at [place]
[2020-01-25] MEDS ORDERED: Clopidogrel TAB* 75 MG PO ONE (10:24)
[2020-01-25] MEDS: Acetaminophen TAB* 325 MG PO PRN (15:37)
[2020-01-25] MEDS: Atorvastatin* 40 MG TAB PO SCH (17:38)
[2020-01-26] MEDS: Heparin VIAL(*) 5000 UNITS/ML VIAL (FIVE THOUSAND) SUBCUT SCH (05:29)
[2020-01-26 05:53] LABS: Hematocrit 26 % (42-52); Hemoglobin 8.9 g/dL (14.0-18.0); Mean Corpuscular HGB Conc 34 g/dL (31-36); Mean Corpuscular Hemoglobin 29 pg (27-31); Mean Corpuscular Volume 85 fL (80-94); Mean Platelet Volume 7.7 fL (7.4-10.4); Platelet Count 384 10^3/uL (150-450); Red Blood Count 3.07 10^6 /uL (4.18-5.48); Red Cell Distribution Width 15 % (10-15); White Blood Count 9.4 10^3/uL (3.5-10.8)
[2020-01-26 06:09] LABS: BUN/Creatinine Ratio 21.1 (8-20); Calcium 8.9 mg/dL (8.6-10.3); EGFR African American 26.5 (>60); EGFR Non-African American 21.9 (>60)
[2020-01-26 07:40] VITALS: BP 147/66
[2020-01-26] MEDS: Citalopram TAB* 10 MG PO SCH (08:36)
[2020-01-26] MEDS: glipiZIDE TAB* 5 MG PO SCH (08:36)
[2020-01-26] MEDS: Polyethylene Glycol 3350* 17 GM PACKET PO SCH (08:36)
[2020-01-26] MEDS: Carvedilol TAB* 3.125 MG PO SCH (08:37)
[2020-01-26] MEDS: Insulin LISPRO* 1 UNITS UNIT SUBCUT SCH (08:37)
[2020-01-26] MEDS: Aspirin 81 mg CHEW TAB* 81 MG TAB.CHEW PO SCH (08:37)
[2020-01-26] MEDS: Multivitamins/Mins (NF) AREDS2 1 CAP CAP PO SCH (08:40)
[2020-01-26] MEDS ORDERED: Clopidogrel TAB* 75 MG PO SCH (09:00)
--- NOTE | 2020-01-26 09:06 | DCNOTE ---
Subjective Date of Service: 01/26/20 Interval History: . Patient sitting up in bed A+O to self and place in [facility]. He denies any complaints. Reports he has not been out of bed yet today but feels steady on his feet with use of walker. Reports good appetite. Denies any weakness. Objective Active Medications: Acetaminophen (Tylenol Tab*) 650 mg PO Q4H PRN PRN Reason: PAIN - MILD Last Admin: 01/25/20 15:37 Dose: 650 mg Al Hydrox/Mg Hydrox/Simethicone (Maalox Plus*) 30 ml PO Q6H PRN PRN Reason: INDIGESTION Amlodipine Besylate (Norvasc Tab*) 10 mg PO DAILY [facility] Last Admin: 01/26/20 08:36 Dose: 10 mg Aspirin (Aspirin 81 Mg Chew Tab*) 81 mg PO DAILY [facility] Last Admin: 01/26/20 08:37 Dose: 81 mg Atorvastatin Calcium (Lipitor*) 40 mg PO 1700 [facility] Last Admin: 01/25/20 17:38 Dose: 40 mg Carvedilol (Coreg Tab*) 3.125 mg PO BID [facility] Last Admin: 01/26/20 08:37 Dose: 3.125 mg Citalopram Hydrobromide (Celexa Tab*) 10 mg PO DAILY [facility] Last Admin: 01/26/20 08:36 Dose: 10 mg Clopidogrel Bisulfate (Plavix Tab*) 75 mg PO DAILY [facility] Last Admin: 01/26/20 08:37 Dose: 75 mg Dextrose (D50w Syringe 50 Ml*) 12.5 gm IV PUSH .FOR FS < 60 - SS PRN PRN Reason: FS < 60 Docusate Sodium (Colace Cap*) 100 mg PO BID PRN PRN Reason: CONSTIPATION Last Admin: 01/20/20 08:43 Dose: 100 mg Glipizide (Glucotrol Tab*) 10 mg PO BID [facility] Last Admin: 01/26/20 08:36 Dose: 10 mg Heparin Sodium (Porcine) (Heparin Vial(*)) 5,000 units SUBCUT Q8HR [facility] Last Admin: 01/26/20 05:29 Dose: 5,000 units Insulin Human Lispro (Humalog*) 0 units SUBCUT BID [facility]; Protocol Last Admin: 01/26/20 08:37 Dose: Not Given Multivitamins/Minerals (Preservision Areds 2) 1 cap PO BID [facility] Last Admin: 01/26/20 08:40 Dose: Not Given Ondansetron HCl (Zofran Inj*) 4 mg IV Q4H PRN PRN Reason: NAUSEA/VOMITING Polyethylene Glycol/Electrolytes (Miralax (17 Gm Dose Alex)) 17 gm PO DAILY [facility] Last Admin: 01/26/20 08:36 Dose: 17 gm Vital Signs - 8 hr 01/26/20 01/26/20 01/26/20 03:34 07:37 07:40 Temperature 97.2 F 97.6 F Pulse Rate 62 62 Respiratory 18 16 16 Rate Blood Pressure 131/65 147/66 (mmHg) O2 Sat by Pulse 99 98 Oximetry Oxygen Devices in Use Now: None Appearance: A+O to self and place year in NAD Eyes: PERRLA Ears/Nose/Mouth/Throat: Mucous Membranes Moist Respiratory: Clear to Auscultation Cardiovascular: NL Sounds; No Murmurs; No JVD, RRR, No Edema Abdominal: NL Sounds; No Tenderness; No Distention, - - round Extremities: No Edema, No Clubbing, Cyanosis Skin: No Rash or Ulcers, No Nodules or Sclerosis Neurological: Alert and Oriented x 3, NL Muscle Strength and Tone, - Lines/Tubes/Other Access: Clean, Dry and Intact Peripheral IV Nutrition: Taking PO's Result Diagrams: 01/26/20 05:40 01/26/20 05:40 Assess/Plan/Problems-Billing Mr Shah is a 74 yo M who has a h/o small cell lung cancer without evidence of active disease who presented to the ER due to increased frequency of falls found to have CVA - Patient Problems (1) Lacunar infarction Comment: Pt was found to have a probable subacute lacunar infarct of the left internal capsule. No focal deficits noted at this time. Code Castillo called 01/22 due to AMS and left facial droop - repeat CT brain unchanged. Seen By Neurology - seizures low on differential but if he continues to have recurrent unexplained epsoides of confusion important to rule out focal seizures. EEG 01/18 showing epileptic or focal seizures. Start DAPT for 21 days- Plavix 75 mg in addition to ASA 81 mg daily, then Plavix 75 mg daily. Plavix started 01/24 Goal SBP 120-140 (2) Altered mental status Comment: Improving A+OX3. Generalizes not feeling well, weak, tired, denies SOB. Continue supportive measures Continue to monitor (3) Falls Comment: Unclear why the patient has been falling at an increased frequency. He does have a small lacunar infarct but per neuro unlikely to cause his falls. At this point it is noted that his mental status waxes and wanes. Has been seen by PT, [facility] at d/c recommended at this point -plan for [facility] (4) Anemia Comment: H/H dropped significantly from admission but has since stabilized and appears to have retirement hx of anemia - uspect of chronic illness. No reported bleeding. Also hx CKD III. GUIAC ordered 01/20 - uncollected - reordered (5) Non-insulin dependent type 2 diabetes mellitus Comment: Blood sugars better control this am. Glipizide restarted 01/19. Blood sugars better controlled yesterday. Continue SS lispro Continue glipiside Home Januvia 50 mg at night, and Pioglitazone 30 mg daily - is on hold Continue to monitor glucose levels (6) Hyperlipemia Comment: Continue lipitor. (7) Hypertension Comment: Improvement in BP, amlodipine increased to 10mg on 01/19 Coreg 3.125 mg BID Continue current regimen with hold parameters Goal SBP 120-140 lasix on hold (8) CKD (chronic kidney disease) stage 3, GFR 30-59 ml/min Comment: Cr appears to be around baseline Had received lasix 01/22. - strict I+O - Renally dose medications, will need to hold on contrast (9) Liver mass Comment: The mass has been biopsied 3 times already. No evidence of malignancy with those biopsies. CT this admission shows growth since last month. Pt has been seen by . (10) Small cell lung cancer Comment: Reportedly no evidence of active disease at this time. (11) DNR (do not resuscitate) (12) DVT prophylaxis Comment: heparin SQ Status and Disposition: inpatient. Plan for DC today to [facility] for [facility]
[2020-01-26 09:44] LABS: ABS Basophils 0.1 10^3/ul (0-0.2); ABS Eosinophils 0.6 10^3/ul (0-0.6); ABS Lymphocytes 0.8 10^3/ul (1.0-4.8); ABS Monocytes 1.3 10^3/ul (0-0.8); ABS Neutrophils 6.7 10^3/ul (1.5-7.7); Eosinophil % 6.5 %; Lymphocyte % 8.7 %
--- NOTE | 2020-01-26 12:39 | DS ---
CC: Dr. Byron Carrillo* DATE OF ADMISSION: 01/18/2020. DATE OF DISCHARGE: 01/26/2020. PROVIDER: Martha Ortega NP. ATTENDING PHYSICIAN: Dr. Sotomayor* (report dictated by Martha Ortega NP). PRIMARY CARE PHYSICIAN: Dr. Byron Carrillo. CONSULTING NEUROLOGIST: Dr. Jerome and Dr. Day. DISCHARGE PLAN: Discharge to [facility] for subacute rehab. PRIMARY DISCHARGE DIAGNOSES: 1. Acute left lacunar stroke. 2. Acute metabolic encephalopathy. 3. Falls. 4. Anemia. SECONDARY DIAGNOSES: 1. Type 2 diabetes. 2. Chronic kidney disease. 3. Small cell lung cancer without evidence of active disease. 4. Hyperlipidemia. 5. Hypertension. 6. History of liver mass, status post three biopsies with no evidence of malignancy. CODE STATUS: DNR. DISCHARGE MEDICATIONS: 1. Glipizide 10 mg p.o. b.i.d. 2. Multivitamin with minerals one cap p.o. b.i.d. 3. Lispro insulin sliding scale b.i.d. 4. Heparin subcu 5,000 units q.8 hours. 5. Colace 100 mg p.o. b.i.d. prn constipation. 6. Plavix 75 mg p.o. daily. 7. Aspirin 81 mg p.o. daily. 8. Celexa 10 mg p.o. daily. 9. Coreg 3.125 mg p.o. b.i.d. 10. Lipitor 40 mg p.o. daily. 11. Norvasc 10 mg p.o. daily. 12. Acetaminophen 650 mg p.o. q.4 hours prn. 13. Maalox Plus 30 ml p.o. q.6 hours prn constipation. HOME MEDICATIONS ON HOLD: 1. Actos 30 mg p.o. daily. 2. Furosemide 20 mg p.o. daily. 3. Januvia 50 mg p.o. q.p.m. 4. Flax seed oil one cap p.o. daily. HISTORY OF PRESENT ILLNESS/HOSPITAL COURSE: Mr. Shah is a 74-year-old male who presented to the emergency department on 01/18/2020 after he fell twice and was brought in by his . He told his that he was having abdominal pain, dizziness, and weakness. The patient was admitted to the Hospitalist Service with concern of a head CT in the ER showing a new hypodensity concerning of a possible lacunar infarct. The patient did undergo a brain MRI confirming he did have an acute lacunar infarct on the left. He was seen in consultation by the neurologist, Dr. Jerome, whose impression was that of encephalopathy in a patient with a subacute left subcortical small vessel infarction. The patient had a vitamin B12 level which was low normal and a pneumonia which was normal. There was discussion about possible LP and due to this, his initiation of Plavix was held and then it was decided that the patient did not need to undergo the LP as he was improving. had no signs of an infectious process. Recommendation from Neurology was for dual antiplatelet therapy for 21 days with Plavix and aspirin, then DC aspirin after 21 days and continue Plavix 75 mg daily only. He was on aspirin when he had the stroke. The patient also underwent an EEG on January 18 showing diffuse slowing and disorganization of the background rhythm consistent with diffuse cerebral dysfunction. There are no focal or epileptiform features in the recording. Seizures are low on the differential, but it was recommended per Neurology that if he continues to have recurrent, unexplained episodes of confusion and transient facial droop, he will certainly need to have further work-up for focal seizures. He did have one episode on 01/23/2020 where nursing staff reported facial droop and at that time Dr. Day saw the patient within minutes and did not find those same findings on his examination. He did undergo a repeat CT which showed no acute changes. Since that time, he has had no further episodes. Recommendation from Neurology is placing hold parameters on his antihypertensive agents, hold if SBP is less than 140 with the goal of SBP between 120 and 160 mmHg. There is concern about the patient's anemia. His hemoglobin/hematocrit dropped from admission, but has stabilized since and appears to be most likely anemia of chronic disease. No noted acute bleeding. Also, a history of chronic kidney disease, stage 3. Guaiac was ordered on January 20, but uncollected and was reordered yesterday and this continues to be pending. The patient has noninsulin dependent type 2 diabetes and was restarted on his Glipizide 01/20/2020 along with insulin sliding scale and blood sugars have been steadily improving. Currently, his Januvia and Actos are on hold. Consider restarting these. In regards to the patient history of liver mass, it has been biopsied three times with no evidence of malignancy. CT this admission did show growth since last month. He is to follow-up with Dr. Estevez. Currently at this time, his home dose Lasix has been on hold due to not wanting to decrease his blood pressure per Neurology recommendations. The patient does not appear to be fluid overloaded. This should be continued to be monitored and recommend daily weights, as well as close monitoring of blood pressure. The patient is stable for discharge to [facility] for subacute rehab. DISPOSITION ON DISCHARGE: Stable. TIME SEEN: Approximately 60 minutes were spent on this discharge. MARTHA ORTEGA NP [id number]/[facility] #: [id number] PADDY
== END 2020-01-26 10:10 | DRG 64 ==
LOC: ED 23:41 → MEDTELE 01-18 03:07 → OBSVTOIN 01-18 17:17 → MED 01-18 17:20 → MEDTELE 01-22 16:50
PROVIDERS: ADMIT Pediatrics; ATTEND Internal Medicine
PROC: 4A00X4Z Measurement of Central Nervous Electrical Activity, External Approach (ICD-10-PCS; principal; 2020-01-18)
DX: I63.81 Other cerebral infarction due to occlusion or stenosis of small artery (principal); G93.41 Metabolic encephalopathy; I13.0 Hypertensive heart and chronic kidney disease with heart failure and stage 1 through stage 4 chronic kidney disease, or unspecified chronic kidney disease; I50.32 Chronic diastolic (congestive) heart failure; G81.91 Hemiplegia, unspecified affecting right dominant side; E11.42 Type 2 diabetes mellitus with diabetic polyneuropathy; H91.90 Unspecified hearing loss, unspecified ear; H35.30 Unspecified macular degeneration; F41.9 Anxiety disorder, unspecified; F32.9 Major depressive disorder, single episode, unspecified; N18.3 Chronic kidney disease, stage 3 (moderate); E11.22 Type 2 diabetes mellitus with diabetic chronic kidney disease; G47.33 Obstructive sleep apnea (adult) (pediatric); E78.5 Hyperlipidemia, unspecified; Z66 Do not resuscitate; R40.2362 Coma scale, best motor response, obeys commands, at arrival to emergency department; R40.2142 Coma scale, eyes open, spontaneous, at arrival to emergency department; R40.2252 Coma scale, best verbal response, oriented, at arrival to emergency department; R16.0 Hepatomegaly, not elsewhere classified; G31.84 Mild cognitive impairment of uncertain or unknown etiology; E78.00 Pure hypercholesterolemia, unspecified; R47.1 Dysarthria and anarthria; D63.1 Anemia in chronic kidney disease; R29.810 Facial weakness; Z85.118 Personal history of other malignant neoplasm of bronchus and lung; Z85.828 Personal history of other malignant neoplasm of skin; Z92.3 Personal history of irradiation; Z92.21 Personal history of antineoplastic chemotherapy; Z86.711 Personal history of pulmonary embolism; Z97.4 Presence of external hearing-aid; Z88.5 Allergy status to narcotic agent; Z86.73 Personal history of transient ischemic attack (TIA), and cerebral infarction without residual deficits; Z91.81 History of falling; Z79.02 Long term (current) use of antithrombotics/antiplatelets; Z79.84 Long term (current) use of oral hypoglycemic drugs; Z79.82 Long term (current) use of aspirin
CPT/HCPCS: 36415; 70450; 70551; 71045; 71046; 74176; 80048; 80053; 80320; 81003; 81015; 82140; 82607; 82728; 83540; 83550; 83605; 83690; 83735; 83880; 84443; 84484; 85025; 85027; 85610; 86140; 87635; 93005; 95816; 99285; A9270-GY; G0480; G2023; J1642; J1644; J1940; J2270; J2997; J3420

== ENCOUNTER 2020-12-20 10:52 | Observation (INO) ==
[~2020-12-20 10:52] MED LIST: DOXORUBICIN SCH; Dexamethasone IV 4 MG/ML 5 ML VIAL (20 MG) IVPB ONE; Morphine 2 MG/ML SYRINGE IV PRN; Ondansetron 4 mg VIAL 2 MG/ML 2 ml VIAL IV PRN; metroNIDAZOLE IV 500 MG/100ML 100 ML IVPB ONE
[2020-12-20] MEDS ORDERED: NS 0.9% 1000 ml BAG 1,000 ML IV SCH (11:00)
[2020-12-20 11:58] LABS: ABS Basophils 0.1 10^3/ul (0-0.2); ABS Eosinophils 0.3 10^3/ul (0-0.6); ABS Lymphocytes 0.8 10^3/ul (1.0-4.8); ABS Monocytes 0.8 10^3/ul (0-0.8); ABS Neutrophils 6.7 10^3/ul (1.5-7.7); Eosinophil % 3.2 %; Hematocrit 28 % (42-52); Lymphocyte % 9.2 %; Mean Corpuscular HGB Conc 33 g/dL (31-36); Mean Corpuscular Hemoglobin 29 pg (27-31); Mean Corpuscular Volume 90 fL (80-94); Mean Platelet Volume 8.3 fL (7.4-10.4); Platelet Count 225 10^3/uL (150-450); Red Blood Count 3.07 10^6 /uL (4.18-5.48); Red Cell Distribution Width 15 % (10-15); White Blood Count 8.7 10^3/uL (3.5-10.8)
[2020-12-20 12:06] LABS: Activated Partial Thrombo Time 36.6 seconds (26.0-38.0); INR 1.07 (0.82-1.09)
[2020-12-20 12:13] LABS: Albumin 3.2 g/dL (3.2-5.2); Albumin/Globulin Ratio 0.8 (1-3); BUN/Creatinine Ratio 15.6 (8-20); Calcium 8.8 mg/dL (8.6-10.3); EGFR African American 26.1 (>60); EGFR Non-African American 21.5 (>60); Globulin 3.8 g/dL (2-4); Potassium 4.2 mmol/L (3.5-5.0); Total Bilirubin 0.4 mg/dL (0.2-1.0)
[2020-12-20] MEDS ORDERED: Ondansetron 4 mg VIAL 2 MG/ML 2 ml VIAL ONE ×2 (12:21→18:04)
[2020-12-20] MEDS ORDERED: Lidocaine 1% VIAL 10 MG/ML VIAL ONE (13:12)
[2020-12-20] MEDS ORDERED: Heparin 2 UNITS/ML IVPREMIX 3,000 UNIT/1,500 ML BAG IV ONE (13:12)
[2020-12-20] MEDS ORDERED: Iodixanol 320 (CONTRAST) 100 ML SDV ONE ×2 (13:12→15:25)
[2020-12-20] MEDS ORDERED: Midazolam 5 mg/5 ml VIAL 1 mg/ml 5 ml VIAL (5 mg) ONE (13:13)
[2020-12-20] MEDS ORDERED: fentaNYL 100 mcg/2 ml 50 MCG/ML VIAL ONE ×2 (13:13→15:40)
[2020-12-20] MEDS ORDERED: Heparin 1,000 UNIT/ML 10 ml (10,000 UNITS) CATHLAB/DIALYSIS ONE (13:27)
[2020-12-20] MEDS ORDERED: VERAPAMIL 2.5 MG/ML 2 ML VIAL ** 5 mg/2 ml ONE (13:27)
[2020-12-20] MEDS ORDERED: nitroGLYCERIN DRIP 25,000 MCG/250 ML BTL ONE (13:27)
[2020-12-20] MEDS ORDERED: Heparin 2 UNITS/ML IVPREMIX 1,000 UNIT/500 ML BAG IV ONE ×3 (13:34→15:54)
[2020-12-20] MEDS ORDERED: HYDROmorphone PCA 1 MG/ML Titrat per Protocol PCA SCH (15:30)
[2020-12-20] MEDS ORDERED: LACTATED RINGERS 1000 ML BAG IV SCH (18:00)
[2020-12-20] MEDS: Ondansetron 4 mg VIAL 2 MG/ML 2 ml VIAL IV SCH ×2 (18:07→23:55)
[2020-12-20] MEDS ORDERED: Lactated Ringers 1000 ml BAG 1,000 ML IV SCH (23:45)
[2020-12-21] MEDS: Ondansetron 4 mg VIAL 2 MG/ML 2 ml VIAL IV SCH ×3 (05:56→16:06)
[2020-12-21] MEDS ORDERED: Multivitamins/Mins AREDS2 (NF) CAP PO SCH (09:00)
[2020-12-21] MEDS ORDERED: HYDROcodone/ACETAMIN 5/325 mg TAB PO PRN (09:03)
[2020-12-21 09:49] LABS: Hematocrit 27 % (42-52); Hemoglobin 8.9 g/dL (14.0-18.0); Mean Corpuscular HGB Conc 33 g/dL (31-36); Mean Corpuscular Hemoglobin 29 pg (27-31); Mean Corpuscular Volume 89 fL (80-94); Mean Platelet Volume 8.3 fL (7.4-10.4); Platelet Count 244 10^3/uL (150-450); Red Blood Count 3.04 10^6 /uL (4.18-5.48); Red Cell Distribution Width 15 % (10-15); White Blood Count 13.6 10^3/uL (3.5-10.8)
[2020-12-21 10:19] LABS: Albumin 3.1 g/dL (3.2-5.2); Albumin/Globulin Ratio 0.9 (1-3); BUN/Creatinine Ratio 19.5 (8-20); Calcium 8.6 mg/dL (8.6-10.3); EGFR African American 26.2 (>60); EGFR Non-African American 21.6 (>60); Globulin 3.5 g/dL (2-4); Total Bilirubin 0.3 mg/dL (0.2-1.0); Total Protein 6.6 g/dL (6.4-8.9)
[2020-12-21 10:25] LABS: Potassium 5.1 mmol/L (3.5-5.0)
[2020-12-21 11:10] LABS: ABS Lymphocytes 0.6 10^3/ul (1.0-4.8); ABS Monocytes 1.7 10^3/ul (0-0.8); ABS Neutrophils 11.3 10^3/ul (1.5-7.7); Lymphocyte % 4.3 %
[2020-12-21 16:41] VITALS: BP 159/72
[2020-12-21 17:13] LABS: Albumin 3.2 g/dL (3.2-5.2); Albumin/Globulin Ratio 0.8 (1-3); BUN/Creatinine Ratio 19.2 (8-20); Calcium 8.7 mg/dL (8.6-10.3); EGFR African American 26.3 (>60); EGFR Non-African American 21.7 (>60); Globulin 3.9 g/dL (2-4); Potassium 4.7 mmol/L (3.5-5.0); Total Bilirubin 0.3 mg/dL (0.2-1.0); Total Protein 7.1 g/dL (6.4-8.9)
== END 2020-12-21 18:00 | disposition home or self-care (01) ==
LOC: SSU 10:52 → CHICATH 10:52
PROVIDERS: ADMIT Radiology Diagnostic Radiology; ATTEND Internal Medicine Hematology & Oncology

== ENCOUNTER 2020-12-22 01:56 | Inpatient (IN) ==
[2020-12-22 04:01] LABS: Hematocrit 27 % (42-52); Hemoglobin 9.1 g/dL (14.0-18.0); Mean Corpuscular HGB Conc 33 g/dL (31-36); Mean Corpuscular Hemoglobin 30 pg (27-31); Mean Corpuscular Volume 89 fL (80-94); Platelet Count 244 10^3/uL (150-450); Red Blood Count 3.08 10^6 /uL (4.18-5.48); Red Cell Distribution Width 15 % (10-15); White Blood Count 16.5 10^3/uL (3.5-10.8)
[2020-12-22 04:33] LABS: AST 913 U/L (13-39); Albumin 3.2 g/dL (3.2-5.2); Albumin/Globulin Ratio 0.8 (1-3); Alkaline Phosphatase 260 U/L (34-104); Anion Gap 9 mmol/L (2-11); BUN/Creatinine Ratio 19.1 (8-20); Blood Urea Nitrogen 57 mg/dL (6-24); CO2 Carbon Dioxide 23 mmol/L (22-32); Calcium 8.7 mg/dL (8.6-10.3); Chloride 103 mmol/L (101-111); EGFR Non-African American 20.6 (>60); Globulin 3.8 g/dL (2-4); Glucose 145 mg/dL (70-100); Magnesium 1.6 mg/dL (1.9-2.7); Potassium 4.5 mmol/L (3.5-5.0); Sodium 135 mmol/L (135-145)
[2020-12-22 04:54] LABS: Troponin I 0.25 ng/mL (<0.03)
[2020-12-22 05:08] LABS: ALT 643 U/L (7-52)
[2020-12-22] MEDS ORDERED: Magnesium Sulfate IV 1GM/100ML 1 GM/100 ML BAG IV ONE (05:12)
[2020-12-22 05:30] LABS: ABS Eosinophils 0.1 10^3/ul (0-0.6); ABS Lymphocytes 0.4 10^3/ul (1.0-4.8); ABS Monocytes 2.6 10^3/ul (0-0.8); ABS Neutrophils 13.4 10^3/ul (1.5-7.7); Eosinophil % 0.7 %; Lymphocyte % 2.4 %
[2020-12-22] MEDS ORDERED: Furosemide 40 mg/4 ml IV VIAL IV SLOW PU ONE (05:55)
[2020-12-22 06:29] LABS: Urine Appearance Clear; Urine Bilirubin Negative (Negative); Urine Blood 1+ (Negative); Urine Color Yellow; Urine Glucose 1+(50 mg/dL) (Negative); Urine Ketones Negative (Negative); Urine Nitrite Negative (Negative); Urine Protein 2+(100 mg/dL) (Negative); Urine Specific Gravity 1.014 (1.010-1.030); Urine Urobilinogen Negative (Negative)
[2020-12-22 06:41] LABS: Urine Bacteria Absent (Absent); Urine Red Blood Cell 2+(6-10/hpf) (Absent); Urine Squamous Epithelial Cell Present (Absent); Urine White Blood Cell Trace(0-5/hpf) (Absent)
[2020-12-22] MEDS ORDERED: Dextrose 50% Syringe 50 ml 25 GM/50 ML SYRINGE IV PUSH PRN (08:22)
[2020-12-22] MEDS ORDERED: Heparin DRIP 25,000 UNITS BAG 25,000 UNITS/500 ML BAG IV SCH ×2 (08:45→09:00)
[2020-12-22] MEDS ORDERED: Heparin 5000 UNITS/ML 1 mL VIAL IV SCH ×2 (09:00)
[2020-12-22 09:26] LABS: Hematocrit 26 % (42-52); Hemoglobin 8.5 g/dL (14.0-18.0); Mean Corpuscular HGB Conc 33 g/dL (31-36); Mean Corpuscular Hemoglobin 30 pg (27-31); Mean Corpuscular Volume 89 fL (80-94); Platelet Count 216 10^3/uL (150-450); Red Blood Count 2.86 10^6 /uL (4.18-5.48); Red Cell Distribution Width 15 % (10-15); White Blood Count 16.8 10^3/uL (3.5-10.8)
[2020-12-22 09:30] LABS: ABS Neutrophils 13.4 10^3/ul (1.5-7.7)
[2020-12-22 09:31] LABS: ABS Basophils 0.1 10^3/ul (0-0.2); ABS Eosinophils 0.1 10^3/ul (0-0.6); ABS Lymphocytes 0.5 10^3/ul (1.0-4.8); ABS Monocytes 2.7 10^3/ul (0-0.8); Eosinophil % 0.5 %; Lymphocyte % 3.3 %
[2020-12-22 09:50] LABS: Troponin I 0.17 ng/mL (<0.03)
[2020-12-22 10:06] LABS: Blood Urea Nitrogen 57 mg/dL (6-24); EGFR African American 23.3 (>60); EGFR Non-African American 19.3 (>60)
[2020-12-22] MEDS: Multivitamins/Minerals TAB PO SCH (12:50)
[2020-12-22 15:43] LABS: Hematocrit 25 % (42-52); Mean Corpuscular HGB Conc 32 g/dL (31-36); Mean Corpuscular Hemoglobin 29 pg (27-31); Mean Corpuscular Volume 89 fL (80-94); Mean Platelet Volume 7.9 fL (7.4-10.4); Platelet Count 213 10^3/uL (150-450); Red Blood Count 2.79 10^6 /uL (4.18-5.48); Red Cell Distribution Width 15 % (10-15); White Blood Count 19.6 10^3/uL (3.5-10.8)
[2020-12-22 15:44] LABS: ABS Basophils 0.1 10^3/ul (0-0.2); ABS Eosinophils 0.1 10^3/ul (0-0.6); ABS Lymphocytes 0.6 10^3/ul (1.0-4.8); ABS Monocytes 3.4 10^3/ul (0-0.8); ABS Neutrophils 15.4 10^3/ul (1.5-7.7); Eosinophil % 0.3 %
[2020-12-22] MEDS: cefTRIAXone 1 gm/50 mL NS BAG 1 GM/50 ML BAG IVPB SCH (16:17)
[2020-12-23 03:56] LABS: Albumin/Globulin Ratio 0.9 (1-3); BUN/Creatinine Ratio 17.1 (8-20); Calcium 8.5 mg/dL (8.6-10.3); EGFR Non-African American 18.2 (>60); Globulin 3.4 g/dL (2-4); Potassium 3.7 mmol/L (3.5-5.0); Total Bilirubin 0.5 mg/dL (0.2-1.0); Total Protein 6.4 g/dL (6.4-8.9)
[2020-12-23 08:41] LABS: Hematocrit 22 % (42-52); Hemoglobin 7.4 g/dL (14.0-18.0); Mean Corpuscular HGB Conc 33 g/dL (31-36); Mean Corpuscular Hemoglobin 30 pg (27-31); Mean Corpuscular Volume 89 fL (80-94); Mean Platelet Volume 8.2 fL (7.4-10.4); Platelet Count 182 10^3/uL (150-450); Red Blood Count 2.51 10^6 /uL (4.18-5.48); Red Cell Distribution Width 15 % (10-15); White Blood Count 12.7 10^3/uL (3.5-10.8)
[2020-12-23] MEDS: Multivitamins/Minerals TAB PO SCH (08:45)
[2020-12-23 10:16] LABS: ABS Basophils 0.1 10^3/ul (0-0.2); ABS Eosinophils 0.1 10^3/ul (0-0.6); ABS Lymphocytes 0.6 10^3/ul (1.0-4.8); ABS Monocytes 1.8 10^3/ul (0-0.8); ABS Neutrophils 10.1 10^3/ul (1.5-7.7); Lymphocyte % 4.4 %
[2020-12-23] MEDS ORDERED: Furosemide 20 mg/2 ml IV VIAL IV SLOW PU ONE (14:59)
[2020-12-23] MEDS: cefTRIAXone 1 gm/50 mL NS BAG 1 GM/50 ML BAG IVPB SCH (15:51)
[2020-12-23] MEDS: Potassium Chloride LIQUID 20 MEQ/15 ML LIQUID PO ONE ×2 (18:11→18:18)
[2020-12-23] MEDS ORDERED: Potassium Chlor 20 meq TAB.ER PO ONE (19:00)
[2020-12-23] MEDS ORDERED: Magnesium Sulfate IV 1GM/100ML 1 GM/100 ML BAG IV ONE (19:16)
[2020-12-23] MEDS: PTO: Multivitamins/Mins AREDS2 (NF) CAP PO SCH (21:48)
[2020-12-24 06:59] LABS: Albumin/Globulin Ratio 0.8 (1-3); BUN/Creatinine Ratio 16.3 (8-20); Calcium 8.6 mg/dL (8.6-10.3); EGFR African American 21.3 (>60); EGFR Non-African American 17.6 (>60); Globulin 3.8 g/dL (2-4); Magnesium 2.2 mg/dL (1.9-2.7); Potassium 4.3 mmol/L (3.5-5.0); Total Bilirubin 0.7 mg/dL (0.2-1.0); Total Protein 6.8 g/dL (6.4-8.9)
[2020-12-24] MEDS: PTO: Multivitamins/Mins AREDS2 (NF) CAP PO SCH ×2 (08:41→22:16)
[2020-12-24] MEDS: Multivitamins/Minerals TAB PO SCH (08:41)
[2020-12-24 08:56] LABS: Hematocrit 27 % (42-52); Hemoglobin 9.2 g/dL (14.0-18.0); Mean Corpuscular HGB Conc 34 g/dL (31-36); Mean Corpuscular Hemoglobin 30 pg (27-31); Mean Corpuscular Volume 90 fL (80-94); Mean Platelet Volume 8.9 fL (7.4-10.4); Platelet Count 201 10^3/uL (150-450); Red Blood Count 3.02 10^6 /uL (4.18-5.48); Red Cell Distribution Width 15 % (10-15); White Blood Count 14.2 10^3/uL (3.5-10.8)
[2020-12-24 08:59] LABS: ABS Basophils 0.1 10^3/ul (0-0.2); ABS Eosinophils 0.1 10^3/ul (0-0.6); ABS Lymphocytes 0.4 10^3/ul (1.0-4.8); ABS Monocytes 1.7 10^3/ul (0-0.8); ABS Neutrophils 11.9 10^3/ul (1.5-7.7); Eosinophil % 0.6 %; Lymphocyte % 2.9 %; Nucleated Red Blood Cells % 0.1
[2020-12-24] MEDS ORDERED: Perflutren Lipid Microsphere 3 ML VIAL ONE (10:23)
[2020-12-24] MEDS: cefTRIAXone 1 gm/50 mL NS BAG 1 GM/50 ML BAG IVPB SCH (16:01)
[2020-12-24] MEDS ORDERED: ceFAZolin VIAL 1 GM in NS 0.9% 50 ML 50 ML IVPB ONE (17:07)
[2020-12-24] MEDS: HYDROcodone/ACETAMIN 5/325 mg TAB PO PRN (20:30)
[2020-12-24] MEDS ORDERED: NS 0.9% 1000 ml BAG 1,000 ML IV SCH (23:55)
[2020-12-25 03:11] LABS: Troponin I 0.32 ng/mL (<0.03)
[2020-12-25] MEDS ORDERED: Albuterol HFA INHALER 8 gm MDI INH PRN (04:09)
[2020-12-25 06:43] LABS: ALT 291 U/L (7-52); AST 134 U/L (13-39); Albumin 2.9 g/dL (3.2-5.2); Albumin/Globulin Ratio 0.7 (1-3); Alkaline Phosphatase 277 U/L (34-104); Anion Gap 11 mmol/L (2-11); BUN/Creatinine Ratio 16.2 (8-20); Blood Urea Nitrogen 59 mg/dL (6-24); CO2 Carbon Dioxide 21 mmol/L (22-32); Calcium 8.7 mg/dL (8.6-10.3); Chloride 101 mmol/L (101-111); EGFR African American 19.8 (>60); EGFR Non-African American 16.4 (>60); Globulin 3.9 g/dL (2-4); Glucose 167 mg/dL (70-100); Potassium 4.4 mmol/L (3.5-5.0); Sodium 133 mmol/L (135-145); Total Protein 6.8 g/dL (6.4-8.9)
[2020-12-25 06:53] LABS: Troponin I 0.45 ng/mL (<0.03)
[2020-12-25] MEDS ORDERED: ceFAZolin VIAL 1 GM in NS *SYRINGE* 10 ML IVPB ONE (08:00)
[2020-12-25] MEDS ORDERED: ceFAZolin 2 GM PREMIX 2 GM/50 ML BAG IVPB ONE (08:00)
[2020-12-25] MEDS: PTO: Multivitamins/Mins AREDS2 (NF) CAP PO SCH ×2 (08:17→19:15)
[2020-12-25 09:06] LABS: ABS Eosinophils 0.1 10^3/ul (0-0.6); ABS Lymphocytes 0.4 10^3/ul (1.0-4.8); ABS Monocytes 1.3 10^3/ul (0-0.8); ABS Neutrophils 9.2 10^3/ul (1.5-7.7); Eosinophil % 0.6 %; Hematocrit 26 % (42-52); Hemoglobin 8.8 g/dL (14.0-18.0); Lymphocyte % 3.3 %; Mean Corpuscular HGB Conc 34 g/dL (31-36); Mean Corpuscular Hemoglobin 30 pg (27-31); Mean Corpuscular Volume 91 fL (80-94); Mean Platelet Volume 8.6 fL (7.4-10.4); Platelet Count 199 10^3/uL (150-450); Red Cell Distribution Width 15 % (10-15)
[2020-12-25] MEDS ORDERED: Furosemide 20 mg/2 ml IV VIAL IV ONE (09:13)
[2020-12-25 09:24] LABS: Troponin I 0.37 ng/mL (<0.03)
[2020-12-25] MEDS: Multivitamins/Minerals TAB PO SCH (10:45)
[2020-12-25 12:46] LABS: Troponin I 0.33 ng/mL (<0.03)
[2020-12-25] MEDS: cefTRIAXone 1 gm/50 mL NS BAG 1 GM/50 ML BAG IVPB SCH (16:07)
[2020-12-26 05:52] LABS: Calcium 8.8 mg/dL (8.6-10.3); EGFR African American 20.5 (>60); EGFR Non-African American 16.9 (>60); Potassium 4.6 mmol/L (3.5-5.0)
[2020-12-26] MEDS ORDERED: CEFAZOLIN IVPB ONE (08:00)
[2020-12-26] MEDS ORDERED: ceFAZolin 2 GM PREMIX 2 GM/50 ML BAG IVPB ONE (08:00)
[2020-12-26] MEDS ORDERED: NS 0.9% IVPB ONE (08:00)
[2020-12-26] MEDS: Multivitamins/Minerals TAB PO SCH (09:12)
[2020-12-26] MEDS: PTO: Multivitamins/Mins AREDS2 (NF) CAP PO SCH ×2 (09:14→20:50)
[2020-12-26 09:30] LABS: ABS Eosinophils 0.4 10^3/ul (0-0.6); ABS Lymphocytes 0.4 10^3/ul (1.0-4.8); ABS Monocytes 1.2 10^3/ul (0-0.8); Eosinophil % 3.9 %; Hematocrit 26 % (42-52); Hemoglobin 8.7 g/dL (14.0-18.0); Mean Corpuscular HGB Conc 34 g/dL (31-36); Mean Corpuscular Hemoglobin 30 pg (27-31); Mean Corpuscular Volume 90 fL (80-94); Mean Platelet Volume 8.7 fL (7.4-10.4); Platelet Count 239 10^3/uL (150-450); Red Blood Count 2.88 10^6 /uL (4.18-5.48); Red Cell Distribution Width 15 % (10-15)
[2020-12-26 21:34] LABS: BUN/Creatinine Ratio 19.1 (8-20); Calcium 8.4 mg/dL (8.6-10.3); EGFR African American 22.7 (>60); EGFR Non-African American 18.7 (>60); Potassium 3.8 mmol/L (3.5-5.0)
[2020-12-27] MEDS: NS 0.9% 1000 ml BAG 1,000 ML IV SCH ×2 (05:45→13:53)
[2020-12-27 06:00] LABS: ABS Eosinophils 0.4 10^3/ul (0-0.6); ABS Lymphocytes 0.4 10^3/ul (1.0-4.8); ABS Monocytes 1.3 10^3/ul (0-0.8); ABS Neutrophils 8.2 10^3/ul (1.5-7.7); Eosinophil % 3.5 %; Hematocrit 26 % (42-52); Hemoglobin 8.8 g/dL (14.0-18.0); Lymphocyte % 3.5 %; Mean Corpuscular HGB Conc 34 g/dL (31-36); Mean Corpuscular Hemoglobin 30 pg (27-31); Mean Corpuscular Volume 89 fL (80-94); Mean Platelet Volume 8.7 fL (7.4-10.4); Platelet Count 249 10^3/uL (150-450); Red Blood Count 2.92 10^6 /uL (4.18-5.48); Red Cell Distribution Width 15 % (10-15); White Blood Count 10.3 10^3/uL (3.5-10.8)
[2020-12-27 06:17] LABS: Albumin 2.7 g/dL (3.2-5.2); Albumin/Globulin Ratio 0.7 (1-3); BUN/Creatinine Ratio 18.7 (8-20); Calcium 8.6 mg/dL (8.6-10.3); EGFR African American 21.8 (>60); Globulin 3.9 g/dL (2-4); Potassium 3.7 mmol/L (3.5-5.0); Total Bilirubin 0.6 mg/dL (0.2-1.0); Total Protein 6.6 g/dL (6.4-8.9)
[2020-12-27] MEDS: Multivitamins/Minerals TAB PO SCH (09:18)
[2020-12-27] MEDS ORDERED: Lidocaine 1% VIAL 10 MG/ML VIAL ONE (10:18)
[2020-12-27] MEDS ORDERED: fentaNYL 100 mcg/2 ml 50 MCG/ML VIAL ONE (10:18)
[2020-12-27] MEDS ORDERED: Midazolam 5 mg/5 ml VIAL 1 mg/ml 5 ml VIAL (5 mg) ONE (10:18)
[2020-12-27] MEDS: PTO: Multivitamins/Mins AREDS2 (NF) CAP PO SCH ×2 (10:22→23:00)
[2020-12-27] MEDS ORDERED: diPHENhydraMINE IV 50 MG/ML 1 ml VIAL (BENADRYL) ONE (11:07)
[2020-12-27] MEDS: ceFAZolin VIAL 1 GM in NS 0.9% 50 ML 50 ML IVPB SCH (22:54)
[2020-12-28 06:52] LABS: BUN/Creatinine Ratio 18.5 (8-20); Calcium 8.5 mg/dL (8.6-10.3); EGFR African American 22.7 (>60); EGFR Non-African American 18.7 (>60); Potassium 3.6 mmol/L (3.5-5.0)
[2020-12-28] MEDS: PTO: Multivitamins/Mins AREDS2 (NF) CAP PO SCH ×2 (10:04→22:23)
[2020-12-28] MEDS: Multivitamins/Minerals TAB PO SCH (10:09)
[2020-12-28] MEDS ORDERED: Potassium Chlor 20 meq TAB.ER PO ONE (10:16)
[2020-12-28] MEDS: ceFAZolin VIAL 1 GM in NS 0.9% 50 ML 50 ML IVPB SCH (10:33)
[2020-12-28 11:46] LABS: Magnesium 2.2 mg/dL (1.9-2.7)
[2020-12-28] MEDS ORDERED: Potassium Chlor 20 meq TAB.ER PO SCH (12:00)
[2020-12-28] MEDS: HYDROcodone/ACETAMIN 5/325 mg TAB PO PRN (16:53)
[2020-12-29 05:21] LABS: ABS Basophils 0.1 10^3/ul (0-0.2); ABS Eosinophils 0.5 10^3/ul (0-0.6); ABS Lymphocytes 0.5 10^3/ul (1.0-4.8); ABS Monocytes 1.2 10^3/ul (0-0.8); ABS Neutrophils 8.5 10^3/ul (1.5-7.7); Eosinophil % 4.3 %; Hematocrit 25 % (42-52); Hemoglobin 8.2 g/dL (14.0-18.0); Lymphocyte % 4.9 %; Mean Corpuscular HGB Conc 33 g/dL (31-36); Mean Corpuscular Hemoglobin 30 pg (27-31); Mean Corpuscular Volume 90 fL (80-94); Mean Platelet Volume 8.5 fL (7.4-10.4); Platelet Count 264 10^3/uL (150-450); Red Blood Count 2.75 10^6 /uL (4.18-5.48); Red Cell Distribution Width 15 % (10-15); White Blood Count 10.7 10^3/uL (3.5-10.8)
[2020-12-29 05:26] LABS: INR 1.23 (0.82-1.09)
[2020-12-29 05:37] LABS: Albumin 2.4 g/dL (3.2-5.2); Albumin/Globulin Ratio 0.6 (1-3); BUN/Creatinine Ratio 19.2 (8-20); Calcium 8.5 mg/dL (8.6-10.3); EGFR African American 21.3 (>60); EGFR Non-African American 17.6 (>60); Globulin 3.8 g/dL (2-4); Magnesium 2.3 mg/dL (1.9-2.7); Potassium 4.1 mmol/L (3.5-5.0); Total Bilirubin 0.4 mg/dL (0.2-1.0); Total Protein 6.2 g/dL (6.4-8.9)
[2020-12-29] MEDS: Multivitamins/Minerals TAB PO SCH (09:28)
[2020-12-29] MEDS: PTO: Multivitamins/Mins AREDS2 (NF) CAP PO SCH ×2 (09:30→21:49)
[2020-12-29 13:00] LABS: Hematocrit 25 % (42-52); Hemoglobin 8.3 g/dL (14.0-18.0)
[2020-12-29 16:06] LABS: Urine Appearance Cloudy; Urine Bilirubin Negative (Negative); Urine Blood 3+ (Negative); Urine Color Amber; Urine Glucose 2+(150 mg/dL) (Negative); Urine Ketones Negative (Negative); Urine Nitrite Negative (Negative); Urine Protein 2+(100 mg/dL) (Negative); Urine Specific Gravity 1.017 (1.010-1.030); Urine Urobilinogen Negative (Negative)
[2020-12-29 16:10] LABS: Urine Bacteria Absent (Absent); Urine Red Blood Cell 3+(>10/hpf) (Absent); Urine White Blood Cell 1+(6-10/hpf) (Absent)
[2020-12-30] MEDS: PTO: Multivitamins/Mins AREDS2 (NF) CAP PO SCH ×2 (09:48→21:24)
[2020-12-30] MEDS: Multivitamins/Minerals TAB PO SCH (09:49)
[2020-12-30] MEDS: Lactulose 30 ml UDC PO SCH ×2 (14:03→21:23)
[2020-12-30] MEDS: Polyethylene Glycol 3350 17 GM PACKET PO SCH (14:03)
[2020-12-31] MEDS: Multivitamins/Minerals TAB PO SCH (08:38)
[2020-12-31] MEDS: PTO: Multivitamins/Mins AREDS2 (NF) CAP PO SCH ×2 (08:39→20:55)
[2020-12-31] MEDS: Polyethylene Glycol 3350 17 GM PACKET PO SCH (08:44)
[2020-12-31 12:32] LABS: ABS Eosinophils 0.3 10^3/ul (0-0.6); ABS Lymphocytes 0.3 10^3/ul (1.0-4.8); ABS Monocytes 1.5 10^3/ul (0-0.8); ABS Neutrophils 11.1 10^3/ul (1.5-7.7); Eosinophil % 2.1 %; Hematocrit 25 % (42-52); Hemoglobin 8.1 g/dL (14.0-18.0); Lymphocyte % 2.6 %; Mean Corpuscular HGB Conc 32 g/dL (31-36); Mean Corpuscular Hemoglobin 29 pg (27-31); Mean Corpuscular Volume 91 fL (80-94); Mean Platelet Volume 8.9 fL (7.4-10.4); Platelet Count 357 10^3/uL (150-450); Red Blood Count 2.75 10^6 /uL (4.18-5.48); Red Cell Distribution Width 16 % (10-15); White Blood Count 13.2 10^3/uL (3.5-10.8)
[2020-12-31 12:53] LABS: BUN/Creatinine Ratio 21.2 (8-20); Calcium 8.7 mg/dL (8.6-10.3); EGFR African American 18.3 (>60); EGFR Non-African American 15.1 (>60); Potassium 4.1 mmol/L (3.5-5.0)
[2021-01-01 05:57] LABS: ABS Eosinophils 0.3 10^3/ul (0-0.6); ABS Lymphocytes 0.4 10^3/ul (1.0-4.8); ABS Monocytes 1.5 10^3/ul (0-0.8); ABS Neutrophils 9.9 10^3/ul (1.5-7.7); Eosinophil % 2.8 %; Hematocrit 24 % (42-52); Hemoglobin 8.1 g/dL (14.0-18.0); Lymphocyte % 3.5 %; Mean Corpuscular HGB Conc 33 g/dL (31-36); Mean Corpuscular Hemoglobin 30 pg (27-31); Mean Corpuscular Volume 91 fL (80-94); Mean Platelet Volume 8.8 fL (7.4-10.4); Nucleated Red Blood Cells % 0.1; Platelet Count 372 10^3/uL (150-450); Red Blood Count 2.67 10^6 /uL (4.18-5.48); Red Cell Distribution Width 16 % (10-15); White Blood Count 12.2 10^3/uL (3.5-10.8)
[2021-01-01 06:14] LABS: BUN/Creatinine Ratio 21.1 (8-20); Calcium 8.6 mg/dL (8.6-10.3); EGFR African American 18.4 (>60); EGFR Non-African American 15.2 (>60); Potassium 4.2 mmol/L (3.5-5.0)
[2021-01-01] MEDS: PTO: Multivitamins/Mins AREDS2 (NF) CAP PO SCH ×2 (08:24→20:06)
[2021-01-01] MEDS: Multivitamins/Minerals TAB PO SCH (08:24)
[2021-01-01] MEDS: Polyethylene Glycol 3350 17 GM PACKET PO SCH (08:49)
[2021-01-02 06:25] LABS: BUN/Creatinine Ratio 21.5 (8-20); Calcium 8.8 mg/dL (8.6-10.3); EGFR African American 19.4 (>60); Potassium 4.1 mmol/L (3.5-5.0)
[2021-01-02] MEDS: Multivitamins/Minerals TAB PO SCH (10:11)
[2021-01-02] MEDS: PTO: Multivitamins/Mins AREDS2 (NF) CAP PO SCH ×2 (10:12→20:31)
[2021-01-02] MEDS: Polyethylene Glycol 3350 17 GM PACKET PO SCH (10:13)
[2021-01-03] MEDS: PTO: Multivitamins/Mins AREDS2 (NF) CAP PO SCH ×2 (08:16→20:52)
[2021-01-03] MEDS: Multivitamins/Minerals TAB PO SCH (08:16)
[2021-01-03] MEDS: Polyethylene Glycol 3350 17 GM PACKET PO SCH (08:17)
[2021-01-04] MEDS: Polyethylene Glycol 3350 17 GM PACKET PO SCH (08:59)
[2021-01-04] MEDS: PTO: Multivitamins/Mins AREDS2 (NF) CAP PO SCH (09:00)
[2021-01-04] MEDS: Multivitamins/Minerals TAB PO SCH (09:00)
[2021-01-04 11:55] VITALS: BP 135/60
== END 2021-01-04 13:40 | DRG 242 ==
LOC: ED 01:56 → MED 09:56 → MEDTELE 12-27 11:43
PROVIDERS: ADMIT Internal Medicine; ATTEND Student in an Organized Health Care Education/Training Program

== ENCOUNTER 2021-01-10 01:25 | Inpatient (IN) ==
[2021-01-10] MEDS ORDERED: Lactated Ringers 1000 ml BAG IV.FLUID IV ONE (01:36)
[2021-01-10 02:27] LABS: ABS Basophils 0.1 10^3/ul (0-0.2); ABS Eosinophils 0.2 10^3/ul (0-0.6); ABS Lymphocytes 0.4 10^3/ul (1.0-4.8); ABS Monocytes 1.4 10^3/ul (0-0.8); ABS Neutrophils 8.5 10^3/ul (1.5-7.7); Eosinophil % 1.7 %; Hematocrit 21 % (42-52); Lymphocyte % 3.9 %; Mean Corpuscular HGB Conc 33 g/dL (31-36); Mean Corpuscular Hemoglobin 30 pg (27-31); Mean Corpuscular Volume 91 fL (80-94); Mean Platelet Volume 8.7 fL (7.4-10.4); Platelet Count 273 10^3/uL (150-450); Red Blood Count 2.34 10^6 /uL (4.18-5.48); Red Cell Distribution Width 15 % (10-15); White Blood Count 10.5 10^3/uL (3.5-10.8)
[2021-01-10 02:33] LABS: Activated Partial Thrombo Time 34.8 seconds (26.0-38.0); INR 1.4 (0.82-1.09)
[2021-01-10 02:50] LABS: ALT 64 U/L (7-52); AST 90 U/L (13-39); Albumin 2.3 g/dL (3.2-5.2); Albumin/Globulin Ratio 0.6 (1-3); Alkaline Phosphatase 560 U/L (34-104); Anion Gap 9 mmol/L (2-11); BUN/Creatinine Ratio 20.1 (8-20); Blood Urea Nitrogen 82 mg/dL (6-24); C Reactive Protein 211.28 mg/L (<8.01); CO2 Carbon Dioxide 19 mmol/L (22-32); Calcium 8.4 mg/dL (8.6-10.3); Chloride 109 mmol/L (101-111); EGFR African American 17.4 (>60); EGFR Non-African American 14.4 (>60); Globulin 3.6 g/dL (2-4); Glucose 111 mg/dL (70-100); Potassium 4.5 mmol/L (3.5-5.0); Sodium 137 mmol/L (135-145); Total Protein 5.9 g/dL (6.4-8.9)
[2021-01-10 02:56] LABS: Troponin I 0.04 ng/mL (<0.03)
[2021-01-10] MEDS ORDERED: Lactated Ringers 1000 ml BAG 1,000 ML IV ONE (03:12)
[2021-01-10] MEDS ORDERED: Piperacillin/Tazobac ADVAN 3.375 GM in NS 0.9% 100 ml BAG 100 ML IV ONE (04:04)
[2021-01-10 04:11] LABS: Urine Appearance Cloudy; Urine Bilirubin Negative (Negative); Urine Blood Negative (Negative); Urine Color Yellow; Urine Glucose Negative (Negative); Urine Ketones Negative (Negative); Urine Nitrite Negative (Negative); Urine Protein 2+(100 mg/dL) (Negative); Urine Specific Gravity 1.013 (1.002-1.030); Urine Urobilinogen Negative (Negative)
[2021-01-10 04:15] LABS: Urine Bacteria Absent (Absent); Urine Red Blood Cell Trace(0-2/hpf) (Absent); Urine Squamous Epithelial Cell Present (Absent); Urine White Blood Cell Trace(0-5/hpf) (Absent)
[2021-01-10 05:58] LABS: Hematocrit 24 % (42-52); Hemoglobin 7.8 g/dL (14.0-18.0); Mean Corpuscular HGB Conc 32 g/dL (31-36); Mean Corpuscular Hemoglobin 30 pg (27-31); Mean Corpuscular Volume 92 fL (80-94); Mean Platelet Volume 8.8 fL (7.4-10.4); Platelet Count 290 10^3/uL (150-450); Red Blood Count 2.61 10^6 /uL (4.18-5.48); Red Cell Distribution Width 15 % (10-15); White Blood Count 11.9 10^3/uL (3.5-10.8)
[2021-01-10] MEDS ORDERED: Dextrose 50% Syringe 50 ml 25 GM/50 ML SYRINGE IV PUSH PRN (06:06)
[2021-01-10] MEDS ORDERED: Ondansetron 4 mg VIAL 2 MG/ML 2 ml VIAL IV PRN (06:06)
[2021-01-10] MEDS ORDERED: Vancomycin 1,000 MG in NS 0.9% 250 ml 250 ML IVPB ONE (06:06)
[2021-01-10 06:15] LABS: Anion Gap 10 mmol/L (2-11); BUN/Creatinine Ratio 20.1 (8-20); Blood Urea Nitrogen 82 mg/dL (6-24); CO2 Carbon Dioxide 20 mmol/L (22-32); Calcium 8.5 mg/dL (8.6-10.3); Chloride 110 mmol/L (101-111); EGFR African American 17.5 (>60); EGFR Non-African American 14.5 (>60); Glucose 104 mg/dL (70-100); Potassium 4.6 mmol/L (3.5-5.0); Sodium 140 mmol/L (135-145)
[2021-01-10 06:19] LABS: ABS Eosinophils 0.2 10^3/ul (0-0.6); ABS Lymphocytes 0.6 10^3/ul (1.0-4.8); ABS Monocytes 1.7 10^3/ul (0-0.8); ABS Neutrophils 9.4 10^3/ul (1.5-7.7); Eosinophil % 1.7 %; Lymphocyte % 4.7 %; Nucleated Red Blood Cells % 0.1
[2021-01-10] MEDS ORDERED: Vancomycin per Pharmacy 1 EA NOTE FOLLOW UP SCH (07:00)
[2021-01-10] MEDS: Cefepime 2 GM in Dextrose 2 GM/50 ML BAG IV SCH (13:41)
[2021-01-10 14:13] LABS: Troponin I 0.04 ng/mL (<0.03)
[2021-01-10 14:22] LABS: Urine Creatinine Concentration 53.21 mg/dL
[2021-01-11] MEDS ORDERED: Vancomycin Random Level NOTE FOLLOW UP ONE (06:00)
[2021-01-11 06:29] LABS: Hematocrit 28 % (42-52); Hemoglobin 9.1 g/dL (14.0-18.0); Mean Corpuscular HGB Conc 33 g/dL (31-36); Mean Corpuscular Hemoglobin 29 pg (27-31); Mean Corpuscular Volume 89 fL (80-94); Mean Platelet Volume 8.5 fL (7.4-10.4); Platelet Count 294 10^3/uL (150-450); Red Blood Count 3.11 10^6 /uL (4.18-5.48); Red Cell Distribution Width 15 % (10-15); White Blood Count 12.6 10^3/uL (3.5-10.8)
[2021-01-11 06:35] LABS: INR 1.35 (0.82-1.09)
[2021-01-11 06:46] LABS: BUN/Creatinine Ratio 18.9 (8-20); Calcium 8.4 mg/dL (8.6-10.3); EGFR African American 18.1 (>60); EGFR Non-African American 14.9 (>60); Potassium 4.4 mmol/L (3.5-5.0)
[2021-01-11 07:26] LABS: Vancomycin Random 8.5 mcg/mL
[2021-01-11 08:07] LABS: ABS Eosinophils 0.2 10^3/ul (0-0.6); ABS Lymphocytes 0.5 10^3/ul (1.0-4.8); ABS Monocytes 1.9 10^3/ul (0-0.8); ABS Neutrophils 9.9 10^3/ul (1.5-7.7); Eosinophil % 1.9 %; Lymphocyte % 3.7 %
[2021-01-11 08:55] LABS: Troponin I 0.04 ng/mL (<0.03)
[2021-01-11] MEDS ORDERED: Vancomycin 1,250 MG in NS 0.9% 250 ml 250 ML IVPB ONE (10:30)
[2021-01-11 11:19] LABS: Troponin I 0.03 ng/mL (<0.03)
[2021-01-11] MEDS: Cefepime 2 GM in Dextrose 2 GM/50 ML BAG IV SCH (13:43)
[2021-01-11] MEDS ORDERED: Magnesium Hydroxide LIQ 30 ML UDC PO PRN (13:46)
[2021-01-11] MEDS ORDERED: Senna TAB 8.6 mg TAB PO PRN (13:47)
[2021-01-11] MEDS: Heparin 5000 UNITS/ML 1 mL VIAL SUBCUT SCH (18:20)
[2021-01-12] MEDS: Heparin 5000 UNITS/ML 1 mL VIAL SUBCUT SCH ×2 (05:37→19:23)
[2021-01-12 05:54] LABS: Hematocrit 29 % (42-52); Hemoglobin 9.4 g/dL (14.0-18.0); Mean Corpuscular HGB Conc 33 g/dL (31-36); Mean Corpuscular Hemoglobin 29 pg (27-31); Mean Corpuscular Volume 90 fL (80-94); Mean Platelet Volume 8.8 fL (7.4-10.4); Platelet Count 274 10^3/uL (150-450); Red Blood Count 3.19 10^6 /uL (4.18-5.48); Red Cell Distribution Width 15 % (10-15); White Blood Count 13.7 10^3/uL (3.5-10.8)
[2021-01-12] MEDS ORDERED: Vancomycin Random Level NOTE FOLLOW UP ONE (06:00)
[2021-01-12 06:18] LABS: BUN/Creatinine Ratio 19.5 (8-20); Calcium 8.7 mg/dL (8.6-10.3); EGFR African American 18.9 (>60); EGFR Non-African American 15.6 (>60); Potassium 4.3 mmol/L (3.5-5.0)
[2021-01-12 07:23] LABS: ABS Basophils 0.1 10^3/ul (0-0.2); ABS Eosinophils 0.2 10^3/ul (0-0.6); ABS Lymphocytes 0.5 10^3/ul (1.0-4.8); ABS Monocytes 2.3 10^3/ul (0-0.8); ABS Neutrophils 10.6 10^3/ul (1.5-7.7); Eosinophil % 1.7 %; Lymphocyte % 3.4 %
[2021-01-12] MEDS: Cefepime 2 GM in Dextrose 2 GM/50 ML BAG IV SCH (12:53)
[2021-01-13] MEDS: Heparin 5000 UNITS/ML 1 mL VIAL SUBCUT SCH ×2 (05:18→17:22)
[2021-01-13 05:40] LABS: Hematocrit 26 % (42-52); Hemoglobin 8.4 g/dL (14.0-18.0); Mean Corpuscular HGB Conc 32 g/dL (31-36); Mean Corpuscular Hemoglobin 29 pg (27-31); Mean Corpuscular Volume 90 fL (80-94); Platelet Count 249 10^3/uL (150-450); Red Blood Count 2.92 10^6 /uL (4.18-5.48); Red Cell Distribution Width 15 % (10-15); White Blood Count 13.3 10^3/uL (3.5-10.8)
[2021-01-13 05:55] LABS: BUN/Creatinine Ratio 18.8 (8-20); C Reactive Protein 179.86 mg/L (<8.01); Calcium 8.2 mg/dL (8.6-10.3); EGFR African American 19.3 (>60)
[2021-01-13] MEDS ORDERED: Vancomycin Random Level NOTE FOLLOW UP ONE (06:00)
[2021-01-13 06:58] LABS: Vancomycin Random 16.2 mcg/mL
[2021-01-13] MEDS: Cefepime 2 GM in Dextrose 2 GM/50 ML BAG IV SCH (12:50)
[2021-01-14] MEDS ORDERED: Vancomycin Random Level NOTE FOLLOW UP ONE (06:00)
[2021-01-14] MEDS: Heparin 5000 UNITS/ML 1 mL VIAL SUBCUT SCH ×2 (06:21→17:03)
[2021-01-14] MEDS: Cefepime 2 GM in Dextrose 2 GM/50 ML BAG IV SCH (13:55)
[2021-01-15] MEDS: Heparin 5000 UNITS/ML 1 mL VIAL SUBCUT SCH (05:11)
[2021-01-15] MEDS: Cefepime 2 GM in Dextrose 2 GM/50 ML BAG IV SCH (12:00)
[2021-01-15] MEDS ORDERED: Ondansetron ODT 4 mg TAB 4 MG TAB SL PRN (12:18)
[2021-01-15] MEDS: Morphine ORAL CONCENTRATE 5 MG/0.25 ML ORAL.SYRIN SL PRN ×2 (12:49→15:43)
[2021-01-16 00:48] VITALS: BP 132/70
== END 2021-01-16 14:10 | disposition hospice, inpatient (51) | DRG 193 ==
LOC: ED 01:25 → MED 06:06
PROVIDERS: ADMIT Pediatrics; ATTEND Student in an Organized Health Care Education/Training Program